=== PATIENT | female | born 1950 | race Caucasian/White ===

== ENCOUNTER 2018-07-23 15:36 | Inpatient (IN) ==
[2018-07-23] MEDS ORDERED: SODIUM CHLORIDE 0.9% 1000ML 1,000 ML IV SCH ×2 (16:00)
[2018-07-23 16:34] LABS: Basophils # (auto) 0.02 K/uL (0-0.2); Basophils % (auto) 0.1 %; Hematocrit (blood only) 44.8 % (37-47); Hemoglobin 14.6 g/dL (12.0-16.0); Immature Granulocytes # (auto) 0.07 K/uL (0.00-0.02); Immature Granulocytes % (auto) 0.4 %; Lymphocytes # (auto) 0.92 K/uL (1.2-3.4); Lymphocytes % (auto) 5.3 %; Mean Corpuscular Hgb Conc 32.6 g/dL (32-36); Mean Corpuscular Volume 93.3 fL (80-100); Mean Platelet Volume 11.1 fL (7.4-10.4); Monocytes # (auto) 0.95 K/uL (0.11-0.59); Monocytes % (auto) 5.4 %; Neutrophils # (auto) 15.55 K/uL (1.4-6.5); Neutrophils % (auto) 88.8 %; Platelet Count 663 K/uL (130-400); RDW Coefficient of Variation 13.8 % (11.5-14.5); RDW Standard Deviation 46.7 fL (36.4-46.3); White Blood Count 17.51 K/uL (4.8-10.8)
[2018-07-23 16:43] LABS: Appearance Urine Clear (Clear); Bilirubin Urine Negative (Negative); Color Urine Yellow; Glucose Urine UA 3+ (Negative); Ketones Urine 1+ (Negative); Leukocyte Esterase Urine Negative (Negative); Nitrite Urine Negative (Negative); Protein Urine Negative (Negative); Specific Gravity Urine 1.035 (1.000-1.030); Urobilinogen Urine Negative (Negative)
[2018-07-23 16:52] LABS: Bacteria Urine Automated Negative (Negative); Cast Urine Automated 0 /lpf (0-5); WBC Urine Automated 0 /hpf (0-5)
--- NOTE | 2018-07-23 16:59 | XRay Report ---
XR chest 1V portable CLINICAL HISTORY: 67 years-old Female presenting with weakness, contusion. TECHNIQUE: Portable upright AP view of the chest was obtained. COMPARISON: 09/19/2014. FINDINGS: Atherosclerosis of the aortic arch. Cardiac silhouette mildly enlarged. Lungs and pleural spaces calli r. Degenerative changes of the thoracic spine. Upper abdomen normal. IMPRESSION: 1. Mild cardiomegaly. No other convincing evidence of acute cardiopulmonary disease. Electronically signed by: Norm Gold M.D. 07/23/2018 4:58 PM
[2018-07-23 17:05] LABS: Albumin Globulin Ratio 0.7 (0.9-2); Albumin Level 3.3 gm/dl (3.4-5.0); BUN Creatinine Ratio 34.5 (10-20); Bilirubin,Total 2.2 mg/dl (0.2-1); Calcium 9.7 mg/dl (8.5-10.1); Creatinine Clr Calc Pharmacy 34.4 ml/min; Est GFR (African American) 45.5; Est GFR (Non-African American) 39.3; Globulin 4.6 gm/dl (2.5-4.0); Magnesium 2.6 mg/dl (1.8-2.4); Potassium 4.3 mmol/L (3.5-5.1); Total Protein 7.9 gm/dl (6.4-8.2)
[2018-07-23] MEDS ORDERED: SODIUM CHLORIDE 0.9% 1000ML 1,000 ML IV ONE (17:06)
[2018-07-23] MEDS ORDERED: MODERATE STRESS LEVEL ONE (17:25)
[2018-07-23] MEDS ORDERED: HHS GOAL RANGE 250-350 mg/dl ONE (17:25)
[2018-07-23] MEDS ORDERED: INSULIN REGULAR 250 UNITS in SODIUM CHLORIDE 0.9% 247.5 ML IV SCH ×2 (17:30→23:41)
[2018-07-23 17:38] LABS: Base Excess VBG -2.6 mEq/L; pH VBG 7.37 (7.36-7.41)
[2018-07-23] MEDS ORDERED: NovoLIN-R BOLUS FROM BAG IV ONE (17:38)
[2018-07-23] MEDS ORDERED: metroNIDAZOLE 500 MG/100 ML BAG IV STA (19:48)
[2018-07-23 20:21] LABS: Partial Thromboplastin Ratio 1.1; Partial Thromboplastin Time 29.4 Seconds (21.0-31.0)
[2018-07-23 20:25] LABS: Troponin I 0.476 ng/ml (0-0.045)
--- NOTE | 2018-07-23 21:03 | CT Scan Report ---
CT head/brain wo con CT DOSE: 537.48 mGy.cm HISTORY: Mental status change melvina cordero TECHNIQUE: Multiaxial CT images of the head were performed without the use of intravenous contrast. A dose lowering technique was utilized adhering to the principles of ALARA. Comparison: 09/19/2014 Findings: The paranasal sinuses and mastoid air cells are clear. Evidence for a prior right frontal t emporal rather extensive infarct. Evidence for an aneurysm clipping procedure the anterior interhemis pheric fissure region. No acute intracranial hemorrhage. No midline shift. Impression: 1. 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 2. Postoperative changes as noted. 3. No acute intracranial abnormality. The above report was generated using voice recognition software. It may contain grammatical, syntax or spelling errors. Electronically signed by: Idris Hopson M.D. 07/23/2018 9:02 PM
--- NOTE | 2018-07-23 21:11 | History & Physical Report ---
Date of Service July 23, 2018 Assessment & Plan (1) Encephalopathy: Multifactorial : Hyperglycemic crisis DM2 insulin requiring, suboptimal control at baseline recent outpatient hemoglobin A1c of 11.25 June 2018 Possible precipitants : Dietary indiscretion ? Diarrheal illness rule out C. difficile possible sepsis ARF, clinical dehydration secondary to above hypertensive urgency secondary to illness Troponin elevation secondary to sepsis, uncontrolled BP history CVA as per records history of subarachnoid hemorrhage secondary to cerebral aneurysm status post coil embolization (2014) seizure disorder, stable on regimen past tobacco abuse PCU Facilitate antihypertensive meds, may need titration Hold home PONCHO inhibitor, diuretics until creatinine at baseline IVF, IV insulin Increase basal Lantus May need glycemic control consult Diabetic education Follow troponin, TTE RE troponin elevation Stool C. difficile, Flagyl for now for presumptive C. difficile given possible sepsis; oral vancomycin course if stool C. difficile positive PT OT eval DVT prophylaxis. Lovenox subcu Full code Patient's daughter requesting updates from providers. Ms. Yuliya Remy, contact #[phone]. History of Present Illness Chief Complaint: High sugars, confusion Primary Care Provider: Alyson Nava History obtained from patient, family, and records. Medical history significant for hypertension, DM 2 insulin requiring, PSVT as per records, history CVA, history of subarachnoid hemorrhage secondary to cerebral aneurysm status post coil embolization (2014), essential tremors, history of seizure disorder, past tobacco abuse. Patient noted to be intermittently confused in the last week. Weak, thirsty, loose stools noted, nonbloody. No known sick contacts, recent travel, recent antibiotics. Transient achy headache symptoms this a.m. Achy abdominal cramping, with nausea. No chest pain, no S OB. Admits to not being careful about what she eats. BG is noted to be 600s at home. Patient directed by PCP to the ER. At the ER, IV insulin started for BSG of 1000. Medical History as above Surgical History : PEG tube, knee surgery, tracheostomy, hysterectomy Family History : Heart disease, lupus, thyroid cancer, cirrhosis Personal/Social history : Past tobacco abuse, occasional EtOH intake, retired restaurant employee Allergies Allergy/AdvReac Type Severity Reaction Status Date / Time Penicillins Allergy Severe THROAT Verified 07/23/18 17:11 SWELLS Home Medications Home Medications Medication Instructions Recorded Confirmed Type albuterol sulfate [ProAir HFA] 2 puff INHALATION QID 07/23/18 07/23/18 History aspirin [Aspir-81] 81 mg PO QAM 07/23/18 07/23/18 History atorvastatin 40 mg PO PM 07/23/18 07/23/18 History cetirizine [Zyrtec] 5 mg PO QAM 07/23/18 07/23/18 History famotidine 20 mg PO BID 07/23/18 07/23/18 History insulin glargine [Lantus U-100 30 unit SUBCUT QAM 07/23/18 07/23/18 History Insulin] levetiracetam [Keppra] 500 mg PO BID 07/23/18 07/23/18 History lisinopril-hydrochlorothiazide 0.5 tab PO QAM 07/23/18 07/23/18 History metformin 1,000 mg PO BIDM 07/23/18 07/23/18 History metoprolol succinate 50 mg PO QAM 07/23/18 07/23/18 History Past Med/Surg History Medical History HTN (hypertension) (Chronic) Fibromyalgia (Chronic) Diabetes (Chronic) Brain aneurysm History of stroke Family History Other Cirrhosis of liver not due to alcohol Social History Current Living Situation: Alone Current Living Situation Comment: Caregivers daily. 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 Review of Systems As per HPI, all 10 systems reviewed, all other ROS negative Physical Exam 2 Vital Signs (Past 24 Hours): Last Vital Signs Temp 36.5 C 07/23/18 15:43 Pulse 91 H 07/23/18 19:28 Resp 20 07/23/18 19:28 BP 175/91 H 07/23/18 19:28 Pulse Ox 95 07/23/18 19:28 Physical Exam: GENERAL: Slightly uncomfortable, tremulous, no respiratory distress SKIN: Normal color, warm HEENT: [place] palpebral conjunctivae, no ptosis, dry buccal mucosa NECK : Supple, no tenderness CHEST : Decreased effort , no tenderness HEART : RRR, no obvious murmurs ABDOMEN: Some distention, hypogastric tenderness EXTREMITIES : No LE swelling/tenderness, no other conspicuous deformities noted NEUROLOGIC : Coherent, no facial asymmetry, tremulous, MMT RUE 5/5, LUE 4/5, gait and stance not assessed Results & Data Laboratory Results Laboratory Results WBC 17.51 K/uL (4.8-10.8) H 07/23/18 16:17 RBC 4.80 M/uL (4.2-5.4) 07/23/18 16:17 Hgb 14.6 g/dL (12.0-16.0) 07/23/18 16:17 Hct 44.8 % (37-47) 07/23/18 16:17 MCV 93.3 fL (80-100) 07/23/18 16:17 MCH 30.4 pg (25-34) 07/23/18 16:17 MCHC 32.6 g/dL (32-36) 07/23/18 16:17 RDW Std Deviation 46.7 fL (36.4-46.3) H 07/23/18 16:17 RDW Coeff of Min 13.8 % (11.5-14.5) 07/23/18 16:17 Plt Count 663 K/uL (130-400) H 07/23/18 16:17 MPV 11.1 fL (7.4-10.4) H 07/23/18 16:17 Immature Gran % (Auto) 0.4 % 07/23/18 16:17 Neut % (Auto) 88.8 % 07/23/18 16:17 Lymph % (Auto) 5.3 % 07/23/18 16:17 [place] % (Auto) 5.4 % 07/23/18 16:17 Eos % (Auto) 0.0 % 07/23/18 16:17 Baso % (Auto) 0.1 % 07/23/18 16:17 Immature Gran # (Auto) 0.07 K/uL (0.00-0.02) H 07/23/18 16:17 Neut # (Auto) 15.55 K/uL (1.4-6.5) H 07/23/18 16:17 Lymph # (Auto) 0.92 K/uL (1.2-3.4) L 07/23/18 16:17 [place] # (Auto) 0.95 K/uL (0.11-0.59) H 07/23/18 16:17 Eos # (Auto) 0.00 K/uL (0-0.5) 07/23/18 16:17 Baso # (Auto) 0.02 K/uL (0-0.2) 07/23/18 16:17 APTT 29.4 Seconds (21.0-31.0) 07/23/18 16:17 PTT Ratio 1.1 07/23/18 16:17 ABG pH Cancelled 07/23/18 17:11 ABG pCO2 Cancelled 07/23/18 17:11 ABG pO2 Cancelled 07/23/18 17:11 ABG HCO3 Cancelled 07/23/18 17:11 ABG O2 Saturation Cancelled 07/23/18 17:11 ABG Base Excess Cancelled 07/23/18 17:11 [place] Test Cancelled 07/23/18 17:11 VBG pH 7.37 (7.36-7.41) 07/23/18 17:11 VBG pCO2 40 mmHg (38-50) 07/23/18 17:11 VBG pO2 35 mmHg 07/23/18 17:11 VBG HCO3 22 mmol/L 07/23/18 17:11 VBG O2 Saturation 66.0 % 07/23/18 17:11 VBG Base Excess -2.6 mEq/L 07/23/18 17:11 Barometric Pressure 738.7 mm/Hg 07/23/18 17:11 Oxygen Given Cancelled 07/23/18 17:11 Sodium 134 mmol/L (136-145) L 07/23/18 16:17 Potassium 4.3 mmol/L (3.5-5.1) 07/23/18 16:17 Chloride 99 mmol/L (98-107) 07/23/18 16:17 Carbon Dioxide 19 mmol/L (21-32) L 07/23/18 16:17 Anion Gap 16.0 (3-11) H 07/23/18 16:17 BUN 47 mg/dl (7-18) H 07/23/18 16:17 Creatinine 1.37 mg/dl (0.6-1.2) H 07/23/18 16:17 Est Cr Clr Drug Dosing 34.4 ml/min 07/23/18 16:17 Est GFR ( Amer) 45.5 07/23/18 16:17 Est GFR (Non-Af Amer) 39.3 07/23/18 16:17 BUN/Creatinine Ratio 34.5 (10-20) H 07/23/18 16:17 Glucose 771 mg/dl (70-99) H* 07/23/18 18:11 POC Glucose 531 (70-99) H* 07/23/18 20:36 Lactate 1.8 mmol/L (0.4-2.0) 07/23/18 16:17 Calcium 9.7 mg/dl (8.5-10.1) 07/23/18 16:17 Magnesium 2.6 mg/dl (1.8-2.4) H 07/23/18 16:17 Total Bilirubin 2.2 mg/dl (0.2-1) H 07/23/18 16:17 AST 14 U/L (15-37) L 07/23/18 16:17 ALT 25 U/L (12-78) 07/23/18 16:17 Alkaline Phosphatase 110 U/L (45-117) 07/23/18 16:17 Ammonia < 10.0 umol/L (11-32) L 07/23/18 17:11 Troponin I 0.476 ng/ml (0-0.045) H* 07/23/18 16:17 Total Protein 7.9 gm/dl (6.4-8.2) 07/23/18 16:17 Albumin 3.3 gm/dl (3.4-5.0) L 07/23/18 16:17 Globulin 4.6 gm/dl (2.5-4.0) H 07/23/18 16:17 Albumin/Globulin Ratio 0.7 (0.9-2) L 07/23/18 16:17 Beta-Hydroxybutyric Acd 30.33 mg/dl (0.2-2.81) H 07/23/18 18:11 TSH 0.865 uIu/ml (0.300-4.500) 07/23/18 16:17 Urine Color Yellow 07/23/18 16:27 Urine Appearance Clear (Clear) 07/23/18 16:27 Urine pH 5.0 (4.5-7.5) 07/23/18 16:27 Ur Specific [place] 1.035 (1.000-1.030) H 07/23/18 16:27 Urine Protein Negative (Negative) 07/23/18 16:27 Urine Glucose (UA) 3+ (Negative) H 07/23/18 16:27 Urine Ketones 1+ (Negative) H 07/23/18 16:27 Urine Blood Trace (Negative) H 07/23/18 16:27 Urine Nitrite Negative (Negative) 07/23/18 16:27 Urine Bilirubin Negative (Negative) 07/23/18 16:27 Urine Urobilinogen Negative (Negative) 07/23/18 16:27 Ur Leukocyte Esterase Negative (Negative) 07/23/18 16:27 Urine WBC (Auto) 0 /hpf (0-5) 07/23/18 16:27 Urine RBC (Auto) 0-4 /hpf (0-4) 07/23/18 16:27 U Hyaline Cast (Auto) 0 /lpf (0-5) 07/23/18 16:27 U Epithel Cells (Auto) 5-10 /lpf (0-5) H 07/23/18 16:27 Urine Bacteria (Auto) Negative (Negative) 07/23/18 16:27 Diagnostic Findings Chest x-ray: Cardiomegaly CT head: Old CVA right EKG as per my interpretation: Rate 100, NSR, LVH, ST depression lateral leads, T wave inversion septal leads
[2018-07-23 21:15] LABS: BUN Creatinine Ratio 34.3 (10-20); Creatinine Clr Calc Pharmacy 46.6 ml/min; Est GFR (African American) 65.8; Est GFR (Non-African American) 56.8; Troponin I 2.07 ng/ml (0-0.045)
[2018-07-23] MEDS ORDERED: ASPIRIN 325 MG ECTAB PO STA (21:19)
[2018-07-23] MEDS ORDERED: SODIUM CHLORIDE 0.9% 1000ML 1,000 ML IV STA (21:24)
[2018-07-23 22:13] LABS: Potassium 3.6 mmol/L (3.5-5.1)
[2018-07-23] MEDS: INSULIN GLARGINE SOLOSTAR 100 UNITS/ML 3 ML PEN SC SCH (22:49)
--- NOTE | 2018-07-23 23:18 | Emergency Department Note ---
Entered by Wing Sandoval acting as a scribe for Negar Driscoll MD History of Present Illness General Chief complaint: Hyperglycemia Stated complaint: BLOOD SUGAR OVER 600,CONFUSED,LETHARGIC,THIRSTY Source: patient and family (daughter) History of Present Illness Onset (ago): week(s) 1 Location: head (global) Pain Consistency: + other (persistent) Quality: + other (confusion/hyperglycemia) Associated symptoms: + headaches and + weakness The patient is a 67 year old female with diabetes who presents to the Emergency Room with persistent confusion and hyperglycemia for the past week. The daughter reports that the patient has been talking to people that are not present and slurring some of her words. She states that the patients blood glucose measured one hour ago was over 600. She reports that the patient was found to have six prepared meals from [employer] still in her fridge, and she believes that the patient has been drinking juice and eating candy. She notes that the patient has been having diarrhea for the past two days, and today she found diarrhea without blood on the carpet in the bathroom. She states that the patient has been weak and barely able to get out of bed. She had also been complaining of a headache a couple of hours ago. The patient notes some abdominal bloating but denies abdominal pain. She states that she has been urinating frequently. The daughter reports that the patient lives alone but has a caregiver visit daily. She notes a history of brain aneurysm and multiple strokes. She denies a history of liver problems but does note a family history of non-alcoholic cirrhosis of the liver. The patient denies alcohol use and states that she is a former smoker. Home Medications Home Medications Medication Instructions Recorded Confirmed Type albuterol sulfate [ProAir HFA] 2 puff INHALATION QID 07/23/18 07/23/18 History aspirin [Aspir-81] 81 mg PO QAM 07/23/18 07/23/18 History atorvastatin 40 mg PO PM 07/23/18 07/23/18 History cetirizine [Zyrtec] 5 mg PO QAM 07/23/18 07/23/18 History famotidine 20 mg PO BID 07/23/18 07/23/18 History insulin glargine [Lantus U-100 15 unit SUBCUT QAM 07/23/18 07/24/18 History Insulin] levetiracetam [Keppra] 500 mg PO BID 07/23/18 07/23/18 History lisinopril-hydrochlorothiazide 0.5 tab PO QAM 07/23/18 07/23/18 History metformin 1,000 mg PO BIDM 07/23/18 07/23/18 History metoprolol succinate 50 mg PO QAM 07/23/18 07/23/18 History Allergies Allergy/AdvReac Type Severity Reaction Status Date / Time Penicillins Allergy Severe THROAT Verified 07/23/18 17:11 SWELLS Past Med/Surg History Medical History HTN (hypertension) (Chronic) Fibromyalgia (Chronic) Diabetes (Chronic) Brain aneurysm History of stroke Family History Other Cirrhosis of liver not due to alcohol Social History Current Living Situation: Alone Current Living Situation Comment: Caregivers daily. Other Information That Helps Us Care for You: No Feels Safe at Home: Yes Safety Concerns: Feels Safe At This Time Smoking Status: Former smoker Hx Alcohol Use: No Hx Substance Use: No Beliefs That Will Affect Care: None Preferred Language: Turkmen Communication Ability: Effective Ore Roaster Required: No Review of Systems See HPI for pertinent positives & negatives. and A total of 10 systems reviewed and were otherwise negative Physical Exam Vital Signs Vital Signs - 24 hr 07/23/18 23:05 07/23/18 23:41 07/24/18 04:33 Temperature 36.8 C 36.8 C 37.1 C Temperature Source Oral Oral Oral Pulse Rate [Apical] 94 H 94 H 92 H Pulse Rhythm [Apical] Regular Regular Pulse Strength [Apical] Normal Normal Respiratory Rate 16 16 20 Respiratory Effort / Characteristics Non-Labored Spontaneous Non-Labored Respiratory Depth Normal Normal Respiratory Pattern Regular Blood Pressure [Left Arm] Blood Pressure [Right Arm] 174/80 H 174/80 H 163/86 H Blood Pressure Mean [Left Arm] Blood Pressure Mean [Right Arm] 111 111 111 Blood Pressure Position [Left Arm] Blood Pressure Position [Right Arm] Lying Lying Pulse Oximetry 92 94 Pulse Oximetry [Left Index Finger] 93 Oxygen Delivery Method Room Air Room Air Oxygen Delivery Method [Left Index Finger] Room Air 07/24/18 08:07 07/24/18 09:35 07/24/18 10:32 Temperature 37.1 C Temperature Source Oral Pulse Rate [Apical] 91 H Pulse Rhythm [Apical] Pulse Strength [Apical] Respiratory Rate 24 Respiratory Effort / Characteristics Respiratory Depth Respiratory Pattern Blood Pressure [Left Arm] 160/108 H 177/88 H Blood Pressure [Right Arm] 146/61 H Blood Pressure Mean [Left Arm] 125 117 Blood Pressure Mean [Right Arm] 89 Blood Pressure Position [Left Arm] Lying Lying Blood Pressure Position [Right Arm] Lying Pulse Oximetry 95 Pulse Oximetry [Left Index Finger] Oxygen Delivery Method Room Air Oxygen Delivery Method [Left Index Finger] 07/24/18 11:35 07/24/18 16:31 07/24/18 19:48 Temperature 36.8 C 37.4 C 37.6 C H Temperature Source Oral Oral Oral Pulse Rate [Apical] 89 90 94 H Pulse Rhythm [Apical] Regular Pulse Strength [Apical] Normal Respiratory Rate 18 18 20 Respiratory Effort / Characteristics Non-Labored Spontaneous Respiratory Depth Normal Normal Respiratory Pattern Regular Blood Pressure [Left Arm] 151/82 H 161/77 H 179/94 H Blood Pressure [Right Arm] Blood Pressure Mean [Left Arm] 105 105 122 Blood Pressure Mean [Right Arm] Blood Pressure Position [Left Arm] Lying Lying Blood Pressure Position [Right Arm] Lying Pulse Oximetry 94 92 94 Pulse Oximetry [Left Index Finger] Oxygen Delivery Method Room Air Room Air Room Air Oxygen Delivery Method [Left Index Finger] Vital signs reviewed. General: Chronically ill-appearing female, in no significant distress. HEENT: No scleral icterus, PERRLA, neck supple. Atraumatic. Mucous membranes are dry. Cardiovascular: Tachycardic rate and regular rhythm, no extra sounds. Pulmonary: Clear to auscultation bilaterally, normal work of breathing. Abdomen: Obese, soft, nontender, nondistended, positive bowel sounds. Musculoskeletal: Atraumatic, no peripheral edema. Neurologic: Patient is pleasantly confused, follows commands, answers some questions appropriately, full strength in all 4 extremities. Cranial nerves 2 through 12 grossly intact. Skin: Warm, dry, no rash Course 1558: Past medical records reviewed. The patient was evaluated in room A9B, and a complete history and physical examination were performed. 1705: The patients blood glucose is now 1052. 1745: I updated the patient and her daughter on current findings. 1800: I consulted Annel Martinez PA-C: [facility]. She will reevaluate the patient for hospitalization. 194: I contacted Dr. Yang Betancourt regarding the admission delay. He will reevaluate the patient for hospitalization. Consultations Consultation #1: I consulted Annel Martinez PA-C: [facility]. She will reevaluate the patient for hospitalization. Time: 18:00 Consultation #2: I contacted Dr. Yang Betancourt regarding the admission delay. He will reevaluate the patient for hospitalization. Time: 19:48 Administered Medications [facility] [place]: 08/23/18 08:59 Last Admin: 07/24/18 07:50 Dose: 81 mg Atorvastatin Calcium (Lipitor) 40 mg PO PM [facility] Stop: 08/23/18 20:59 Last Admin: 07/24/18 19:51 Dose: 40 mg Cetirizine HCl (Zyrtec) 5 mg PO QAM [facility] Stop: 08/23/18 08:59 Last Admin: 07/24/18 07:50 Dose: 5 mg Enoxaparin Sodium ([facility]ovenox) [facility] [place]: 08/23/18 08:59 Last Admin: 07/24/18 11:08 Dose: 30 mg Famotidine (Pepcid) 20 mg PO BID [facility] Stop: 08/23/18 08:59 Last Admin: 07/24/18 19:51 Dose: 20 mg Admin: 07/24/18 07:50 Dose: 20 mg Potassium Chloride/Sodium Chloride (1/2 Nss + 20meq Kcl 1000ml) 20 meq in 1, 000 mls @ 50 mls/hr IV .Q20H ONE Stop: 07/25/18 10:59 Last Admin: 07/24/18 15:30 Dose: 50 mls/hr Insulin Aspart (Novolog Flexpen) 0 units SC ACHS [facility] Stop: 08/23/18 06:29 Last Admin: 07/24/18 19:57 Dose: 2 units Admin: 07/24/18 17:47 Dose: 9 units Admin: 07/24/18 12:12 Dose: 6 units Admin: 07/24/18 07:53 Dose: 4 units Labetalol HCl (Normodyne) 10 mg IV Q6H PRN PRN Reason: Hypertension Stop: 08/23/18 09:14 Last Admin: 07/24/18 09:34 Dose: 10 mg Levetiracetam (Keppra) 500 mg PO BID [facility] Stop: 08/23/18 08:59 Last Admin: 07/24/18 19:53 Dose: 500 mg Admin: 07/24/18 07:50 Dose: 500 mg Lisinopril (Zestril) 10 mg PO QAM [facility] Stop: 08/23/18 01:29 Last Admin: 07/24/18 05:45 Dose: 10 mg Metoprolol Succinate (Toprol Xl) 50 mg PO QAM [facility] Stop: 08/23/18 04:59 Last Admin: 07/24/18 05:47 Dose: 50 mg Metoprolol Succinate (Toprol Xl) 25 mg PO QPM [facility] Stop: 08/23/18 20:59 Last Admin: 07/24/18 19:52 Dose: 25 mg Discontinued Medications Aspirin (Ecotrin) 81 mg PO NOW STA Stop: 07/23/18 21:20 Last Admin: 07/24/18 04:22 Dose: Not Given Sodium Chloride (Nss 1000ml) 1,000 mls @ 250 mls/hr IV .Q4H [facility] Stop: 07/23/18 19:59 Last Infusion: 07/23/18 22:25 Dose: 0 mls/hr Admin: 07/23/18 18:25 Dose: 250 mls/hr Sodium Chloride (Nss 1000ml) 1,000 mls @ 999 mls/hr IV .Q1H1M [facility] Stop: 07/23/18 17:00 Last Infusion: 07/23/18 17:20 Dose: 0 mls/hr Admin: 07/23/18 16:20 Dose: 999 mls/hr Sodium Chloride (Nss 1000ml) 1,000 mls @ 999 mls/hr IV .Q1H1M ONE Stop: 07/23/18 18:06 Last Infusion: 07/23/18 18:25 Dose: 0 mls/hr Admin: 07/23/18 17:25 Dose: 999 mls/hr Insulin Human Regular 250 (units/ Sodium Chloride) 250 mls @ 2 mls/hr IV .Q24H [facility]; Protocol Stop: 08/22/18 17:29 Last Titration: 07/24/18 07:19 Dose: 0 units/hr, 0 mls/hr Titration: 07/23/18 19:37 Dose: 2 units/hr, 2 mls/hr Admin: 07/23/18 18:03 Dose: 1.7 units/hr, 1.7 mls/hr Metronidazole (Flagyl) 500 mg in 100 mls @ 100 mls/hr IV NOW STA Stop: 07/23/18 20:47 Last Infusion: 07/23/18 22:48 Dose: 0 mls/hr Admin: 07/23/18 21:48 Dose: 100 mls/hr Sodium Chloride (Nss 1000ml) 1,000 mls @ 60 mls/hr IV .[id number] STA Stop: 07/24/18 14:03 Last Infusion: 07/24/18 04:24 Dose: 0 mls/hr Infusion: 07/24/18 04:19 Dose: 0 mls/hr Admin: 07/24/18 00:16 Dose: 60 mls/hr Sodium Chloride (1/2 Nss) 1,000 mls @ 60 mls/hr IV .[id number] STA Stop: 07/24/18 20:18 Last Infusion: 07/24/18 07:19 Dose: 0 mls/hr Admin: 07/24/18 04:19 Dose: 60 mls/hr Potassium Chloride/Sodium Chloride (1/2 Nss + 20meq Kcl 1000ml) 20 meq in 1, 000 mls @ 60 mls/hr IV .[id number] STA Stop: 07/24/18 23:16 Last Infusion: 07/24/18 09:17 Dose: 0 mls/hr Admin: 07/24/18 07:49 Dose: 60 mls/hr Insulin Glargine (Lantus Solostar Pen) 30 units SC BID [facility] Stop: 08/22/18 21:44 Last Admin: 07/24/18 07:51 Dose: 30 units Admin: 07/23/18 22:49 Dose: 30 units Insulin Glargine (Lantus Solostar Pen) 0 units SC 07/24/18@2100 [facility]; Protocol Stop: 07/24/18 21:01 Last Admin: 07/24/18 19:57 Dose: 12 units Insulin Human Regular (Novolin R Bolus From Bag) 1.5 units IV ONE ONE Stop: 07/23/18 17:39 Last Admin: 07/23/18 18:04 Dose: 1.5 units Metoprolol Tartrate (Lopressor) 12.5 mg PO NOW STA Stop: 07/23/18 23:42 Last Admin: 07/24/18 01:29 Dose: 12.5 mg Miscellaneous (Insulin Protocol Moderate Stress Level) 1 ea N/A ONE ONE Stop: 07/23/18 17:26 Last Admin: 07/23/18 18:05 Dose: 1 ea Miscellaneous (Insulin Protocol Hhs Goal Range) 1 ea N/A ONE ONE Stop: 07/23/18 17:26 Last Admin: 07/23/18 18:05 Dose: 1 ea Perflutren Lipid Microsphere (Definity) 2 ml IV ONCE ONE Stop: 07/24/18 07:19 Last Admin: 07/24/18 07:19 Dose: 2 ml Potassium Chloride (Klor-Con M10) 40 meq PO NOW ONE Stop: 07/24/18 08:01 Last Admin: 07/24/18 08:02 Dose: 40 meq Medical Decision Making Differential Diagnosis Differential diagnosis: Etiologies such as metabolic, infection, hyperglycemia, electrolyte abnormalities, cardiac sources, intracerebral event, toxicologic, neurologic, as well as others were entertained. Medical Records Attestation: I reviewed the patient's medical records. Home Medications Current Medication List: was personally reviewed by me Laboratory Data Attestation: I reviewed the patient's lab results. Result diagrams: 07/24/18 05:17 07/24/18 20:05 Lab Results 07/23/18 07/23/18 07/23/18 Range/Units 16:14 16:17 16:17 WBC 17.51 H (4.8-10.8) K/uL RBC 4.80 (4.2-5.4) M/uL Hgb 14.6 (12.0-16.0) g/dL Hct 44.8 (37-47) % MCV 93.3 (80-100) fL MCH 30.4 (25-34) pg MCHC 32.6 (32-36) g/dL RDW Std Deviation 46.7 H (36.4-46.3) fL RDW Coeff of Min 13.8 (11.5-14.5) % Plt Count 663 H (130-400) K/uL MPV 11.1 H (7.4-10.4) fL Immature Gran % (Auto) 0.4 % Neut % (Auto) 88.8 % Lymph % (Auto) 5.3 % [place] % (Auto) 5.4 % Eos % (Auto) 0.0 % Baso % (Auto) 0.1 % Immature Gran # (Auto) 0.07 H (0.00-0.02) K/uL Neut # (Auto) 15.55 H (1.4-6.5) K/uL Lymph # (Auto) 0.92 L (1.2-3.4) K/uL [place] # (Auto) 0.95 H (0.11-0.59) K/uL Eos # (Auto) 0.00 (0-0.5) K/uL Baso # (Auto) 0.02 (0-0.2) K/uL PT (9.0-12.0) Seconds INR (0.9-1.1) APTT (21.0-31.0) Seconds PTT Ratio ABG pH ABG pCO2 ABG pO2 ABG HCO3 ABG O2 Saturation ABG Base Excess [place] Test VBG pH (7.36-7.41) VBG pCO2 (38-50) mmHg VBG pO2 mmHg VBG HCO3 mmol/L VBG O2 Saturation % VBG Base Excess mEq/L Barometric Pressure Oxygen Given Sodium 134 L (136-145) mmol/L Potassium 4.3 (3.5-5.1) mmol/L Chloride 99 (98-107) mmol/L Carbon Dioxide 19 L (21-32) mmol/L Anion Gap 16.0 H (3-11) BUN 47 H (7-18) mg/dl Creatinine 1.37 H (0.6-1.2) mg/dl Est Cr Clr Drug Dosing 34.4 ml/min Est GFR ( Amer) 45.5 Est GFR (Non-Af Amer) 39.3 BUN/Creatinine Ratio 34.5 H (10-20) Glucose 1052 H* (70-99) mg/dl POC Glucose > 600 H* (70-99) Lactate (0.4-2.0) mmol/L Calcium 9.7 (8.5-10.1) mg/dl Magnesium 2.6 H (1.8-2.4) mg/dl Total Bilirubin 2.2 H (0.2-1) mg/dl AST 14 L (15-37) U/L ALT 25 (12-78) U/L Alkaline Phosphatase 110 (45-117) U/L Ammonia (11-32) umol/L Total Creatine Kinase (26-192) U/L Troponin I 0.476 H* (0-0.045) ng/ml Total Protein 7.9 (6.4-8.2) gm/dl Albumin 3.3 L (3.4-5.0) gm/dl Globulin 4.6 H (2.5-4.0) gm/dl Albumin/Globulin Ratio 0.7 L (0.9-2) Lipase (73-393) U/L Vitamin B12 (211-911) pg/ml Folate (>5.38) ng/ml Beta-Hydroxybutyric Acd 26.79 H (0.2-2.81) mg/dl TSH 0.865 (0.300-4.500) uIu/ml Urine Color Urine Appearance (Clear) Urine pH (4.5-7.5) Ur Specific [place] (1.000-1.030) Urine Protein (Negative) Urine Glucose (UA) (Negative) Urine Ketones (Negative) Urine Blood (Negative) Urine Nitrite (Negative) Urine Bilirubin (Negative) Urine Urobilinogen (Negative) Ur Leukocyte Esterase (Negative) Urine WBC (Auto) (0-5) /hpf Urine RBC (Auto) (0-4) /hpf U Hyaline Cast (Auto) (0-5) /lpf U Epithel Cells (Auto) (0-5) /lpf Urine Bacteria (Auto) (Negative) 07/23/18 07/23/18 07/23/18 Range/Units 16:17 16:17 16:17 WBC (4.8-10.8) K/uL RBC (4.2-5.4) M/uL Hgb (12.0-16.0) g/dL Hct (37-47) % MCV (80-100) fL MCH (25-34) pg MCHC (32-36) g/dL RDW Std Deviation (36.4-46.3) fL RDW Coeff of Min (11.5-14.5) % Plt Count (130-400) K/uL MPV (7.4-10.4) fL Immature Gran % (Auto) % Neut % (Auto) % Lymph % (Auto) % [place] % (Auto) % Eos % (Auto) % Baso % (Auto) % Immature Gran # (Auto) (0.00-0.02) K/uL Neut # (Auto) (1.4-6.5) K/uL Lymph # (Auto) (1.2-3.4) K/uL [place] # (Auto) (0.11-0.59) K/uL Eos # (Auto) (0-0.5) K/uL Baso # (Auto) (0-0.2) K/uL PT (9.0-12.0) Seconds INR (0.9-1.1) APTT 29.4 (21.0-31.0) Seconds PTT Ratio 1.1 ABG pH ABG pCO2 ABG pO2 ABG HCO3 ABG O2 Saturation ABG Base Excess [place] Test VBG pH (7.36-7.41) VBG pCO2 (38-50) mmHg VBG pO2 mmHg VBG HCO3 mmol/L VBG O2 Saturation % VBG Base Excess mEq/L Barometric Pressure Oxygen Given Sodium (136-145) mmol/L Potassium (3.5-5.1) mmol/L Chloride (98-107) mmol/L Carbon Dioxide (21-32) mmol/L Anion Gap (3-11) BUN (7-18) mg/dl Creatinine (0.6-1.2) mg/dl Est Cr Clr Drug Dosing ml/min Est GFR ( Amer) Est GFR (Non-Af Amer) BUN/Creatinine Ratio (10-20) Glucose (70-99) mg/dl POC Glucose (70-99) Lactate 1.8 (0.4-2.0) mmol/L Calcium (8.5-10.1) mg/dl Magnesium (1.8-2.4) mg/dl Total Bilirubin (0.2-1) mg/dl AST (15-37) U/L ALT (12-78) U/L Alkaline Phosphatase (45-117) U/L Ammonia (11-32) umol/L Total Creatine Kinase (26-192) U/L Troponin I Cancelled (0-0.045) ng/ml Total Protein (6.4-8.2) gm/dl Albumin (3.4-5.0) gm/dl Globulin (2.5-4.0) gm/dl Albumin/Globulin Ratio (0.9-2) Lipase (73-393) U/L Vitamin B12 (211-911) pg/ml Folate (>5.38) ng/ml Beta-Hydroxybutyric Acd (0.2-2.81) mg/dl TSH (0.300-4.500) uIu/ml Urine Color Urine Appearance (Clear) Urine pH (4.5-7.5) Ur Specific [place] (1.000-1.030) Urine Protein (Negative) Urine Glucose (UA) (Negative) Urine Ketones (Negative) Urine Blood (Negative) Urine Nitrite (Negative) Urine Bilirubin (Negative) Urine Urobilinogen (Negative) Ur Leukocyte Esterase (Negative) Urine WBC (Auto) (0-5) /hpf Urine RBC (Auto) (0-4) /hpf U Hyaline Cast (Auto) (0-5) /lpf U Epithel Cells (Auto) (0-5) /lpf Urine Bacteria (Auto) (Negative) 07/23/18 07/23/18 07/23/18 Range/Units 16:27 17:11 17:11 WBC (4.8-10.8) K/uL RBC (4.2-5.4) M/uL Hgb (12.0-16.0) g/dL Hct (37-47) % MCV (80-100) fL MCH (25-34) pg MCHC (32-36) g/dL RDW Std Deviation (36.4-46.3) fL RDW Coeff of Min (11.5-14.5) % Plt Count (130-400) K/uL MPV (7.4-10.4) fL Immature Gran % (Auto) % Neut % (Auto) % Lymph % (Auto) % [place] % (Auto) % Eos % (Auto) % Baso % (Auto) % Immature Gran # (Auto) (0.00-0.02) K/uL Neut # (Auto) (1.4-6.5) K/uL Lymph # (Auto) (1.2-3.4) K/uL [place] # (Auto) (0.11-0.59) K/uL Eos # (Auto) (0-0.5) K/uL Baso # (Auto) (0-0.2) K/uL PT (9.0-12.0) Seconds INR (0.9-1.1) APTT (21.0-31.0) Seconds PTT Ratio ABG pH Cancelled ABG pCO2 Cancelled ABG pO2 Cancelled ABG HCO3 Cancelled ABG O2 Saturation Cancelled ABG Base Excess Cancelled [place] Test Cancelled VBG pH (7.36-7.41) VBG pCO2 (38-50) mmHg VBG pO2 mmHg VBG HCO3 mmol/L VBG O2 Saturation % VBG Base Excess mEq/L Barometric Pressure Cancelled Oxygen Given Cancelled Sodium (136-145) mmol/L Potassium (3.5-5.1) mmol/L Chloride (98-107) mmol/L Carbon Dioxide (21-32) mmol/L Anion Gap (3-11) BUN (7-18) mg/dl Creatinine (0.6-1.2) mg/dl Est Cr Clr Drug Dosing ml/min Est GFR ( Amer) Est GFR (Non-Af Amer) BUN/Creatinine Ratio (10-20) Glucose (70-99) mg/dl POC Glucose (70-99) Lactate (0.4-2.0) mmol/L Calcium (8.5-10.1) mg/dl Magnesium (1.8-2.4) mg/dl Total Bilirubin (0.2-1) mg/dl AST (15-37) U/L ALT (12-78) U/L Alkaline Phosphatase (45-117) U/L Ammonia < 10.0 L (11-32) umol/L Total Creatine Kinase (26-192) U/L Troponin I (0-0.045) ng/ml Total Protein (6.4-8.2) gm/dl Albumin (3.4-5.0) gm/dl Globulin (2.5-4.0) gm/dl Albumin/Globulin Ratio (0.9-2) Lipase (73-393) U/L Vitamin B12 (211-911) pg/ml Folate (>5.38) ng/ml Beta-Hydroxybutyric Acd (0.2-2.81) mg/dl TSH (0.300-4.500) uIu/ml Urine Color Yellow Urine Appearance Clear (Clear) Urine pH 5.0 (4.5-7.5) Ur Specific [place] 1.035 H (1.000-1.030) Urine Protein Negative (Negative) Urine Glucose (UA) 3+ H (Negative) Urine Ketones 1+ H (Negative) Urine Blood Trace H (Negative) Urine Nitrite Negative (Negative) Urine Bilirubin Negative (Negative) Urine Urobilinogen Negative (Negative) Ur Leukocyte Esterase Negative (Negative) Urine WBC (Auto) 0 (0-5) /hpf Urine RBC (Auto) 0-4 (0-4) /hpf U Hyaline Cast (Auto) 0 (0-5) /lpf U Epithel Cells (Auto) 5-10 H (0-5) /lpf Urine Bacteria (Auto) Negative (Negative) 07/23/18 07/23/18 07/23/18 Range/Units 17:11 18:11 19:34 WBC (4.8-10.8) K/uL RBC (4.2-5.4) M/uL Hgb (12.0-16.0) g/dL Hct (37-47) % MCV (80-100) fL MCH (25-34) pg MCHC (32-36) g/dL RDW Std Deviation (36.4-46.3) fL RDW Coeff of Min (11.5-14.5) % Plt Count (130-400) K/uL MPV (7.4-10.4) fL Immature Gran % (Auto) % Neut % (Auto) % Lymph % (Auto) % [place] % (Auto) % Eos % (Auto) % Baso % (Auto) % Immature Gran # (Auto) (0.00-0.02) K/uL Neut # (Auto) (1.4-6.5) K/uL Lymph # (Auto) (1.2-3.4) K/uL [place] # (Auto) (0.11-0.59) K/uL Eos # (Auto) (0-0.5) K/uL Baso # (Auto) (0-0.2) K/uL PT (9.0-12.0) Seconds INR (0.9-1.1) APTT (21.0-31.0) Seconds PTT Ratio ABG pH ABG pCO2 ABG pO2 ABG HCO3 ABG O2 Saturation ABG Base Excess [place] Test VBG pH 7.37 (7.36-7.41) VBG pCO2 40 (38-50) mmHg VBG pO2 35 mmHg VBG HCO3 22 mmol/L VBG O2 Saturation 66.0 % VBG Base Excess -2.6 mEq/L Barometric Pressure 738.7 Oxygen Given Sodium (136-145) mmol/L Potassium (3.5-5.1) mmol/L Chloride (98-107) mmol/L Carbon Dioxide (21-32) mmol/L Anion Gap (3-11) BUN (7-18) mg/dl Creatinine (0.6-1.2) mg/dl Est Cr Clr Drug Dosing ml/min Est GFR ( Amer) Est GFR (Non-Af Amer) BUN/Creatinine Ratio (10-20) Glucose 771 H* (70-99) mg/dl POC Glucose 547 H* (70-99) Lactate (0.4-2.0) mmol/L Calcium (8.5-10.1) mg/dl Magnesium (1.8-2.4) mg/dl Total Bilirubin (0.2-1) mg/dl AST (15-37) U/L ALT (12-78) U/L Alkaline Phosphatase (45-117) U/L Ammonia (11-32) umol/L Total Creatine Kinase (26-192) U/L Troponin I (0-0.045) ng/ml Total Protein (6.4-8.2) gm/dl Albumin (3.4-5.0) gm/dl Globulin (2.5-4.0) gm/dl Albumin/Globulin Ratio (0.9-2) Lipase (73-393) U/L Vitamin B12 (211-911) pg/ml Folate (>5.38) ng/ml Beta-Hydroxybutyric Acd 30.33 H (0.2-2.81) mg/dl TSH (0.300-4.500) uIu/ml Urine Color Urine Appearance (Clear) Urine pH (4.5-7.5) Ur Specific [place] (1.000-1.030) Urine Protein (Negative) Urine Glucose (UA) (Negative) Urine Ketones (Negative) Urine Blood (Negative) Urine Nitrite (Negative) Urine Bilirubin (Negative) Urine Urobilinogen (Negative) Ur Leukocyte Esterase (Negative) Urine WBC (Auto) (0-5) /hpf Urine RBC (Auto) (0-4) /hpf U Hyaline Cast (Auto) (0-5) /lpf U Epithel Cells (Auto) (0-5) /lpf Urine Bacteria (Auto) (Negative) 07/23/18 07/23/18 07/23/18 Range/Units 19:35 20:21 20:35 WBC (4.8-10.8) K/uL RBC (4.2-5.4) M/uL Hgb (12.0-16.0) g/dL Hct (37-47) % MCV (80-100) fL MCH (25-34) pg MCHC (32-36) g/dL RDW Std Deviation (36.4-46.3) fL RDW Coeff of Min (11.5-14.5) % Plt Count (130-400) K/uL MPV (7.4-10.4) fL Immature Gran % (Auto) % Neut % (Auto) % Lymph % (Auto) % [place] % (Auto) % Eos % (Auto) % Baso % (Auto) % Immature Gran # (Auto) (0.00-0.02) K/uL Neut # (Auto) (1.4-6.5) K/uL Lymph # (Auto) (1.2-3.4) K/uL [place] # (Auto) (0.11-0.59) K/uL Eos # (Auto) (0-0.5) K/uL Baso # (Auto) (0-0.2) K/uL PT (9.0-12.0) Seconds INR (0.9-1.1) APTT (21.0-31.0) Seconds PTT Ratio ABG pH ABG pCO2 ABG pO2 ABG HCO3 ABG O2 Saturation ABG Base Excess [place] Test VBG pH (7.36-7.41) VBG pCO2 (38-50) mmHg VBG pO2 mmHg VBG HCO3 mmol/L VBG O2 Saturation % VBG Base Excess mEq/L Barometric Pressure Oxygen Given Sodium 146 H D (136-145) mmol/L Potassium 3.6 D (3.5-5.1) mmol/L Chloride 113 H (98-107) mmol/L Carbon Dioxide 24 (21-32) mmol/L Anion Gap 9.0 (3-11) BUN 35 H (7-18) mg/dl Creatinine 1.01 (0.6-1.2) mg/dl Est Cr Clr Drug Dosing 46.6 ml/min Est GFR ( Amer) 65.8 Est GFR (Non-Af Amer) 56.8 BUN/Creatinine Ratio 34.3 H (10-20) Glucose 542 H* (70-99) mg/dl POC Glucose 523 H* 499 H* (70-99) Lactate (0.4-2.0) mmol/L Calcium 9.0 (8.5-10.1) mg/dl Magnesium (1.8-2.4) mg/dl Total Bilirubin (0.2-1) mg/dl AST (15-37) U/L ALT (12-78) U/L Alkaline Phosphatase (45-117) U/L Ammonia (11-32) umol/L Total Creatine Kinase (26-192) U/L Troponin I 2.070 H* (0-0.045) ng/ml Total Protein (6.4-8.2) gm/dl Albumin (3.4-5.0) gm/dl Globulin (2.5-4.0) gm/dl Albumin/Globulin Ratio (0.9-2) Lipase 143 (73-393) U/L Vitamin B12 (211-911) pg/ml Folate (>5.38) ng/ml Beta-Hydroxybutyric Acd 12.58 H (0.2-2.81) mg/dl TSH (0.300-4.500) uIu/ml Urine Color Urine Appearance (Clear) Urine pH (4.5-7.5) Ur Specific [place] (1.000-1.030) Urine Protein (Negative) Urine Glucose (UA) (Negative) Urine Ketones (Negative) Urine Blood (Negative) Urine Nitrite (Negative) Urine Bilirubin (Negative) Urine Urobilinogen (Negative) Ur Leukocyte Esterase (Negative) Urine WBC (Auto) (0-5) /hpf Urine RBC (Auto) (0-4) /hpf U Hyaline Cast (Auto) (0-5) /lpf U Epithel Cells (Auto) (0-5) /lpf Urine Bacteria (Auto) (Negative) 07/23/18 07/23/18 07/23/18 Range/Units 20:36 21:45 21:46 WBC (4.8-10.8) K/uL RBC (4.2-5.4) M/uL Hgb (12.0-16.0) g/dL Hct (37-47) % MCV (80-100) fL MCH (25-34) pg MCHC (32-36) g/dL RDW Std Deviation (36.4-46.3) fL RDW Coeff of Min (11.5-14.5) % Plt Count (130-400) K/uL MPV (7.4-10.4) fL Immature Gran % (Auto) % Neut % (Auto) % Lymph % (Auto) % [place] % (Auto) % Eos % (Auto) % Baso % (Auto) % Immature Gran # (Auto) (0.00-0.02) K/uL Neut # (Auto) (1.4-6.5) K/uL Lymph # (Auto) (1.2-3.4) K/uL [place] # (Auto) (0.11-0.59) K/uL Eos # (Auto) (0-0.5) K/uL Baso # (Auto) (0-0.2) K/uL PT (9.0-12.0) Seconds INR (0.9-1.1) APTT (21.0-31.0) Seconds PTT Ratio ABG pH ABG pCO2 ABG pO2 ABG HCO3 ABG O2 Saturation ABG Base Excess [place] Test VBG pH (7.36-7.41) VBG pCO2 (38-50) mmHg VBG pO2 mmHg VBG HCO3 mmol/L VBG O2 Saturation % VBG Base Excess mEq/L Barometric Pressure Oxygen Given Sodium (136-145) mmol/L Potassium (3.5-5.1) mmol/L Chloride (98-107) mmol/L Carbon Dioxide (21-32) mmol/L Anion Gap (3-11) BUN (7-18) mg/dl Creatinine (0.6-1.2) mg/dl Est Cr Clr Drug Dosing ml/min Est GFR ( Amer) Est GFR (Non-Af Amer) BUN/Creatinine Ratio (10-20) Glucose (70-99) mg/dl POC Glucose 531 H* 421 H* 433 H* (70-99) Lactate (0.4-2.0) mmol/L Calcium (8.5-10.1) mg/dl Magnesium (1.8-2.4) mg/dl Total Bilirubin (0.2-1) mg/dl AST (15-37) U/L ALT (12-78) U/L Alkaline Phosphatase (45-117) U/L Ammonia (11-32) umol/L Total Creatine Kinase (26-192) U/L Troponin I (0-0.045) ng/ml Total Protein (6.4-8.2) gm/dl Albumin (3.4-5.0) gm/dl Globulin (2.5-4.0) gm/dl Albumin/Globulin Ratio (0.9-2) Lipase (73-393) U/L Vitamin B12 (211-911) pg/ml Folate (>5.38) ng/ml Beta-Hydroxybutyric Acd (0.2-2.81) mg/dl TSH (0.300-4.500) uIu/ml Urine Color Urine Appearance (Clear) Urine pH (4.5-7.5) Ur Specific [place] (1.000-1.030) Urine Protein (Negative) Urine Glucose (UA) (Negative) Urine Ketones (Negative) Urine Blood (Negative) Urine Nitrite (Negative) Urine Bilirubin (Negative) Urine Urobilinogen (Negative) Ur Leukocyte Esterase (Negative) Urine WBC (Auto) (0-5) /hpf Urine RBC (Auto) (0-4) /hpf U Hyaline Cast (Auto) (0-5) /lpf U Epithel Cells (Auto) (0-5) /lpf Urine Bacteria (Auto) (Negative) 07/23/18 07/23/18 07/24/18 Range/Units 22:48 23:48 00:14 WBC (4.8-10.8) K/uL RBC (4.2-5.4) M/uL Hgb (12.0-16.0) g/dL Hct (37-47) % MCV (80-100) fL MCH (25-34) pg MCHC (32-36) g/dL RDW Std Deviation (36.4-46.3) fL RDW Coeff of Min (11.5-14.5) % Plt Count (130-400) K/uL MPV (7.4-10.4) fL Immature Gran % (Auto) % Neut % (Auto) % Lymph % (Auto) % [place] % (Auto) % Eos % (Auto) % Baso % (Auto) % Immature Gran # (Auto) (0.00-0.02) K/uL Neut # (Auto) (1.4-6.5) K/uL Lymph # (Auto) (1.2-3.4) K/uL [place] # (Auto) (0.11-0.59) K/uL Eos # (Auto) (0-0.5) K/uL Baso # (Auto) (0-0.2) K/uL PT (9.0-12.0) Seconds INR (0.9-1.1) APTT 27.9 (21.0-31.0) Seconds PTT Ratio 1.1 ABG pH ABG pCO2 ABG pO2 ABG HCO3 ABG O2 Saturation ABG Base Excess [place] Test VBG pH (7.36-7.41) VBG pCO2 (38-50) mmHg VBG pO2 mmHg VBG HCO3 mmol/L VBG O2 Saturation % VBG Base Excess mEq/L Barometric Pressure Oxygen Given Sodium (136-145) mmol/L Potassium (3.5-5.1) mmol/L Chloride (98-107) mmol/L Carbon Dioxide (21-32) mmol/L Anion Gap (3-11) BUN (7-18) mg/dl Creatinine (0.6-1.2) mg/dl Est Cr Clr Drug Dosing ml/min Est GFR ( Amer) Est GFR (Non-Af Amer) BUN/Creatinine Ratio (10-20) Glucose (70-99) mg/dl POC Glucose 380 H* 333 H (70-99) Lactate (0.4-2.0) mmol/L Calcium (8.5-10.1) mg/dl Magnesium (1.8-2.4) mg/dl Total Bilirubin (0.2-1) mg/dl AST (15-37) U/L ALT (12-78) U/L Alkaline Phosphatase (45-117) U/L Ammonia (11-32) umol/L Total Creatine Kinase (26-192) U/L Troponin I (0-0.045) ng/ml Total Protein (6.4-8.2) gm/dl Albumin (3.4-5.0) gm/dl Globulin (2.5-4.0) gm/dl Albumin/Globulin Ratio (0.9-2) Lipase (73-393) U/L Vitamin B12 (211-911) pg/ml Folate (>5.38) ng/ml Beta-Hydroxybutyric Acd (0.2-2.81) mg/dl TSH (0.300-4.500) uIu/ml Urine Color Urine Appearance (Clear) Urine pH (4.5-7.5) Ur Specific [place] (1.000-1.030) Urine Protein (Negative) Urine Glucose (UA) (Negative) Urine Ketones (Negative) Urine Blood (Negative) Urine Nitrite (Negative) Urine Bilirubin (Negative) Urine Urobilinogen (Negative) Ur Leukocyte Esterase (Negative) Urine WBC (Auto) (0-5) /hpf Urine RBC (Auto) (0-4) /hpf U Hyaline Cast (Auto) (0-5) /lpf U Epithel Cells (Auto) (0-5) /lpf Urine Bacteria (Auto) (Negative) 07/24/18 07/24/18 07/24/18 Range/Units 00:14 00:46 01:50 WBC (4.8-10.8) K/uL RBC (4.2-5.4) M/uL Hgb (12.0-16.0) g/dL Hct (37-47) % MCV (80-100) fL MCH (25-34) pg MCHC (32-36) g/dL RDW Std Deviation (36.4-46.3) fL RDW Coeff of Min (11.5-14.5) % Plt Count (130-400) K/uL MPV (7.4-10.4) fL Immature Gran % (Auto) % Neut % (Auto) % Lymph % (Auto) % [place] % (Auto) % Eos % (Auto) % Baso % (Auto) % Immature Gran # (Auto) (0.00-0.02) K/uL Neut # (Auto) (1.4-6.5) K/uL Lymph # (Auto) (1.2-3.4) K/uL [place] # (Auto) (0.11-0.59) K/uL Eos # (Auto) (0-0.5) K/uL Baso # (Auto) (0-0.2) K/uL PT (9.0-12.0) Seconds INR (0.9-1.1) APTT (21.0-31.0) Seconds PTT Ratio ABG pH ABG pCO2 ABG pO2 ABG HCO3 ABG O2 Saturation ABG Base Excess [place] Test VBG pH (7.36-7.41) VBG pCO2 (38-50) mmHg VBG pO2 mmHg VBG HCO3 mmol/L VBG O2 Saturation % VBG Base Excess mEq/L Barometric Pressure Oxygen Given Sodium (136-145) mmol/L Potassium (3.5-5.1) mmol/L Chloride (98-107) mmol/L Carbon Dioxide (21-32) mmol/L Anion Gap (3-11) BUN (7-18) mg/dl Creatinine (0.6-1.2) mg/dl Est Cr Clr Drug Dosing ml/min Est GFR ( Amer) Est GFR (Non-Af Amer) BUN/Creatinine Ratio (10-20) Glucose (70-99) mg/dl POC Glucose 302 H 303 H (70-99) Lactate (0.4-2.0) mmol/L Calcium (8.5-10.1) mg/dl Magnesium (1.8-2.4) mg/dl Total Bilirubin (0.2-1) mg/dl AST (15-37) U/L ALT (12-78) U/L Alkaline Phosphatase (45-117) U/L Ammonia (11-32) umol/L Total Creatine Kinase (26-192) U/L Troponin I 2.500 H* (0-0.045) ng/ml Total Protein (6.4-8.2) gm/dl Albumin (3.4-5.0) gm/dl Globulin (2.5-4.0) gm/dl Albumin/Globulin Ratio (0.9-2) Lipase (73-393) U/L Vitamin B12 (211-911) pg/ml Folate (>5.38) ng/ml Beta-Hydroxybutyric Acd (0.2-2.81) mg/dl TSH (0.300-4.500) uIu/ml Urine Color Urine Appearance (Clear) Urine pH (4.5-7.5) Ur Specific [place] (1.000-1.030) Urine Protein (Negative) Urine Glucose (UA) (Negative) Urine Ketones (Negative) Urine Blood (Negative) Urine Nitrite (Negative) Urine Bilirubin (Negative) Urine Urobilinogen (Negative) Ur Leukocyte Esterase (Negative) Urine WBC (Auto) (0-5) /hpf Urine RBC (Auto) (0-4) /hpf U Hyaline Cast (Auto) (0-5) /lpf U Epithel Cells (Auto) (0-5) /lpf Urine Bacteria (Auto) (Negative) 07/24/18 07/24/18 07/24/18 Range/Units 02:46 03:50 04:46 WBC (4.8-10.8) K/uL RBC (4.2-5.4) M/uL Hgb (12.0-16.0) g/dL Hct (37-47) % MCV (80-100) fL MCH (25-34) pg MCHC (32-36) g/dL RDW Std Deviation (36.4-46.3) fL RDW Coeff of Min (11.5-14.5) % Plt Count (130-400) K/uL MPV (7.4-10.4) fL Immature Gran % (Auto) % Neut % (Auto) % Lymph % (Auto) % [place] % (Auto) % Eos % (Auto) % Baso % (Auto) % Immature Gran # (Auto) (0.00-0.02) K/uL Neut # (Auto) (1.4-6.5) K/uL Lymph # (Auto) (1.2-3.4) K/uL [place] # (Auto) (0.11-0.59) K/uL Eos # (Auto) (0-0.5) K/uL Baso # (Auto) (0-0.2) K/uL PT (9.0-12.0) Seconds INR (0.9-1.1) APTT (21.0-31.0) Seconds PTT Ratio ABG pH ABG pCO2 ABG pO2 ABG HCO3 ABG O2 Saturation ABG Base Excess [place] Test VBG pH (7.36-7.41) VBG pCO2 (38-50) mmHg VBG pO2 mmHg VBG HCO3 mmol/L VBG O2 Saturation % VBG Base Excess mEq/L Barometric Pressure Oxygen Given Sodium (136-145) mmol/L Potassium (3.5-5.1) mmol/L Chloride (98-107) mmol/L Carbon Dioxide (21-32) mmol/L Anion Gap (3-11) BUN (7-18) mg/dl Creatinine (0.6-1.2) mg/dl Est Cr Clr Drug Dosing ml/min Est GFR ( Amer) Est GFR (Non-Af Amer) BUN/Creatinine Ratio (10-20) Glucose (70-99) mg/dl POC Glucose 257 H 234 H 212 H (70-99) Lactate (0.4-2.0) mmol/L Calcium (8.5-10.1) mg/dl Magnesium (1.8-2.4) mg/dl Total Bilirubin (0.2-1) mg/dl AST (15-37) U/L ALT (12-78) U/L Alkaline Phosphatase (45-117) U/L Ammonia (11-32) umol/L Total Creatine Kinase (26-192) U/L Troponin I (0-0.045) ng/ml Total Protein (6.4-8.2) gm/dl Albumin (3.4-5.0) gm/dl Globulin (2.5-4.0) gm/dl Albumin/Globulin Ratio (0.9-2) Lipase (73-393) U/L Vitamin B12 (211-911) pg/ml Folate (>5.38) ng/ml Beta-Hydroxybutyric Acd (0.2-2.81) mg/dl TSH (0.300-4.500) uIu/ml Urine Color Urine Appearance (Clear) Urine pH (4.5-7.5) Ur Specific [place] (1.000-1.030) Urine Protein (Negative) Urine Glucose (UA) (Negative) Urine Ketones (Negative) Urine Blood (Negative) Urine Nitrite (Negative) Urine Bilirubin (Negative) Urine Urobilinogen (Negative) Ur Leukocyte Esterase (Negative) Urine WBC (Auto) (0-5) /hpf Urine RBC (Auto) (0-4) /hpf U Hyaline Cast (Auto) (0-5) /lpf U Epithel Cells (Auto) (0-5) /lpf Urine Bacteria (Auto) (Negative) 07/24/18 07/24/18 07/24/18 Range/Units 05:17 05:17 05:17 WBC 15.90 H (4.8-10.8) K/uL RBC 4.64 (4.2-5.4) M/uL Hgb 13.5 (12.0-16.0) g/dL Hct 41.4 (37-47) % MCV 89.2 (80-100) fL MCH 29.1 (25-34) pg MCHC 32.6 (32-36) g/dL RDW Std Deviation 44.1 (36.4-46.3) fL RDW Coeff of Min 13.5 (11.5-14.5) % Plt Count 613 H (130-400) K/uL MPV 10.7 H (7.4-10.4) fL Immature Gran % (Auto) 0.3 % Neut % (Auto) 82.3 % Lymph % (Auto) 6.9 % [place] % (Auto) 10.2 % Eos % (Auto) 0.1 % Baso % (Auto) 0.2 % Immature Gran # (Auto) 0.05 H (0.00-0.02) K/uL Neut # (Auto) 13.09 H (1.4-6.5) K/uL Lymph # (Auto) 1.10 L (1.2-3.4) K/uL [place] # (Auto) 1.62 H (0.11-0.59) K/uL Eos # (Auto) 0.01 (0-0.5) K/uL Baso # (Auto) 0.03 (0-0.2) K/uL PT (9.0-12.0) Seconds INR (0.9-1.1) APTT (21.0-31.0) Seconds PTT Ratio ABG pH ABG pCO2 ABG pO2 ABG HCO3 ABG O2 Saturation ABG Base Excess [place] Test VBG pH (7.36-7.41) VBG pCO2 (38-50) mmHg VBG pO2 mmHg VBG HCO3 mmol/L VBG O2 Saturation % VBG Base Excess mEq/L Barometric Pressure Oxygen Given Sodium 152 H (136-145) mmol/L Potassium 3.4 L (3.5-5.1) mmol/L Chloride 120 H (98-107) mmol/L Carbon Dioxide 26 (21-32) mmol/L Anion Gap 6.0 (3-11) BUN 21 H (7-18) mg/dl Creatinine 0.70 D (0.6-1.2) mg/dl Est Cr Clr Drug Dosing 69.8 ml/min Est GFR ( Amer) 102.5 Est GFR (Non-Af Amer) 88.4 BUN/Creatinine Ratio 30.2 H (10-20) Glucose 198 H (70-99) mg/dl POC Glucose (70-99) Lactate (0.4-2.0) mmol/L Calcium 8.6 (8.5-10.1) mg/dl Magnesium (1.8-2.4) mg/dl Total Bilirubin (0.2-1) mg/dl AST (15-37) U/L ALT (12-78) U/L Alkaline Phosphatase (45-117) U/L Ammonia (11-32) umol/L Total Creatine Kinase 146 (26-192) U/L Troponin I 2.440 H* (0-0.045) ng/ml Total Protein (6.4-8.2) gm/dl Albumin (3.4-5.0) gm/dl Globulin (2.5-4.0) gm/dl Albumin/Globulin Ratio (0.9-2) Lipase (73-393) U/L Vitamin B12 (211-911) pg/ml Folate (>5.38) ng/ml Beta-Hydroxybutyric Acd (0.2-2.81) mg/dl TSH (0.300-4.500) uIu/ml Urine Color Urine Appearance (Clear) Urine pH (4.5-7.5) Ur Specific [place] (1.000-1.030) Urine Protein (Negative) Urine Glucose (UA) (Negative) Urine Ketones (Negative) Urine Blood (Negative) Urine Nitrite (Negative) Urine Bilirubin (Negative) Urine Urobilinogen (Negative) Ur Leukocyte Esterase (Negative) Urine WBC (Auto) (0-5) /hpf Urine RBC (Auto) (0-4) /hpf U Hyaline Cast (Auto) (0-5) /lpf U Epithel Cells (Auto) (0-5) /lpf Urine Bacteria (Auto) (Negative) 07/24/18 07/24/18 07/24/18 Range/Units 05:47 06:32 07:27 WBC (4.8-10.8) K/uL RBC (4.2-5.4) M/uL Hgb (12.0-16.0) g/dL Hct (37-47) % MCV (80-100) fL MCH (25-34) pg MCHC (32-36) g/dL RDW Std Deviation (36.4-46.3) fL RDW Coeff of Min (11.5-14.5) % Plt Count (130-400) K/uL MPV (7.4-10.4) fL Immature Gran % (Auto) % Neut % (Auto) % Lymph % (Auto) % [place] % (Auto) % Eos % (Auto) % Baso % (Auto) % Immature Gran # (Auto) (0.00-0.02) K/uL Neut # (Auto) (1.4-6.5) K/uL Lymph # (Auto) (1.2-3.4) K/uL [place] # (Auto) (0.11-0.59) K/uL Eos # (Auto) (0-0.5) K/uL Baso # (Auto) (0-0.2) K/uL PT (9.0-12.0) Seconds INR (0.9-1.1) APTT (21.0-31.0) Seconds PTT Ratio ABG pH ABG pCO2 ABG pO2 ABG HCO3 ABG O2 Saturation ABG Base Excess [place] Test VBG pH (7.36-7.41) VBG pCO2 (38-50) mmHg VBG pO2 mmHg VBG HCO3 mmol/L VBG O2 Saturation % VBG Base Excess mEq/L Barometric Pressure Oxygen Given Sodium (136-145) mmol/L Potassium (3.5-5.1) mmol/L Chloride (98-107) mmol/L Carbon Dioxide (21-32) mmol/L Anion Gap (3-11) BUN (7-18) mg/dl Creatinine (0.6-1.2) mg/dl Est Cr Clr Drug Dosing ml/min Est GFR ( Amer) Est GFR (Non-Af Amer) BUN/Creatinine Ratio (10-20) Glucose (70-99) mg/dl POC Glucose 187 H 204 H 225 H (70-99) Lactate (0.4-2.0) mmol/L Calcium (8.5-10.1) mg/dl Magnesium (1.8-2.4) mg/dl Total Bilirubin (0.2-1) mg/dl AST (15-37) U/L ALT (12-78) U/L Alkaline Phosphatase (45-117) U/L Ammonia (11-32) umol/L Total Creatine Kinase (26-192) U/L Troponin I (0-0.045) ng/ml Total Protein (6.4-8.2) gm/dl Albumin (3.4-5.0) gm/dl Globulin (2.5-4.0) gm/dl Albumin/Globulin Ratio (0.9-2) Lipase (73-393) U/L Vitamin B12 (211-911) pg/ml Folate (>5.38) ng/ml Beta-Hydroxybutyric Acd (0.2-2.81) mg/dl TSH (0.300-4.500) uIu/ml Urine Color Urine Appearance (Clear) Urine pH (4.5-7.5) Ur Specific [place] (1.000-1.030) Urine Protein (Negative) Urine Glucose (UA) (Negative) Urine Ketones (Negative) Urine Blood (Negative) Urine Nitrite (Negative) Urine Bilirubin (Negative) Urine Urobilinogen (Negative) Ur Leukocyte Esterase (Negative) Urine WBC (Auto) (0-5) /hpf Urine RBC (Auto) (0-4) /hpf U Hyaline Cast (Auto) (0-5) /lpf U Epithel Cells (Auto) (0-5) /lpf Urine Bacteria (Auto) (Negative) 07/24/18 07/24/18 07/24/18 Range/Units 08:08 11:33 12:36 WBC (4.8-10.8) K/uL RBC (4.2-5.4) M/uL Hgb (12.0-16.0) g/dL Hct (37-47) % MCV (80-100) fL MCH (25-34) pg MCHC (32-36) g/dL RDW Std Deviation (36.4-46.3) fL RDW Coeff of Min (11.5-14.5) % Plt Count (130-400) K/uL MPV (7.4-10.4) fL Immature Gran % (Auto) % Neut % (Auto) % Lymph % (Auto) % [place] % (Auto) % Eos % (Auto) % Baso % (Auto) % Immature Gran # (Auto) (0.00-0.02) K/uL Neut # (Auto) (1.4-6.5) K/uL Lymph # (Auto) (1.2-3.4) K/uL [place] # (Auto) (0.11-0.59) K/uL Eos # (Auto) (0-0.5) K/uL Baso # (Auto) (0-0.2) K/uL PT 10.6 (9.0-12.0) Seconds INR 1.1 (0.9-1.1) APTT 28.0 (21.0-31.0) Seconds PTT Ratio 1.1 ABG pH ABG pCO2 ABG pO2 ABG HCO3 ABG O2 Saturation ABG Base Excess [place] Test VBG pH (7.36-7.41) VBG pCO2 (38-50) mmHg VBG pO2 mmHg VBG HCO3 mmol/L VBG O2 Saturation % VBG Base Excess mEq/L Barometric Pressure Oxygen Given Sodium 143 D (136-145) mmol/L Potassium 4.1 D (3.5-5.1) mmol/L Chloride 112 H (98-107) mmol/L Carbon Dioxide 25 (21-32) mmol/L Anion Gap 6.0 (3-11) BUN 21 H (7-18) mg/dl Creatinine 0.80 (0.6-1.2) mg/dl Est Cr Clr Drug Dosing 61.1 ml/min Est GFR ( Amer) 87.2 Est GFR (Non-Af Amer) 75.2 BUN/Creatinine Ratio 26.2 H (10-20) Glucose 335 H (70-99) mg/dl POC Glucose 267 H (70-99) Lactate (0.4-2.0) mmol/L Calcium 8.2 L (8.5-10.1) mg/dl Magnesium (1.8-2.4) mg/dl Total Bilirubin (0.2-1) mg/dl AST (15-37) U/L ALT (12-78) U/L Alkaline Phosphatase (45-117) U/L Ammonia (11-32) umol/L Total Creatine Kinase (26-192) U/L Troponin I (0-0.045) ng/ml Total Protein (6.4-8.2) gm/dl Albumin (3.4-5.0) gm/dl Globulin (2.5-4.0) gm/dl Albumin/Globulin Ratio (0.9-2) Lipase (73-393) U/L Vitamin B12 (211-911) pg/ml Folate (>5.38) ng/ml Beta-Hydroxybutyric Acd 3.63 H (0.2-2.81) mg/dl TSH (0.300-4.500) uIu/ml Urine Color Urine Appearance (Clear) Urine pH (4.5-7.5) Ur Specific [place] (1.000-1.030) Urine Protein (Negative) Urine Glucose (UA) (Negative) Urine Ketones (Negative) Urine Blood (Negative) Urine Nitrite (Negative) Urine Bilirubin (Negative) Urine Urobilinogen (Negative) Ur Leukocyte Esterase (Negative) Urine WBC (Auto) (0-5) /hpf Urine RBC (Auto) (0-4) /hpf U Hyaline Cast (Auto) (0-5) /lpf U Epithel Cells (Auto) (0-5) /lpf Urine Bacteria (Auto) (Negative) 07/24/18 07/24/18 07/24/18 Range/Units 16:32 19:55 20:05 WBC (4.8-10.8) K/uL RBC (4.2-5.4) M/uL Hgb (12.0-16.0) g/dL Hct (37-47) % MCV (80-100) fL MCH (25-34) pg MCHC (32-36) g/dL RDW Std Deviation (36.4-46.3) fL RDW Coeff of Min (11.5-14.5) % Plt Count (130-400) K/uL MPV (7.4-10.4) fL Immature Gran % (Auto) % Neut % (Auto) % Lymph % (Auto) % [place] % (Auto) % Eos % (Auto) % Baso % (Auto) % Immature Gran # (Auto) (0.00-0.02) K/uL Neut # (Auto) (1.4-6.5) K/uL Lymph # (Auto) (1.2-3.4) K/uL [place] # (Auto) (0.11-0.59) K/uL Eos # (Auto) (0-0.5) K/uL Baso # (Auto) (0-0.2) K/uL PT (9.0-12.0) Seconds INR (0.9-1.1) APTT (21.0-31.0) Seconds PTT Ratio ABG pH ABG pCO2 ABG pO2 ABG HCO3 ABG O2 Saturation ABG Base Excess [place] Test VBG pH (7.36-7.41) VBG pCO2 (38-50) mmHg VBG pO2 mmHg VBG HCO3 mmol/L VBG O2 Saturation % VBG Base Excess mEq/L Barometric Pressure Oxygen Given Sodium 141 (136-145) mmol/L Potassium 3.5 (3.5-5.1) mmol/L Chloride 113 H (98-107) mmol/L Carbon Dioxide 26 (21-32) mmol/L Anion Gap 2.0 L (3-11) BUN 15 (7-18) mg/dl Creatinine 0.76 (0.6-1.2) mg/dl Est Cr Clr Drug Dosing 64.3 ml/min Est GFR ( Amer) 92.8 Est GFR (Non-Af Amer) 80.0 BUN/Creatinine Ratio 19.5 (10-20) Glucose 175 H (70-99) mg/dl POC Glucose 352 H* 190 H (70-99) Lactate (0.4-2.0) mmol/L Calcium 8.4 L (8.5-10.1) mg/dl Magnesium (1.8-2.4) mg/dl Total Bilirubin (0.2-1) mg/dl AST (15-37) U/L ALT (12-78) U/L Alkaline Phosphatase (45-117) U/L Ammonia (11-32) umol/L Total Creatine Kinase 85 (26-192) U/L Troponin I (0-0.045) ng/ml Total Protein (6.4-8.2) gm/dl Albumin (3.4-5.0) gm/dl Globulin (2.5-4.0) gm/dl Albumin/Globulin Ratio (0.9-2) Lipase (73-393) U/L Vitamin B12 (211-911) pg/ml Folate (>5.38) ng/ml Beta-Hydroxybutyric Acd (0.2-2.81) mg/dl TSH (0.300-4.500) uIu/ml Urine Color Urine Appearance (Clear) Urine pH (4.5-7.5) Ur Specific [place] (1.000-1.030) Urine Protein (Negative) Urine Glucose (UA) (Negative) Urine Ketones (Negative) Urine Blood (Negative) Urine Nitrite (Negative) Urine Bilirubin (Negative) Urine Urobilinogen (Negative) Ur Leukocyte Esterase (Negative) Urine WBC (Auto) (0-5) /hpf Urine RBC (Auto) (0-4) /hpf U Hyaline Cast (Auto) (0-5) /lpf U Epithel Cells (Auto) (0-5) /lpf Urine Bacteria (Auto) (Negative) 07/24/18 07/24/18 Range/Units 20:05 20:42 WBC (4.8-10.8) K/uL RBC (4.2-5.4) M/uL Hgb (12.0-16.0) g/dL Hct (37-47) % MCV (80-100) fL MCH (25-34) pg MCHC (32-36) g/dL RDW Std Deviation (36.4-46.3) fL RDW Coeff of Min (11.5-14.5) % Plt Count (130-400) K/uL MPV (7.4-10.4) fL Immature Gran % (Auto) % Neut % (Auto) % Lymph % (Auto) % [place] % (Auto) % Eos % (Auto) % Baso % (Auto) % Immature Gran # (Auto) (0.00-0.02) K/uL Neut # (Auto) (1.4-6.5) K/uL Lymph # (Auto) (1.2-3.4) K/uL [place] # (Auto) (0.11-0.59) K/uL Eos # (Auto) (0-0.5) K/uL Baso # (Auto) (0-0.2) K/uL PT (9.0-12.0) Seconds INR (0.9-1.1) APTT (21.0-31.0) Seconds PTT Ratio ABG pH ABG pCO2 ABG pO2 ABG HCO3 ABG O2 Saturation ABG Base Excess [place] Test VBG pH (7.36-7.41) VBG pCO2 (38-50) mmHg VBG pO2 mmHg VBG HCO3 mmol/L VBG O2 Saturation % VBG Base Excess mEq/L Barometric Pressure Oxygen Given Sodium (136-145) mmol/L Potassium (3.5-5.1) mmol/L Chloride (98-107) mmol/L Carbon Dioxide (21-32) mmol/L Anion Gap (3-11) BUN (7-18) mg/dl Creatinine (0.6-1.2) mg/dl Est Cr Clr Drug Dosing ml/min Est GFR ( Amer) Est GFR (Non-Af Amer) BUN/Creatinine Ratio (10-20) Glucose (70-99) mg/dl POC Glucose 187 H (70-99) Lactate (0.4-2.0) mmol/L Calcium (8.5-10.1) mg/dl Magnesium (1.8-2.4) mg/dl Total Bilirubin (0.2-1) mg/dl AST (15-37) U/L ALT (12-78) U/L Alkaline Phosphatase (45-117) U/L Ammonia (11-32) umol/L Total Creatine Kinase (26-192) U/L Troponin I (0-0.045) ng/ml Total Protein (6.4-8.2) gm/dl Albumin (3.4-5.0) gm/dl Globulin (2.5-4.0) gm/dl Albumin/Globulin Ratio (0.9-2) Lipase (73-393) U/L Vitamin B12 340 (211-911) pg/ml Folate 10.79 (>5.38) ng/ml Beta-Hydroxybutyric Acd (0.2-2.81) mg/dl TSH (0.300-4.500) uIu/ml Urine Color Urine Appearance (Clear) Urine pH (4.5-7.5) Ur Specific [place] (1.000-1.030) Urine Protein (Negative) Urine Glucose (UA) (Negative) Urine Ketones (Negative) Urine Blood (Negative) Urine Nitrite (Negative) Urine Bilirubin (Negative) Urine Urobilinogen (Negative) Ur Leukocyte Esterase (Negative) Urine WBC (Auto) (0-5) /hpf Urine RBC (Auto) (0-4) /hpf U Hyaline Cast (Auto) (0-5) /lpf U Epithel Cells (Auto) (0-5) /lpf Urine Bacteria (Auto) (Negative) Imaging Data Radiologist's Impression: Radiology results as stated below per my review and the radiologist's interpretation: XR chest 1V portable CLINICAL HISTORY: 67 years-old Female presenting with weakness, contusion. TECHNIQUE: Portable upright AP view of the chest was obtained. COMPARISON: 09/19/2014. FINDINGS: Atherosclerosis of the aortic arch. Cardiac silhouette mildly enlarged. Lungs and pleural spaces clear. Degenerative changes of the thoracic spine. Upper abdomen normal. IMPRESSION: 1. Mild cardiomegaly. No other convincing evidence of acute cardiopulmonary disease. Electronically signed by: Norm Gold M.D. 07/23/2018 4:58 PM ECG Data Attestation: I personally reviewed and interpreted this ECG as follows: Indication: weakness Rate (beats per minute): 99 Rhythm: normal sinus (with SA) Findings: + other (LVH; repolarization abnormality noted; QTC is 472); no PAC and no PVC Blood Pressure Blood Pressure Findings: Elevated blood pressure Blood Pressure Disposition: further management by hospitalist SHELLY Narrative This patient was evaluated and appeared to be critically ill. Patient is tachycardic and more confused than usual. Patient's daughter states she is noncompliant with her medications regularly. Patient was hydrated with normal saline solution. Placed on the monitor car operator. Chest x-ray was obtained and is negative. CT scan of the head was performed and is negative. Laboratory work is concerning for a blood glucose of 1050. Patient does not appear to be significantly acidotic at this time, VBG pH of 7.37. Patient was started on insulin drip and will be evaluated by the hospitalist service for further management. Patient and daughter are aware of the plan and agree. Impression & Plan Hyperglycemic crisis in diabetes mellitus Critical Care Time I have personally spent 60 minutes of critical care time in the direct management of this patient. This includes bedside care, interpretation of diagnostic studies, and testing, discussion with consultants, patient, and family members, and other required patient management activities. This 60 minutes is in excess of all separately billable procedures. Critical Care Time: Yes Total Critical Care Time: 60 Discharge Plan Visit Data *Final* Discharge Date/Time: 07/23/18 23:00 Chief Complaint: Hyperglycemia Stated Complaint: BLOOD SUGAR OVER 600,CONFUSED,LETHARGIC,THIRSTY ED Provider: Negar Driscoll Discharge Problem: Hyperglycemic crisis in diabetes mellitus Patient Disposition: Admitted As Inpatient Discharge Instructions Interventions: ED Discharge Assessment Last Done: 07/23/18 23:00 The scribe's documentation has been prepared under my direction and personally reviewed by me in its entirety. I confirm that the note above accurately reflects all work, treatment, procedures, and medical decision making performed by me.
[2018-07-23] MEDS ORDERED: OXYCODONE HCL IR 5 MG TAB (IMMEDIATE RELEASE) PO PRN (23:41)
[2018-07-23] MEDS ORDERED: INSULIN PROTOCOL GOAL RANGE ONE (23:41)
[2018-07-23] MEDS ORDERED: PROCHLORPERAZINE 5 MG in SYRINGE 4 ML IV PRN (23:41)
[2018-07-23] MEDS ORDERED: METOPROLOL TARTRATE 25 MG TAB PO STA (23:41)
[2018-07-23] MEDS ORDERED: NITROGLYCERIN SL 0.4 MG/TAB TAB SL PRN (23:41)
[2018-07-23] MEDS ORDERED: SEVERE STRESS LEVEL ONE (23:41)
[2018-07-23] MEDS ORDERED: ACETAMINOPHEN 325 MG TAB PO PRN (23:41)
[2018-07-24 00:42] LABS: Partial Thromboplastin Ratio 1.1; Partial Thromboplastin Time 27.9 Seconds (21.0-31.0)
[2018-07-24] MEDS ORDERED: SODIUM CHLORIDE 0.45 % 1,000 ML IV STA (03:39)
[2018-07-24] MEDS: LISINOPRIL 10 MG TAB PO SCH (05:45)
[2018-07-24] MEDS: METOPROLOL SUCC 50MG EXT REL TAB PO SCH (05:47)
[2018-07-24] MEDS ORDERED: GLUCOSE 10 TABS/TUBE PO PRN (05:53)
[2018-07-24] MEDS ORDERED: GLUCOSE 40% GEL 15 GM TUBE PO PRN (05:53)
[2018-07-24] MEDS ORDERED: GLUCAGON FOR INJ 1 MG VIAL SQ PRN (05:53)
[2018-07-24] MEDS ORDERED: CARBOHYDRATES FOR HYPOGLYCEMIA PO PRN (05:53)
[2018-07-24] MEDS ORDERED: DEXTROSE 50% 50 ML SYRINGE IV PRN (05:53)
[2018-07-24 06:15] LABS: Basophils # (auto) 0.03 K/uL (0-0.2); Basophils % (auto) 0.2 %; Eosinophils # (auto) 0.01 K/uL (0-0.5); Eosinophils % (auto) 0.1 %; Hematocrit (blood only) 41.4 % (37-47); Hemoglobin 13.5 g/dL (12.0-16.0); Immature Granulocytes # (auto) 0.05 K/uL (0.00-0.02); Immature Granulocytes % (auto) 0.3 %; Lymphocytes % (auto) 6.9 %; Mean Corpuscular Hgb Conc 32.6 g/dL (32-36); Mean Corpuscular Volume 89.2 fL (80-100); Mean Platelet Volume 10.7 fL (7.4-10.4); Monocytes # (auto) 1.62 K/uL (0.11-0.59); Monocytes % (auto) 10.2 %; Neutrophils # (auto) 13.09 K/uL (1.4-6.5); Neutrophils % (auto) 82.3 %; Platelet Count 613 K/uL (130-400); RDW Coefficient of Variation 13.5 % (11.5-14.5); RDW Standard Deviation 44.1 fL (36.4-46.3); Red Blood Count 4.64 M/uL (4.2-5.4)
[2018-07-24] MEDS ORDERED: SODIUM CHLOR 0.45% + 20MEQ KCL 20 MEQ/1,000 ML BAG IV STA (06:37)
[2018-07-24 07:00] LABS: BUN Creatinine Ratio 30.2 (10-20); Calcium 8.6 mg/dl (8.5-10.1); Creatinine Clr Calc Pharmacy 69.8 ml/min; Est GFR (African American) 102.5; Est GFR (Non-African American) 88.4; Potassium 3.4 mmol/L (3.5-5.1); Troponin I 2.44 ng/ml (0-0.045)
[2018-07-24] MEDS ORDERED: PERFLUTREN LIPID MICROSPHERE (DEFINITY) IV ONE (07:18)
[2018-07-24] MEDS: ASPIRIN 81 MG ECTAB PO SCH (07:50)
[2018-07-24] MEDS: FAMOTIDINE 20 MG TAB PO SCH ×2 (07:50→19:51)
[2018-07-24] MEDS: CETIRIZINE HCL 10 MG TABLET PO SCH (07:50)
[2018-07-24] MEDS: levETIRAcetam 500 MG TAB PO SCH ×2 (07:50→19:53)
[2018-07-24] MEDS: INSULIN GLARGINE SOLOSTAR 100 UNITS/ML 3 ML PEN SC SCH (07:51)
[2018-07-24] MEDS: INSULIN ASPART 100 UNITS/ML 3 ML PEN SC SCH ×5 (07:53→23:57)
[2018-07-24] MEDS ORDERED: POTASSIUM CHLORIDE 10 MEQ TABCR PO ONE (08:00)
[2018-07-24 08:38] LABS: INR 1.1 (0.9-1.1); Partial Thromboplastin Ratio 1.1; Prothrombin Time 10.6 Seconds (9.0-12.0)
[2018-07-24] MEDS ORDERED: METOPROLOL SUCC 50MG EXT REL TAB PO SCH (09:00)
[2018-07-24] MEDS ORDERED: LISINOPRIL 10 MG TAB PO SCH (09:00)
[2018-07-24] MEDS ORDERED: INSULIN ASPART 100 UNITS/ML 3 ML PEN SC SCH (09:00)
[2018-07-24] MEDS ORDERED: LABETALOL HCL IV 5 MG/ML 20ML IV PRN (09:15)
--- NOTE | 2018-07-24 10:10 | Neurology Consultation ---
Date of Consultation July 24, 2018 Encephalopathy Hyperglycemia (Glucose>1000) IDDM HTN History of seizures Diarrhea Leukocytosis ARF Dehydration A 67 year old woman admitted for encephalopathy in the setting of blood glucose >700. Patient started on Insulin gtt. Neurology consulted for encephalopathy. - Patient awake and alert. Although disoriented and likely hallucinating. She does have a large amplitude tremor in the left hand which could be a marie tremor. There are case reports of marie tremor associated with hyperglycemia. - Blood glucose improved. Patient off insulin gtt. - Mucous membranes appear dry. Patient currently off IVF due to hypernatremia. - I suspect her encephalopathy / delirium is likly metabolic in etiology ( electrolyte abnormalities, PIERRE, dehydration, hyperglycemia). - If symptoms do not continue to improve, I would recommend MRI brain w/wo contrast - Would check B12, folate, thiamine, repeat UA, CK. - Recommend to continue current dose of home Keppra. - Recommend normalizing blood pressures, SBP<140, DBP<90 Will continue to follow. History of Present Illness Attending Physician: Shaq Shaw MD A 67 year old woman with history IDDm, HTN, intrcranial aneurysm s/p coiling, seizures, history of stroke admitted for encephalopathy. Patient found by daughter confused and hallucinating. Speech was noted to be surred. Home BG was noted to be above 600. Diarrhea found on flood. Patient noted to be very weak. The patient lives alone but has a caregiver visit daily. She notes a history of brain aneurysm and multiple strokes. She is on ASA. She denies a history of liver problems but does note a family history of non-alcoholic cirrhosis of the liver. Patient admitted and started on Insulin gtt. Noted to have hypernatremia, hypokalemia, elevated white count, and elevated blood glucose > 700. 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 UA was Negative Blood pressures elevated. Blood cultures pending Allergies Allergy/AdvReac Type Severity Reaction Status Date / Time Penicillins Allergy Severe THROAT Verified 07/23/18 17:11 [facility] Home Medications Home Medications Medication Instructions Recorded Confirmed Type albuterol sulfate [ProAir HFA] 2 puff INHALATION QID 07/23/18 07/23/18 History aspirin [Aspir-81] 81 mg PO QAM 07/23/18 07/23/18 History atorvastatin 40 mg PO PM 07/23/18 07/23/18 History cetirizine [Zyrtec] 5 mg PO QAM 07/23/18 07/23/18 History famotidine 20 mg PO BID 07/23/18 07/23/18 History insulin glargine [Lantus U-100 30 unit SUBCUT QAM 07/23/18 07/23/18 History Insulin] levetiracetam [Keppra] 500 mg PO BID 07/23/18 07/23/18 History lisinopril-hydrochlorothiazide 0.5 tab PO QAM 07/23/18 07/23/18 History metformin 1,000 mg PO BIDM 07/23/18 07/23/18 History metoprolol succinate 50 mg PO QAM 07/23/18 07/23/18 History Patient History Medical History HTN (hypertension) (Chronic) Fibromyalgia (Chronic) Diabetes (Chronic) Brain aneurysm History of stroke Family History Other Cirrhosis of liver not due to alcohol Social History Current Living Situation: Alone Current Living Situation Comment: Caregivers daily. Other Information That Helps Us Care for You: No Feels Safe at Home: Yes Safety Concerns: Feels Safe At This Time Smoking Status: Former smoker Hx Alcohol Use: No Hx Substance Use: No Beliefs That Will Affect Care: None Preferred Language: Indonesian Communication Ability: Effective Regional Operations Manager Required: No Physical Exam 2 Vital Signs (Past 24 Hours): Last Vital Signs Temp 37.1 C 07/24/18 08:07 Pulse 91 H 07/24/18 08:07 Resp 24 07/24/18 08:07 BP 177/88 H 07/24/18 09:35 Pulse Ox 95 07/24/18 08:07 Physical Exam: EXAM: Constitutional: appears acutely ill Face: normocephalic and atraumatic Eyes: normal lids, normal conjunctiva Neck: supple Respiratory: normal effort Cardiovascular: regular rhythm Skin: no rashes, lesions, or ulcers noted Psychiatric: flat affect, reporting animals in room NEUROLOGIC EXAMINATION: Appearance: acutely ill appearing Orientation: awake, alert and oriented to person, age, and year, (disoriented to hospital, city, season) Mental Status: alert Memory: POOR Attention: decreased Knowledge: Poor Language: comprehension is intact, she can repeat, oriented to left and right Speech: hoarse Cranial Nerves: CN 2 - no visual defect on confrontation and pupils round, equal, reactive to light CN 3, 4, 6 - extra-ocular movements intact CN 5 - facial sensation intact CN 7 - no facial asymmetry CN 8 - intact hearing CN 9, 10 - palate symmetric CN 11 - good shoulder shrug CN 12 - tongue midline Gait: deferred Coordination: biateral upper extremity action tremor Sensory: intact to light touch Muscle Tone: normal Muscle exam: No focal weakness noted in upper and lower extremities Reflexes: No clonus, negative boateng
--- NOTE | 2018-07-24 10:33 | Cardiology Consultation ---
Date of Consultation July 24, 2018 Assessment & Plan (1) Encephalopathy: Patient presented with profound hyperglycemia associated hypertensive urgency and encephalopathy. Slightly improved this morning glucose is trending downward blood pressure remains elevated. Would treat hypertension. PRN labetalol given and ordered by primary service. Will increase Toprol dosing adding p.m. dose today if blood pressures remain elevated would consider adding low-dose topical nitrates (2) Hyperglycemic hyperosmolar nonketotic coma: (3) HTN (hypertension): As above (4) Elevated troponin: EKGs echocardiogram do not suggest acute coronary syndrome troponins likely reflecting acute stressors and metabolic derangement of illness. We will continue to follow in hospital. Last stress testing was nonischemic 2015. LV systolic function is generally preserved with patient caring past history of apical stress-induced hypokinesis time of acute subarachnoid hemorrhage (5) SAH (subarachnoid hemorrhage): Status post coil embolism September 2014 Would recommend resuming aspirin when agreeable by neurology History of Present Illness Reason for Consultation: Elevated troponin, hypertensive urgency, hyperosmolar crisis Requesting Physician: Dr. Shaw Attending Physician: Shaq Shaw MD History of Present Illness Patient is a 67-year-old female only fair historian with mild confabulation this morning. Information is obtained from discussion with patient and review of records. 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 Clinical course during acute subarachnoid hemorrhage was notable for stress-induced cardiomyopathy with return to normal LV function. Patient presents this admission with charts and records reflecting several days history of elevated blood sugars increasing thirst headache and confusion. Family admits to patient eating poorly not taking medications as indicated. Possible diarrhea illness was noted at home. On ER presentation glucoses were greater than 1000, systolic blood pressure is elevated Patient this morning is unable to offer additional, alert but not oriented to recent events with moderate confabulation Allergies Allergy/AdvReac Type Severity Reaction Status Date / Time Penicillins Allergy Severe THROAT Verified 07/23/18 17:11 SWELLS Home Medications Home Medications Medication Instructions Recorded Confirmed Type albuterol sulfate [ProAir HFA] 2 puff INHALATION QID 07/23/18 07/23/18 History aspirin [Aspir-81] 81 mg PO QAM 07/23/18 07/23/18 History atorvastatin 40 mg PO PM 07/23/18 07/23/18 History cetirizine [Zyrtec] 5 mg PO QAM 07/23/18 07/23/18 History famotidine 20 mg PO BID 07/23/18 07/23/18 History insulin glargine [Lantus U-100 30 unit SUBCUT QAM 07/23/18 07/23/18 History Insulin] levetiracetam [Keppra] 500 mg PO BID 07/23/18 07/23/18 History lisinopril-hydrochlorothiazide 0.5 tab PO QAM 07/23/18 07/23/18 History metformin 1,000 mg PO BIDM 07/23/18 07/23/18 History metoprolol succinate 50 mg PO QAM 07/23/18 07/23/18 History Patient History Medical History HTN (hypertension) (Chronic) Fibromyalgia (Chronic) Diabetes (Chronic) Brain aneurysm History of stroke Family History Other Cirrhosis of liver not due to alcohol Social History Current Living Situation: Alone Current Living Situation Comment: Caregivers daily. 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 Review of Systems As per HPI otherwise unobtainable Physical Exam 2 Vital Signs (Past 24 Hours): Last Vital Signs Temp 37.1 C 07/24/18 08:07 Pulse 91 H 07/24/18 08:07 Resp 24 07/24/18 08:07 BP 177/88 H 07/24/18 09:35 Pulse Ox 95 07/24/18 08:07 Physical Exam: Patient is awake and alert at time of examination vital signs as above HEENT is normocephalic and atraumatic, pupils equal round react light and accommodation oral mucosa is dry Neck thin there is no jugular venous distention or carotid bruits Lungs clear to auscultation Cardiovascular exam regular rate and rhythm no S3 or S4 gallop no audible murmur. PMI nondisplaced Abdomen soft, nontender there is no palpable hepatosplenomegaly or hepatojugular reflux Extremities without cyanosis or clubbing, pulses are brisk there is no edema Neurologically patient is moving extremities with strength awake and alert but without accurate recollection of recent events Results & Data Laboratory Results Laboratory Results - last 24 hr 07/23/18 07/23/18 07/23/18 16:14 16:17 16:17 WBC 17.51 H RBC 4.80 Hgb 14.6 Hct 44.8 MCV 93.3 MCH 30.4 MCHC 32.6 RDW Std Deviation 46.7 H RDW Coeff of Min 13.8 Plt Count 663 H MPV 11.1 H Immature Gran % (Auto) 0.4 Neut % (Auto) 88.8 Lymph % (Auto) 5.3 [place] % (Auto) 5.4 Eos % (Auto) 0.0 Baso % (Auto) 0.1 Immature Gran # (Auto) 0.07 H Neut # (Auto) 15.55 H Lymph # (Auto) 0.92 L [place] # (Auto) 0.95 H Eos # (Auto) 0.00 Baso # (Auto) 0.02 PT INR APTT PTT Ratio ABG pH ABG pCO2 ABG pO2 ABG HCO3 ABG O2 Saturation ABG Base Excess [place] Test VBG pH VBG pCO2 VBG pO2 VBG HCO3 VBG O2 Saturation VBG Base Excess Barometric Pressure Oxygen Given Sodium 134 L Potassium 4.3 Chloride 99 Carbon Dioxide 19 L Anion Gap 16.0 H BUN 47 H Creatinine 1.37 H Est Cr Clr Drug Dosing 34.4 Est GFR ( Amer) 45.5 Est GFR (Non-Af Amer) 39.3 BUN/Creatinine Ratio 34.5 H Glucose 1052 H* POC Glucose > 600 H* Lactate Calcium 9.7 Magnesium 2.6 H Total Bilirubin 2.2 H AST 14 L ALT 25 Alkaline Phosphatase 110 Ammonia Total Creatine Kinase Troponin I 0.476 H* Total Protein 7.9 Albumin 3.3 L Globulin 4.6 H Albumin/Globulin Ratio 0.7 L Lipase Beta-Hydroxybutyric Acd 26.79 H TSH 0.865 Urine Color Urine Appearance Urine pH Ur Specific [place] Urine Protein Urine Glucose (UA) Urine Ketones Urine Blood Urine Nitrite Urine Bilirubin Urine Urobilinogen Ur Leukocyte Esterase Urine WBC (Auto) Urine RBC (Auto) U Hyaline Cast (Auto) U Epithel Cells (Auto) Urine Bacteria (Auto) 07/23/18 07/23/18 07/23/18 16:17 16:17 16:17 WBC RBC Hgb Hct MCV MCH MCHC RDW Std Deviation RDW Coeff of Min Plt Count MPV Immature Gran % (Auto) Neut % (Auto) Lymph % (Auto) [place] % (Auto) Eos % (Auto) Baso % (Auto) Immature Gran # (Auto) Neut # (Auto) Lymph # (Auto) [place] # (Auto) Eos # (Auto) Baso # (Auto) PT INR APTT 29.4 PTT Ratio 1.1 ABG pH ABG pCO2 ABG pO2 ABG HCO3 ABG O2 Saturation ABG Base Excess [place] Test VBG pH VBG pCO2 VBG pO2 VBG HCO3 VBG O2 Saturation VBG Base Excess Barometric Pressure Oxygen Given Sodium Potassium Chloride Carbon Dioxide Anion Gap BUN Creatinine Est Cr Clr Drug Dosing Est GFR ( Amer) Est GFR (Non-Af Amer) BUN/Creatinine Ratio Glucose POC Glucose Lactate 1.8 Calcium Magnesium Total Bilirubin AST ALT Alkaline Phosphatase Ammonia Total Creatine Kinase Troponin I Cancelled Total Protein Albumin Globulin Albumin/Globulin Ratio Lipase Beta-Hydroxybutyric Acd TSH Urine Color Urine Appearance Urine pH Ur Specific [place] Urine Protein Urine Glucose (UA) Urine Ketones Urine Blood Urine Nitrite Urine Bilirubin Urine Urobilinogen Ur Leukocyte Esterase Urine WBC (Auto) Urine RBC (Auto) U Hyaline Cast (Auto) U Epithel Cells (Auto) Urine Bacteria (Auto) 07/23/18 07/23/18 07/23/18 16:27 17:11 17:11 WBC RBC Hgb Hct MCV MCH MCHC RDW Std Deviation RDW Coeff of Min Plt Count MPV Immature Gran % (Auto) Neut % (Auto) Lymph % (Auto) [place] % (Auto) Eos % (Auto) Baso % (Auto) Immature Gran # (Auto) Neut # (Auto) Lymph # (Auto) [place] # (Auto) Eos # (Auto) Baso # (Auto) PT INR APTT PTT Ratio ABG pH Cancelled ABG pCO2 Cancelled ABG pO2 Cancelled ABG HCO3 Cancelled ABG O2 Saturation Cancelled ABG Base Excess Cancelled [place] Test Cancelled VBG pH VBG pCO2 VBG pO2 VBG HCO3 VBG O2 Saturation VBG Base Excess Barometric Pressure Cancelled Oxygen Given Cancelled Sodium Potassium Chloride Carbon Dioxide Anion Gap BUN Creatinine Est Cr Clr Drug Dosing Est GFR ( Amer) Est GFR (Non-Af Amer) BUN/Creatinine Ratio Glucose POC Glucose Lactate Calcium Magnesium Total Bilirubin AST ALT Alkaline Phosphatase Ammonia < 10.0 L Total Creatine Kinase Troponin I Total Protein Albumin Globulin Albumin/Globulin Ratio Lipase Beta-Hydroxybutyric Acd TSH Urine Color Yellow Urine Appearance Clear Urine pH 5.0 Ur Specific [place] 1.035 H Urine Protein Negative Urine Glucose (UA) 3+ H Urine Ketones 1+ H Urine Blood Trace H Urine Nitrite Negative Urine Bilirubin Negative Urine Urobilinogen Negative Ur Leukocyte Esterase Negative Urine WBC (Auto) 0 Urine RBC (Auto) 0-4 U Hyaline Cast (Auto) 0 U Epithel Cells (Auto) 5-10 H Urine Bacteria (Auto) Negative 07/23/18 07/23/18 07/23/18 17:11 18:11 19:34 WBC RBC Hgb Hct MCV MCH MCHC RDW Std Deviation RDW Coeff of Min Plt Count MPV Immature Gran % (Auto) Neut % (Auto) Lymph % (Auto) [place] % (Auto) Eos % (Auto) Baso % (Auto) Immature Gran # (Auto) Neut # (Auto) Lymph # (Auto) [place] # (Auto) Eos # (Auto) Baso # (Auto) PT INR APTT PTT Ratio ABG pH ABG pCO2 ABG pO2 ABG HCO3 ABG O2 Saturation ABG Base Excess [place] Test VBG pH 7.37 VBG pCO2 40 VBG pO2 35 VBG HCO3 22 VBG O2 Saturation 66.0 VBG Base Excess -2.6 Barometric Pressure 738.7 Oxygen Given Sodium Potassium Chloride Carbon Dioxide Anion Gap BUN Creatinine Est Cr Clr Drug Dosing Est GFR ( Amer) Est GFR (Non-Af Amer) BUN/Creatinine Ratio Glucose 771 H* POC Glucose 547 H* Lactate Calcium Magnesium Total Bilirubin AST ALT Alkaline Phosphatase Ammonia Total Creatine Kinase Troponin I Total Protein Albumin Globulin Albumin/Globulin Ratio Lipase Beta-Hydroxybutyric Acd 30.33 H TSH Urine Color Urine Appearance Urine pH Ur Specific [place] Urine Protein Urine Glucose (UA) Urine Ketones Urine Blood Urine Nitrite Urine Bilirubin Urine Urobilinogen Ur Leukocyte Esterase Urine WBC (Auto) Urine RBC (Auto) U Hyaline Cast (Auto) U Epithel Cells (Auto) Urine Bacteria (Auto) 07/23/18 07/23/18 07/23/18 19:35 20:21 20:35 WBC RBC Hgb Hct MCV MCH MCHC RDW Std Deviation RDW Coeff of Min Plt Count MPV Immature Gran % (Auto) Neut % (Auto) Lymph % (Auto) [place] % (Auto) Eos % (Auto) Baso % (Auto) Immature Gran # (Auto) Neut # (Auto) Lymph # (Auto) [place] # (Auto) Eos # (Auto) Baso # (Auto) PT INR APTT PTT Ratio ABG pH ABG pCO2 ABG pO2 ABG HCO3 ABG O2 Saturation ABG Base Excess [place] Test VBG pH VBG pCO2 VBG pO2 VBG HCO3 VBG O2 Saturation VBG Base Excess Barometric Pressure Oxygen Given Sodium 146 H D Potassium 3.6 D Chloride 113 H Carbon Dioxide 24 Anion Gap 9.0 BUN 35 H Creatinine 1.01 Est Cr Clr Drug Dosing 46.6 Est GFR ( Amer) 65.8 Est GFR (Non-Af Amer) 56.8 BUN/Creatinine Ratio 34.3 H Glucose 542 H* POC Glucose 523 H* 499 H* Lactate Calcium 9.0 Magnesium Total Bilirubin AST ALT Alkaline Phosphatase Ammonia Total Creatine Kinase Troponin I 2.070 H* Total Protein Albumin Globulin Albumin/Globulin Ratio Lipase 143 Beta-Hydroxybutyric Acd 12.58 H TSH Urine Color Urine Appearance Urine pH Ur Specific [place] Urine Protein Urine Glucose (UA) Urine Ketones Urine Blood Urine Nitrite Urine Bilirubin Urine Urobilinogen Ur Leukocyte Esterase Urine WBC (Auto) Urine RBC (Auto) U Hyaline Cast (Auto) U Epithel Cells (Auto) Urine Bacteria (Auto) 07/23/18 07/23/18 07/23/18 20:36 21:45 21:46 WBC RBC Hgb Hct MCV MCH MCHC RDW Std Deviation RDW Coeff of Min Plt Count MPV Immature Gran % (Auto) Neut % (Auto) Lymph % (Auto) [place] % (Auto) Eos % (Auto) Baso % (Auto) Immature Gran # (Auto) Neut # (Auto) Lymph # (Auto) [place] # (Auto) Eos # (Auto) Baso # (Auto) PT INR APTT PTT Ratio ABG pH ABG pCO2 ABG pO2 ABG HCO3 ABG O2 Saturation ABG Base Excess [place] Test VBG pH VBG pCO2 VBG pO2 VBG HCO3 VBG O2 Saturation VBG Base Excess Barometric Pressure Oxygen Given Sodium Potassium Chloride Carbon Dioxide Anion Gap BUN Creatinine Est Cr Clr Drug Dosing Est GFR ( Amer) Est GFR (Non-Af Amer) BUN/Creatinine Ratio Glucose POC Glucose 531 H* 421 H* 433 H* Lactate Calcium Magnesium Total Bilirubin AST ALT Alkaline Phosphatase Ammonia Total Creatine Kinase Troponin I Total Protein Albumin Globulin Albumin/Globulin Ratio Lipase Beta-Hydroxybutyric Acd TSH Urine Color Urine Appearance Urine pH Ur Specific [place] Urine Protein Urine Glucose (UA) Urine Ketones Urine Blood Urine Nitrite Urine Bilirubin Urine Urobilinogen Ur Leukocyte Esterase Urine WBC (Auto) Urine RBC (Auto) U Hyaline Cast (Auto) U Epithel Cells (Auto) Urine Bacteria (Auto) 07/23/18 07/23/18 07/24/18 22:48 23:48 00:14 WBC RBC Hgb Hct MCV MCH MCHC RDW Std Deviation RDW Coeff of Min Plt Count MPV Immature Gran % (Auto) Neut % (Auto) Lymph % (Auto) [place] % (Auto) Eos % (Auto) Baso % (Auto) Immature Gran # (Auto) Neut # (Auto) Lymph # (Auto) [place] # (Auto) Eos # (Auto) Baso # (Auto) PT INR APTT 27.9 PTT Ratio 1.1 ABG pH ABG pCO2 ABG pO2 ABG HCO3 ABG O2 Saturation ABG Base Excess [place] Test VBG pH VBG pCO2 VBG pO2 VBG HCO3 VBG O2 Saturation VBG Base Excess Barometric Pressure Oxygen Given Sodium Potassium Chloride Carbon Dioxide Anion Gap BUN Creatinine Est Cr Clr Drug Dosing Est GFR ( Amer) Est GFR (Non-Af Amer) BUN/Creatinine Ratio Glucose POC Glucose 380 H* 333 H Lactate Calcium Magnesium Total Bilirubin AST ALT Alkaline Phosphatase Ammonia Total Creatine Kinase Troponin I Total Protein Albumin Globulin Albumin/Globulin Ratio Lipase Beta-Hydroxybutyric Acd TSH Urine Color Urine Appearance Urine pH Ur Specific [place] Urine Protein Urine Glucose (UA) Urine Ketones Urine Blood Urine Nitrite Urine Bilirubin Urine Urobilinogen Ur Leukocyte Esterase Urine WBC (Auto) Urine RBC (Auto) U Hyaline Cast (Auto) U Epithel Cells (Auto) Urine Bacteria (Auto) 07/24/18 07/24/18 07/24/18 00:14 00:46 01:50 WBC RBC Hgb Hct MCV MCH MCHC RDW Std Deviation RDW Coeff of Min Plt Count MPV Immature Gran % (Auto) Neut % (Auto) Lymph % (Auto) [place] % (Auto) Eos % (Auto) Baso % (Auto) Immature Gran # (Auto) Neut # (Auto) Lymph # (Auto) [place] # (Auto) Eos # (Auto) Baso # (Auto) PT INR APTT PTT Ratio ABG pH ABG pCO2 ABG pO2 ABG HCO3 ABG O2 Saturation ABG Base Excess [place] Test VBG pH VBG pCO2 VBG pO2 VBG HCO3 VBG O2 Saturation VBG Base Excess Barometric Pressure Oxygen Given Sodium Potassium Chloride Carbon Dioxide Anion Gap BUN Creatinine Est Cr Clr Drug Dosing Est GFR ( Amer) Est GFR (Non-Af Amer) BUN/Creatinine Ratio Glucose POC Glucose 302 H 303 H Lactate Calcium Magnesium Total Bilirubin AST ALT Alkaline Phosphatase Ammonia Total Creatine Kinase Troponin I 2.500 H* Total Protein Albumin Globulin Albumin/Globulin Ratio Lipase Beta-Hydroxybutyric Acd TSH Urine Color Urine Appearance Urine pH Ur Specific [place] Urine Protein Urine Glucose (UA) Urine Ketones Urine Blood Urine Nitrite Urine Bilirubin Urine Urobilinogen Ur Leukocyte Esterase Urine WBC (Auto) Urine RBC (Auto) U Hyaline Cast (Auto) U Epithel Cells (Auto) Urine Bacteria (Auto) 07/24/18 07/24/18 07/24/18 02:46 03:50 04:46 WBC RBC Hgb Hct MCV MCH MCHC RDW Std Deviation RDW Coeff of Min Plt Count MPV Immature Gran % (Auto) Neut % (Auto) Lymph % (Auto) [place] % (Auto) Eos % (Auto) Baso % (Auto) Immature Gran # (Auto) Neut # (Auto) Lymph # (Auto) [place] # (Auto) Eos # (Auto) Baso # (Auto) PT INR APTT PTT Ratio ABG pH ABG pCO2 ABG pO2 ABG HCO3 ABG O2 Saturation ABG Base Excess [place] Test VBG pH VBG pCO2 VBG pO2 VBG HCO3 VBG O2 Saturation VBG Base Excess Barometric Pressure Oxygen Given Sodium Potassium Chloride Carbon Dioxide Anion Gap BUN Creatinine Est Cr Clr Drug Dosing Est GFR ( Amer) Est GFR (Non-Af Amer) BUN/Creatinine Ratio Glucose POC Glucose 257 H 234 H 212 H Lactate Calcium Magnesium Total Bilirubin AST ALT Alkaline Phosphatase Ammonia Total Creatine Kinase Troponin I Total Protein Albumin Globulin Albumin/Globulin Ratio Lipase Beta-Hydroxybutyric Acd TSH Urine Color Urine Appearance Urine pH Ur Specific [place] Urine Protein Urine Glucose (UA) Urine Ketones Urine Blood Urine Nitrite Urine Bilirubin Urine Urobilinogen Ur Leukocyte Esterase Urine WBC (Auto) Urine RBC (Auto) U Hyaline Cast (Auto) U Epithel Cells (Auto) Urine Bacteria (Auto) 07/24/18 07/24/18 07/24/18 05:17 05:17 05:17 WBC 15.90 H RBC 4.64 Hgb 13.5 Hct 41.4 MCV 89.2 MCH 29.1 MCHC 32.6 RDW Std Deviation 44.1 RDW Coeff of Min 13.5 Plt Count 613 H MPV 10.7 H Immature Gran % (Auto) 0.3 Neut % (Auto) 82.3 Lymph % (Auto) 6.9 [place] % (Auto) 10.2 Eos % (Auto) 0.1 Baso % (Auto) 0.2 Immature Gran # (Auto) 0.05 H Neut # (Auto) 13.09 H Lymph # (Auto) 1.10 L [place] # (Auto) 1.62 H Eos # (Auto) 0.01 Baso # (Auto) 0.03 PT INR APTT PTT Ratio ABG pH ABG pCO2 ABG pO2 ABG HCO3 ABG O2 Saturation ABG Base Excess [place] Test VBG pH VBG pCO2 VBG pO2 VBG HCO3 VBG O2 Saturation VBG Base Excess Barometric Pressure Oxygen Given Sodium 152 H Potassium 3.4 L Chloride 120 H Carbon Dioxide 26 Anion Gap 6.0 BUN 21 H Creatinine 0.70 D Est Cr Clr Drug Dosing 69.8 Est GFR ( Amer) 102.5 Est GFR (Non-Af Amer) 88.4 BUN/Creatinine Ratio 30.2 H Glucose 198 H POC Glucose Lactate Calcium 8.6 Magnesium Total Bilirubin AST ALT Alkaline Phosphatase Ammonia Total Creatine Kinase 146 Troponin I 2.440 H* Total Protein Albumin Globulin Albumin/Globulin Ratio Lipase Beta-Hydroxybutyric Acd TSH Urine Color Urine Appearance Urine pH Ur Specific [place] Urine Protein Urine Glucose (UA) Urine Ketones Urine Blood Urine Nitrite Urine Bilirubin Urine Urobilinogen Ur Leukocyte Esterase Urine WBC (Auto) Urine RBC (Auto) U Hyaline Cast (Auto) U Epithel Cells (Auto) Urine Bacteria (Auto) 07/24/18 07/24/18 07/24/18 05:47 06:32 07:27 WBC RBC Hgb Hct MCV MCH MCHC RDW Std Deviation RDW Coeff of Min Plt Count MPV Immature Gran % (Auto) Neut % (Auto) Lymph % (Auto) [place] % (Auto) Eos % (Auto) Baso % (Auto) Immature Gran # (Auto) Neut # (Auto) Lymph # (Auto) [place] # (Auto) Eos # (Auto) Baso # (Auto) PT INR APTT PTT Ratio ABG pH ABG pCO2 ABG pO2 ABG HCO3 ABG O2 Saturation ABG Base Excess [place] Test VBG pH VBG pCO2 VBG pO2 VBG HCO3 VBG O2 Saturation VBG Base Excess Barometric Pressure Oxygen Given Sodium Potassium Chloride Carbon Dioxide Anion Gap BUN Creatinine Est Cr Clr Drug Dosing Est GFR ( Amer) Est GFR (Non-Af Amer) BUN/Creatinine Ratio Glucose POC Glucose 187 H 204 H 225 H Lactate Calcium Magnesium Total Bilirubin AST ALT Alkaline Phosphatase Ammonia Total Creatine Kinase Troponin I Total Protein Albumin Globulin Albumin/Globulin Ratio Lipase Beta-Hydroxybutyric Acd TSH Urine Color Urine Appearance Urine pH Ur Specific [place] Urine Protein Urine Glucose (UA) Urine Ketones Urine Blood Urine Nitrite Urine Bilirubin Urine Urobilinogen Ur Leukocyte Esterase Urine WBC (Auto) Urine RBC (Auto) U Hyaline Cast (Auto) U Epithel Cells (Auto) Urine Bacteria (Auto) 07/24/18 08:08 WBC RBC Hgb Hct MCV MCH MCHC RDW Std Deviation RDW Coeff of Min Plt Count MPV Immature Gran % (Auto) Neut % (Auto) Lymph % (Auto) [place] % (Auto) Eos % (Auto) Baso % (Auto) Immature Gran # (Auto) Neut # (Auto) Lymph # (Auto) [place] # (Auto) Eos # (Auto) Baso # (Auto) PT 10.6 INR 1.1 APTT 28.0 PTT Ratio 1.1 ABG pH ABG pCO2 ABG pO2 ABG HCO3 ABG O2 Saturation ABG Base Excess [place] Test VBG pH VBG pCO2 VBG pO2 VBG HCO3 VBG O2 Saturation VBG Base Excess Barometric Pressure Oxygen Given Sodium Potassium Chloride Carbon Dioxide Anion Gap BUN Creatinine Est Cr Clr Drug Dosing Est GFR ( Amer) Est GFR (Non-Af Amer) BUN/Creatinine Ratio Glucose POC Glucose Lactate Calcium Magnesium Total Bilirubin AST ALT Alkaline Phosphatase Ammonia Total Creatine Kinase Troponin I Total Protein Albumin Globulin Albumin/Globulin Ratio Lipase Beta-Hydroxybutyric Acd TSH Urine Color Urine Appearance Urine pH Ur Specific [place] Urine Protein Urine Glucose (UA) Urine Ketones Urine Blood Urine Nitrite Urine Bilirubin Urine Urobilinogen Ur Leukocyte Esterase Urine WBC (Auto) Urine RBC (Auto) U Hyaline Cast (Auto) U Epithel Cells (Auto) Urine Bacteria (Auto) Diagnostic Findings Echocardiogram: Moderate left hypertrophy subtle hypokinesis of the inferior base with otherwise preserved LV systolic function EF 60% no significant valvular disease ECG Additional Comments: 23-JUL-2018 16:09:15 [facility] Normal sinus rhythm with sinus arrhythmia Left ventricular hypertrophy with repolarization abnormality Abnormal ECG When compared with ECG of 19-SEP-2014 11:16, Minimal criteria for Septal infarct are no longer Present ST now depressed in Anterior leads
[2018-07-24] MEDS: ENOXAPARIN INJ 30 MG/0.3 ML SYR SQ SCH (11:08)
[2018-07-24 13:11] LABS: BUN Creatinine Ratio 26.2 (10-20); Calcium 8.2 mg/dl (8.5-10.1); Creatinine Clr Calc Pharmacy 61.1 ml/min; Est GFR (African American) 87.2; Est GFR (Non-African American) 75.2; Potassium 4.1 mmol/L (3.5-5.1)
--- NOTE | 2018-07-24 14:30 | Hospitalist Progress Note ---
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 Postoperative changes as noted. No acute intracranial abnormality. Continue Keppra Monitor sodium levels Check check B12, folate, thiamine, repeat UA, CK as per Neurology Appreciate Neurology Input Consider MRI brain if no improvement Hyperglycemic crisis DM II: Uncontrolled Last Hb A1C: 11.4 in June 2018 Likely secondary to Non compliance with diet and medications Follows with Endocrinology as outpatient Hold PO meds Diabetic education Continue ISS, Lantus Monitor BGs Hypokalemia Hypernatremia Monitor electrolytes IV fluids as needed Diarrhea R/O C. difficile possible sepsis Patient denies abd pain PIERRE: Resolved with IV fluids Monitor renal function Hypertensive urgency Continue Metoprolol Added Metoprolol 25mg QPM Continue Lisinopril Labetelol PRN Appreciate Cardiology help Troponin elevation Likely demand ischemia 2/2 uncontrolled BP Patient denies chest pain ECHO: Subtle Hypokinesis of inferior base (hypokinesis also noted on prior ECHO in 2014) Cardiology on board H/O CVA Past tobacco abuse Continue Aspirin, Lipitor DVT Px: Lovenox SQ Code Status Full code Disposition PT/OT Family--Daughter Ms. Yuliya Remy, contact #[phone] Subjective Patient is seen and examined at bedside States feeling very weak today Mental status fluctuates Admits to being non complaint with diet and medication use Denies chest pain, dyspnea, dizziness, abd pain Updated daughter about the patient's condition Encourage to drink oral fluids Physical Exam 2 Vital Signs (Past 24 Hours): Last Vital Signs Temp 36.8 C 07/24/18 11:35 Pulse 89 07/24/18 11:35 Resp 18 07/24/18 11:35 BP 151/82 H 07/24/18 11:35 Pulse Ox 94 07/24/18 11:35 Physical Exam: Physical Exam: Vitals signs as noted above General Appearance:Moderately built and nourished, no apparent distress Head: normocephalic, Atraumatic Eyes: normal inspection, EOMI Neck: supple, Trachea midline Respiratory/Chest: Normal breath sounds, CTA Cardiovascular: S1, S2, No murmur Abdomen/GI:Soft, Non tender, Bowel sounds present Extremities/Musculoskelatal:normal inspection, no edema Neurologic/Psych:AA Oriented to person, place, grossly no focal neurological deficits, +Tremor Skin: normal color, warm Results & Data Laboratory Results Short CBC 07/23/18 07/24/18 Range/Units 16:17 05:17 WBC 17.51 H 15.90 H (4.8-10.8) K/uL Hgb 14.6 13.5 (12.0-16.0) g/dL Hct 44.8 41.4 (37-47) % Plt Count 663 H 613 H (130-400) K/uL BMP 07/23/18 07/23/18 07/23/18 16:17 18:11 20:21 Sodium 134 L 146 H D Potassium 4.3 3.6 D Chloride 99 113 H Carbon Dioxide 19 L 24 BUN 47 H 35 H Creatinine 1.37 H 1.01 Glucose 1052 H* 771 H* 542 H* Calcium 9.7 9.0 07/24/18 07/24/18 05:17 12:36 Sodium 152 H 143 D Potassium 3.4 L 4.1 D Chloride 120 H 112 H Carbon Dioxide 26 25 BUN 21 H 21 H Creatinine 0.70 D 0.80 Glucose 198 H 335 H Calcium 8.6 8.2 L Cardiac Enzymes 07/23/18 07/23/18 07/23/18 Range/Units 16:17 16:17 20:21 Total Creatine Kinase (26-192) U/L Troponin I 0.476 H* Cancelled 2.070 H* (0-0.045) ng/ml 07/24/18 07/24/18 07/24/18 Range/Units 00:14 05:17 05:17 Total Creatine Kinase 146 (26-192) U/L Troponin I 2.500 H* 2.440 H* (0-0.045) ng/ml Liver Function 07/23/18 Range/Units 16:17 Total Bilirubin 2.2 H (0.2-1) mg/dl AST 14 L (15-37) U/L ALT 25 (12-78) U/L Alkaline Phosphatase 110 (45-117) U/L Albumin 3.3 L (3.4-5.0) gm/dl Urine 07/23/18 Range/Units 16:27 Urine Color Yellow Urine Appearance Clear (Clear) Urine pH 5.0 (4.5-7.5) Ur Specific [place] 1.035 H (1.000-1.030) Urine Protein Negative (Negative) Urine Glucose (UA) 3+ H (Negative)
[2018-07-24] MEDS ORDERED: PHARMACY GLYCEMIC MGMT CONSULT PRN (14:52)
[2018-07-24] MEDS ORDERED: SODIUM CHLOR 0.45% + 20MEQ KCL 20 MEQ/1,000 ML BAG IV ONE (15:00)
[2018-07-24] MEDS: ATORVASTATIN 40 MG TAB PO SCH (19:51)
[2018-07-24 20:52] LABS: BUN Creatinine Ratio 19.5 (10-20); Calcium 8.4 mg/dl (8.5-10.1); Creatinine Clr Calc Pharmacy 64.3 ml/min; Est GFR (African American) 92.8; Potassium 3.5 mmol/L (3.5-5.1)
[2018-07-24] MEDS ORDERED: METOPROLOL SUCC 25MG EXT REL TAB PO SCH (21:00)
[2018-07-24] MEDS ORDERED: INSULIN GLARGINE SOLOSTAR 100 UNITS/ML 3 ML PEN SC SCH (21:00)
[2018-07-24 21:03] LABS: Folate (Folic Acid) 10.79 ng/ml (>5.38)
[2018-07-25] MEDS: INSULIN ASPART 100 UNITS/ML 3 ML PEN SC SCH ×5 (05:22→21:08)
[2018-07-25 06:02] LABS: Hematocrit (blood only) 42.1 % (37-47); Hemoglobin 13.8 g/dL (12.0-16.0); Mean Corpuscular Hgb Conc 32.8 g/dL (32-36); Mean Corpuscular Volume 90.5 fL (80-100); Mean Platelet Volume 10.6 fL (7.4-10.4); Platelet Count 593 K/uL (130-400); RDW Coefficient of Variation 13.7 % (11.5-14.5); RDW Standard Deviation 45.1 fL (36.4-46.3); Red Blood Count 4.65 M/uL (4.2-5.4); White Blood Count 14.14 K/uL (4.8-10.8)
[2018-07-25 06:32] LABS: Calcium 8.3 mg/dl (8.5-10.1); Creatinine Clr Calc Pharmacy 69.5 ml/min; Est GFR (African American) 100.7; Est GFR (Non-African American) 86.9; Magnesium 1.8 mg/dl (1.8-2.4); Potassium 3.8 mmol/L (3.5-5.1)
[2018-07-25] MEDS ORDERED: INSULIN GLARGINE SOLOSTAR 100 UNITS/ML 3 ML PEN SC SCH ×2 (08:00→09:00)
[2018-07-25] MEDS: ASPIRIN 81 MG ECTAB PO SCH (08:07)
[2018-07-25] MEDS: FAMOTIDINE 20 MG TAB PO SCH ×2 (08:07→21:07)
[2018-07-25] MEDS: CETIRIZINE HCL 10 MG TABLET PO SCH (08:07)
[2018-07-25] MEDS: levETIRAcetam 500 MG TAB PO SCH ×2 (08:07→21:07)
[2018-07-25] MEDS: LISINOPRIL 10 MG TAB PO SCH (08:08)
[2018-07-25] MEDS: ENOXAPARIN INJ 30 MG/0.3 ML SYR SQ SCH (08:08)
[2018-07-25] MEDS: METOPROLOL SUCC 50MG EXT REL TAB PO SCH ×2 (08:08→21:07)
--- NOTE | 2018-07-25 10:32 | Pharmacy Report ---
Glycemic Control Consultation - Date of Service July 25, 2018 - Scope Scope: Glycemic Pharmacist consulted by Dr [] on [date] for glycemic control and to write orders per [facility] inpatient glycemic control protocol - Objective Weight: 72.1 kg Accuchecks BSG (last 24hrs): 07/24/18 07/24/18 07/24/18 11:33 12:36 16:32 Glucose 335 H POC Glucose 267 H 352 H* 07/24/18 07/24/18 07/24/18 19:55 20:05 20:42 Glucose 175 H POC Glucose 190 H 187 H 07/24/18 07/25/18 07/25/18 23:56 05:21 05:29 Glucose 108 H POC Glucose 128 H 110 H 07/25/18 07:30 Glucose POC Glucose 118 H Laboratory Data (last 24hrs): 07/24/18 07/24/18 07/25/18 12:36 20:05 05:29 Potassium 4.1 D 3.5 3.8 Carbon Dioxide 25 26 25 Anion Gap 6.0 2.0 L 8.0 Creatinine 0.80 0.76 0.71 Est Cr Clr Drug Dosing 61.1 64.3 69.5 Beta-Hydroxybutyric Acd 3.63 H HbA1c: 11.4% on 06/24/18 per outpatient records - Recent Pertinent Medications Outpatient Anti-diabetic Regimen: * Metformin * Lantus 15 units SQ daily (Rx for 30 units but daughter reports that she is administering 15 units) The patient is currently receiving: * Basal insulin: Lantus 30 units every 12 hours * Correctional Insulin: Novolog Correction per scale ACHS Goal Range: Low 120 mg/dL - High 140 mg/dL Correction Factor: 25 mg/dL/unit * Prandial insulin: Per carb ratio of 1 unit per 8 grams CHO consumed * Oral Agents: On hold for admission - Assessment & Plan Assessment & Plan: ASSESSMENT: * 67 yo T2DM female with poor outpatient glycemic control per recent A1c. Pt is Rx Lantus 30 units SQ daily but daughter reports that she has only been administering Lantus 15 units. * Pt with severe hyperglycemia/HHS on admission. Pt initiated on IV insulin infusion with SQ Lantus 30 units SQ BID. Hydration was gentle d/t hypernatremia. Hydration is the main therapy for HHS. Hospitalist to advance fluids as sodium level recovers. * Patient has received 63units of insulin over the past 24hrs * 42 units of basal insulin * 21 units of prandial/correctional insulin * BSGs ranging 178-352 mg/dl over the past 24hrs * Anticipating insulin regimen will need decreased for the next 24hrs d/t : * AM Fasting BSG = 118mg/dl. This is in goal range but significant trend downwards from yesterday. Current lantus doing is much higher than outpatient dosing. Therefore Basal insulin needs decreased. * Total daily dose = 63 units and weighted towards basal insulin; therefore may need to evenly re-distribute regimen 50%:50% basal:prandial to prevent hypo/ hyperglycemia * Post-prandial BSGs are trending downwards. No change needed to CF/CR PLAN FOR INPATIENT GLYCEMIC CONTROL: * Holding outpatient oral diabetes medications * Basal insulin * Lantus 25 units SQ x 1 dose today, then Lantus 30 units SQ daily * Bolus insulin * NovoLog per scale ACHS or Q6hrs while NPO * Goal Range: Low 120 mg/dL - High 140 mg/dL * Correction Factor: 25 mg/dL/unit * Nutritional / Prandial insulin per carb ratio of 1 unit per 8 grams CHO consumed * Please note that the plan above was derived based on current level of insulin resistance and hospital stress. These recommendations are appropriate for inpatient admission only. Plan of care upon discharge will need to be reassessed to avoid potential outpatient hypo/hyperglycemia. Thank you.
--- NOTE | 2018-07-25 10:51 | Neurology Progress Note ---
Date of Service July 25, 2018 Encephalopathy Hyperglycemia (Glucose>1000) IDDM HTN History of seizures Diarrhea Leukocytosis ARF Dehydration A 67 year old woman admitted for presumed metabolic encephalopathy in the setting of blood glucose >700. Blood sugars improved. Off insulin gtt. Neurology following for encephalopathy. - Patient remains delirious at times with noted sun downing per nursing. Family also notes patient may be more disinhibited. Patient currently not back to baseline. No visual hallucinations at the moment. She remains disoriented to place and time. - Recommend MRI brain w/wo contrast for further evaluation. Daughter at beside sign form for records regarding intracranial coil. - Recommend repeating UA. Daughter concerned for possible c. difficille. Agree with checking stool for C difficile. - Please check thiamine level. - Recommend starting thiamine replacement and B12 replacement. - Essential tremor is chronic per daughter. Has had it since she was a young adult. - Ok to resume ASA from Neuro standpoint. CT head negative for hemorrhage. Will continue to follow. Subjective Patient was seen and examined. Daughter at bedside. Daughter states patient is not back to baseline remains confused. No VH currently. Remains disoriented. Patient denies complaint. wATCHING Tv. Physical Exam 2 Vital Signs (Past 24 Hours): Last Vital Signs Temp 36.8 C 07/25/18 07:41 Pulse 87 07/25/18 07:41 Resp 20 07/25/18 07:41 BP 155/70 H 07/25/18 07:41 Pulse Ox 94 07/25/18 07:41 Physical Exam: EXAM: Constitutional: appearance normally developed, well nourished Head and Face: normocephalic and atraumatic Eyes: normal lids, normal conjunctiva Neck: supple Respiratory: normal effort Cardiovascular: regular rhythm and normal pulses Abdomen: non distended Skin: no rashes, lesions, or ulcers noted Psychiatric: normal affect NEUROLOGIC EXAMINATION: Appearance: no acute distress Opthalmoscopic: disc flat, normal fundus Carotid/Heart/Peripheral Vascular: no bruits, RRR Orientation: awake, alert and disoriented to time and place Memory: Poor Attention: decreased Knowledge: Poor Language: no aphasia Speech: no dysarthria Cranial Nerves: CN 2 - no visual defect on confrontation and pupils round, equal, reactive to light CN 3, 4, 6 - extra-ocular movements intact and no nystagmus CN 5 - facial sensation intact CN 7 - no facial asymmetry CN 8 - intact hearing CN 9, 10 - palate symmetric CN 11 - good shoulder shrug CN 12 - tongue midline Gait: deferred due to confusion Coordination: kinetic tremor in left upper extremity Sensory: intact to light touch Muscle Tone: cogwheeling in left upper extremity Muscle exam: Reflexes: No clonus, negative boateng
--- NOTE | 2018-07-25 12:22 | Cardiology Progress Note ---
Date of Service July 25, 2018 Assessment & Plan (1) Encephalopathy: Patient presented with profound hyperglycemia associated hypertensive urgency and encephalopathy. Slightly improved this morning glucose is trending downward blood pressure remains elevated. Would treat continue hypertension. Increase Toprol to 50 mg twice per day (2) Hyperglycemic hyperosmolar nonketotic coma: (3) HTN (hypertension): As above (4) Elevated troponin: EKGs echocardiogram do not suggest acute coronary syndrome troponins likely reflecting acute stressors and metabolic derangement of illness. We will continue to follow in hospital. Last stress testing was nonischemic 2015. LV systolic function is generally preserved with patient with past history of apical stress-induced hypokinesis time of acute subarachnoid hemorrhage EKG ordered for a.m. (5) SAH (subarachnoid hemorrhage): Status post coil embolism September 2014 Would recommend resuming aspirin when agreeable by neurology Subjective Patient seen and examined, chart medications telemetry reviewed. Patient ambulatory in the hallway with physical therapy. Denies any cardiac complaints. Notes no dizziness or lightheadedness still is mildly confused with mild hallucinations without focal deficit Physical Exam 2 Vital Signs (Past 24 Hours): Last Vital Signs Temp 36.7 C 07/25/18 11:51 Pulse 90 07/25/18 11:51 Resp 22 07/25/18 11:51 BP 138/64 07/25/18 11:51 Pulse Ox 95 07/25/18 11:51 Constitutional: WD/WN, vitals as above Eyes: PERRL, conjunctivae normal, anicteric sclerae Neck: trachea midline, no thyromegaly Respiratory: normal respiratory effort, lungs clear to auscultation Cardiovascular: RRR, no murmur, no edema Palpation: normal PMI Vessels: no JVD and no carotid bruit Gastrointestinal (Abdomen): normal bowel sounds, soft, nontender, no hepatosplenomegaly Neurologic: Patient alert but not specifically oriented to all aspects with mild confabulation admits to hallucination
--- NOTE | 2018-07-25 16:40 | Hospitalist Progress Note ---
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 Postoperative changes as noted. No acute intracranial abnormality. Continue Keppra Monitor sodium levels--normal VAitamin B12: normal folate levels:Normal Thiamine levels:pending Repeat UA: pending Appreciate Neurology Input Continue aspirin Reorient frequently Plan to get MRI brain w/wo if compatible with intracranial coiling Obtain records from [facility], [place] Hyperglycemic crisis DM II: Uncontrolled Last Hb A1C: 11.4 in June 2018 Likely secondary to Non compliance with diet and medications Follows with Endocrinology as outpatient Hold PO meds Diabetic education Continue ISS, Lantus Monitor BGs Hypokalemia Hypernatremia Monitor electrolytes IV fluids as needed Diarrhea R/O C. difficile possible sepsis Patient denies abd pain No recurrence of diarrhea PIERRE: Resolved with IV fluids Monitor renal function Hypertensive urgency continue Metoprolol--increased to 50mg BID Continue Lisinopril Labetelol PRN Appreciate Cardiology help Troponin elevation Likely demand ischemia 2/2 uncontrolled BP Patient denies chest pain ECHO: Subtle Hypokinesis of inferior base (hypokinesis also noted on prior ECHO in 2014) Cardiology on board H/O CVA Past tobacco abuse Continue Aspirin, Lipitor DVT Px: Lovenox SQ Code Status Full code Disposition PT/OT Family--Daughter Ms. Yuliya Remy, contact #[phone] Subjective Patient is seen and examined at bedside Patient still has confusion Mental status not back to baseline as per daughter Afebrile today Leukocytosis trending down No recurrence of diarrhea Patient offers no complaints Daughter at bedside Plan to get MRI brain if compatible with intracranial coiling Repeat UA pending Physical Exam 2 Vital Signs (Past 24 Hours): Last Vital Signs Temp 37.3 C 07/25/18 15:14 Pulse 85 07/25/18 15:14 Resp 16 07/25/18 15:14 BP 175/78 H 07/25/18 15:14 Pulse Ox 91 07/25/18 15:14 Physical Exam: Physical Exam: Vitals signs as noted above General Appearance:Moderately built and nourished, no apparent distress Head: normocephalic, Atraumatic Eyes: normal inspection, EOMI Neck: supple, Trachea midline Respiratory/Chest: Normal breath sounds, CTA Cardiovascular: S1, S2, No murmur Abdomen/GI:Soft, Non tender, Bowel sounds present Extremities/Musculoskelatal:normal inspection, no edema Neurologic/Psych:AA Oriented to person, place, grossly no focal neurological deficits, +Tremor Skin: normal color, warm Results & Data Laboratory Results Short CBC 07/25/18 Range/Units 05:29 WBC 14.14 H (4.8-10.8) K/uL Hgb 13.8 (12.0-16.0) g/dL Hct 42.1 (37-47) % Plt Count 593 H (130-400) K/uL BMP 07/24/18 07/25/18 20:05 05:29 Sodium 141 145 Potassium 3.5 3.8 Chloride 113 H 112 H Carbon Dioxide 26 25 BUN 15 13 Creatinine 0.76 0.71 Glucose 175 H 108 H Calcium 8.4 L 8.3 L Cardiac Enzymes 07/24/18 Range/Units 20:05 Total Creatine Kinase 85 (26-192) U/L
[2018-07-25] MEDS: THIAMINE HCL 100 MG TAB PO SCH (18:09)
[2018-07-25] MEDS: ATORVASTATIN 40 MG TAB PO SCH (21:07)
[2018-07-26] MEDS: INSULIN ASPART 100 UNITS/ML 3 ML PEN SC SCH ×6 (00:04→20:45)
[2018-07-26 00:53] LABS: Appearance Urine Clear (Clear); Bacteria Urine Automated Negative (Negative); Bilirubin Urine Negative (Negative); Color Urine Dark Yellow; Epithelial Cell Urine Auto >30 /lpf (0-5); Glucose Urine UA 2+ (Negative); Ketones Urine Trace (Negative); Leukocyte Esterase Urine 1+ (Negative); Nitrite Urine Negative (Negative); Protein Urine 1+ (Negative); Specific Gravity Urine 1.025 (1.000-1.030); Urobilinogen Urine Negative (Negative); WBC Urine Automated >30 /hpf (0-5); pH Urine 5.5 (4.5-7.5)
[2018-07-26 06:18] LABS: Hematocrit (blood only) 41.6 % (37-47); Hemoglobin 13.3 g/dL (12.0-16.0); Mean Platelet Volume 10.2 fL (7.4-10.4); Platelet Count 532 K/uL (130-400); RDW Coefficient of Variation 13.6 % (11.5-14.5); RDW Standard Deviation 44.6 fL (36.4-46.3); Red Blood Count 4.62 M/uL (4.2-5.4); White Blood Count 12.44 K/uL (4.8-10.8)
[2018-07-26 06:48] LABS: BUN Creatinine Ratio 19.7 (10-20); Calcium 7.8 mg/dl (8.5-10.1); Creatinine Clr Calc Pharmacy 76.6 ml/min; Est GFR (African American) 104.5; Est GFR (Non-African American) 90.1; Potassium 3.3 mmol/L (3.5-5.1)
[2018-07-26] MEDS: levETIRAcetam 500 MG TAB PO SCH ×2 (08:09→19:58)
[2018-07-26] MEDS: METOPROLOL SUCC 50MG EXT REL TAB PO SCH (08:09)
[2018-07-26] MEDS: ENOXAPARIN INJ 30 MG/0.3 ML SYR SQ SCH (08:10)
[2018-07-26] MEDS: FAMOTIDINE 20 MG TAB PO SCH ×2 (08:10→19:58)
[2018-07-26] MEDS: CETIRIZINE HCL 10 MG TABLET PO SCH (08:10)
[2018-07-26] MEDS: LISINOPRIL 10 MG TAB PO SCH (08:10)
[2018-07-26] MEDS: THIAMINE HCL 100 MG TAB PO SCH (08:10)
[2018-07-26] MEDS: ASPIRIN 81 MG ECTAB PO SCH (08:10)
[2018-07-26] MEDS ORDERED: POTASSIUM CHLORIDE 10 MEQ TABCR PO STA (08:12)
[2018-07-26] MEDS ORDERED: CIPROFLOXACIN 400 MG/200 ML BAG IV SCH (09:00)
[2018-07-26] MEDS: AZTREONAM 1,000 MG in DEXTROSE 5% 100 ML IV SCH ×2 (09:02→16:52)
--- NOTE | 2018-07-26 11:06 | Pharmacy Report ---
Pharmacy Glycemic Short Note 2 - Date of Service July 26, 2018 - Glycemic Short BSG Results (Last 24 hours): 07/25/18 07/25/18 07/25/18 11:24 16:24 20:34 Glucose POC Glucose 132 H 204 H 154 H 07/25/18 07/26/18 07/26/18 23:57 04:14 05:53 Glucose 100 H POC Glucose 103 H 108 H OUTPATIENT ANTIDIABETIC REGIMEN: * Metformin 1000mg PO BID * Lantus 15 units SQ daily * Reported h/o non-compliance * A1c = 11.4% 06/24/18 CURRENT ORDERS * Lantus 30 units SQ Q AM * * Novolog SQ ACHS + 0000, 0400 * Goal range: 120 - 140mg/dL * Correction factor: 25mg/dL/unit * Carb ratio: 1 unit per 8gm CHO ASSESSMENT: 07/26/18 * Poorly controlled type 2 diabetic admitted w/ encephalopathy and hyperglycemia * Glycemic control has been fairly good over the last 24 hrs, most BSGs have been at goal * Fasting BSG 112 this AM w/ 25 units of basal insulin on board, she has already received the ordered 30 units of Lantus this AM - may need to reduce dose tomorrow. * Post-prandial BSGs well controlled yesterday with current CF and CR, will continue the same for the next 24 hrs PLAN FOR INPATIENT GLYCEMIC CONTROL: * Hold outpatient oral diabetes medications (metformin) * Basal insulin * Lantus 30 units SQ Q AM * Bolus insulin * NovoLog per scale ACHS and 0200 * Goal Range: Low 120 mg/dL - High 140 mg/dL * Correction Factor: 25 mg/dL/unit * Nutritional / Prandial insulin per carb ratio of 1 unit per 8 grams CHO consumed PLAN FOR DISCHARGE: * Pt's current level of glycemic control is poor. However this may be due to medication and dietary noncompliance. Based upon current BSG trends and insulin doses I would anticipate her to require slightly more than the 15 units of Lantus once daily in combination w/ metformin on discharge.
--- NOTE | 2018-07-26 11:41 | Cardiology Progress Note ---
Date of Service July 26, 2018 Assessment & Plan (1) Encephalopathy: Patient presented with profound hyperglycemia associated hypertensive urgency and encephalopathy. morning glucose is Would continue to treat hypertension. Increase Toprol to 75 mg twice per day (2) Hyperglycemic hyperosmolar nonketotic coma: (3) HTN (hypertension): As above (4) Elevated troponin: EKGs echocardiogram do not suggest acute coronary syndrome troponins likely reflecting acute stressors and metabolic derangement of illness. We will continue to follow in hospital. Last stress testing was nonischemic 2015. LV systolic function is generally preserved with patient with past history of apical stress-induced hypokinesis time of acute subarachnoid hemorrhage EKG this morning reveals tremor artifact, no atrial fibrillation/flutter (5) SAH (subarachnoid hemorrhage): Status post coil embolism September 2014 Would recommend resuming aspirin when agreeable by neurology Subjective Patient seen and examined, chart medications telemetry reviewed. Still with variable degrees of orientation but notes no complaints. Denies any chest pains tachypalpitations syncope or near syncope. Heart rate and blood pressures are gradually trending lower Physical Exam 2 Vital Signs (Past 24 Hours): Last Vital Signs Temp 36.6 C 07/26/18 08:00 Pulse 100 H 07/26/18 08:00 Resp 16 07/26/18 08:00 BP 131/73 07/26/18 08:00 Pulse Ox 92 07/26/18 08:00 Constitutional: WD/WN, vitals as above Eyes: PERRL, conjunctivae normal, anicteric sclerae Neck: trachea midline, no thyromegaly Respiratory: normal respiratory effort, lungs clear to auscultation Cardiovascular: RRR, no murmur, no edema Rate/Rhythm: regular rate and regular rhythm Palpation: normal PMI Vessels: no JVD and no carotid bruit Gastrointestinal (Abdomen): normal bowel sounds, soft, nontender, no hepatosplenomegaly Results & Data Laboratory Results Laboratory Results - last 24 hr 07/25/18 07/25/18 07/25/18 16:24 20:34 23:57 WBC RBC Hgb Hct MCV MCH MCHC RDW Std Deviation RDW Coeff of Min Plt Count MPV Sodium Potassium Chloride Carbon Dioxide Anion Gap BUN Creatinine Est Cr Clr Drug Dosing Est GFR ( Amer) Est GFR (Non-Af Amer) BUN/Creatinine Ratio Glucose POC Glucose 204 H 154 H 103 H Calcium Urine Color Urine Appearance Urine pH Ur Specific [place] Urine Protein Urine Glucose (UA) Urine Ketones Urine Blood Urine Nitrite Urine Bilirubin Urine Urobilinogen Ur Leukocyte Esterase Urine WBC (Auto) Urine RBC (Auto) U Hyaline Cast (Auto) U Epithel Cells (Auto) Urine Bacteria (Auto) Ur Renal Epithelial Cell Urine Yeast 07/26/18 07/26/18 07/26/18 00:10 04:14 05:53 WBC 12.44 H RBC 4.62 Hgb 13.3 Hct 41.6 MCV 90.0 MCH 28.8 MCHC 32.0 RDW Std Deviation 44.6 RDW Coeff of Min 13.6 Plt Count 532 H MPV 10.2 Sodium Potassium Chloride Carbon Dioxide Anion Gap BUN Creatinine Est Cr Clr Drug Dosing Est GFR ( Amer) Est GFR (Non-Af Amer) BUN/Creatinine Ratio Glucose POC Glucose 108 H Calcium Urine Color Dark Yellow Urine Appearance Clear Urine pH 5.5 Ur Specific [place] 1.025 Urine Protein 1+ H Urine Glucose (UA) 2+ H Urine Ketones Trace H Urine Blood 1+ H Urine Nitrite Negative Urine Bilirubin Negative Urine Urobilinogen Negative Ur Leukocyte Esterase 1+ H Urine WBC (Auto) >30 H Urine RBC (Auto) 0-4 U Hyaline Cast (Auto) 10-30 H U Epithel Cells (Auto) >30 H Urine Bacteria (Auto) Negative Ur Renal Epithelial Cell Not Reportable Urine Yeast Not Reportable 07/26/18 07/26/18 05:53 07:31 WBC RBC Hgb Hct MCV MCH MCHC RDW Std Deviation RDW Coeff of Min Plt Count MPV Sodium 141 Potassium 3.3 L Chloride 108 H Carbon Dioxide 25 Anion Gap 9.0 BUN 13 Creatinine 0.66 Est Cr Clr Drug Dosing 76.6 Est GFR ( Amer) 104.5 Est GFR (Non-Af Amer) 90.1 BUN/Creatinine Ratio 19.7 Glucose 100 H POC Glucose 112 H Calcium 7.8 L Urine Color Urine Appearance Urine pH Ur Specific [place] Urine Protein Urine Glucose (UA) Urine Ketones Urine Blood Urine Nitrite Urine Bilirubin Urine Urobilinogen Ur Leukocyte Esterase Urine WBC (Auto) Urine RBC (Auto) U Hyaline Cast (Auto) U Epithel Cells (Auto) Urine Bacteria (Auto) Ur Renal Epithelial Cell Urine Yeast ECG Additional Comments: EKG this morning tremor artifact
--- NOTE | 2018-07-26 12:58 | Hospitalist Progress Note ---
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 Postoperative changes as noted. No acute intracranial abnormality. Continue Keppra Monitor sodium levels--normal VAitamin B12: normal folate levels:Normal Thiamine levels:pending Appreciate Neurology Input Continue aspirin Reorient frequently Plan to get MRI brain w/wo if compatible with intracranial coiling Intermittently confused R/O UTI: Repeat UA: +Leukocyte esterase, WBCs Urine Culture: pending Blood Cultures: No growth to date Empirically started on IV Azactam Hyperglycemic crisis DM II: Uncontrolled Last Hb A1C: 11.4 in June 2018 Likely secondary to Non compliance with diet and medications Follows with Endocrinology as outpatient Hold PO meds Diabetic education Continue ISS, Lantus Monitor BGs Hypokalemia Hypernatremia Monitor electrolytes IV fluids as needed Diarrhea R/O C. difficile possible sepsis Patient denies abd pain No recurrence of diarrhea PIERRE: Resolved with IV fluids Monitor renal function Hypertensive urgency continue Metoprolol--increased to 75 mg BID Continue Lisinopril Labetelol PRN Appreciate Cardiology help Troponin elevation Likely demand ischemia 2/2 uncontrolled BP Patient denies chest pain ECHO: Subtle Hypokinesis of inferior base (hypokinesis also noted on prior ECHO in 2014) Cardiology on board H/O CVA Past tobacco abuse Continue Aspirin, Lipitor DVT Px: Lovenox SQ Code Status Full code Disposition PT/OT Family--Daughter Ms. Yuliya Remy, contact #[phone] Subjective Patient is seen and examined at bedside Patient is oriented but is confusion intermittently Reports chronic left sided headache--unchanged per patient check for c.diff if diarrhea reoccurs Patient feels well and offers no complaints Daughter at bedside Plan to get MRI brain if compatible with intracranial coiling Started on IV Abx empirically for possible UTI Physical Exam 2 Vital Signs (Past 24 Hours): Last Vital Signs Temp 37 C 07/26/18 11:42 Pulse 93 H 07/26/18 11:42 Resp 20 07/26/18 11:42 BP 99/59 L 07/26/18 11:42 Pulse Ox 97 07/26/18 11:42 Physical Exam: Physical Exam: Vitals signs as noted above General Appearance:Moderately built and nourished, no apparent distress Head: normocephalic, Atraumatic Eyes: normal inspection, EOMI Neck: supple, Trachea midline Respiratory/Chest: Normal breath sounds, CTA Cardiovascular: S1, S2, No murmur Abdomen/GI:Soft, Non tender, Bowel sounds present Extremities/Musculoskelatal:normal inspection, no edema Neurologic/Psych:AA Oriented to person, place, grossly no focal neurological deficits, +Tremor Skin: normal color, warm Results & Data Laboratory Results Short CBC 07/26/18 Range/Units 05:53 WBC 12.44 H (4.8-10.8) K/uL Hgb 13.3 (12.0-16.0) g/dL Hct 41.6 (37-47) % Plt Count 532 H (130-400) K/uL BMP 07/26/18 05:53 Sodium 141 Potassium 3.3 L Chloride 108 H Carbon Dioxide 25 BUN 13 Creatinine 0.66 Glucose 100 H Calcium 7.8 L Urine 07/26/18 Range/Units 00:10 Urine Color Dark Yellow Urine Appearance Clear (Clear) Urine pH 5.5 (4.5-7.5) Ur Specific [place] 1.025 (1.000-1.030) Urine Protein 1+ H (Negative) Urine Glucose (UA) 2+ H (Negative)
[2018-07-26] MEDS: METOPROLOL SUCC 25MG EXT REL TAB PO SCH (19:57)
[2018-07-26] MEDS: ATORVASTATIN 40 MG TAB PO SCH (19:58)
[2018-07-26] MEDS ORDERED: OLANZapine 10 MG/2.1 ML SDV IM PRN (23:30)
[2018-07-27] MEDS: AZTREONAM 1,000 MG in DEXTROSE 5% 100 ML IV SCH ×3 (01:42→17:48)
[2018-07-27 05:40] LABS: Hematocrit (blood only) 41.8 % (37-47); Hemoglobin 14.1 g/dL (12.0-16.0); Mean Corpuscular Hgb Conc 33.7 g/dL (32-36); Mean Corpuscular Volume 89.7 fL (80-100); Mean Platelet Volume 10.3 fL (7.4-10.4); Platelet Count 568 K/uL (130-400); RDW Coefficient of Variation 13.5 % (11.5-14.5); RDW Standard Deviation 44.6 fL (36.4-46.3); Red Blood Count 4.66 M/uL (4.2-5.4); White Blood Count 12.94 K/uL (4.8-10.8)
[2018-07-27 06:15] LABS: BUN Creatinine Ratio 26.6 (10-20); Creatinine Clr Calc Pharmacy 60.3 ml/min; Est GFR (African American) 84.6; Potassium 3.1 mmol/L (3.5-5.1)
[2018-07-27] MEDS: METOPROLOL SUCC 25MG EXT REL TAB PO SCH ×2 (08:35→20:31)
[2018-07-27] MEDS: LISINOPRIL 10 MG TAB PO SCH (08:36)
[2018-07-27] MEDS: levETIRAcetam 500 MG TAB PO SCH ×2 (08:36→20:27)
[2018-07-27] MEDS: ASPIRIN 81 MG ECTAB PO SCH (08:36)
[2018-07-27] MEDS: THIAMINE HCL 100 MG TAB PO SCH (08:37)
[2018-07-27] MEDS: CETIRIZINE HCL 10 MG TABLET PO SCH (08:37)
[2018-07-27] MEDS: ENOXAPARIN INJ 30 MG/0.3 ML SYR SQ SCH (08:39)
[2018-07-27] MEDS: INSULIN GLARGINE SOLOSTAR 100 UNITS/ML 3 ML PEN SC SCH (08:41)
[2018-07-27] MEDS: INSULIN ASPART 100 UNITS/ML 3 ML PEN SC SCH ×4 (08:42→20:32)
[2018-07-27] MEDS: FAMOTIDINE 20 MG TAB PO SCH ×2 (09:04→20:31)
--- NOTE | 2018-07-27 10:20 | Pharmacy Report ---
Pharmacy Glycemic Short Note 2 - Date of Service July 27, 2018 - Glycemic Short BSG Results (Last 24 hours): 07/26/18 07/26/18 07/26/18 07:31 11:33 16:19 Glucose POC Glucose 112 H 197 H 172 H 07/26/18 07/27/18 07/27/18 20:30 05:15 07:21 Glucose 226 H POC Glucose 235 H 195 H OUTPATIENT ANTIDIABETIC REGIMEN: * Metformin 1000mg PO BID * Lantus 15 units SQ daily * Reported h/o non-compliance * A1c = 11.4% 06/24/18 CURRENT ORDERS * Lantus 30 units SQ Q AM * * Novolog SQ ACHS + 0000, 0400 * Goal range: 120 - 140mg/dL * Correction factor: 25mg/dL/unit * Carb ratio: 1 unit per 8gm CHO ASSESSMENT: 2/5 * Over the last 24 hrs BSGs have ranged 172-235 * Current BSG pattern suggests mostly a basal insulin deficiency however I believe a small increase in prandial insulin would also be beneficial * Fasting BSG 195 this AM w/ 30 units of Lantus on board and after receiving a 4 unit correctional insulin dose last PM - will increase basal * 2 of 3 post-prandial BSGs above goal yesterday - will increase CR dose 2/4 * Poorly controlled type 2 diabetic admitted w/ encephalopathy and hyperglycemia * Glycemic control has been fairly good over the last 24 hrs, most BSGs have been at goal * Fasting BSG 112 this AM w/ 25 units of basal insulin on board, she has already received the ordered 30 units of Lantus this AM - may need to reduce dose tomorrow. * Post-prandial BSGs well controlled yesterday with current CF and CR, will continue the same for the next 24 hrs PLAN FOR INPATIENT GLYCEMIC CONTROL: * Hold outpatient oral diabetes medications (metformin) * Basal insulin (increase) * Lantus 36 units SQ Q AM * Bolus insulin (increase) * NovoLog per scale ACHS and 0200 * Goal Range: Low 120 mg/dL - High 140 mg/dL * Correction Factor: 20 mg/dL/unit * Nutritional / Prandial insulin per carb ratio of 1 unit per 7 grams CHO consumed PLAN FOR DISCHARGE: * Pt's current level of glycemic control is poor. However this may be due to medication and dietary noncompliance. Based upon current BSG trends and insulin doses I would anticipate her to require more than 15 units of Lantus once daily in combination w/ metformin on discharge.
--- NOTE | 2018-07-27 11:11 | Hospitalist Progress Note ---
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 Postoperative changes as noted. No acute intracranial abnormality. Continue Keppra Monitor sodium levels--normal Vitamin B12: normal folate levels:Normal Thiamine levels:pending Appreciate Neurology Input Continue aspirin Reorient frequently Plan to get MRI brain w/wo if compatible with intracranial coiling Intermittently confused UTI:WBC coming down on Aztreonam Repeat UA: +Leukocyte esterase, WBCs Urine Culture: pending Blood Cultures: No growth to date Empirically started on IV Azactam Hyperglycemic crisis DM II: Uncontrolled Last Hb A1C: 11.4 in June 2018 Likely secondary to Non compliance with diet and medications Follows with Endocrinology as outpatient Hold PO meds Diabetic education Continue ISS, Lantus Monitor BGs Hypokalemia Hypernatremia Monitor electrolytes IV fluids as needed Diarrhea Neg C. difficile Patient denies abd pain No recurrence of diarrhea PIERRE: Resolved with IV fluids Monitor renal function Hypertensive urgency continue Metoprolol--increased to 75 mg BID Continue Lisinopril Labetelol PRN Troponin elevation Likely demand ischemia 2/2 uncontrolled BP Patient denies chest pain ECHO: Subtle Hypokinesis of inferior base (hypokinesis also noted on prior ECHO in 2014) Cardiology on board H/O CVA Past tobacco abuse Continue Aspirin, Lipitor DVT Px: Lovenox SQ Code Status Full code Disposition PT/OT Subjective 67 yo female c PMH significant for hypertension, DM 2 insulin requiring, PSVT as per records, history CVA, history of subarachnoid hemorrhage secondary to cerebral aneurysm status post coil embolization (2014), essential tremors, history of seizure disorder, past tobacco abuse. Patient noted to be intermittently confused in the last week. Weak, thirsty, loose stools noted, nonbloody. No known sick contacts, recent travel, recent antibiotics. Transient achy headache symptoms this a.m. Achy abdominal cramping, with nausea. No chest pain , no S OB. Admits to not being careful about what she eats. BG is noted to be 600s at home. Patient directed by PCP to the ER. At the ER, IV insulin started for BSG of 1000. Patient is seen and examined at bedside Patient is oriented but is confusion intermittently check for c.diff if diarrhea reoccurs Patient feels well and offers no complaints Plan to get MRI brain if compatible with intracranial coiling Started on IV Abx empirically for possible UTI ROS-No Headache, No Visual Changes, No Fever, No Chills, No Neck Pain or Stiffness, No Chest Pain, No Palpitations, No SOB, No RODRIGUEZ, No Cough, No Sputum, No Wheezing, No Abdominal Pain, No Diarrhea, No Hematemesis, No Hemoptysis, No Unexpected Weight Loss, No Flank pain, No Melena, No Hematochezia, No Frequency , No Urgency, No Burning, No Hematuria, No Rashes, No Diaphoresis. Appetite is Normal Physical Exam Gen-AAO x 3, Confused, NAD, Afebrile, Thin, looks normal until you talk to her in conversation Head-NCAT, EOMI, PERRLA, Anicteric Sclera, No Posterior Pharyngeal Erythema Neck-Supple, No JVD, No Thyromegaly, No Masses, No LAD, No Bruits Lungs-Clear to Auscultation Bilaterally, No Rales, No Rhonchi, No Wheezing, No Crepitus Chest-No S4, +S1, +S2, No S3, No Murmurs, No Rubs, No Gallops, No Ectopy Abdomen-Soft, Bowel Sounds Present, Non Tender, Non Distended, No Hepatomegaly, No Splenomegaly, No Palpable Masses, No Rebound, No Rigidity, No Guarding Musculoskeletal-Full Range of Motion Bilaterally, No CVAT Extremities-No Cyanosis, No Clubbing, No Edema Nuero-Cranial Nerves II-XII grossly intact, Motor WNL, DTRs WNL, Strength WNL, No Focal Psych-Normal Mood Physical Exam 2 Vital Signs (Past 24 Hours): Last Vital Signs Temp 37.3 C 07/27/18 07:40 Pulse 79 07/27/18 08:00 Resp 18 07/27/18 07:40 BP 152/92 H 07/27/18 07:40 Pulse Ox 94 07/27/18 07:40 Results & Data Laboratory Results Current Diagnoses Type 2 diabetes mellitus with hyperosmolarity with coma (07/23/18) Type 2 diabetes mellitus with hyperglycemia (07/23/18) Encephalopathy, unspecified (07/23/18) Essential (primary) hypertension (07/23/18) Nontraumatic subarachnoid hemorrhage, unspecified (07/23/18) Abnormal levels of other serum enzymes (07/23/18) Allergies Penicillins Allergy (Severe, Verified 07/23/18 17:11) THROAT SWELLS Height/Weight/Isolation Height 5 ft 2 in Weight 72.3 kg Chemistry 07/26/18 07/27/18 05:53 05:15 Sodium 141 138 Potassium 3.3 L 3.1 L Chloride 108 H 108 H Carbon Dioxide 25 22 Anion Gap 9.0 9.0 BUN 13 22 H D Creatinine 0.66 0.82 Glucose 100 H 226 H Urinalysis 07/26/18 00:10 Urine Color Dark Yellow Urine Appearance Clear Urine pH 5.5 Ur Specific [place] 1.025 Urine Protein 1+ H Urine Glucose (UA) 2+ H Urine Ketones Trace H Urine Blood 1+ H Urine Nitrite Negative Urine Bilirubin Negative Microbiology 07/26/18 00:10 Urine,Clean Catch Urine Culture - Final More than three types of organisms present, all moderate counts mixed probable skin rafael. No further identifications or sensitivities to follow. 07/26/18 14:05 Stool Escherichia coli Shiga Toxins - Pending 07/26/18 14:05 Stool Stool Culture - Pending 07/23/18 20:29 Blood Blood Culture - Preliminary No growth to date. 07/23/18 20:21 Blood Blood Culture - Preliminary No growth to date.
[2018-07-27] MEDS: POTASSIUM CHLORIDE 20 MEQ TABCR PO SCH ×2 (12:30→20:28)
--- NOTE | 2018-07-27 14:14 | Cardiology Progress Note ---
Date of Service July 27, 2018 Assessment & Plan (1) Encephalopathy: Patient presented with profound hyperglycemia associated hypertensive urgency and encephalopathy. morning glucose is Would continue to treat hypertension. Reduce Toprol at current dosing 75 g twice per day if blood pressure remains lower, reduce lisinopril dosing We will sign off at this time contact with any questions or concerns (2) Hyperglycemic hyperosmolar nonketotic coma: (3) HTN (hypertension): As above (4) Elevated troponin: EKGs echocardiogram do not suggest acute coronary syndrome troponins likely reflecting acute stressors and metabolic derangement of illness. We will continue to follow in hospital. Last stress testing was nonischemic 2015. LV systolic function is generally preserved with patient with past history of apical stress-induced hypokinesis time of acute subarachnoid hemorrhage EKG this morning reveals tremor artifact, no atrial fibrillation/flutter (5) SAH (subarachnoid hemorrhage): Status post coil embolism September 2014 Would recommend resuming aspirin when agreeable by neurology Subjective Patient seen and examined, chart medications telemetry reviewed. Patient ambulatory in the hallway earlier today without difficulty. No chest pains tachypalpitations dizziness. The pressures are trending slightly lower currently Physical Exam 2 Vital Signs (Past 24 Hours): Last Vital Signs Temp 36.8 C 07/27/18 11:52 Pulse 76 07/27/18 11:52 Resp 19 07/27/18 11:52 BP 89/72 L 07/27/18 11:52 Pulse Ox 95 07/27/18 11:52 Constitutional: WD/WN, vitals as above Eyes: PERRL, conjunctivae normal, anicteric sclerae Neck: trachea midline, no thyromegaly Respiratory: normal respiratory effort, lungs clear to auscultation Cardiovascular: RRR, no murmur, no edema Rate/Rhythm: regular rate and regular rhythm Palpation: normal PMI Vessels: no JVD and no carotid bruit Gastrointestinal (Abdomen): normal bowel sounds, soft, nontender, no hepatosplenomegaly
--- NOTE | 2018-07-27 14:30 | Neurology Progress Note ---
Date of Service July 27, 2018 Delirum Hallucinations UTI Hyperglycemia DM A 67 year old woman admitted with encephaloapthy in the setting of NS. Patient remains confused. Possible hyperative delirium. Appears to be demonstrating sundowning. - Patient appears to have guzman indifference which can be seen in conversion disorders. Very tangential thought process. - Discussed with daughter. Daughter was emailed information regarding coil. I ask that she provide this to the nurse so that information can be obtained by radiology. I also spoke with radiology this afternoon. - Patient believes she is in [place] this afternoon. Has long history of depression and has seen psychologist in the past. Unclear if there is some underlying psychiatric issue going on. - MRI brain pending - UTI may certainly be contributing. Recommend treating aggresively. - Thiamine pending. Ammonia mildly elevated. B12 on lower limit of normal. Continue B12 and thiamine replacement. - Recommend routine EEG (Order paced). - Recommend checking anti-TPO antibody. - Recommend psychiatry consult for suspected hyperactive delirium. May benefit from Seroquel or Depakote. Subjective Patient was seen and examined. Daughter at bedside. Patient remains confused. Having agitation at night. Also hallucinating at night. Patient reports feeling fine right now and is without complaints. Physical Exam 2 Vital Signs (Past 24 Hours): Last Vital Signs Temp 36.8 C 07/27/18 11:52 Pulse 76 07/27/18 11:52 Resp 19 07/27/18 11:52 BP 89/72 L 07/27/18 11:52 Pulse Ox 95 07/27/18 11:52 Physical Exam: EXAM: Constitutional: appearance normally developed, well nourished and non-obese Head and Face: normocephalic and atraumatic Eyes: normal lids, normal conjunctiva, Neck: supple Respiratory: normal effort Cardiovascular: regular rhythm Abdomen: non distended Skin: no rashes, lesions, or ulcers noted Psychiatric: isidro difference NEUROLOGIC EXAMINATION: Appearance: no acute distress Orientation: awake, alert and disoriented to place and time Mental Status: alert Memory: Poor Attention: normal Knowledge: Poor Language: no aphasia Speech: no dysarthria Cranial Nerves: CN 2 - no visual defect on confrontation and pupils round, equal, reactive to light CN 3, 4, 6 - extra-ocular movements intact and no nystagmus CN 5 - facial sensation intact CN 7 - no facial asymmetry CN 8 - intact hearing CN 9, 10 - palate symmetric CN 11 - good shoulder shrug CN 12 - tongue midline Coordination: left upper extremity tremor, no myoclonus Sensory: intact to light touch Muscle Tone: normal Muscle exam: 5/5 throughout, no focal weakness Reflexes: No clonus, boateng negative
[2018-07-27] MEDS ORDERED: LORazepam 1 MG/2 ML VIAL IV STA (15:39)
[2018-07-27] MEDS ORDERED: DiphenhydrAMINE HCL 50 MG/ML VIAL IV STA (15:40)
[2018-07-27] MEDS ORDERED: GADOBUTROL 65ML VIAL IV PRN (17:32)
--- NOTE | 2018-07-27 17:45 | Magnetic Resonance Report ---
MR brain wo/w con HISTORY: 67 years-old Female AMS acutely altered mental status COMPARISON: CT head 07/23/2018 TECHNIQUE: Multiplanar multisequence MRI of the brain was obtained both with and without the use of 7 .2 mL Gadavist FINDINGS: No restricted diffusion to suggest acute or subacute infarction. Optic chiasm, pituitary and pineal g lands appear unremarkable on the sagittal T1 series. No cerebellar tonsillar herniation. Degenerative changes noted about the imaged cervical spine. Moderate atrophy with ex vacuo ventriculomegaly. Encephalomalacia from remote infarctions about the r ight frontal, parietal and temporal lobes with associated gliosis and areas of laminar necrosis. Mode rate scattered T2/FLAIR hyperintensities suggestive of underlying chronic microvascular ischemic rolle ges. Encephalomalacia also noted about the anterior body of the corpus callosum. There is no acute in tracranial hemorrhage, midline shift, abnormal extra-axial collections, hydrocephalus or intracranial mass. There is no abnormal intra-axial or extra-axial enhancement identified. Remote lacunar infarct ions about the basal ganglia. The major flow voids appear to be patent. Mastoid air cells are clear. Mild mucosal thickening about the paranasal sinuses. Rightward bowing and spurring of the nasal septum. Orbits, skull and soft tiss ues are unremarkable. IMPRESSION: 1. No acute intracranial abnormality, specifically no acute or subacute infarct. 2. Atrophy with chronic microvascular ischemic changes. 3. Multiple remote infarctions about the right cerebral hemisphere with associated gliosis and lamina r necrosis. 4. No abnormal enhancement. 5. Mild paranasal sinus disease. The above report was generated using voice recognition software. It may contain grammatical, syntax o r spelling errors. Electronically signed by: Nikita Box M.D. 07/27/2018 5:44 PM
[2018-07-27] MEDS: ATORVASTATIN 40 MG TAB PO SCH (20:27)
[2018-07-28] MEDS: AZTREONAM 1,000 MG in DEXTROSE 5% 100 ML IV SCH (00:50)
[2018-07-28] MEDS ORDERED: INSULIN ASPART 100 UNITS/ML 3 ML PEN SC SCH (02:00)
[2018-07-28 07:00] LABS: Hematocrit (blood only) 38.3 % (37-47); Hemoglobin 12.6 g/dL (12.0-16.0); Mean Corpuscular Hgb Conc 32.9 g/dL (32-36); Mean Corpuscular Volume 89.7 fL (80-100); Mean Platelet Volume 10.3 fL (7.4-10.4); Platelet Count 518 K/uL (130-400); RDW Coefficient of Variation 13.7 % (11.5-14.5); RDW Standard Deviation 44.9 fL (36.4-46.3); Red Blood Count 4.27 M/uL (4.2-5.4); White Blood Count 11.29 K/uL (4.8-10.8)
[2018-07-28 07:36] LABS: BUN Creatinine Ratio 19.6 (10-20); Calcium 7.9 mg/dl (8.5-10.1); Creatinine Clr Calc Pharmacy 76.1 ml/min; Est GFR (Non-African American) 90.6; Potassium 3.9 mmol/L (3.5-5.1)
[2018-07-28] MEDS: INSULIN ASPART 100 UNITS/ML 3 ML PEN SC SCH ×4 (09:22→20:30)
[2018-07-28] MEDS: INSULIN GLARGINE SOLOSTAR 100 UNITS/ML 3 ML PEN SC SCH (09:23)
[2018-07-28] MEDS: METOPROLOL SUCC 25MG EXT REL TAB PO SCH ×2 (09:24→20:27)
[2018-07-28] MEDS: POTASSIUM CHLORIDE 20 MEQ TABCR PO SCH ×2 (09:25→20:26)
[2018-07-28] MEDS: LISINOPRIL 10 MG TAB PO SCH (09:25)
[2018-07-28] MEDS: CETIRIZINE HCL 10 MG TABLET PO SCH (09:26)
[2018-07-28] MEDS: THIAMINE HCL 100 MG TAB PO SCH (09:27)
[2018-07-28] MEDS: FAMOTIDINE 20 MG TAB PO SCH ×2 (09:28→20:28)
[2018-07-28] MEDS: ASPIRIN 81 MG ECTAB PO SCH (09:29)
[2018-07-28] MEDS: levETIRAcetam 500 MG TAB PO SCH ×2 (09:30→20:26)
[2018-07-28] MEDS: ENOXAPARIN INJ 30 MG/0.3 ML SYR SQ SCH (09:30)
--- NOTE | 2018-07-28 10:38 | Hospitalist Progress Note ---
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 Postoperative changes as noted. No acute intracranial abnormality. MRI result reviewed Continue Keppra Monitor sodium levels--normal Vitamin B12: normal folate levels:Normal Thiamine levels:pending Reorient frequently Intermittently confused UTI:WBC coming down on Aztreonam Repeat UA: +Leukocyte esterase, WBCs Urine Culture: pending Blood Cultures: No growth to date Empirically started on IV Azactam Hyperglycemic crisis DM II: Uncontrolled Last Hb A1C: 11.4 in June 2018 Likely secondary to Non compliance with diet and medications Follows with Endocrinology as outpatient Hold PO meds Diabetic education Continue ISS, Lantus Monitor BGs Hypokalemia Hypernatremia Resolved Diarrhea Neg C. difficile Patient denies abd pain No recurrence of diarrhea PIERRE: Resolved with IV fluids Hypertensive urgency continue Metoprolol Continue Lisinopril Labetelol PRN Troponin elevation Likely demand ischemia 2/2 uncontrolled BP Patient denies chest pain ECHO: Subtle Hypokinesis of inferior base (hypokinesis also noted on prior ECHO in 2014) Cardiology on board H/O CVA Past tobacco abuse Continue Aspirin, Lipitor DVT Px: Lovenox SQ Code Status Full code Disposition DC home 1-2 days PT/OT Subjective 67 yo female c PMH significant for hypertension, DM 2 insulin requiring, PSVT as per records, history CVA, history of subarachnoid hemorrhage secondary to cerebral aneurysm status post coil embolization (2014), essential tremors, history of seizure disorder, past tobacco abuse. Patient noted to be intermittently confused in the last week. Weak, thirsty, loose stools noted, nonbloody. No known sick contacts, recent travel, recent antibiotics. Transient achy headache symptoms this a.m. Achy abdominal cramping, with nausea. No chest pain , no S OB. Admits to not being careful about what she eats. BG is noted to be 600s at home. Patient directed by PCP to the ER. At the ER, IV insulin started for BSG of 1000. Patient is seen and examined at bedside Patient is oriented but is confusion intermittently check for c.diff if diarrhea reoccurs Patient feels well and offers no complaints Plan to get MRI brain if compatible with intracranial coiling Started on IV Abx empirically for possible UTI ROS-No Headache, No Visual Changes, No Fever, No Chills, No Neck Pain or Stiffness, No Chest Pain, No Palpitations, No SOB, No RODRIGUEZ, No Cough, No Sputum, No Wheezing, No Abdominal Pain, No Diarrhea, No Hematemesis, No Hemoptysis, No Unexpected Weight Loss, No Flank pain, No Melena, No Hematochezia, No Frequency , No Urgency, No Burning, No Hematuria, No Rashes, No Diaphoresis. Appetite is Normal Physical Exam Gen-AAO x 3, Less Confused, NAD, Afebrile, Head-NCAT, EOMI, PERRLA, Anicteric Sclera, No Posterior Pharyngeal Erythema Neck-Supple, No JVD, No Thyromegaly, No Masses, No LAD, No Bruits Lungs-Clear to Auscultation Bilaterally, No Rales, No Rhonchi, No Wheezing, No Crepitus Chest-No S4, +S1, +S2, No S3, No Murmurs, No Rubs, No Gallops, No Ectopy Abdomen-Soft, Bowel Sounds Present, Non Tender, Non Distended, No Hepatomegaly, No Splenomegaly, No Palpable Masses, No Rebound, No Rigidity, No Guarding Musculoskeletal-Full Range of Motion Bilaterally, No CVAT Extremities-No Cyanosis, No Clubbing, No Edema Nuero-Cranial Nerves II-XII grossly intact, Motor WNL, DTRs WNL, Strength WNL, No Focal Psych-Normal Mood Physical Exam 2 Vital Signs (Past 24 Hours): Last Vital Signs Temp 37.2 C 07/28/18 08:02 Pulse 84 07/28/18 09:11 Resp 16 07/28/18 08:02 BP 139/64 07/28/18 09:11 Pulse Ox 95 07/28/18 08:02 Results & Data Laboratory Results Current Diagnoses Type 2 diabetes mellitus with hyperosmolarity with coma (07/23/18) Type 2 diabetes mellitus with hyperglycemia (07/23/18) Encephalopathy, unspecified (07/23/18) Essential (primary) hypertension (07/23/18) Nontraumatic subarachnoid hemorrhage, unspecified (07/23/18) Abnormal levels of other serum enzymes (07/23/18) Allergies Penicillins Allergy (Severe, Verified 07/23/18 17:11) THROAT SWELLS Height/Weight/Isolation Height 5 ft 2 in Weight 72.3 kg Chemistry 07/27/18 07/28/18 05:15 06:33 Sodium 138 142 Potassium 3.1 L 3.9 D Chloride 108 H 114 H Carbon Dioxide 22 25 Anion Gap 9.0 3.0 BUN 22 H D 13 Creatinine 0.82 0.65 Glucose 226 H 105 H Microbiology 07/26/18 14:05 Stool Escherichia coli Shiga Toxins - Preliminary 07/26/18 14:05 Stool Stool Culture - Preliminary No Salmonella isolated to date, No Shigella isolated to date, No Campylobacter jejuni isolated to date. 07/26/18 00:10 Urine,Clean Catch Urine Culture - Final More than three types of organisms present, all moderate counts mixed probable skin rafael. No further identifications or sensitivities to follow. Diagnostic Findings MR Brain IMPRESSION: 1. No acute intracranial abnormality, specifically no acute or subacute infarct. 2. Atrophy with chronic microvascular ischemic changes. 3. Multiple remote infarctions about the right cerebral hemisphere with associated gliosis and laminar necrosis. 4. No abnormal enhancement. 5. Mild paranasal sinus disease.
--- NOTE | 2018-07-28 11:50 | Procedure Note ---
EEG Procedure Note Date of Service July 28, 2018 Start / End Times Start Time: 06:01 End Time: 06:[address] Santiago Daniel History A 67 year old woman admitted with encephalopathy and hallucinations. EEG performed for evaluation of epileptiform activity. Home Medication List Home Medications Medication Instructions Recorded Confirmed Type albuterol sulfate [ProAir HFA] 2 puff INHALATION QID 07/23/18 07/23/18 History aspirin [Aspir-81] 81 mg PO QAM 07/23/18 07/23/18 History atorvastatin 40 mg PO PM 07/23/18 07/23/18 History cetirizine [Zyrtec] 5 mg PO QAM 07/23/18 07/23/18 History famotidine 20 mg PO BID 07/23/18 07/23/18 History insulin glargine [Lantus U-100 15 unit SUBCUT QAM 07/23/18 07/24/18 History Insulin] levetiracetam [Keppra] 500 mg PO BID 07/23/18 07/23/18 History lisinopril-hydrochlorothiazide 0.5 tab PO QAM 07/23/18 07/23/18 History metformin 1,000 mg PO BIDM 07/23/18 07/23/18 History metoprolol succinate 50 mg PO QAM 07/23/18 07/23/18 History Inpatient Medication List [facility] [place] Stop: 08/23/18 08:59 Last Admin: 07/28/18 09:29 Dose: 81 mg Admin: 07/27/18 08:36 Dose: 81 mg Admin: 07/26/18 08:10 Dose: 81 mg Admin: 07/25/18 08:07 Dose: 81 mg Admin: 07/24/18 07:50 Dose: 81 mg Atorvastatin Calcium (Lipitor) 40 mg PO PM [facility] Stop: 08/23/18 20:59 Last Admin: 07/27/18 20:27 Dose: 40 mg Admin: 07/26/18 19:58 Dose: 40 mg Admin: 07/25/18 21:07 Dose: 40 mg Admin: 07/24/18 19:51 Dose: 40 mg Cetirizine HCl (Zyrtec) [facility] [place] Stop: 08/23/18 08:59 Last Admin: 07/28/18 09:26 Dose: 5 mg Admin: 07/27/18 08:37 Dose: 5 mg Admin: 07/26/18 08:10 Dose: 5 mg Admin: 07/25/18 08:07 Dose: 5 mg Admin: 07/24/18 07:50 Dose: 5 mg Enoxaparin Sodium (Lovenox) 30 mg SQ QAM [facility] Stop: 08/23/18 08:59 Last Admin: 07/28/18 09:30 Dose: 30 mg Admin: 07/27/18 08:39 Dose: 30 mg Admin: 07/26/18 08:10 Dose: 30 mg Admin: 07/25/18 08:08 Dose: 30 mg Admin: 07/24/18 11:08 Dose: 30 mg Famotidine (Pepcid) 20 mg PO BID [facility] Stop: 08/23/18 08:59 Last Admin: 07/28/18 09:28 Dose: 20 mg Admin: 07/27/18 20:31 Dose: 20 mg Admin: 07/27/18 09:04 Dose: 20 mg Admin: 07/26/18 19:58 Dose: 20 mg Admin: 07/26/18 08:10 Dose: 20 mg Admin: 07/25/18 21:07 Dose: 20 mg Admin: 07/25/18 08:07 Dose: 20 mg Admin: 07/24/18 19:51 Dose: 20 mg Admin: 07/24/18 07:50 Dose: 20 mg Gadobutrol (Gadavist 65ml) 7.2 ml IV ONCE PRN PRN Reason: Interaction Checking Stop: 07/31/18 17:31 Last Admin: 07/27/18 17:34 Dose: 7.2 ml Insulin Aspart (Novolog Flexpen) 0 units SC ACHS [facility] Stop: 08/23/18 06:29 Last Admin: 07/28/18 09:22 Dose: 4 units Admin: 07/27/18 20:32 Dose: 5 units Admin: 07/27/18 17:30 Dose: Not Given Admin: 07/27/18 12:27 Dose: 12 units Admin: 07/27/18 08:42 Dose: 5 units Admin: 07/26/18 20:45 Dose: 4 units Admin: 07/26/18 16:52 Dose: 10 units Admin: 07/26/18 12:09 Dose: 7 units Admin: 07/26/18 08:11 Dose: 2 units Admin: 07/25/18 21:08 Dose: 1 units Admin: 07/25/18 17:32 Dose: 3 units Admin: 07/25/18 12:22 Dose: 3 units Admin: 07/25/18 08:10 Dose: 2 units Admin: 07/24/18 19:57 Dose: 2 units Admin: 07/24/18 17:47 Dose: 9 units Admin: 07/24/18 12:12 Dose: 6 units Admin: 07/24/18 07:53 Dose: 4 units Insulin Glargine (Lantus Solostar Pen) 36 units SC DAILY [facility] Stop: 08/26/18 08:59 Last Admin: 07/28/18 09:23 Dose: 36 units Admin: 07/27/18 08:41 Dose: 36 units Labetalol HCl (Normodyne) 10 mg IV Q6H PRN PRN Reason: Hypertension Stop: 08/23/18 09:14 Last Admin: 07/24/18 09:34 Dose: 10 mg Levetiracetam (Keppra) 500 mg PO BID [facility] Stop: 08/23/18 08:59 Last Admin: 07/28/18 09:30 Dose: 500 mg Admin: 07/27/18 20:27 Dose: 500 mg Admin: 07/27/18 08:36 Dose: 500 mg Admin: 07/26/18 19:58 Dose: 500 mg Admin: 07/26/18 08:09 Dose: 500 mg Admin: 07/25/18 21:07 Dose: 500 mg Admin: 07/25/18 08:07 Dose: 500 mg Admin: 07/24/18 19:53 Dose: 500 mg Admin: 07/24/18 07:50 Dose: 500 mg Lisinopril (Zestril) 10 mg PO QAM [facility] Stop: 08/23/18 01:29 Last Admin: 07/28/18 09:25 Dose: 10 mg Admin: 07/27/18 08:36 Dose: 10 mg Admin: 07/26/18 08:10 Dose: 10 mg Admin: 07/25/18 08:08 Dose: 10 mg Admin: 07/24/18 05:45 Dose: 10 mg Metoprolol Succinate (Toprol Xl) 75 mg PO BID [facility] Stop: 08/25/18 20:59 Last Admin: 07/28/18 09:24 Dose: 75 mg Admin: 07/27/18 20:31 Dose: 75 mg Admin: 07/27/18 08:35 Dose: 75 mg Admin: 07/26/18 19:57 Dose: 75 mg Olanzapine (Zyprexa) 2.5 mg IM Q4H PRN PRN Reason: Anxiety/Agitation Stop: 08/25/18 23:29 Last Admin: 07/27/18 00:00 Dose: 2.5 mg Potassium Chloride (Klor-Con M20) 40 meq PO BID [facility] Stop: 08/26/18 11:59 Last Admin: 07/28/18 09:25 Dose: 40 meq Admin: 07/27/18 20:28 Dose: 40 meq Admin: 07/27/18 12:30 Dose: 40 meq Thiamine HCl (Vitamin B-1) 100 mg PO QAM [facility] Stop: 08/24/18 16:44 Last Admin: 07/28/18 09:27 Dose: 100 mg Admin: 07/27/18 08:37 Dose: 100 mg Admin: 07/26/18 08:10 Dose: 100 mg Admin: 07/25/18 18:09 Dose: 100 mg Discontinued Medications Aspirin (Ecotrin) 81 mg PO NOW STA Stop: 07/23/18 21:20 Last Admin: 07/24/18 04:22 Dose: Not Given Diphenhydramine HCl (Benadryl) 25 mg IV NOW STA Stop: 07/27/18 15:41 Last Admin: 07/27/18 17:30 Dose: Not Given Sodium Chloride (Nss 1000ml) 1,000 mls @ 250 mls/hr IV .Q4H [facility] Stop: 07/23/18 19:59 Last Infusion: 07/23/18 22:25 Dose: 0 mls/hr Admin: 07/23/18 18:25 Dose: 250 mls/hr Sodium Chloride (Nss 1000ml) 1,000 mls @ 999 mls/hr IV .Q1H1M [facility] Stop: 07/23/18 17:00 Last Infusion: 07/23/18 17:20 Dose: 0 mls/hr Admin: 07/23/18 16:20 Dose: 999 mls/hr Sodium Chloride (Nss 1000ml) 1,000 mls @ 999 mls/hr IV .Q1H1M ONE Stop: 07/23/18 18:06 Last Infusion: 07/23/18 18:25 Dose: 0 mls/hr Admin: 07/23/18 17:25 Dose: 999 mls/hr Insulin Human Regular 250 (units/ Sodium Chloride) 250 mls @ 2 mls/hr IV .Q24H [facility]; Protocol Stop: 08/22/18 17:29 Last Titration: 07/24/18 07:19 Dose: 0 units/hr, 0 mls/hr Titration: 07/23/18 19:37 Dose: 2 units/hr, 2 mls/hr Admin: 07/23/18 18:03 Dose: 1.7 units/hr, 1.7 mls/hr Metronidazole (Flagyl) 500 mg in 100 mls @ 100 mls/hr IV NOW STA Stop: 07/23/18 20:47 Last Infusion: 07/23/18 22:48 Dose: 0 mls/hr Admin: 07/23/18 21:48 Dose: 100 mls/hr Sodium Chloride (Nss 1000ml) 1,000 mls @ 60 mls/hr IV .[id number] STA Stop: 07/24/18 14:03 Last Infusion: 07/24/18 04:24 Dose: 0 mls/hr Infusion: 07/24/18 04:19 Dose: 0 mls/hr Admin: 07/24/18 00:16 Dose: 60 mls/hr Sodium Chloride (1/2 Nss) 1,000 mls @ 60 mls/hr IV .[id number] STA Stop: 07/24/18 20:18 Last Infusion: 07/24/18 07:19 Dose: 0 mls/hr Admin: 07/24/18 04:19 Dose: 60 mls/hr Potassium Chloride/Sodium Chloride (1/2 Nss + 20meq Kcl 1000ml) 20 meq in 1, 000 mls @ 60 mls/hr IV .[id number] STA Stop: 07/24/18 23:16 Last Infusion: 07/24/18 09:17 Dose: 0 mls/hr Admin: 07/24/18 07:49 Dose: 60 mls/hr Potassium Chloride/Sodium Chloride (1/2 Nss + 20meq Kcl 1000ml) 20 meq in 1, 000 mls @ 50 mls/hr IV .Q20H ONE Stop: 07/25/18 10:59 Last Infusion: 07/25/18 10:56 Dose: 0 mls/hr Admin: 07/24/18 15:30 Dose: 50 mls/hr Aztreonam 1,000 mg/ Dextrose 110 mls @ 110 mls/hr IV Q8H [facility] Stop: 07/28/18 08:59 Last Infusion: 07/28/18 01:57 Dose: 0 mls/hr Admin: 07/28/18 00:50 Dose: 110 mls/hr Infusion: 07/27/18 19:40 Dose: 0 mls/hr Admin: 07/27/18 17:48 Dose: 110 mls/hr Infusion: 07/27/18 10:10 Dose: 0 mls/hr Admin: 07/27/18 09:09 Dose: 110 mls/hr Infusion: 07/27/18 02:42 Dose: 0 mls/hr Admin: 07/27/18 01:42 Dose: 110 mls/hr Infusion: 07/26/18 18:02 Dose: 0 mls/hr Admin: 07/26/18 16:52 Dose: 110 mls/hr Infusion: 07/26/18 10:13 Dose: 0 mls/hr Admin: 07/26/18 09:02 Dose: 110 mls/hr Lorazepam (Ativan) 1 mg in 2 mls @ 2 mls/min IV NOW STA Stop: 07/27/18 15:40 Last Admin: 07/27/18 17:30 Dose: Not Given Insulin Aspart (Novolog Flexpen) 0 units SC TODAY@0000,0400 [facility] Stop: 07/25/18 04:01 Last Admin: 07/25/18 05:22 Dose: Not Given Admin: 07/24/18 23:57 Dose: Not Given Insulin Aspart (Novolog Flexpen) 0 units SC TODAY@0000,0400 [facility] Stop: 07/26/18 04:01 Last Admin: 07/26/18 04:31 Dose: Not Given Admin: 07/26/18 00:04 Dose: Not Given Insulin Aspart (Novolog Flexpen) 0 units SC TODAY@0200 [facility] Stop: 07/28/18 02:01 Last Admin: 07/28/18 02:01 Dose: 1 units Insulin Glargine (Lantus Solostar Pen) 30 units SC BID [facility] Stop: 08/22/18 21:44 Last Admin: 07/24/18 07:51 Dose: 30 units Admin: 07/23/18 22:49 Dose: 30 units Insulin Glargine (Lantus Solostar Pen) 0 units SC 07/24/18@2100 [facility]; Protocol Stop: 07/24/18 21:01 Last Admin: 07/24/18 19:57 Dose: 12 units Insulin Glargine (Lantus Solostar Pen) 30 units SC DAILY [facility] Stop: 08/24/18 08:59 Last Admin: 07/26/18 08:12 Dose: 30 units Insulin Glargine (Lantus Solostar Pen) 25 units SC 07/25/18 [facility] Stop: 07/25/18 08:01 Last Admin: 07/25/18 08:09 Dose: 25 units Insulin Human Regular (Novolin R Bolus From Bag) 1.5 units IV ONE ONE Stop: 07/23/18 17:39 Last Admin: 07/23/18 18:04 Dose: 1.5 units Metoprolol Succinate (Toprol Xl) 50 mg PO QAM [facility] Stop: 08/23/18 04:59 Last Admin: 07/25/18 08:08 Dose: 50 mg Admin: 07/24/18 05:47 Dose: 50 mg Metoprolol Succinate (Toprol Xl) 25 mg PO QPM [facility] Stop: 08/23/18 20:59 Last Admin: 07/24/18 19:52 Dose: 25 mg Metoprolol Succinate (Toprol Xl) 50 mg PO BID [facility] Stop: 08/24/18 20:59 Last Admin: 07/26/18 08:09 Dose: 50 mg Admin: 07/25/18 21:07 Dose: 50 mg Metoprolol Tartrate (Lopressor) 12.5 mg PO NOW STA Stop: 07/23/18 23:42 Last Admin: 07/24/18 01:29 Dose: 12.5 mg Miscellaneous (Insulin Protocol Moderate Stress Level) 1 ea N/A ONE ONE Stop: 07/23/18 17:26 Last Admin: 07/23/18 18:05 Dose: 1 ea Miscellaneous (Insulin Protocol Hhs Goal Range) 1 ea N/A ONE ONE Stop: 07/23/18 17:26 Last Admin: 07/23/18 18:05 Dose: 1 ea Perflutren Lipid Microsphere (Definity) 2 ml IV ONCE ONE Stop: 07/24/18 07:19 Last Admin: 07/24/18 07:19 Dose: 2 ml Potassium Chloride (Klor-Con M10) 40 meq PO NOW ONE Stop: 07/24/18 08:01 Last Admin: 07/24/18 08:02 Dose: 40 meq Potassium Chloride (Klor-Con M10) 40 meq PO NOW STA Stop: 07/26/18 08:13 Last Admin: 07/26/18 09:02 Dose: 40 meq Description This is a 21 electrode EEG with a single channel dedicated to limited EKG. The electrodes were placed in accordance with the International 10-20 system. At the onset of the EEG the patient is sleeping. There is no posterior dominant rhythm seen. Instead the backgound consist of moderate amplitude theta-delta activity. Stage II sleep is characterized by sleep spindles.Photic stimulation does not elicit any abnormalities. IMPRESSION: This is a normal asleep routine EEG. There is no evidence of epileptiform activity.
--- NOTE | 2018-07-28 11:59 | Pharmacy Report ---
Pharmacy Glycemic Short Note 2 - Date of Service July 28, 2018 - Glycemic Short BSG Results (Last 24 hours): 07/27/18 07/27/18 07/28/18 17:13 20:08 01:58 Glucose POC Glucose 88 224 H 152 H 07/28/18 07/28/18 06:33 07:23 Glucose 105 H POC Glucose 110 H OUTPATIENT ANTIDIABETIC REGIMEN: * Metformin 1000mg PO BID * Lantus 15 units SQ daily * Reported h/o non-compliance * A1c = 11.4% 06/24/18 CURRENT ORDERS * Lantus 36 units SQ Q AM * Novolog SQ ACHS + 0200 * Goal range: 110 - 140mg/dL * Correction factor: 20mg/dL/unit * Carb ratio: 1 unit per 7gm CHO ASSESSMENT: 07/28 * Encephalopathy continues * BSGs pattern not easily explained - perhaps due to intermittent agitation and pt's refusal of some nursing interventions? * Fasting BSG 110 this AM with 36 units basal on board and after receiving 6 units correctional insulin (HS + 0200 coverage) - today is 2nd day of increased Lantus dose so will not adjust at this time as steady-state not yet achieved * Novolog CF and CR will be trialled today as yesterday it's use led to a quick drop following lunch however a rapid rise after dinner 2/5 * Over the last 24 hrs BSGs have ranged 172-235 * Current BSG pattern suggests mostly a basal insulin deficiency however I believe a small increase in prandial insulin would also be beneficial * Fasting BSG 195 this AM w/ 30 units of Lantus on board and after receiving a 4 unit correctional insulin dose last PM - will increase basal * 2 of 3 post-prandial BSGs above goal yesterday - will increase CR dose 2/4 * Poorly controlled type 2 diabetic admitted w/ encephalopathy and hyperglycemia * Glycemic control has been fairly good over the last 24 hrs, most BSGs have been at goal * Fasting BSG 112 this AM w/ 25 units of basal insulin on board, she has already received the ordered 30 units of Lantus this AM - may need to reduce dose tomorrow. * Post-prandial BSGs well controlled yesterday with current CF and CR, will continue the same for the next 24 hrs PLAN FOR INPATIENT GLYCEMIC CONTROL: * Hold outpatient oral diabetes medications (metformin) * Basal insulin (no change) * Lantus 36 units SQ Q AM * Bolus insulin (no change) * NovoLog per scale ACHS and 0200 * Goal Range: Low 120 mg/dL - High 140 mg/dL * Correction Factor: 20 mg/dL/unit * Nutritional / Prandial insulin per carb ratio of 1 unit per 7 grams CHO consumed PLAN FOR DISCHARGE: * Pt's current level of glycemic control is poor. However this may be due to medication and dietary noncompliance. Based upon current BSG trends and insulin doses I would anticipate her to require more than 15 units of Lantus once daily in combination w/ metformin on discharge.
[2018-07-28] MEDS ORDERED: AZTREONAM 1,000 MG in DEXTROSE 5% 100 ML IV SCH (12:00)
--- NOTE | 2018-07-28 13:47 | Neurology Progress Note ---
Date of Service July 28, 2018 Encephalopathy - Improved UTI HHNK A 67 year old woman admitted with HHNK and increased confusion. Symptoms improved. Patients started on Abx for UTI - Patient appears improved today. I suspect she is back to baseline. No acute issues since transfered to 4th floor per nursing staff. She is oriented to place and time. Comprehension intact. Delirium appears improved. Recall from yesterday is good. - MRI negative for acute intracranial process. Patient follows with Dr. Tipton. Has chronic cognitive deficits and impulsivity issues per chart review. 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 - Routine EEG negative for epileptiform activity - Recommend resuming home medications including ASA and Keppra - PT/OT - Discharge needs No further neurological work up necessary at this time. Patient can follow up with Dr. Tipton after discharge. Please call me with any further questions. Subjective Patient was seen and examined. Patient reports feeling much better. Denies any concerns at this time. Physical Exam 2 Vital Signs (Past 24 Hours): Last Vital Signs Temp 36.9 C 07/28/18 12:50 Pulse 78 07/28/18 12:50 Resp 14 07/28/18 12:50 BP 143/78 H 07/28/18 12:50 Pulse Ox 93 07/28/18 12:50 Physical Exam: EXAM: Constitutional: appearance normally developed, well nourished and non-obese Head and Face: normocephalic and atraumatic Eyes: normal lids, normal conjunctiva Neck: supple Respiratory: normal effort Cardiovascular: regular rhythm Abdomen: non distended Skin: no rashes, lesions, or ulcers noted Psychiatric: normal mood NEUROLOGIC EXAMINATION: Appearance: no acute distress Orientation: awake, alert and oriented to place and time Mental Status: alert Memory: she is able to recall conversation from yesterday Attention: normal Knowledge: appropriate Language: no aphasia Speech: no dysarthria Cranial Nerves: CN 2 - no visual defect on confrontation and pupils round, equal, reactive to light CN 3, 4, 6 - extra-ocular movements intact and no nystagmus CN 5 - facial sensation intact CN 7 - no facial asymmetry CN 8 - intact hearing CN 9, 10 - palate symmetric CN 11 - good shoulder shrug CN 12 - tongue midline Gait: deferred Coordination: essential tremor in chin and left upper extremity noted (baseline) Sensory: intact to light touch Muscle Tone: normal Muscle exam: 5/5 throughout Reflexes: no clonus, boateng negative
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
[2018-07-28] MEDS ORDERED: ALBUTEROL HFA 8 GM INHALER INH SCH (17:00)
[2018-07-28] MEDS: cefTRIAXone SODIUM 1,000 MG in DEXTROSE 5% 50 ML IV SCH (17:23)
[2018-07-28] MEDS: ATORVASTATIN 40 MG TAB PO SCH (20:26)
[2018-07-28] MEDS: ALBUTEROL HFA 8 GM INHALER INH SCH (20:28)
[2018-07-29 07:35] LABS: Hematocrit (blood only) 39.3 % (37-47); Hemoglobin 12.8 g/dL (12.0-16.0); Mean Corpuscular Hgb Conc 32.6 g/dL (32-36); Mean Corpuscular Volume 89.3 fL (80-100); Mean Platelet Volume 10.5 fL (7.4-10.4); Platelet Count 517 K/uL (130-400); RDW Coefficient of Variation 13.4 % (11.5-14.5); RDW Standard Deviation 43.5 fL (36.4-46.3); White Blood Count 12.81 K/uL (4.8-10.8)
[2018-07-29 08:08] LABS: BUN Creatinine Ratio 19.3 (10-20); Calcium 8.5 mg/dl (8.5-10.1); Creatinine Clr Calc Pharmacy 65.9 ml/min; Est GFR (African American) 94.3; Est GFR (Non-African American) 81.3; Potassium 4.2 mmol/L (3.5-5.1)
[2018-07-29 08:11] LABS: Albumin Globulin Ratio 0.5 (0.9-2); Bilirubin,Total 0.5 mg/dl (0.2-1); Globulin 4.3 gm/dl (2.5-4.0); Total Protein 6.3 gm/dl (6.4-8.2)
[2018-07-29] MEDS: METOPROLOL SUCC 25MG EXT REL TAB PO SCH ×2 (08:49→20:21)
[2018-07-29] MEDS: LISINOPRIL 10 MG TAB PO SCH (08:49)
[2018-07-29] MEDS: CETIRIZINE HCL 10 MG TABLET PO SCH (08:49)
[2018-07-29] MEDS: POTASSIUM CHLORIDE 20 MEQ TABCR PO SCH ×2 (08:49→20:21)
[2018-07-29] MEDS: ASPIRIN 81 MG ECTAB PO SCH (08:50)
[2018-07-29] MEDS: levETIRAcetam 500 MG TAB PO SCH ×2 (08:50→20:21)
[2018-07-29] MEDS: FAMOTIDINE 20 MG TAB PO SCH ×2 (08:50→20:21)
[2018-07-29] MEDS: LISINOPRIL/HCTZ 20/12.5MG 1 TAB TAB PO SCH (08:50)
[2018-07-29] MEDS: ENOXAPARIN INJ 30 MG/0.3 ML SYR SQ SCH (08:51)
[2018-07-29] MEDS: THIAMINE HCL 100 MG TAB PO SCH (08:51)
[2018-07-29] MEDS: ALBUTEROL HFA 8 GM INHALER INH SCH ×2 (08:51→20:23)
[2018-07-29] MEDS: INSULIN ASPART 100 UNITS/ML 3 ML PEN SC SCH ×4 (08:52→20:24)
[2018-07-29] MEDS: INSULIN GLARGINE SOLOSTAR 100 UNITS/ML 3 ML PEN SC SCH (08:53)
[2018-07-29] MEDS ORDERED: LANTUS PER UNIT CHARGE SQ SCH (09:00)
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
[2018-07-29] MEDS: cefTRIAXone SODIUM 1,000 MG in DEXTROSE 5% 50 ML IV SCH (17:07)
[2018-07-29] MEDS: ATORVASTATIN 40 MG TAB PO SCH (20:21)
[2018-07-30] MEDS ORDERED: INSULIN ASPART 100 UNITS/ML 3 ML PEN SC SCH
[2018-07-30] MEDS: levETIRAcetam 500 MG TAB PO SCH (07:39)
[2018-07-30] MEDS: LISINOPRIL/HCTZ 20/12.5MG 1 TAB TAB PO SCH (07:40)
[2018-07-30] MEDS: THIAMINE HCL 100 MG TAB PO SCH (07:40)
[2018-07-30] MEDS: ASPIRIN 81 MG ECTAB PO SCH (07:41)
[2018-07-30] MEDS: CETIRIZINE HCL 10 MG TABLET PO SCH (07:41)
[2018-07-30] MEDS: POTASSIUM CHLORIDE 20 MEQ TABCR PO SCH (07:41)
[2018-07-30] MEDS: FAMOTIDINE 20 MG TAB PO SCH (07:41)
[2018-07-30] MEDS: METOPROLOL SUCC 25MG EXT REL TAB PO SCH (07:42)
[2018-07-30] MEDS: LISINOPRIL 10 MG TAB PO SCH (07:42)
[2018-07-30] MEDS: ENOXAPARIN INJ 30 MG/0.3 ML SYR SQ SCH (07:43)
[2018-07-30] MEDS: INSULIN GLARGINE SOLOSTAR 100 UNITS/ML 3 ML PEN SC SCH (07:44)
[2018-07-30] MEDS: ALBUTEROL HFA 8 GM INHALER INH SCH (07:45)
[2018-07-30] MEDS: INSULIN ASPART 100 UNITS/ML 3 ML PEN SC SCH ×2 (07:58→12:27)
== END 2018-07-30 14:45 | DRG 637 ==
LOC: ED 15:36 → 2E 21:20 → SUATTDRO 21:20 → 2E 23:00 → 4E 07-28 13:14

== ENCOUNTER 2019-05-27 19:13 | Inpatient (IN) ==
[2019-05-27 20:14] LABS: Basophils # (auto) 0.03 K/uL (0-0.2); Basophils % (auto) 0.3 %; Eosinophils # (auto) 0.12 K/uL (0-0.5); Eosinophils % (auto) 1.4 %; Hemoglobin 13.5 g/dL (12.0-16.0); Immature Granulocytes # (auto) 0.02 K/uL (0.00-0.02); Immature Granulocytes % (auto) 0.2 %; Lymphocytes # (auto) 2.23 K/uL (1.2-3.4); Lymphocytes % (auto) 25.6 %; Mean Corpuscular Hemoglobin 29.2 pg (25-34); Mean Corpuscular Hgb Conc 32.9 g/dL (32-36); Mean Corpuscular Volume 88.7 fL (80-100); Mean Platelet Volume 9.6 fL (7.4-10.4); Monocytes % (auto) 6.9 %; Neutrophils % (auto) 65.6 %; Platelet Count 694 K/uL (130-400); RDW Coefficient of Variation 13.7 % (11.5-14.5); RDW Standard Deviation 44.6 fL (36.4-46.3); Red Blood Count 4.62 M/uL (4.2-5.4)
[2019-05-27 20:19] LABS: Base Excess VBG 1.9 mEq/L; pH VBG 7.45 (7.36-7.41)
--- NOTE | 2019-05-27 20:29 | XRay Report ---
XR chest 1V portable HISTORY: weakness COMPARISON: Chest 07/23/2018. FINDINGS: The cardiac silhouette remains borderline enlarged. Mild diffuse interstitial thickening wh ich is likely chronic. This remains unchanged. No new focal lung consolidations to suggest pneumonia. No evidence for pulmonary edema. No pleural effusions. No pneumothorax. IMPRESSION: No significant change compared to the prior study. No acute process. Electronically signed by: Neno Rashid M.D. 05/27/2019 8:28 PM
[2019-05-27 20:31] LABS: Alanine Aminotransferase 20 U/L (12-78); Albumin Level 3.4 gm/dl (3.4-5.0); Aspartate Aminotransferase 14 U/L (15-37); BUN Creatinine Ratio 32.6 (10-20); Blood Urea Nitrogen 32 mg/dl (7-18); Calcium 9.4 mg/dl (8.5-10.1); Carbon Dioxide 24 mmol/L (21-32); Chloride 111 mmol/L (98-107); Creatinine Clr Calc Pharmacy 50.6 ml/min; Est GFR (African American) 68.6; Est GFR (Non-African American) 59.2; Glucose 124 mg/dl (70-99); Magnesium 1.7 mg/dl (1.8-2.4); Potassium 3.4 mmol/L (3.5-5.1); Sodium 140 mmol/L (136-145)
[2019-05-27 20:42] LABS: Alkaline Phosphatase 71 U/L (45-117); Bilirubin,Total 1.7 mg/dl (0.2-1); Globulin 3.5 gm/dl (2.5-4.0); Total Protein 6.9 gm/dl (6.4-8.2); Troponin I < 0.015 ng/ml (0-0.045)
--- NOTE | 2019-05-27 20:49 | CT Scan Report ---
HEAD CT NONCONTRAST CT DOSE: HISTORY: Altered mental status. Fall. TECHNIQUE: Multiaxial CT images of the head were performed without the use of intravenous contrast. A utomated exposure control was utilized for this study. A dose lowering technique was utilized adheri ng to the principles of ALARA. Comparison: Head CT 07/23/2018. Findings: The paranasal sinuses and mastoid air cells are clear. The calvarium and skull base are int act. There is no mass, hematoma, midline shift, acute infarct. White matter hypodensity is nonspecifi c but suggestive of microvascular ischemic change. The ventricles and sulci demonstrate mild age-rela pardeep involutional changes. Old right-sided infarcts are again noted. There is a small left frontal old infarct, unchanged. Old punctate lacunar infarct within the left basal ganglia. Metallic coil adjace nt to the anterior falx likely secondary to embolization of an aneurysm. Remains unchanged. Impression: No significant change compared to the prior study. No acute intracranial abnormality. Electronically signed by: Neno Rashid M.D. 05/27/2019 8:48 PM
--- NOTE | 2019-05-27 20:53 | CT Scan Report ---
CERVICAL SPINE CT CT DOSE: 902.84 mGy.cm HISTORY: fall, neck pain TECHNIQUE: Multiaxial CT images of the cervical spine were performed and reformatted in the sagittal and coronal plane without the use of contrast. A dose lowering technique was utilized adhering to th e principles of ALARA. COMPARISON: None. FINDINGS: No fractures. No subluxation. Prevertebral soft tissues and the C1-C2 interval are intact. No pneumothorax. IMPRESSION: No fractures within the cervical spine. Electronically signed by: Neno Rashid M.D. 05/27/2019 8:52 PM
--- NOTE | 2019-05-27 21:14 | XRay Report ---
LEFT WRIST 5 VIEWS HISTORY: Left wrist pain COMPARISON: Left wrist radiograph 06/28/2012. FINDINGS: Old, healed distal left radius fracture. There is also an old ulnar styloid fracture. Corti oswald plate and screws transfixing an old midshaft radius fracture. The hardware appears intact. Mild d orsal soft tissue swelling within the left wrist. No acute fracture or dislocation. Dorsal tilt to th e distal radius due to the old fracture. The bones are osteopenic. IMPRESSION: 1. No acute fractures within the left wrist. 2. Old, healed left wrist/forearm fractures as described above. 3. Mild dorsal soft tissue swelling within the left wrist. Electronically signed by: Neno Rashid M.D. 05/27/2019 9:13 PM
[2019-05-27 22:03] LABS: Appearance Urine Cloudy (Clear); Bacteria Urine Automated Negative (Negative); Bilirubin Urine Negative (Negative); Blood Urine Trace (Negative); Color Urine Yellow; Epithelial Cell Urine Auto >30 /lpf (0-5); Glucose Urine UA Negative (Negative); Ketones Urine Negative (Negative); Leukocyte Esterase Urine 2+ (Negative); Nitrite Urine Negative (Negative); Protein Urine Trace (Negative); RBC Urine Automated 0-4 /hpf (0-4); Specific Gravity Urine 1.023 (1.000-1.030); Urobilinogen Urine Negative (Negative)
[2019-05-27] MEDS ORDERED: cefTRIAXone SODIUM 1,000 MG/50 ML BAG IV STA (22:09)
[2019-05-27] MEDS ORDERED: ACETAMINOPHEN 325 MG TAB PO STA (22:15)
[2019-05-27] MEDS ORDERED: POTASSIUM CHLORIDE 20 MEQ TABCR PO STA (22:47)
[2019-05-27] MEDS ORDERED: lisinopriL 5 MG TAB PO STA (22:47)
--- NOTE | 2019-05-27 23:18 | History & Physical Report ---
Date of Service May 27, 2019 Assessment & Plan (1) Encephalopathy: Transient symptoms ? Delirium on undiagnosed dementia, post stroke cognitive deficit as per records ? Complicated UTI (no sepsis for now) Notable emotional lability noted by myself during patient encounter at the ER. History anxiety/agitated depression on Lexapro. ? 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 Lovenox subcu Full code Patient's daughter requesting updates from providers. Ms. Yuliya Remy, contact #[phone]. History of Present Illness Chief Complaint: Fall as per patient Primary Care Provider: Alyson Nava, History obtained from patient, family, and records. Patient is a fair historian. Medical history significant for hypertension, DM 2 insulin requiring, PSVT as per records, history CVA, history of subarachnoid hemorrhage secondary to cerebral aneurysm status post coil embolization (2014), essential tremors, history of seizure disorder, post stroke cognitive deficit as per records, past tobacco abuse. Recent confinement July 2018 for hyperglycemic crisis. Neurology consulted during confinement for encephalopathy. Psychiatry consulted for possible hyperactive delirium. 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 Patient however was not willing to engage with psychiatry service during confinement. Patient seen by [facility] psychiatry outpatient for anxiety/depression last January 2019. Lexapro 10 mg daily initiated for agitated depression. Patient has not been able to follow-up with psychiatrist since. In the last month, patient's family made aware of patient's episodic confusion, forgetfulness, odd behavior at the apartment (e.g. knocking at neighbors' apartment doors looking for family members, episodic volatile behavior with caregivers as per daughter). Lexapro not culprit for confusion as per psychiatrist upon daughter's query. Patient's daughter received a call this morning from banquet manager that patient was found to have fallen after walking around half naked at lobby of apartment building leading to head trauma without LOC. As per banquet manager, patient stated that she was being chased by 4 dogs. Patient was somewhat confused when daughter checked on patient. Patient brought to the ER. Given ceftriaxone for possible UTI. Patient mentation currently improved as per daughter. Patient denies chest pain, S OB, abdominal pain, dysuria symptoms. No recollection of falling in apartment building lobby, walking around half naked. Patient claims she fell inside her apartment. Patient complaining of some neck pain and left wrist discomfort. Medical History as above Surgical History : PEG tube, knee surgery, tracheostomy, hysterectomy Family History : Heart disease, lupus, thyroid cancer, cirrhosis Personal/Social history : Past tobacco abuse, occasional EtOH intake, retired restaurant employee Allergies Allergy/AdvReac Type Severity Reaction Status Date / Time Penicillins Allergy Severe THROAT Verified 05/27/19 20:48 SWELLS Home Medications Home Medications Medication Instructions Recorded Confirmed Type albuterol sulfate [ProAir HFA] 1 puff INHALATION BID 07/23/18 05/27/19 History aspirin [Aspir-81] 81 mg PO QAM 07/23/18 05/27/19 History atorvastatin 40 mg PO PM 07/23/18 05/27/19 History cetirizine [Zyrtec] 5 mg PO QAM 07/23/18 05/27/19 History famotidine 20 mg PO BID 07/23/18 05/27/19 History levetiracetam [Keppra] 500 mg PO BID 07/23/18 05/27/19 History lisinopril-hydrochlorothiazide 0.5 tab PO QAM 07/23/18 05/27/19 History benzonatate 100 mg PO TID PRN 05/27/19 05/27/19 History cetirizine [Zyrtec] 0 mg PO DIRECTED PRN 05/27/19 05/27/19 History escitalopram oxalate 10 mg PO DAILY 05/27/19 05/27/19 History famotidine 20 mg PO BID 05/27/19 05/27/19 History insulin aspart U-100 [Novolog 0 unit SUBCUT DIRECTED 05/27/19 05/27/19 History Flexpen U-100 Insulin] insulin glargine [Lantus U-100 0 unit SUBCUT BID 05/27/19 05/27/19 History Insulin] loperamide [Imodium A-D] 0 mg PO DIRECTED 05/27/19 05/27/19 History metformin 500 mg PO DAILY 05/27/19 05/27/19 History metoprolol succinate 50 mg PO DAILY 05/27/19 05/27/19 History semaglutide [Ozempic] 0 mg SUBCUT DIRECTED 05/27/19 05/27/19 History Past Med/Surg History Medical History Brain aneurysm Diabetes (Chronic) Fibromyalgia (Chronic) History of stroke HTN (hypertension) (Chronic) Family History Other Cirrhosis of liver not due to alcohol Social History Preferred Language: Serbian Communication Ability: Effective 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 Other Information That Helps Us Care for You: No Feels Safe at Home: Yes Safety Concerns: Feels Safe At This Time Smoking Status: Former smoker Hx Alcohol Use: No Hx Substance Use: No Review of Systems Review of Systems: As per HPI, all 10 systems reviewed, all other ROS negative Physical Exam Physical Exam: GENERAL: Slightly uncomfortable, tremulous, no respiratory distress, emotional lability with episodic pressured teeth gritting, obese SKIN: Normal color, warm HEENT: [place] palpebral conjunctivae, no ptosis, dry buccal mucosa NECK : Slight limitation in motion due to pain , nonfocal tenderness CHEST : Decreased effort , no tenderness HEART : Bradycardic , no obvious murmurs ABDOMEN: Some distention, nontender EXTREMITIES : Tenderness left wrist, no LE swelling, nonfocal LE tenderness, no other conspicuous deformities noted NEUROLOGIC : Coherent, no facial asymmetry, tremulous, MMT RUE 5/5, LUE 4/5, gait and stance not assessed Results & Data Vital Signs (Past 12 Hours) Vital Signs Temp Pulse Resp BP Pulse Ox 05/27/19 22:15 65 29 H 05/27/19 21:30 63 20 05/27/19 21:05 58 L 18 05/27/19 20:35 96 05/27/19 19:20 36.4 C L 65 20 178/79 H 96 Laboratory Results Laboratory Results WBC 8.70 K/uL (4.8-10.8) 05/27/19 20:00 RBC 4.62 M/uL (4.2-5.4) 05/27/19 20:00 Hgb 13.5 g/dL (12.0-16.0) 05/27/19 20:00 Hct 41.0 % (37-47) 05/27/19 20:00 MCV 88.7 fL (80-100) 05/27/19 20:00 MCH 29.2 pg (25-34) 05/27/19 20:00 MCHC 32.9 g/dL (32-36) 05/27/19 20:00 RDW Std Deviation 44.6 fL (36.4-46.3) 05/27/19 20:00 RDW Coeff of Min 13.7 % (11.5-14.5) 05/27/19 20:00 Plt Count 694 K/uL (130-400) H 05/27/19 20:00 MPV 9.6 fL (7.4-10.4) 05/27/19 20:00 Immature Gran % (Auto) 0.2 % 05/27/19 20:00 Neut % (Auto) 65.6 % 05/27/19 20:00 Lymph % (Auto) 25.6 % 05/27/19 20:00 Summers % (Auto) 6.9 % 05/27/19 20:00 Eos % (Auto) 1.4 % 05/27/19 20:00 Baso % (Auto) 0.3 % 05/27/19 20:00 Immature Gran # (Auto) 0.02 K/uL (0.00-0.02) 05/27/19 20:00 Neut # (Auto) 5.70 K/uL (1.4-6.5) 05/27/19 20:00 Lymph # (Auto) 2.23 K/uL (1.2-3.4) 05/27/19 20:00 Summers # (Auto) 0.60 K/uL (0.11-0.59) H 05/27/19 20:00 Eos # (Auto) 0.12 K/uL (0-0.5) 05/27/19 20:00 Baso # (Auto) 0.03 K/uL (0-0.2) 05/27/19 20:00 VBG pH 7.45 (7.36-7.41) H 05/27/19 20:02 VBG pCO2 38 mmHg (38-50) 05/27/19 20:02 VBG pO2 45 mmHg 05/27/19 20:02 VBG HCO3 26 mmol/L 05/27/19 20:02 VBG O2 Saturation 83.0 % 05/27/19 20:02 VBG Base Excess 1.9 mEq/L 05/27/19 20:02 Barometric Pressure 735.4 mm/Hg 05/27/19 20:02 Sodium 140 mmol/L (136-145) 05/27/19 20:00 Potassium 3.4 mmol/L (3.5-5.1) L 05/27/19 20:00 Chloride 111 mmol/L (98-107) H 05/27/19 20:00 Carbon Dioxide 24 mmol/L (21-32) 05/27/19 20:00 Anion Gap 6.0 (3-11) 05/27/19 20:00 BUN 32 mg/dl (7-18) H 05/27/19 20:00 Creatinine 0.97 mg/dl (0.6-1.2) 05/27/19 20:00 Est Cr Clr Drug Dosing 50.6 ml/min 05/27/19 20:00 Est GFR ( Amer) 68.6 05/27/19 20:00 Est GFR (Non-Af Amer) 59.2 05/27/19 20:00 BUN/Creatinine Ratio 32.6 (10-20) H 05/27/19 20:00 Glucose 124 mg/dl (70-99) H 05/27/19 20:00 Calcium 9.4 mg/dl (8.5-10.1) 05/27/19 20:00 Magnesium 1.7 mg/dl (1.8-2.4) L 05/27/19 20:00 Total Bilirubin 1.7 mg/dl (0.2-1) H 05/27/19 20:00 AST 14 U/L (15-37) L 05/27/19 20:00 ALT 20 U/L (12-78) 05/27/19 20:00 Alkaline Phosphatase 71 U/L (45-117) 05/27/19 20:00 Ammonia 26.9 umol/L (11-32) 05/27/19 20:00 Troponin I < 0.015 ng/ml (0-0.045) 05/27/19 20:00 Total Protein 6.9 gm/dl (6.4-8.2) 05/27/19 20:00 Albumin 3.4 gm/dl (3.4-5.0) 05/27/19 20:00 Globulin 3.5 gm/dl (2.5-4.0) 05/27/19 20:00 Albumin/Globulin Ratio 1.0 (0.9-2) 05/27/19 20:00 TSH 3.240 uIu/ml (0.300-4.500) 05/27/19 20:00 Urine Color Yellow 05/27/19 21:52 Urine Appearance Cloudy (Clear) A 05/27/19 21:52 Urine pH 5.0 (4.5-7.5) 05/27/19 21:52 Ur Specific Walls 1.023 (1.000-1.030) 05/27/19 21:52 Urine Protein Trace (Negative) H 05/27/19 21:52 Urine Glucose (UA) Negative (Negative) 05/27/19 21:52 Urine Ketones Negative (Negative) 05/27/19 21:52 Urine Blood Trace (Negative) H 05/27/19 21:52 Urine Nitrite Negative (Negative) 05/27/19 21:52 Urine Bilirubin Negative (Negative) 05/27/19 21:52 Urine Urobilinogen Negative (Negative) 05/27/19 21:52 Ur Leukocyte Esterase 2+ (Negative) H 05/27/19 21:52 Urine WBC (Auto) 10-30 /hpf (0-5) H 05/27/19 21:52 Urine RBC (Auto) 0-4 /hpf (0-4) 05/27/19 21:52 U Hyaline Cast (Auto) 1-5 /lpf (0-5) 05/27/19 21:52 U Epithel Cells (Auto) >30 /lpf (0-5) H 05/27/19 21:52 Urine Bacteria (Auto) Negative (Negative) 05/27/19 21:[address] head: The paranasal sinuses and mastoid air cells are clear. The calvarium and skull base are intact. There is no mass, hematoma, midline shift, acute infarct. White matter hypodensity is nonspecific but suggestive of microvascular ischemic change. The ventricles and sulci demonstrate mild age-related involutional changes. Old right-sided infarcts are again noted. There is a small left frontal old infarct, unchanged. Old punctate lacunar infarct within the left basal ganglia. Metallic coil adjacent to the anterior falx likely secondary to embolization of an aneurysm. Remains unchanged. CT cervical spine No fractures within the cervical spine. Chest x-ray: The cardiac silhouette remains borderline enlarged. Mild diffuse interstitial thickening which is likely chronic. This remains unchanged. No new focal lung consolidations to suggest pneumonia. No evidence for pulmonary edema. No pleural effusions. No pneumothorax. Left wrist x-ray: 1. No acute fractures within the left wrist. 2. Old, healed left wrist/forearm fractures as described above. 3. Mild dorsal soft tissue swelling within the left wrist. EKG as per my interpretation: Rate 60, NSR, LAD, LAFB, LVH, no ischemia
--- NOTE | 2019-05-28 00:23 | Emergency Department Note ---
Entered by Luis A Abraham acting as a scribe for Rodolfo Clements M.D. History of Present Illness General Chief complaint: Altered Mental Status Stated complaint: FELL, HIT HEAD, HALLUCINATING, DIZZY, CONFUSED Time Seen by Provider: 05/27/19 19:24 Source: patient and family (daughter) History of Present Illness Onset (ago): week(s) 1 Location: head (altered mental status) Pain Consistency: + other (worsening) Maximum Pain Intensity: 3 Exacerbated By: + other (fall) Associated symptoms: + denies other symptoms (diarrhea), + loss of appetite, + nausea/vomiting (nausea) and + other (tiredness, confusion and hallucinations) The patient is a 68 year old F who presents to the Emergency Room with complaints of worsening altered mental status that started 1 week ago. The HPI was provided by the patient and the patients daughter. The patients daughter states that the patient lives in an independent living facility, [facility]. She notes that earlier in the week, 911 was called on the patient, because the patient was trying to get into someone elses apartment. The patient states that she was trying to find her daughter. The patients daughter notes that yesterday, the patient was found sitting in a strangers car. She adds that today, she went to see the patient after the building equipment inspector at [facility] told her that the patient was lethargic, angry, and confused. She notes that when she talked to the patient today, the patient told her that she was attacked by 9 dogs. The patient adds that she does not fully remember all of these events. She states that the patient is currently experiencing tiredness, confusion, a loss of appetite, and hallucinations. She adds that when she saw the patient today, the patients pill box was messed up. The patient notes that she is also currently experiencing nausea. The patient denies any current trouble with urination and bowel movements. She adds that she started to wear an adult diaper, since last week, due to intermittent diarrhea. The patient denies any current issues with diarrhea. The patient states that she fell last night after tripping over a carpet in the entrance of her apartment. She notes that she hit the top and back of her head, which she adds is currently hurting. She states that she broke her glasses from the fall. She notes that she got up after her fall. The patients daughter states that the patient has a history of diabetes, brain aneurysm, tracheotomy, and multiple strokes. She notes that the patient was in the ED, in July, for a diabetic coma. She adds that the patient did not take her insulin today due to not eating anything. She states that the patient regularly sees her neurologist. Home Medications Home Medications Medication Instructions Recorded Confirmed Type albuterol sulfate [ProAir HFA] 1 puff INHALATION BID 07/23/18 05/27/19 History aspirin [Aspir-81] 81 mg PO QAM 07/23/18 05/27/19 History atorvastatin 40 mg PO PM 07/23/18 05/27/19 History cetirizine [Zyrtec] 5 mg PO QAM 07/23/18 05/27/19 History famotidine 20 mg PO BID 07/23/18 05/27/19 History levetiracetam [Keppra] 500 mg PO BID 07/23/18 05/27/19 History lisinopril-hydrochlorothiazide 0.5 tab PO QAM 07/23/18 05/27/19 History benzonatate 100 mg PO TID PRN 05/27/19 05/27/19 History cetirizine [Zyrtec] 0 mg PO DIRECTED PRN 05/27/19 05/27/19 History escitalopram oxalate 10 mg PO DAILY 05/27/19 05/27/19 History famotidine 20 mg PO BID 05/27/19 05/27/19 History insulin aspart U-100 [Novolog 0 unit SUBCUT DIRECTED 05/27/19 05/27/19 History Flexpen U-100 Insulin] insulin glargine [Lantus U-100 0 unit SUBCUT BID 05/27/19 05/27/19 History Insulin] loperamide [Imodium A-D] 0 mg PO DIRECTED 05/27/19 05/27/19 History metformin 500 mg PO DAILY 05/27/19 05/27/19 History metoprolol succinate 50 mg PO DAILY 05/27/19 05/27/19 History semaglutide [Ozempic] 0 mg SUBCUT DIRECTED 05/27/19 05/27/19 History Allergies Allergy/AdvReac Type Severity Reaction Status Date / Time Penicillins Allergy Severe THROAT Verified 05/27/19 20:48 SWELLS Past Med/Surg History Social History Preferred Language: Mauritian Communication Ability: Impaired Station Engineer Required: No Beliefs That Will Affect Care: None Current Living Situation: Alone Current Living Situation Comment: Caregivers daily. Feels Safe at Home: Yes Smoking Status: Never smoker Hx Alcohol Use: No Hx Substance Use: No Review of Systems See HPI for pertinent positives & negatives. and A total of 10 systems reviewed and were otherwise negative Physical Exam Vital Signs Vital Signs - 24 hr 05/27/19 19:20 05/27/19 20:35 05/27/19 21:05 Temperature 36.4 C L Temperature Source Oral Pulse Rate 65 58 L Pulse Rate from SpO2 Sensor Pulse Rhythm Regular Pulse Strength Normal Respiratory Rate 20 18 Respiratory Effort / Characteristics Non-Labored Spontaneous Respiratory Depth Normal Respiratory Pattern Regular Blood Pressure 178/79 H Blood Pressure Mean 112 Blood Pressure Position Sitting Pulse Oximetry 96 96 Oxygen Delivery Method Room Air Room Air Sepsis Recent Fever Within 48 Hours No Sepsis Action Taken by Nursing No Action Required 05/27/19 21:30 05/27/19 22:15 05/27/19 23:40 Temperature Temperature Source Pulse Rate 63 65 Pulse Rate from SpO2 Sensor 68 Pulse Rhythm Pulse Strength Respiratory Rate 20 29 H 24 Respiratory Effort / Characteristics Respiratory Depth Respiratory Pattern Blood Pressure 166/79 H Blood Pressure Mean 115 Blood Pressure Position Pulse Oximetry 97 Oxygen Delivery Method Room Air Sepsis Recent Fever Within 48 Hours Sepsis Action Taken by Nursing GENERAL: Awake, alert, weak appearing HENT: Normocephalic, atraumatic. EYES: Normal conjunctiva. Sclera non-icteric. PERRL. NECK: Supple. No nuchal rigidity. RESPIRATORY: Clear to auscultation. No wheezes. Normal respiratory effort. CARDIAC: Normal rate. Normal rhythm. Extremities warm and well perfused. GI: Soft, non-distended. No tenderness to palpation. RECTAL: Deferred. MUSCULOSKELETAL: Atraumatic. Chest examination reveals no tenderness. Mild diffuse tenderness of the L wrist not involving the snuffbox. NVI L hand. No swelling or erythema.. LOWER EXTREMITIES: Calves are equal size bilaterally and non-tender. No edema NEURO: Normal sensorium. No sensory or motor deficits noted. No facial droop. No slurred speech. Does not remember confused episodes earlier. SKIN: Warm and dry. No rash or jaundice noted. Course Course 1924: The patient was evaluated in room B2. A complete history and physical exam was performed. 2118: I re-checked the patient and updated her and her daughter on her test results. 2215: I updated the patient and her daughter on the plan to admit the patient. 2223: I reviewed the patient's case with Dr. Jatinder Soria, [facility] Hospitalist. He will evaluate the patient for further management. Administered Medications Discontinued Medications Acetaminophen (Tylenol) 650 mg PO NOW STA Stop: 05/27/19 22:16 Last Admin: 05/27/19 22:25 Dose: 650 mg Documented by: [id number] Ceftriaxone Sodium (Rocephin) 1,000 mg in 50 mls @ 100 mls/hr IV NOW STA Stop: 05/27/19 22:38 Last Infusion: 05/27/19 23:45 Dose: 0 mls/hr Documented by: [id number] Admin: 05/27/19 22:14 Dose: 100 mls/hr Documented by: [id number] Medical Decision Making Differential Diagnosis Differential diagnosis: Etiologies such as metabolic, infection, hypoglycemia, electrolyte abnormalities, cardiac sources, intracerebral event, toxicologic, neurologic, as well as others were entertained. Medical Records Attestation: I reviewed the patient's medical records. Home Medications Current Medication List: was personally reviewed by me Laboratory Data Attestation: I reviewed the patient's lab results. Result diagrams: 05/27/19 20:00 05/27/19 20:00 Lab Results 05/27/19 05/27/19 05/27/19 Range/Units 20:00 20:00 20:00 WBC 8.70 (4.8-10.8) K/uL RBC 4.62 (4.2-5.4) M/uL Hgb 13.5 (12.0-16.0) g/dL Hct 41.0 (37-47) % MCV 88.7 (80-100) fL MCH 29.2 (25-34) pg MCHC 32.9 (32-36) g/dL RDW Std Deviation 44.6 (36.4-46.3) fL RDW Coeff of Min 13.7 (11.5-14.5) % Plt Count 694 H (130-400) K/uL MPV 9.6 (7.4-10.4) fL Immature Gran % (Auto) 0.2 % Neut % (Auto) 65.6 % Lymph % (Auto) 25.6 % Morgan % (Auto) 6.9 % Eos % (Auto) 1.4 % Baso % (Auto) 0.3 % Immature Gran # (Auto) 0.02 (0.00-0.02) K/uL Neut # (Auto) 5.70 (1.4-6.5) K/uL Lymph # (Auto) 2.23 (1.2-3.4) K/uL Morgan # (Auto) 0.60 H (0.11-0.59) K/uL Eos # (Auto) 0.12 (0-0.5) K/uL Baso # (Auto) 0.03 (0-0.2) K/uL VBG pH (7.36-7.41) VBG pCO2 (38-50) mmHg VBG pO2 mmHg VBG HCO3 mmol/L VBG O2 Saturation % VBG Base Excess mEq/L Barometric Pressure mm/Hg Sodium 140 (136-145) mmol/L Potassium 3.4 L (3.5-5.1) mmol/L Chloride 111 H (98-107) mmol/L Carbon Dioxide 24 (21-32) mmol/L Anion Gap 6.0 (3-11) BUN 32 H (7-18) mg/dl Creatinine 0.97 (0.6-1.2) mg/dl Est Cr Clr Drug Dosing 50.6 ml/min Est GFR ( Amer) 68.6 Est GFR (Non-Af Amer) 59.2 BUN/Creatinine Ratio 32.6 H (10-20) Glucose 124 H (70-99) mg/dl Calcium 9.4 (8.5-10.1) mg/dl Magnesium 1.7 L (1.8-2.4) mg/dl Total Bilirubin 1.7 H (0.2-1) mg/dl AST 14 L (15-37) U/L ALT 20 (12-78) U/L Alkaline Phosphatase 71 (45-117) U/L Ammonia 26.9 (11-32) umol/L Troponin I < 0.015 (0-0.045) ng/ml Total Protein 6.9 (6.4-8.2) gm/dl Albumin 3.4 (3.4-5.0) gm/dl Globulin 3.5 (2.5-4.0) gm/dl Albumin/Globulin Ratio 1.0 (0.9-2) TSH 3.240 (0.300-4.500) uIu/ml Urine Color Urine Appearance (Clear) Urine pH (4.5-7.5) Ur Specific [place] (1.000-1.030) Urine Protein (Negative) Urine Glucose (UA) (Negative) Urine Ketones (Negative) Urine Blood (Negative) Urine Nitrite (Negative) Urine Bilirubin (Negative) Urine Urobilinogen (Negative) Ur Leukocyte Esterase (Negative) Urine WBC (Auto) (0-5) /hpf Urine RBC (Auto) (0-4) /hpf U Hyaline Cast (Auto) (0-5) /lpf U Epithel Cells (Auto) (0-5) /lpf Urine Bacteria (Auto) (Negative) 05/27/19 05/27/19 Range/Units 20:02 21:52 WBC (4.8-10.8) K/uL RBC (4.2-5.4) M/uL Hgb (12.0-16.0) g/dL Hct (37-47) % MCV (80-100) fL MCH (25-34) pg MCHC (32-36) g/dL RDW Std Deviation (36.4-46.3) fL RDW Coeff of Min (11.5-14.5) % Plt Count (130-400) K/uL MPV (7.4-10.4) fL Immature Gran % (Auto) % Neut % (Auto) % Lymph % (Auto) % Morgan % (Auto) % Eos % (Auto) % Baso % (Auto) % Immature Gran # (Auto) (0.00-0.02) K/uL Neut # (Auto) (1.4-6.5) K/uL Lymph # (Auto) (1.2-3.4) K/uL Morgan # (Auto) (0.11-0.59) K/uL Eos # (Auto) (0-0.5) K/uL Baso # (Auto) (0-0.2) K/uL VBG pH 7.45 H (7.36-7.41) VBG pCO2 38 (38-50) mmHg VBG pO2 45 mmHg VBG HCO3 26 mmol/L VBG O2 Saturation 83.0 % VBG Base Excess 1.9 mEq/L Barometric Pressure 735.4 mm/Hg Sodium (136-145) mmol/L Potassium (3.5-5.1) mmol/L Chloride (98-107) mmol/L Carbon Dioxide (21-32) mmol/L Anion Gap (3-11) BUN (7-18) mg/dl Creatinine (0.6-1.2) mg/dl Est Cr Clr Drug Dosing ml/min Est GFR ( Amer) Est GFR (Non-Af Amer) BUN/Creatinine Ratio (10-20) Glucose (70-99) mg/dl Calcium (8.5-10.1) mg/dl Magnesium (1.8-2.4) mg/dl Total Bilirubin (0.2-1) mg/dl AST (15-37) U/L ALT (12-78) U/L Alkaline Phosphatase (45-117) U/L Ammonia (11-32) umol/L Troponin I (0-0.045) ng/ml Total Protein (6.4-8.2) gm/dl Albumin (3.4-5.0) gm/dl Globulin (2.5-4.0) gm/dl Albumin/Globulin Ratio (0.9-2) TSH (0.300-4.500) uIu/ml Urine Color Yellow Urine Appearance Cloudy A (Clear) Urine pH 5.0 (4.5-7.5) Ur Specific [place] 1.023 (1.000-1.030) Urine Protein Trace H (Negative) Urine Glucose (UA) Negative (Negative) Urine Ketones Negative (Negative) Urine Blood Trace H (Negative) Urine Nitrite Negative (Negative) Urine Bilirubin Negative (Negative) Urine Urobilinogen Negative (Negative) Ur Leukocyte Esterase 2+ H (Negative) Urine WBC (Auto) 10-30 H (0-5) /hpf Urine RBC (Auto) 0-4 (0-4) /hpf U Hyaline Cast (Auto) 1-5 (0-5) /lpf U Epithel Cells (Auto) >30 H (0-5) /lpf Urine Bacteria (Auto) Negative (Negative) Imaging Data Radiologist's Impression: Radiology results as stated below per my review and the radiologist's interpretation: CERVICAL SPINE CT CT DOSE: 902.84 mGy.cm HISTORY: fall, neck pain TECHNIQUE: Multiaxial CT images of the cervical spine were performed and reformatted in the sagittal and coronal plane without the use of contrast. A dose lowering technique was utilized adhering to the principles of ALARA. COMPARISON: None. FINDINGS: No fractures. No subluxation. Prevertebral soft tissues and the C1-C2 interval are intact. No pneumothorax. IMPRESSION: No fractures within the cervical spine. Electronically signed by: Neno Rashid M.D. 05/27/2019 8:[address]AST CT DOSE: HISTORY: Altered mental status. Fall. TECHNIQUE: Multiaxial CT images of the head were performed without the use of intravenous contrast. Automated exposure control was utilized for this study. A dose lowering technique was utilized adhering to the principles of ALARA. Comparison: Head CT 07/23/2018. Findings: The paranasal sinuses and mastoid air cells are clear. The calvarium and skull base are intact. There is no mass, hematoma, midline shift, acute infarct. White matter hypodensity is nonspecific but suggestive of microvascular ischemic change. The ventricles and sulci demonstrate mild age-related involutional changes. Old right-sided infarcts are again noted. There is a small left frontal old infarct, unchanged. Old punctate lacunar infarct within the left basal ganglia. Metallic coil adjacent to the anterior falx likely secondary to embolization of an aneurysm. Remains unchanged. Impression: No significant change compared to the prior study. No acute intracranial abnormality. Electronically signed by: Neno Rashid M.D. 05/27/2019 8:48 PM XR chest 1V portable HISTORY: weakness COMPARISON: Chest 07/23/2018. FINDINGS: The cardiac silhouette remains borderline enlarged. Mild diffuse interstitial thickening which is likely chronic. This remains unchanged. No new focal lung consolidations to suggest pneumonia. No evidence for pulmonary edema. No pleural effusions. No pneumothorax. IMPRESSION: No significant change compared to the prior study. No acute process. Electronically signed by: Neno Rashid M.D. 05/27/2019 8:28 PM LEFT WRIST 5 VIEWS HISTORY: Left wrist pain COMPARISON: Left wrist radiograph 06/28/2012. FINDINGS: Old, healed distal left radius fracture. There is also an old ulnar styloid fracture. Cortical plate and screws transfixing an old midshaft radius fracture. The hardware appears intact. Mild dorsal soft tissue swelling within the left wrist. No acute fracture or dislocation. Dorsal tilt to the distal radius due to the old fracture. The bones are osteopenic. IMPRESSION: 1. No acute fractures within the left wrist. 2. Old, healed left wrist/forearm fractures as described above. 3. Mild dorsal soft tissue swelling within the left wrist. Electronically signed by: Neno Rashid M.D. 05/27/2019 9:13 PM ECG Data Attestation: I personally reviewed and interpreted this ECG as follows: Indication: + altered mental status Rate (beats per minute): 60 Rhythm: + sinus with SA ECG Intervals/blocks: + Normal QT-c ECG ST segments: no ST depression and no ST elevation ECG Findings: no PVCs Blood Pressure Blood Pressure Findings: Elevated blood pressure Blood Pressure Disposition: further management by hospitalist Head Trauma GCS Score: 15 MDM Narrative Patient is a 68-year-old female with a past medical history including diabetes, subarachnoid hemorrhage status post coiling of aneurysm, fibromyalgia presenting today reportedly with about a week of some confusion. Lives by herself but daughter states she has been hearing reports of findings with the patient going and trying to knock on other apartments asking for her. Police were evidently involved. Patient does states last night she tripped and fell in her apartment striking her head. Not on anticoagulation but is on aspirin. Unsure she is taking her medications. Patient appeared disheveled when her daughter found her this evening and brought here. Patient has limited recollection of these annetta nts. History of prior encephalopathy in July. Complains of a mild headache and little bit of neck pain. Due to fall CT the head and cervical spine are completed. GCS is 15 at this time. On exam however with deep questioning the does seem to be some mild confusion at times. Basic labs, urinalysis, EKG, imaging again of the head neck, and chest x-ray were completed. CT head and neck without acute traumatic injuries. Patient later complained a little bit of left wrist pain which was evaluated x-ray. Neurovascular intact in extremities. Chest x-ray and wrist x-ray without acute findings. Laboratory studies show no evidence of hypercarbia, hyperammonemia, leukocytosis, or severe electrolyte abnormality. Some mild hypomagnesemia is noted. Glucose of 124. Negative troponin. TSH without significant abnormality. Urinalysis was obtained. With some questionable evidence of leukoesterase and white blood cells although epithelial cells are noted to. Unsure if we can truly attribute all the patient's confusion symptoms to this. Discussion with family again they state that her decline has been somewhat acute. Given a dose of ceftriaxone we will have the hospitalist evaluate for further inpatient treatment given the fact she lives alone and is confused. Family updated and in agreement. Magnesium supplementation ordered given hypomagnesemia noted here. Impression & Plan Confusion, Acute UTI, Fall Discharge Plan Visit Data Chief Complaint: Altered Mental Status Stated Complaint: FELL, HIT HEAD, HALLUCINATING, DIZZY, CONFUSED ED Provider: Rodolfo Clements Discharge Problem: Confusion, Acute UTI, Fall Patient Disposition: Admitted As Inpatient Forms Stand Alone Forms: [facility] Prescriptions Prescriptions: No Action atorvastatin 40 mg Tablet 40 mg PO PM RF: 0 cetirizine [Zyrtec] 10 mg Tablet 5 mg PO QAM RF: 0 lisinopril-hydrochlorothiazide 20-12.5 mg Tablet 0.5 tab PO QAM RF: 0 levetiracetam [Keppra] 500 mg Tablet 500 mg PO BID RF: 0 aspirin [Aspir-81] 81 mg Tablet,Delayed Release (Dr/Ec) 81 mg PO QAM RF: 0 famotidine 20 mg Tablet 20 mg PO BID RF: 0 albuterol sulfate [ProAir HFA] 90 mcg/actuation Hfa Aerosol Inhaler 1 puff INHALATION BID RF: 0 cetirizine [Zyrtec] 10 mg Tablet 0 mg PO DIRECTED PRN (Reason: Allergy Symptoms) RF: 0 metoprolol succinate 50 mg tablet extended release 24 hr 50 mg PO DAILY RF: 0 loperamide [Imodium A-D] 2 mg Tablet 0 mg PO DIRECTED RF: 0 famotidine 20 mg tablet 20 mg PO BID RF: 0 benzonatate 100 mg capsule 100 mg PO TID PRN (Reason: Cough) RF: 0 metformin 500 mg tablet extended release 24 hr 500 mg PO DAILY RF: 0 escitalopram oxalate 10 mg tablet 10 mg PO DAILY RF: 0 Novolog Flexpen U-100 Insulin 100 unit/mL (3 mL) insulin pen 0 unit SUBCUT DIRECTED RF: 0 Ozempic 1 mg/dose (2 mg/1.5 mL) pen injector 0 mg SUBCUT DIRECTED RF: 0 Lantus U-100 Insulin 100 unit/mL solution 0 unit SUBCUT BID RF: 0 Referrals Referrals: Alyson Nava DO [Primary Care Provider] - Discharge Problem: Fall Qualifiers: Encounter type: initial encounter Qualified Code(s): W19.XXXA - Unspecified fall, initial encounter The scribe's documentation has been prepared under my direction and personally reviewed by me in its entirety. I confirm that the note above accurately reflects all work, treatment, procedures, and medical decision making performed by me.
[2019-05-28 00:37] LABS: Creatine Kinase 53 U/L (26-192)
[2019-05-28] MEDS ORDERED: GLUCAGON FOR INJ 1 MG VIAL SQ PRN (01:00)
[2019-05-28] MEDS ORDERED: DEXTROSE 50% 50 ML SYRINGE IV PRN (01:00)
[2019-05-28] MEDS ORDERED: GLUCOSE 40% GEL 15 GM TUBE PO PRN (01:00)
[2019-05-28] MEDS ORDERED: MAGNESIUM SULFATE / D5W 1 GM/100 ML BAG IV ONE (01:00)
[2019-05-28] MEDS ORDERED: PROMETHAZINE HCL 12.5 MG in SODIUM CHLORIDE 0.9% 50 ML IV PRN (01:00)
[2019-05-28] MEDS ORDERED: GLUCOSE 10 TABS/TUBE PO PRN (01:00)
[2019-05-28] MEDS ORDERED: ACETAMINOPHEN 325 MG TAB PO PRN (01:00)
[2019-05-28] MEDS ORDERED: LACTATED RINGER'S 1,000 ML IV ONE (01:00)
[2019-05-28] MEDS ORDERED: OXYCODONE HCL IR 5 MG TAB (IMMEDIATE RELEASE) PO PRN (01:00)
[2019-05-28] MEDS ORDERED: CARBOHYDRATES FOR HYPOGLYCEMIA PO PRN (01:00)
[2019-05-28] MEDS ORDERED: CEFEPIME 2,000 MG in SYRINGE 7.5 ML IV STA (01:18)
[2019-05-28] MEDS: INSULIN ASPART 100 UNITS/ML 3 ML PEN SC SCH ×5 (01:36→20:51)
[2019-05-28] MEDS ORDERED: lisinopriL 10 MG TAB PO STA (01:38)
[2019-05-28] MEDS ORDERED: CEFEPIME CONSULT ACTIVE PRN (01:39)
[2019-05-28 06:01] LABS: Basophils # (auto) 0.02 K/uL (0-0.2); Basophils % (auto) 0.3 %; Eosinophils # (auto) 0.14 K/uL (0-0.5); Eosinophils % (auto) 1.8 %; Hematocrit (blood only) 40.1 % (37-47); Hemoglobin 12.8 g/dL (12.0-16.0); Immature Granulocytes # (auto) 0.01 K/uL (0.00-0.02); Immature Granulocytes % (auto) 0.1 %; Lymphocytes # (auto) 2.46 K/uL (1.2-3.4); Mean Corpuscular Hemoglobin 28.4 pg (25-34); Mean Corpuscular Hgb Conc 31.9 g/dL (32-36); Mean Corpuscular Volume 89.1 fL (80-100); Mean Platelet Volume 9.7 fL (7.4-10.4); Monocytes # (auto) 0.56 K/uL (0.11-0.59); Monocytes % (auto) 7.1 %; Neutrophils # (auto) 4.74 K/uL (1.4-6.5); Neutrophils % (auto) 59.7 %; Platelet Count 624 K/uL (130-400); RDW Coefficient of Variation 13.8 % (11.5-14.5); RDW Standard Deviation 45.2 fL (36.4-46.3); White Blood Count 7.93 K/uL (4.8-10.8)
[2019-05-28 06:29] LABS: Calcium 8.5 mg/dl (8.5-10.1); Creatinine Clr Calc Pharmacy 58.1 ml/min; Est GFR (African American) 77.2; Est GFR (Non-African American) 66.6; Magnesium 1.7 mg/dl (1.8-2.4); Potassium 3.5 mmol/L (3.5-5.1)
[2019-05-28] MEDS: ESCITALOPRAM OXALATE 10 MG TAB PO SCH (08:23)
[2019-05-28] MEDS: METOPROLOL SUCC 50MG EXT REL TAB PO SCH (08:23)
[2019-05-28] MEDS: CETIRIZINE HCL 10 MG TABLET PO SCH (08:23)
[2019-05-28] MEDS: FAMOTIDINE 20 MG TAB PO SCH ×2 (08:23→20:52)
[2019-05-28] MEDS: ASPIRIN 81 MG ECTAB PO SCH (08:23)
[2019-05-28] MEDS: levETIRAcetam 500 MG TAB PO SCH ×2 (08:24→20:52)
[2019-05-28] MEDS ORDERED: INSULIN GLARGINE SOLOSTAR 100 UNITS/ML 3 ML PEN SQ SCH (09:00)
[2019-05-28] MEDS ORDERED: lisinopriL 10 MG TAB PO SCH (09:00)
[2019-05-28] MEDS ORDERED: ENOXAPARIN INJ 30 MG/0.3 ML SYR SQ SCH (09:00)
[2019-05-28] MEDS ORDERED: FAMOTIDINE 20 MG TAB PO SCH (09:00)
--- NOTE | 2019-05-28 11:05 | Hospitalist Progress Note ---
Date of Service May 28, 2019 Assessment & Plan (1) Altered mental status: Altered mental status, in the setting of a patient with history of neurocognitive disorder, seizure, status post hemorrhagic CVA Possible concussion, status post fall Possible encephalopathy secondary to underlying UTI Possible Underlying Dementia with progression --Mental status almost back to normal today as per family --CT head: No acute process MRI ordered --Urine culture: Pending Covered with cefepime --Psychiatry consulted, as patient was started on Lexapro last month Neurology consulted hypertension -- Blood pressure improved DM 2 insulin requiring, recent hemoglobin A1c of 8.3 last April 2019 -- insulin glargine, and ISS history CVA as per records hx subarachnoid hemorrhage secondary to cerebral aneurysm status post coil embolization (2014) - on ASA history seizure disorder, stable on Keppra DVT prophylaxis SCDs only in light of history of SAH Disposition PT/OT evaluation lives in independent living facility Subjective Follow-up for altered mental status History obtained from patient and her daughter at the bedside Apparently patient had a fall after tripping on a rug last Thursday She fell on the floor, hit her head, but was able to be helped up by staff with the independent living facility The next day patient was observed to have change in behavior, and confusion which worsened yesterday the day before admission Today, the patient is sitting up in bed, pleasant, in good spirits, oriented x2 Answers most questions appropriately Poor recollection of events yesterday Denies headache, dizziness, problems with vision, any neurologic deficits, chest pain, shortness of breath, no abdominal pain Does report some right-sided posterior neck pain which is improving Right wrist pain has resolved No other symptoms Review of Systems Review of Systems: All systems reviewed & are unremarkable except as noted in HPI & below Physical Exam Physical Exam: General- oriented x 2, not in distress, speaks in sentences with no effort or accessory muscle use Head- atraumatic Eyes- PERRL, EOMI, anicteric ENT- oropharynx clear Neck- supple, no JVD, no adenopathy, no thyromegaly; carotids +2/2, no bruits appreciated Lungs- clear to auscultation bilaterally, no rales/wheezes Heart- normal rate, regular rhythm; no murmur, no gallop, no rub appreciated Abdomen- normal bowel sounds, nondistended, soft, nontender, no masses or hepatosplenomegaly Extremities- no pretibial edema, no calf tenderness; peripheral pulses intact Neuro- alert, oriented x 3; CN 2-12 grossly intact; motor 5/5 bilaterally;sensation 100% on all extremities; no other gross focal neurologic deficits Skin- warm & dry Results & Data Vital Signs (Past 12 Hours) Vital Signs Temp Pulse Pulse Resp BP BP Pulse Ox 05/28/19 07:27 36.6 C 60 18 168/72 H 97 05/28/19 04:16 36.8 C 58 L 18 125/73 95 05/28/19 03:09 59 L 05/28/19 01:26 36.4 C L 16 193/80 H 94 05/28/19 00:26 158/66 H 94 05/28/19 00:00 94 05/27/19 23:40 24 166/79 H 97 Laboratory Results Laboratory Results - last 24 hr 05/27/19 05/27/19 05/27/19 20:00 20:00 20:00 WBC 8.70 RBC 4.62 Hgb 13.5 Hct 41.0 MCV 88.7 MCH 29.2 MCHC 32.9 RDW Std Deviation 44.6 RDW Coeff of Min 13.7 Plt Count 694 H MPV 9.6 Immature Gran % (Auto) 0.2 Neut % (Auto) 65.6 Lymph % (Auto) 25.6 [place] % (Auto) 6.9 Eos % (Auto) 1.4 Baso % (Auto) 0.3 Immature Gran # (Auto) 0.02 Neut # (Auto) 5.70 Lymph # (Auto) 2.23 [place] # (Auto) 0.60 H Eos # (Auto) 0.12 Baso # (Auto) 0.03 VBG pH VBG pCO2 VBG pO2 VBG HCO3 VBG O2 Saturation VBG Base Excess Barometric Pressure Sodium 140 Potassium 3.4 L Chloride 111 H Carbon Dioxide 24 Anion Gap 6.0 BUN 32 H Creatinine 0.97 Est Cr Clr Drug Dosing 50.6 Est GFR ( Amer) 68.6 Est GFR (Non-Af Amer) 59.2 BUN/Creatinine Ratio 32.6 H Glucose 124 H POC Glucose Calcium 9.4 Magnesium 1.7 L Total Bilirubin 1.7 H AST 14 L ALT 20 Alkaline Phosphatase 71 Ammonia 26.9 Total Creatine Kinase 53 Troponin I < 0.015 Total Protein 6.9 Albumin 3.4 Globulin 3.5 Albumin/Globulin Ratio 1.0 TSH 3.240 Urine Color Urine Appearance Urine pH Ur Specific [place] Urine Protein Urine Glucose (UA) Urine Ketones Urine Blood Urine Nitrite Urine Bilirubin Urine Urobilinogen Ur Leukocyte Esterase Urine WBC (Auto) Urine RBC (Auto) U Hyaline Cast (Auto) U Epithel Cells (Auto) Urine Bacteria (Auto) Levetiracetam 05/27/19 05/27/19 05/28/19 20:02 21:52 01:15 WBC RBC Hgb Hct MCV MCH MCHC RDW Std Deviation RDW Coeff of Min Plt Count MPV Immature Gran % (Auto) Neut % (Auto) Lymph % (Auto) [place] % (Auto) Eos % (Auto) Baso % (Auto) Immature Gran # (Auto) Neut # (Auto) Lymph # (Auto) [place] # (Auto) Eos # (Auto) Baso # (Auto) VBG pH 7.45 H VBG pCO2 38 VBG pO2 45 VBG HCO3 26 VBG O2 Saturation 83.0 VBG Base Excess 1.9 Barometric Pressure 735.4 Sodium Potassium Chloride Carbon Dioxide Anion Gap BUN Creatinine Est Cr Clr Drug Dosing Est GFR ( Amer) Est GFR (Non-Af Amer) BUN/Creatinine Ratio Glucose POC Glucose 170 H Calcium Magnesium Total Bilirubin AST ALT Alkaline Phosphatase Ammonia Total Creatine Kinase Troponin I Total Protein Albumin Globulin Albumin/Globulin Ratio TSH Urine Color Yellow Urine Appearance Cloudy A Urine pH 5.0 Ur Specific [place] 1.023 Urine Protein Trace H Urine Glucose (UA) Negative Urine Ketones Negative Urine Blood Trace H Urine Nitrite Negative Urine Bilirubin Negative Urine Urobilinogen Negative Ur Leukocyte Esterase 2+ H Urine WBC (Auto) 10-30 H Urine RBC (Auto) 0-4 U Hyaline Cast (Auto) 1-5 U Epithel Cells (Auto) >30 H Urine Bacteria (Auto) Negative Levetiracetam 05/28/19 05/28/19 05/28/19 05:26 05:26 07:20 WBC 7.93 RBC 4.50 Hgb 12.8 Hct 40.1 MCV 89.1 MCH 28.4 MCHC 31.9 L RDW Std Deviation 45.2 RDW Coeff of Min 13.8 Plt Count 624 H MPV 9.7 Immature Gran % (Auto) 0.1 Neut % (Auto) 59.7 Lymph % (Auto) 31.0 [place] % (Auto) 7.1 Eos % (Auto) 1.8 Baso % (Auto) 0.3 Immature Gran # (Auto) 0.01 Neut # (Auto) 4.74 Lymph # (Auto) 2.46 [place] # (Auto) 0.56 Eos # (Auto) 0.14 Baso # (Auto) 0.02 VBG pH VBG pCO2 VBG pO2 VBG HCO3 VBG O2 Saturation VBG Base Excess Barometric Pressure Sodium 140 Potassium 3.5 Chloride 109 H Carbon Dioxide 25 Anion Gap 6.0 BUN 28 H Creatinine 0.88 Est Cr Clr Drug Dosing 58.1 Est GFR ( Amer) 77.2 Est GFR (Non-Af Amer) 66.6 BUN/Creatinine Ratio 32.0 H Glucose 122 H POC Glucose 125 H Calcium 8.5 Magnesium 1.7 L Total Bilirubin AST ALT Alkaline Phosphatase Ammonia Total Creatine Kinase Troponin I Total Protein Albumin Globulin Albumin/Globulin Ratio TSH Urine Color Urine Appearance Urine pH Ur Specific [place] Urine Protein Urine Glucose (UA) Urine Ketones Urine Blood Urine Nitrite Urine Bilirubin Urine Urobilinogen Ur Leukocyte Esterase Urine WBC (Auto) Urine RBC (Auto) U Hyaline Cast (Auto) U Epithel Cells (Auto) Urine Bacteria (Auto) Levetiracetam 05/28/19 05/28/19 05/28/19 11:26 16:18 16:20 WBC RBC Hgb Hct MCV MCH MCHC RDW Std Deviation RDW Coeff of Min Plt Count MPV Immature Gran % (Auto) Neut % (Auto) Lymph % (Auto) [place] % (Auto) Eos % (Auto) Baso % (Auto) Immature Gran # (Auto) Neut # (Auto) Lymph # (Auto) [place] # (Auto) Eos # (Auto) Baso # (Auto) VBG pH VBG pCO2 VBG pO2 VBG HCO3 VBG O2 Saturation VBG Base Excess Barometric Pressure Sodium Potassium Chloride Carbon Dioxide Anion Gap BUN Creatinine Est Cr Clr Drug Dosing Est GFR ( Amer) Est GFR (Non-Af Amer) BUN/Creatinine Ratio Glucose POC Glucose 209 H 116 H Calcium Magnesium Total Bilirubin AST ALT Alkaline Phosphatase Ammonia Total Creatine Kinase Troponin I Total Protein Albumin Globulin Albumin/Globulin Ratio TSH Urine Color Urine Appearance Urine pH Ur Specific [place] Urine Protein Urine Glucose (UA) Urine Ketones Urine Blood Urine Nitrite Urine Bilirubin Urine Urobilinogen Ur Leukocyte Esterase Urine WBC (Auto) Urine RBC (Auto) U Hyaline Cast (Auto) U Epithel Cells (Auto) Urine Bacteria (Auto) Levetiracetam Pending
--- NOTE | 2019-05-28 12:28 | Magnetic Resonance Report ---
Brain MRI WITHOUT CONTRAST HISTORY: episode of altered mental status TECHNIQUE: Multiplanar multisequence MRI of the brain was performed without the use of contrast. COMPARISON STUDY: Head CT 05/27/2019. FINDINGS: No areas of restricted diffusion to suggest acute infarction. Focal scarring within the ant erior corpus callosum from an old infarct. The remaining midline structures are intact. Multiple scat tered areas of encephalomalacia and gliosis most pronounced within the right cerebral hemisphere cons istent with old infarcts. This remains unchanged compared to the prior studies. There is no mass, hem atoma, midline shift. Embolization coils again noted at the anterior falx. Old punctate lacunar infar cts within the right cerebellar hemisphere, unchanged. Mild mucosal thickening within the paranasal s inuses. The mastoid air cells are clear. The major vascular flow voids at the skull base are well-izabella ntained. Atrophy and mild microvascular ischemic changes are again noted. IMPRESSION: 1. No acute intracranial abnormality. 2. Multiple old infarcts are again noted. Electronically signed by: Neno Rashid M.D. 05/28/2019 12:27 PM
--- NOTE | 2019-05-28 13:52 | Psychiatric Consultation ---
Date of Consultation May 28, 2019 Impression / Recommendations Impression resolving delirium, unclear etiology, would defer to neuro re: posible post ictal contribution. Certainly waxing and waning AMS can also been seen with sundowning. I suspect she is minimizing any change in her cognitive functioning, she is clear she's not going to do additional consultation/assessment here in the hospital. Given neurologic history would suggest neuropsych testing to exclude cognitive disorder. There is no evidence of SI or psychosis at this time, ie no indication for inpatient psychiatric hospitalization. Risk Factors Assessment Do You Have Access To A Gun?: No Psych History Chief Complaint "Yeah you really don't need to be here". History of Present Illness Patient known to consult service from 08/10 admission for encephalopathy in the context of UTI and hyperglycemia. There was apparently a urrutia contrast between the patient and her daughter's reports of baseline functioning and concerns about either worsening of longstanding personality disorder pathology vs early stage of dementia. Presentation this admission from [facility] is s/p fall with initial reports of confusion, persistent dizziness and hallucinations (seeing dogs in the room). She had an MRI this am and results are pending at the time of this consultation. She superficially answered a few questions but she is essentially declining a consult at this time. Past Psychiatric History Previous Psych History: therapy in past with Marisela Soler, on Lexapro for anxiety/depressive symptoms since January Previous Psych Admissions: none Do You Have Access To A Gun?: No History of Previous Suicide Attempt: No Allergies Allergy/AdvReac Type Severity Reaction Status Date / Time Penicillins Allergy Severe THROAT Verified 05/27/19 20:48 SWELLS Home Medications Home Medications Medication Instructions Recorded Confirmed Type albuterol sulfate [ProAir HFA] 1 puff INHALATION BID 07/23/18 05/27/19 History aspirin [Aspir-81] 81 mg PO QAM 07/23/18 05/27/19 History atorvastatin 40 mg PO PM 07/23/18 05/27/19 History cetirizine [Zyrtec] 5 mg PO QAM 07/23/18 05/27/19 History famotidine 20 mg PO BID 07/23/18 05/27/19 History levetiracetam [Keppra] 500 mg PO BID 07/23/18 05/27/19 History lisinopril-hydrochlorothiazide 0.5 tab PO QAM 07/23/18 05/27/19 History benzonatate 100 mg PO TID PRN 05/27/19 05/27/19 History cetirizine [Zyrtec] 0 mg PO DIRECTED PRN 05/27/19 05/27/19 History escitalopram oxalate 10 mg PO DAILY 05/27/19 05/27/19 History famotidine 20 mg PO BID 05/27/19 05/27/19 History insulin aspart U-100 [Novolog 0 unit SUBCUT DIRECTED 05/27/19 05/27/19 History Flexpen U-100 Insulin] insulin glargine [Lantus U-100 0 unit SUBCUT BID 05/27/19 05/27/19 History Insulin] loperamide [Imodium A-D] 0 mg PO DIRECTED 05/27/19 05/27/19 History metformin 500 mg PO DAILY 05/27/19 05/27/19 History metoprolol succinate 50 mg PO DAILY 05/27/19 05/27/19 History semaglutide [Ozempic] 0 mg SUBCUT DIRECTED 05/27/19 05/27/19 History Family History denied Substance Abuse History denied Personal History Living Arrangements: Personal Care Facility Employment Status: Retired Marital Status: Beliefs That Will Affect Care: None Patient History Medical History Brain aneurysm Diabetes (Chronic) Fibromyalgia (Chronic) History of stroke HTN (hypertension) (Chronic) Family History Other Cirrhosis of liver not due to alcohol Social History Preferred Language: Wolof Communication Ability: Effective Sous Chef Required: No Beliefs That Will Affect Care: None Current Living Situation: Personal Care Facility Current Living Situation Comment: Caregivers daily. Other Information That Helps Us Care for You: No Feels Safe at Home: Yes Safety Concerns: Feels Safe At This Time Smoking Status: Former smoker Hx Alcohol Use: No Hx Substance Use: No Physical Exam Psychiatric: Orientation: alert, oriented to person, oriented to place and oriented to time Apperance: appropriately groomed Eye Contact: good eye contact Speech: normal rate/rhythm/volume of speech overly bright affect states mood is good Thought Process: linear/logical thought process Thought Content: reality based without delusions Suicidal Thoughts: denies suicidal thoughts Homicidal Thoughts: denies homicidal thoughts Hallucinations: no auditory hallucinations and no visual hallucinations Estimated Intelligence: consistent with education level Insight: + limited insight Judgement: + limited judgement Vital Signs (Past 24 Hours): Last Vital Signs Temp 36.8 C 05/28/19 11:33 Pulse 58 L 05/28/19 11:33 Resp 18 05/28/19 11:33 BP 128/75 05/28/19 11:33 Pulse Ox 92 05/28/19 11:33 Review of Systems uncooperative, "I'm fine" Results & Data Medications Administered Aspirin (Ecotrin Ectab) 81 mg PO QAM [facility] Stop: 06/27/19 08:59 Last Admin: 05/28/19 08:23 Dose: 81 mg Documented by: [id number] Cetirizine HCl (Zyrtec) 5 mg PO QAM [facility] Stop: 06/27/19 08:59 Last Admin: 05/28/19 08:23 Dose: 5 mg Documented by: [id number] Escitalopram Oxalate (Lexapro Tab) 10 mg PO DAILY [facility] Stop: 06/27/19 08:59 Last Admin: 05/28/19 08:23 Dose: 10 mg Documented by: [id number] Famotidine (Pepcid) 20 mg PO BID [facility] Stop: 06/27/19 08:59 Last Admin: 05/28/19 08:23 Dose: 20 mg Documented by: [id number] Famotidine (Pepcid) 20 mg PO BID [facility] Stop: 06/27/19 08:59 Last Admin: 05/28/19 08:23 Dose: 20 mg Documented by: [id number] Cefepime HCl 2,000 mg/ Syringe 20 mls @ 1 mls/hr IV NOW STA Stop: 05/28/19 21:17 Last Admin: 05/28/19 01:54 Dose: 1 mls/hr Documented by: [id number] Lactated Ringer's (Lr) 1,000 mls @ 50 mls/hr IV .Q20H ONE Stop: 05/28/19 20:59 Last Admin: 05/28/19 01:54 Dose: 50 mls/hr Documented by: [id number] Insulin Aspart (Novolog Flexpen) 0 units SC ACHS [facility] Stop: 06/27/19 00:59 Last Admin: 05/28/19 13:17 Dose: 6 units Documented by: [id number] Cosigned by: [id number] Admin: 05/28/19 08:24 Dose: 2 units Documented by: [id number] Cosigned by: [id number] Admin: 05/28/19 01:36 Dose: Not Given Documented by: [id number] Cosigned by: [id number] Insulin Glargine (Lantus Solostar Pen) 25 units SQ BID [facility] Stop: 06/27/19 08:59 Last Admin: 05/28/19 08:24 Dose: 25 units Documented by: [id number] Cosigned by: [id number] Levetiracetam (Keppra) 500 mg PO BID [facility] Stop: 06/27/19 08:59 Last Admin: 05/28/19 08:24 Dose: 500 mg Documented by: [id number] Metoprolol Succinate (Toprol Xl) 50 mg PO DAILY [facility] Stop: 06/27/19 08:59 Last Admin: 05/28/19 08:23 Dose: 50 mg Documented by: [id number] Coding Level of Care Code 87860 [facility] Intl Hosp Care Lvl 2
[2019-05-28] MEDS: CEFEPIME 2,000 MG in SYRINGE 7.5 ML IV SCH (20:51)
[2019-05-28] MEDS: ATORVASTATIN 40 MG TAB PO SCH (20:53)
[2019-05-28] MEDS: OLANZapine 10 MG/2.1 ML SDV IM PRN (23:33)
[2019-05-29] MEDS: CETIRIZINE HCL 10 MG TABLET PO SCH (07:53)
[2019-05-29] MEDS: METOPROLOL SUCC 50MG EXT REL TAB PO SCH (07:53)
[2019-05-29] MEDS: ESCITALOPRAM OXALATE 10 MG TAB PO SCH (07:53)
[2019-05-29] MEDS: ASPIRIN 81 MG ECTAB PO SCH (07:54)
[2019-05-29] MEDS: FAMOTIDINE 20 MG TAB PO SCH ×2 (07:54→21:11)
[2019-05-29] MEDS: levETIRAcetam 500 MG TAB PO SCH ×2 (07:54→21:10)
[2019-05-29] MEDS: INSULIN ASPART 100 UNITS/ML 3 ML PEN SC SCH ×4 (08:20→21:12)
[2019-05-29] MEDS: INSULIN GLARGINE SOLOSTAR 100 UNITS/ML 3 ML PEN SQ SCH (08:21)
[2019-05-29] MEDS ORDERED: lisinopriL 20 MG TAB PO SCH (09:00)
--- NOTE | 2019-05-29 09:09 | Hospitalist Progress Note ---
Date of Service May 29, 2019 Assessment & Plan (1) Altered mental status: Altered mental status, in the setting of a patient with history of neurocognitive disorder, seizure, status post hemorrhagic CVA Possible concussion, status post fall Possible encephalopathy secondary to underlying UTI Possible Underlying Dementia with progression --Mental status almost back to normal as of yesterday overnight, patient was agitated, became confused again --CT head: No acute process MRI ordered: Old infarcts --Urine culture: No UTI Covered with cefepime, Day 2 --Psychiatry consulted, as patient was started on Lexapro last month: no medication changes, no indication for inpatient psych care Neurology consulted:awaiting recommendations Hypertension -- Blood pressure improved DM 2 insulin requiring, recent hemoglobin A1c of 8.3 last April 2019 -- insulin glargine, and ISS history CVA as per records hx subarachnoid hemorrhage secondary to cerebral aneurysm status post coil embolization (2014) - on ASA history seizure disorder, stable on Keppra DVT prophylaxis SCDs only in light of history of SAH Disposition PT/OT evaluation lives in independent living facility , anticipate d/c when cleared by Neurology SVC Subjective ff up for altered mental status patient was agitated overnight, required Zyprexa this AM, patient is on 1:1 observation seen sitting up in bed, smiling, pleasant, oriented x 2 but gets somewhat confused, with tangential thoughts but calm, cooperative denies headache, dizziness, focal neuro symptoms no chest pain, dyspnea, palpitations no other symptoms Review of Systems Review of Systems: All systems reviewed & are unremarkable except as noted in HPI & below Physical Exam Physical Exam: General- oriented x 2, not in distress, speaks in sentences with no effort or accessory muscle use Eyes- anicteric Neck- no JVD Lungs- clear breath sounds bilaterally no crackles bilaterally Heart- normal rate, regular rhythm; no murmurs Abdomen- normal bowel sounds, nondistended, soft, nontender Extremities- no pretibial edema, no calf tenderness Neuro- alert, oriented x 2; no gross focal neurologic deficits Skin- warm & dry Results & Data Vital Signs (Past 12 Hours) Vital Signs Temp Pulse Pulse Pulse Resp BP BP 05/29/19 07:23 36.6 C 78 20 122/71 05/29/19 04:04 36.8 C 62 18 132/68 05/29/19 00:19 36.9 C 62 20 161/66 H 05/29/19 00:00 61 Pulse Ox 05/29/19 07:23 95 05/29/19 04:04 95 05/29/19 00:19 96 05/29/19 00:00
[2019-05-29 09:13] LABS: Basophils # (auto) 0.02 K/uL (0-0.2); Basophils % (auto) 0.2 %; Eosinophils # (auto) 0.09 K/uL (0-0.5); Eosinophils % (auto) 1.1 %; Hematocrit (blood only) 43.5 % (37-47); Hemoglobin 13.9 g/dL (12.0-16.0); Immature Granulocytes # (auto) 0.01 K/uL (0.00-0.02); Immature Granulocytes % (auto) 0.1 %; Lymphocytes # (auto) 0.71 K/uL (1.2-3.4); Lymphocytes % (auto) 8.5 %; Mean Corpuscular Hemoglobin 28.4 pg (25-34); Mean Corpuscular Volume 88.8 fL (80-100); Mean Platelet Volume 9.9 fL (7.4-10.4); Monocytes # (auto) 0.65 K/uL (0.11-0.59); Monocytes % (auto) 7.8 %; Neutrophils # (auto) 6.87 K/uL (1.4-6.5); Neutrophils % (auto) 82.3 %; Platelet Count 663 K/uL (130-400); RDW Coefficient of Variation 13.7 % (11.5-14.5); RDW Standard Deviation 44.6 fL (36.4-46.3); White Blood Count 8.35 K/uL (4.8-10.8)
[2019-05-29 09:43] LABS: BUN Creatinine Ratio 20.5 (10-20); Calcium 9.4 mg/dl (8.5-10.1); Est GFR (African American) 66.1; Magnesium 1.8 mg/dl (1.8-2.4); Potassium 3.7 mmol/L (3.5-5.1)
--- NOTE | 2019-05-29 11:28 | Communication Note ---
Date of Service: May 29, 2019 This was created in error see the correct report Melvin Tipton MD
--- NOTE | 2019-05-29 11:39 | Communication Note ---
Date of Service: May 29, 2019 I have seen Mrs. Nguyen today and have dictated a full consultation. I know this woman well. She has a vascular base dementia which is increasing slowly over time now with associated behavioral issues and really needs to have more supervision in her home environment, probably needs to have medications besides serotonin reuptake inhibitors utilized as some of her behavior is becoming overtly psychotic with paranoid delusions and aggression on an outpatient basis. I will leave this up to psychiatry however At this point the MRI shows no acute changes, there is nothing about the history to suggest episodic seizure, and I think what we are dealing with here is at most a mild postconcussive decline in her behavior which was beginning to decli ne anyway prior to her recent fall We will go to see her in the office in several more months. We generally only see her once a year but I would throw this appointment in just to be sure that neurology stays in the loop regarding her behavioral issues and potential drug interactions with her anticonvulsants Tigre Tipton MD
--- NOTE | 2019-05-29 13:40 | Consultation Report ---
DATE OF CONSULTATION: 05/29/2019 CONSULTATION FOR: Dr. Schultz. HISTORY OF PRESENT ILLNESS: The patient is 68 years old, is right-handed, is a patient of Dr. 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 She regained enough function to reside with some support at [facility], but over the past several years, she has had mild cognitive decline and was actually in the hospital not long ago for a urinary tract infection related protracted encephalopathy, delirium syndrome, but then was able to get back home. She has caregivers during the day, who monitor her medications which include Keppra 500 mg twice a day because of a history of seizures. Recently she has been coming more emotionally labile, has had some paranoid thoughts, may well be hallucinating and saw one of our psychiatrists at [facility] Dr. Barrett and was placed on Lexapro, which really has not helped the ongoing issues with agitation and actual aggressive behavior towards staff members. She fell several days ago while entering the building, struck her head, was probably injured to the degree that we would call this a concussion as she has no recall of the event other than the fact that she was trying to escape from a pack of 6 dogs that were fluffy and were chasing her. This was undoubtedly a hallucination. After that point; however, her behavior declined further. She began to not dress or dress other than in her bathroom and apparently on the day of admission was not dressed at all and finally was brought into the hospital and has been here ever since, although she gets agitated at night. An MRI shows only white matter changes that have been there for some time and there is no evidence for urinary tract infection. Neurology is asked to see her after Psychiatry evaluated her and was wondering about whether some of this behavior could reflect ongoing subclinical seizures, although during all of these behavioral issues, she has been awake, alert, able to engage individuals and does not look dazed or confused according to what I can glean from the chart. Other problems include hypertension which was elevated on admission, she also has type 2 diabetes requiring insulin, her hemoglobin A1c's have not been in great shape with last one being 8.3. 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 MEDICATION LIST: As per the EMR and compliance according to the daughter is generally fairly good, although at times the patient claims she takes medication before the caregivers arrives, so I am not clear on this situation. She theoretically takes albuterol, aspirin, atorvastatin, Zyrtec, famotidine, Keppra 500 twice a day, lisinopril, benzonatate, cetirizine, Lexapro 10 mg which was just started, famotidine, insulin in varying doses, loperamide, metformin, metoprolol and Ozempic. PAST MEDICAL HISTORY: As outlined above. 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 She also suffers from chronic fibromyalgia. FAMILY HISTORY: Noncontributory with the exception of some cirrhosis of the liver in 1 individual. SOCIAL HISTORY: Reveals her to be , living by herself in [facility] with help from caregivers during the day, but not at night and to be a nonsmoker, nonconsumer of ethanol. She is capable of walking unassisted to various appointments and to do certain activities without supervision, but there has been increasing question about how long this can be maintained, particularly in light of the recent decline in overall behavior. PHYSICAL EXAMINATION: ( per the admission H and P ) GENERAL: She appeared to be slightly uncomfortable, but was otherwise in no distress and was not particularly agitated, but has had periods of agitation last night requiring administration of sedative agents. She is moderately over nourished. VITAL SIGNS: Her blood pressure was 178/79, pulse was 65, respirations were 20. HEENT: There were no cranial deformities. No audible bruits over the carotids. Ocular fundi were poorly seen. LUNGS: Clear. HEART: Had a regular rhythm. ABDOMEN: Soft, nontender. EXTREMITIES: There was no peripheral edema. Good peripheral pulses. NEUROLOGIC: Today, neurologically she recognizes me. She is quite coherent, but inappropriately jovial and seemingly unconcerned about some of the issues that we are presenting to her. Her daughter is in the room and she professes to be willing to follow her daughter's advice and we are probably going to suggest she have a caregiver at night for a while to observe what goes on. She is quite pleasant, moves all extremities well, has no gross cranial nerve deficits other than the left visual field neglect which has been present for years and a soft left upper motor neuron facial paresis. She has a slight drift to the left arm, little clumsiness to the left arm and perhaps the left upgoing toe with these findings are pretty subtle. Reflexes are absent at the ankles, reduced at the knees. There is a little vibratory loss distally all consistent with a mild polyneuropathy, likely secondary to diabetes. I do not hear any carotid bruits or cardiac murmurs and pulse appears to be regular. IMAGING STUDIES: Have shown no new infarctions and only accumulation of some white matter changes due to small vessel disease and the results of her old subarachnoid hemorrhage induced vascular event in the right hemisphere. At this time, I suspect we are dealing with a mild post concussive deterioration of behavior that was deteriorating anyway for several months. I am not sure she fully recovered from her delirium following the urinary tract infection this past year, but she did get to the point that she was able to ambulate and in fact was seen in our office in January by Susan Levine PA-C, and myself and appeared to be at her baseline. I am not sure what is going on lately, but there is no evidence for a new structural lesion and I suspect she simply beginning to decline cognitively due to her vascular dementia and is getting some paranoid ideation which might require more than a serotonin reuptake inhibitor to control. I have ordered a Keppra level, but this will not be back for a while and we will check on an outpatient basis. At this point, I do not think the behavior is due to seizures, but rather as a behavioral issue related to her cognitive impairment/vascular dementia syndrome and that very little can be done about this other than behavioral control with medications. I am not sure if she is going to need neuroleptics. We try to shy away from these if at all possible. This decision will need to be made by Psychiatry. I had a long discussion with her daughter and at this point, I am simply going to suggest that Neurology see her in about 3 months to be sure things are going smoothly as possible, but for now I see no reason to raise the Keppra or to perform an outpatient EEG. We are going to sign off the case at this point, but we will be happy to reassess her if there are new developments during her current hospital stay. NICO
[2019-05-29] MEDS ORDERED: TRAZODONE HCL 50 MG TAB PO PRN (18:02)
[2019-05-29] MEDS: CEFEPIME 2,000 MG in SYRINGE 7.5 ML IV SCH (21:10)
[2019-05-29] MEDS: ATORVASTATIN 40 MG TAB PO SCH (21:11)
[2019-05-30] MEDS ORDERED: lisinopriL 20 MG TAB PO STA (00:35)
--- NOTE | 2019-05-30 00:36 | Communication Note ---
Date of Service: May 30, 2019 Made aware by RN of uncontrolled blood pressure. SBP 160-210s from yesterday afternoon. Patient asymptomatic as per RN. AP Hypertensive urgency Increase lisinopril 20 mg daily to BID dosing. Will relay to AM provider.
[2019-05-30] MEDS: OLANZapine 10 MG/2.1 ML SDV IM PRN ×3 (01:04→14:07)
[2019-05-30 06:44] LABS: Basophils # (auto) 0.05 K/uL (0-0.2); Basophils % (auto) 0.7 %; Eosinophils # (auto) 0.15 K/uL (0-0.5); Eosinophils % (auto) 2.2 %; Hematocrit (blood only) 40.3 % (37-47); Hemoglobin 12.8 g/dL (12.0-16.0); Immature Granulocytes # (auto) 0.02 K/uL (0.00-0.02); Immature Granulocytes % (auto) 0.3 %; Lymphocytes # (auto) 1.29 K/uL (1.2-3.4); Mean Corpuscular Hemoglobin 28.5 pg (25-34); Mean Corpuscular Hgb Conc 31.8 g/dL (32-36); Mean Corpuscular Volume 89.8 fL (80-100); Mean Platelet Volume 9.5 fL (7.4-10.4); Monocytes # (auto) 0.66 K/uL (0.11-0.59); Monocytes % (auto) 9.7 %; Neutrophils # (auto) 4.62 K/uL (1.4-6.5); Neutrophils % (auto) 68.1 %; Platelet Count 593 K/uL (130-400); RDW Coefficient of Variation 13.6 % (11.5-14.5); RDW Standard Deviation 45.1 fL (36.4-46.3); Red Blood Count 4.49 M/uL (4.2-5.4); White Blood Count 6.79 K/uL (4.8-10.8)
[2019-05-30] MEDS: ASPIRIN 81 MG ECTAB PO SCH (09:42)
[2019-05-30] MEDS: INSULIN GLARGINE SOLOSTAR 100 UNITS/ML 3 ML PEN SQ SCH (09:43)
[2019-05-30] MEDS: levETIRAcetam 500 MG TAB PO SCH ×2 (09:43→22:00)
[2019-05-30] MEDS: FAMOTIDINE 20 MG TAB PO SCH ×2 (09:45→22:00)
[2019-05-30] MEDS: METOPROLOL SUCC 50MG EXT REL TAB PO SCH (09:45)
[2019-05-30] MEDS: INSULIN ASPART 100 UNITS/ML 3 ML PEN SC SCH ×4 (09:45→21:51)
[2019-05-30] MEDS: ESCITALOPRAM OXALATE 10 MG TAB PO SCH (09:45)
[2019-05-30] MEDS: CETIRIZINE HCL 10 MG TABLET PO SCH (09:46)
[2019-05-30] MEDS: lisinopriL 20 MG TAB PO SCH ×2 (09:46→22:00)
--- NOTE | 2019-05-30 10:14 | Hospitalist Progress Note ---
Date of Service Delayed entry date of service as noted below May 30, 2019 Assessment & Plan (1) Altered mental status: Altered mental status, in the setting of a patient with history of neurocognitive disorder, seizure, status post hemorrhagic CVA Likely secondary to concussion, status post fall Possible Underlying Dementia with progression --Mental status almost back to normal in the morning, but worsening delirium in the afternoon --CT head: No acute process MRI ordered: Old infarcts --Urine culture: No UTI Covered with cefepime x3 days --Psychiatry consulted, as patient was started on Lexapro last month: Commend trazodone 25 mg at bedtime as needed for agitation/restlessness, no indication for inpatient psych care Neurology consulted, no other further testing at this point --We will continue to observe in the hospital, continue delirium precautions Advised RN to discontinue mechanical restraints Hypertension -- Blood pressure improving DM 2 insulin requiring, recent hemoglobin A1c of 8.3 last April 2019 -- insulin glargine, and ISS history CVA as per records hx subarachnoid hemorrhage secondary to cerebral aneurysm status post coil embolization (2014) - on ASA history seizure disorder --stable on Keppra DVT prophylaxis SCDs only in light of history of SAH Disposition PT/OT evaluation lives in independent living facility Subjective Follow-up for altered mental status In the morning, patient was seen with patient's daughter Yuliya at the bedside Patient was calm, comfortable, in good spirits, answers most questions appropriately She was drinking her coffee, cooperative States she feels much better overall, Denies any symptoms In the afternoon, patient became agitated, threw coffee and water on the [employer], was very agitated and combative Jose thomas was called, psychiatry evaluation also at the bedside Patient required 2 doses of Zyprexa and 2 doses of Haldol as recommended by psychiatry service Also required to be placed on soft limb restraints I called her daughter and updated her, requested to come to the hospital, as she may be able to reassure patient and help with her delirium episode I reassessed the patient at approximately 7:30 PM, patient was sound asleep Discussed with RN to remove the restraints, monitor her closely and provide trazodone if with agitation Review of Systems Review of Systems: All systems reviewed & are unremarkable except as noted in HPI & below Physical Exam Physical Exam: Physical exam in the morning General- oriented x 2, not in distress, speaks in sentences with no effort or accessory muscle use Eyes- anicteric Neck- no JVD Lungs- clear breath sounds bilaterally Heart- normal rate, regular rhythm; no murmurs Abdomen- normal bowel sounds, no distention, soft, nontender Extremities- no pretibial edema, no calf tenderness Neuro- alert, oriented x 2; no gross focal neurologic deficits Skin- warm & dry Results & Data Vital Signs (Past 12 Hours) Vital Signs Temp Pulse Pulse Resp BP BP Pulse Ox 05/30/19 09:39 37.0 C 66 18 138/78 97 05/30/19 06:23 61 113/67 05/30/19 03:55 36.7 C 63 18 187/76 H 95 05/30/19 02:43 36.8 C 59 L 18 200/66 H 94 05/30/19 00:39 195/68 H 05/30/19 00:21 36.6 C 60 19 213/67 H 207/71 H 98 05/30/19 00:20 65
[2019-05-30] MEDS ORDERED: HALOPERIDOL LACTATE 5 MG/ML 1 ML VIAL IM STA ×2 (14:15→14:47)
[2019-05-30] MEDS ORDERED: HALOPERIDOL LACTATE 5 MG/ML 1 ML VIAL ONE (14:16)
[2019-05-30] MEDS ORDERED: OLANZapine 10 MG/2.1 ML SDV IM STA (16:06)
[2019-05-30] MEDS: ATORVASTATIN 40 MG TAB PO SCH (22:29)
[2019-05-31] MEDS: OLANZapine 10 MG/2.1 ML SDV IM PRN (00:12)
[2019-05-31 06:43] LABS: Basophils # (auto) 0.03 K/uL (0-0.2); Basophils % (auto) 0.3 %; Eosinophils # (auto) 0.15 K/uL (0-0.5); Eosinophils % (auto) 1.6 %; Hematocrit (blood only) 43.2 % (37-47); Hemoglobin 13.6 g/dL (12.0-16.0); Immature Granulocytes # (auto) 0.02 K/uL (0.00-0.02); Immature Granulocytes % (auto) 0.2 %; Lymphocytes % (auto) 17.6 %; Mean Corpuscular Hemoglobin 28.6 pg (25-34); Mean Corpuscular Hgb Conc 31.5 g/dL (32-36); Mean Corpuscular Volume 90.8 fL (80-100); Mean Platelet Volume 9.8 fL (7.4-10.4); Monocytes # (auto) 0.84 K/uL (0.11-0.59); Monocytes % (auto) 9.2 %; Neutrophils # (auto) 6.46 K/uL (1.4-6.5); Neutrophils % (auto) 71.1 %; Platelet Count 713 K/uL (130-400); RDW Coefficient of Variation 13.9 % (11.5-14.5); RDW Standard Deviation 46.1 fL (36.4-46.3); Red Blood Count 4.76 M/uL (4.2-5.4)
[2019-05-31 07:10] LABS: Creatinine Clr Calc Pharmacy 34.5 ml/min; Est GFR (African American) 42.9
--- NOTE | 2019-05-31 08:53 | Hospitalist Progress Note ---
Date of Service May 31, 2019 Assessment & Plan (1) Altered mental status: Altered mental status, likely secondary to concussion, status post fall, in the setting of a patient with history of neurocognitive disorder, seizure, status post hemorrhagic CVA Possible Underlying Dementia with progression --Mental status almost back to normal while hospitalized Did have episode of severe delirium, requiring Haldol and Zyprexa Patient mental status significantly improves when her daughter is at the bedside --CT head: No acute process MRI ordered: Old infarcts --Infection ruled out urine culture: No UTI Covered with cefepime --Psychiatry consulted, as patient was started on Lexapro last month: Recommend trazodone 25 mg at bedtime for agitation, no indication for inpatient psych care Neurology consulted, discussed case with Dr. Tipton, patient outpatient psychiatrist recommends to reduce Keppra to 500 mg daily as twice a day dosing may be contributing to mood/behavioral disturbance, Dr. Tipton agrees with this for now, follow-up in this clinic in 1 month to discuss possible alternative anti-seizure medications Mild creatinine elevation --Creatinine increased from 1.3-1.4 --Hold lisinopril, changed to amlodipine for now --Advised daughter to encourage patient to increase oral fluid intake --Repeat BMP with PCP follow-up this week in 2 to 3 days Hypertension --Lisinopril changed to amlodipine for now in light of elevated creatinine --Continue to monitor as outpatient DM 2 insulin requiring, recent hemoglobin A1c of 8.3 last April 2019 -- insulin glargine, and ISS history CVA as per records hx subarachnoid hemorrhage secondary to cerebral aneurysm status post coil embolization (2014) - on ASA history seizure disorder, stable on Keppra --Management of Keppra per #1 Disposition PT/OT evaluation: Recommends 24-hour care or transitioning to alf facility Discussed with patient's daughter Yuliya in detail at length At this time, she and patient prefers to return to independent living with 24- hour care and reevaluate need for alf facility transition Follow-up with PCP this week Follow-up with neurologist Dr. Tipton in 1 month Case discussed with patient's daughter Yuliya in detail and at length All questions answered She is agreeable and comfortable and understanding of the plan of care Subjective Follow-up for altered mental status Seen with patient's daughter Yuliya at the bedside, she is updated with the events of yesterday and through the night At nighttime, patient had another episode of agitation, was given Zyprexa This morning the patient was sleeping but easily awakened Calm, cooperative Denies symptoms Physical Exam Physical Exam: General- oriented x 2, not in distress, speaks in sentences with no effort or accessory muscle use Eyes- anicteric Neck- no JVD Lungs- clear breath sounds, no crackles, no wheezing bilaterally Heart- normal rate, regular rhythm; no murmurs Abdomen- normal bowel sounds, nondistended, soft, nontender Extremities- no pretibial edema, no calf tenderness Neuro- alert, oriented x 2; no gross focal neurologic deficits Skin- warm & dry Results & Data Vital Signs (Past 12 Hours) Vital Signs Temp Pulse Pulse Resp BP Pulse Ox 05/31/19 07:06 92 05/31/19 07:01 36.3 C L 71 18 133/64 05/30/19 23:27 36.5 C 55 L 19 149/66 H 95 Laboratory Results Laboratory Results - last 24 hr 05/30/19 05/30/19 05/30/19 11:58 16:42 20:42 WBC RBC Hgb Hct MCV MCH MCHC RDW Std Deviation RDW Coeff of Min Plt Count MPV Immature Gran % (Auto) Neut % (Auto) Lymph % (Auto) Davie % (Auto) Eos % (Auto) Baso % (Auto) Immature Gran # (Auto) Neut # (Auto) Lymph # (Auto) Davie # (Auto) Eos # (Auto) Baso # (Auto) Sodium Potassium Chloride Carbon Dioxide Anion Gap BUN Creatinine Est Cr Clr Drug Dosing Est GFR ( Amer) Est GFR (Non-Af Amer) BUN/Creatinine Ratio Glucose POC Glucose 155 H 179 H 150 H Calcium Beta-Hydroxybutyric Acd 05/31/19 05/31/19 05/31/19 06:27 06:27 06:27 WBC 9.10 RBC 4.76 Hgb 13.6 Hct 43.2 MCV 90.8 MCH 28.6 MCHC 31.5 L RDW Std Deviation 46.1 RDW Coeff of Min 13.9 Plt Count 713 H MPV 9.8 Immature Gran % (Auto) 0.2 Neut % (Auto) 71.1 Lymph % (Auto) 17.6 Davie % (Auto) 9.2 Eos % (Auto) 1.6 Baso % (Auto) 0.3 Immature Gran # (Auto) 0.02 Neut # (Auto) 6.46 Lymph # (Auto) 1.60 Davie # (Auto) 0.84 H Eos # (Auto) 0.15 Baso # (Auto) 0.03 Sodium 140 Potassium 3.7 Chloride 108 H Carbon Dioxide 22 Anion Gap 9.0 BUN 28 H Creatinine 1.43 H D 1.41 H Est Cr Clr Drug Dosing 34.5 35.0 Est GFR ( Amer) 42.9 43.6 Est GFR (Non-Af Amer) 37.0 37.6 BUN/Creatinine Ratio 20.0 Glucose 330 H* POC Glucose Calcium 9.0 Beta-Hydroxybutyric Acd 1.21
[2019-05-31] MEDS ORDERED: AMLODIPINE BESYLATE 5 MG TAB PO SCH (09:00)
[2019-05-31 09:17] LABS: Est GFR (African American) 43.6; Est GFR (Non-African American) 37.6; Potassium 3.7 mmol/L (3.5-5.1)
[2019-05-31 09:29] LABS: Beta-Hydroxybutyrate 1.21 mg/dl (0.2-2.81)
[2019-05-31] MEDS: INSULIN ASPART 100 UNITS/ML 3 ML PEN SC SCH ×2 (09:29→12:39)
[2019-05-31] MEDS: INSULIN GLARGINE SOLOSTAR 100 UNITS/ML 3 ML PEN SQ SCH (09:31)
[2019-05-31] MEDS: ASPIRIN 81 MG ECTAB PO SCH (09:34)
[2019-05-31] MEDS: levETIRAcetam 500 MG TAB PO SCH (09:35)
[2019-05-31] MEDS: FAMOTIDINE 20 MG TAB PO SCH (09:36)
[2019-05-31] MEDS: CETIRIZINE HCL 10 MG TABLET PO SCH (09:37)
[2019-05-31] MEDS: ESCITALOPRAM OXALATE 10 MG TAB PO SCH (10:25)
[2019-05-31] MEDS: METOPROLOL SUCC 50MG EXT REL TAB PO SCH (10:25)
--- NOTE | 2019-05-31 11:29 | Discharge Summary ---
Date of Service May 31, 2019 Admission HPI Per Admitting Provider History obtained from patient, family, and records. Patient is a fair historian. Medical history significant for hypertension, DM 2 insulin requiring, PSVT as per records, history CVA, history of subarachnoid hemorrhage secondary to cerebral aneurysm status post coil embolization (2014), essential tremors, history of seizure disorder, post stroke cognitive deficit as per records, past tobacco abuse. Recent confinement July 2018 for hyperglycemic crisis. Neurology consulted during confinement for encephalopathy. Psychiatry consulted for possible hyperactive delirium. 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 Patient however was not willing to engage with psychiatry service during confinement. Patient seen by [facility] psychiatry outpatient for anxiety/depression last January 2019. Lexapro 10 mg daily initiated for agitated depression. Patient has not been able to follow-up with psychiatrist since. In the last month, patient's family made aware of patient's episodic confusion, forgetfulness, odd behavior at the apartment (e.g. knocking at neighbors' apartment doors looking for family members, episodic volatile behavior with caregivers as per daughter). Lexapro not culprit for confusion as per psychiatrist upon daughter's query. Patient's daughter received a call this morning from wireless retail manager that patient was found to have fallen after walking around half naked at lobby of apartment building leading to head trauma without LOC. As per wireless retail manager, patient stated that she was being chased by 4 dogs. Patient was somewhat confused when daughter checked on patient. Patient brought to the ER. Given ceftriaxone for possible UTI. Patient mentation currently improved as per daughter. Patient denies chest pain, S OB, abdominal pain, dysuria symptoms. No recollection of falling in apartment building lobby, walking around half naked. Patient claims she fell inside her apartment. Patient complaining of some neck pain and left wrist discomfort. Medical History as above Surgical History : PEG tube, knee surgery, tracheostomy, hysterectomy Family History : Heart disease, lupus, thyroid cancer, cirrhosis Personal/Social history : Past tobacco abuse, occasional EtOH intake, retired restaurant employee Admission Exam Per Admitting Provider GENERAL: Slightly uncomfortable, tremulous, no respiratory distress, emotional lability with episodic pressured teeth gritting, obese SKIN: Normal color, warm HEENT: [place] palpebral conjunctivae, no ptosis, dry buccal mucosa NECK : Slight limitation in motion due to pain , nonfocal tenderness CHEST : Decreased effort , no tenderness HEART : Bradycardic , no obvious murmurs ABDOMEN: Some distention, nontender EXTREMITIES : Tenderness left wrist, no LE swelling, nonfocal LE tenderness, no other conspicuous deformities noted NEUROLOGIC : Coherent, no facial asymmetry, tremulous, MMT RUE 5/5, LUE 4/5, gait and stance not assessed Principal Diagnosis Absent Discharge Exam General- oriented x 2, not in distress, speaks in sentences with no effort or accessory muscle use Eyes- anicteric Neck- no JVD Lungs- clear breath sounds, no crackles, no wheezing bilaterally Heart- normal rate, regular rhythm; no murmurs Abdomen- normal bowel sounds, nondistended, soft, nontender Extremities- no pretibial edema, no calf tenderness Neuro- alert, oriented x 2; no gross focal neurologic deficits Skin- warm & dry Discharge Data Allergies Allergy/AdvReac Type Severity Reaction Status Date / Time Penicillins Allergy Severe THROAT Verified 05/27/19 20:48 SWELLS Consultations 05/27/19 22:15 ED Decision to Admit Stat 05/28/19 01:00 Consult Case Management - Discharge Planning Routine Consult Psychiatry Routine 05/28/19 13:27 Consult Neurology Routine Ordered Studies 05/27/19 19:31 CT cervical spine wo con Stat CT head/brain wo con Stat 05/28/19 11:04 MR brain wo con Routine Hospital Course (1) Altered mental status: Altered mental status, likely secondary to concussion, status post fall, in the setting of a patient with history of neurocognitive disorder, seizure, status post hemorrhagic CVA 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 Tipton, patient outpatient psychiatrist recommends to reduce Keppra to 500 mg daily as twice a day dosing may be contributing to mood/behavioral disturbance, Dr. Tipton agrees with this for now, follow-up in this clinic in 1 month to discuss possible alternative anti-seizure medications --Follow-up with psychiatrist in 1 to 2 weeks Follow-up with Dr. Tipton in 1 month Mild creatinine elevation --Creatinine increased from 1.0 to 1.4 --Hold lisinopril, changed to amlodipine for now --Advised daughter to encourage patient to increase oral fluid intake --Repeat BMP on PCP follow-up 06/02/19 Hypertension --Lisinopril changed to amlodipine for now in light of elevated creatinine --Continue to monitor as outpatient DM 2 insulin requiring, recent hemoglobin A1c of 8.3 last April 2019 -- insulin glargine, and ISS history CVA as per records hx subarachnoid hemorrhage secondary to cerebral aneurysm status post coil embolization (2014) - on ASA history seizure disorder, stable on Keppra --Management of Keppra per #1 Disposition PT/OT evaluation: Recommends 24-hour care or transitioning to fpc facility Discussed with patient's daughter Yuliya in detail at length At this time, she and patient prefers to return to independent living with 24- hour care and reevaluate need for fpc facility transition Follow-up with PCP this week Follow-up with neurologist Dr. Tipton in 1 month Case discussed with patient's daughter Yuliya in detail and at length All questions answered She is agreeable and comfortable and understanding of the plan of care Total Time Total Time Spent Total Time Spent (In Minutes): 45 minutes Discharge Plan Discharge Items Patient Disposition: Home - Self-Care Reason For Visit: ENCEPHALOPATHY Discharge Diagnosis: Altered mental status likely secondary to concussion Activity: As commented below Activity Comment: Resume activity gradually as tolerated, continue 24-hour care Non-emergency contact: Primary Care Provider, Neurologist and Psychiatrist Call non-emergency contact if: you have any medication questions, your symptoms worsen and your pain is concerning for you Follow-up/Referrals: Alyson Nava DO [Primary Care Provider] - 06/02/19 12:45 pm Tigre Tipton MD [Physician] - Diet: Carb Consistent or DM2 and Heart Healthy Addtl Attending Provider Instructions: Please review your new medication list and follow instructions carefully. Drink plenty of fluids. Do not take NSAIDs such as ibuprofen, naproxen, etc. Continue 24-hour care at home. Always ambulate carefully. Call primary care physician or return to the ER immediately if with worsening of symptoms. Follow-up with Dr. Nava on as outlined above. Follow-up with Dr. Tipton in 1 month. Pending Studies at Discharge: Yes Studies:: Repeat blood work (basic metabolic profile) on follow-up with PCP this , June 02, 2019. Stand-Alone Forms: My [facility] [employer], Smoking Cessation Medications and DC Order Prescriptions: New trazodone 50 mg Tablet 25 mg PO HS PRN (Reason: anxiety, agitation) Qty: 30 RF: 0 amlodipine [Norvasc] 5 mg Tablet 5 mg PO QAM 30 Days Qty: 30 RF: 2 Continued atorvastatin 40 mg Tablet 40 mg PO PM RF: 0 cetirizine [Zyrtec] 10 mg Tablet 5 mg PO QAM RF: 0 aspirin [Aspir-81] 81 mg Tablet,Delayed Release (Dr/Ec) 81 mg PO QAM RF: 0 famotidine 20 mg Tablet 20 mg PO BID RF: 0 albuterol sulfate [ProAir HFA] 90 mcg/actuation Hfa Aerosol Inhaler 1 puff INHALATION BID RF: 0 cetirizine [Zyrtec] 10 mg Tablet 0 mg PO DIRECTED PRN (Reason: Allergy Symptoms) RF: 0 metoprolol succinate 50 mg tablet extended release 24 hr 50 mg PO DAILY RF: 0 loperamide [Imodium A-D] 2 mg Tablet 0 mg PO DIRECTED RF: 0 famotidine 20 mg tablet 20 mg PO BID RF: 0 benzonatate 100 mg capsule 100 mg PO TID PRN (Reason: Cough) RF: 0 metformin 500 mg tablet extended release 24 hr 500 mg PO DAILY RF: 0 escitalopram oxalate 10 mg tablet 10 mg PO DAILY RF: 0 Novolog Flexpen U-100 Insulin 100 unit/mL (3 mL) insulin pen 0 unit SUBCUT DIRECTED RF: 0 Ozempic 1 mg/dose (2 mg/1.5 mL) pen injector 0 mg SUBCUT DIRECTED RF: 0 Lantus U-100 Insulin 100 unit/mL solution 0 unit SUBCUT BID RF: 0 Changed levetiracetam [Keppra] 500 mg Tablet 500 mg PO DAILY 30 Days Qty: 0 RF: 0 Discontinued lisinopril-hydrochlorothiazide 20-12.5 mg Tablet 0.5 tab PO QAM RF: 0 Discharge Orders: Discharge Order (Routine); Ordered 05/31/19 Ordered By: Jeff Schultz Admission Data Admit Date/Time: 05/27/19 23:36 Attending Provider: Jeff Schultz Admit Provider: Braydon Soria Primary Care Provider: Alyson Nava Other Providers: Braydon Soria ; Estefany Clayton ; Tigre Tipton Other Interventions: Discharge Summary Assessment (RN) Last Done: 05/31/19 12:28 DC Date/Time DO NOT enter until pt leaves facility: 05/31/19 13:00
== END 2019-05-31 13:00 | disposition home or self-care (01) | DRG 884 ==
LOC: ED 19:13 → 2N 23:36

== ENCOUNTER 2019-12-21 09:52 | Inpatient (IN) ==
[2019-12-21 11:16] LABS: Basophils # (auto) 0.04 K/uL (0-0.2); Basophils % (auto) 0.4 %; Eosinophils # (auto) 0.18 K/uL (0-0.5); Eosinophils % (auto) 1.6 %; Hematocrit (blood only) 44.4 % (37-47); Hemoglobin 14.4 g/dL (12.0-16.0); Immature Granulocytes # (auto) 0.03 K/uL (0.00-0.02); Immature Granulocytes % (auto) 0.3 %; Lymphocytes # (auto) 1.49 K/uL (1.2-3.4); Lymphocytes % (auto) 13.1 %; Mean Corpuscular Hemoglobin 28.2 pg (25-34); Mean Corpuscular Hgb Conc 32.4 g/dL (32-36); Mean Corpuscular Volume 86.9 fL (80-100); Mean Platelet Volume 9.8 fL (7.4-10.4); Monocytes % (auto) 6.1 %; Neutrophils # (auto) 8.95 K/uL (1.4-6.5); Neutrophils % (auto) 78.5 %; Platelet Count 676 K/uL (130-400); RDW Coefficient of Variation 13.9 % (11.5-14.5); Red Blood Count 5.11 M/uL (4.2-5.4); White Blood Count 11.39 K/uL (4.8-10.8)
[2019-12-21 11:19] LABS: INR 1.1 (0.9-1.1); Prothrombin Time 11.4 Seconds (9.0-12.0)
--- NOTE | 2019-12-21 11:28 | XRay Report ---
XR hip RT 2V w pelvis, XR femur RT 2V routine CLINICAL HISTORY: fall, pain with movement. Right hip and femur pain. COMPARISON STUDY: None. FINDINGS: No fracture or dislocation within the pelvis, hips, right femur. Soft tissues are unremarka ble. The sacrum appears intact. IMPRESSION: No fracture within the pelvis, hips, or right femur. ACT 112: Negative or not required by law. Electronically signed by: Neno Rashid M.D. 12/21/2019 11:26 AM
[2019-12-21 11:29] LABS: Alanine Aminotransferase 21 U/L (12-78); Albumin Level 3.3 gm/dl (3.4-5.0); Aspartate Aminotransferase 16 U/L (15-37); BUN Creatinine Ratio 16.9 (10-20); Blood Urea Nitrogen 14 mg/dl (7-18); Calcium 9.1 mg/dl (8.5-10.1); Carbon Dioxide 26 mmol/L (21-32); Chloride 107 mmol/L (98-107); Est GFR (Non-African American) 74.2; Glucose 155 mg/dl (70-99); Potassium 3.8 mmol/L (3.5-5.1); Sodium 140 mmol/L (136-145)
[2019-12-21 11:34] LABS: Albumin Globulin Ratio 0.8 (0.9-2); Alkaline Phosphatase 98 U/L (45-117); Creatine Kinase 86 U/L (26-192); Globulin 4.2 gm/dl (2.5-4.0); Total Protein 7.5 gm/dl (6.4-8.2); Troponin I < 0.015 ng/ml (0-0.045)
--- NOTE | 2019-12-21 11:37 | XRay Report ---
XR chest 1V portable HISTORY: fall COMPARISON: Chest 05/27/2019. FINDINGS: There are low lung volumes. Cardiac silhouette remains borderline enlarged. No pleural effu sions. No pneumothorax. The lungs are clear. IMPRESSION: No significant change compared to the prior study. No acute process. ACT 112: Negative or not required by law. Electronically signed by: Neno Rashid M.D. 12/21/2019 11:36 AM
--- NOTE | 2019-12-21 11:42 | CT Scan Report ---
CT SCAN OF THE BRAIN WITHOUT IV CONTRAST CLINICAL HISTORY: Fall. COMPARISON STUDY: CT of the brain dated 05/27/2019. TECHNIQUE: Unenhanced axial CT scan of the brain is performed from the vertex to the skull base. A do se lowering technique was utilized adhering to the principles of ALARA. FINDINGS: Brain parenchyma: Large foci of right temporal, right frontal, and right posterior parietal encephalo malacia are consistent with remote infarcts. A small chronic lacunar infarct is noted in the right ce rebellum. There are age-related involutional changes noting mild subcortical and periventricular hank roangiopathic change. There is no hemorrhage, mass effect, or evidence of acute territorial ischemia by CT criteria. Galvan-white matter differentiation is preserved. Metallic coils are again noted along the anterior falx. No extra-axial fluid collection is seen. Ventricles, sulci, cisterns: Prominent secondary to involutional change. Intracranial vasculature: There is atherosclerotic calcification of the cavernous carotid and vertebr al arteries. Calvarium: The skeletal structures are osteopenic. No depressed calvarial fracture is identified. Sinuses and mastoids: Trace mucosal thickening is noted in the maxillary antra. The remaining visuali zed paranasal sinuses are clear. The mastoid air cells are well pneumatized. Orbits: The bony orbits are grossly intact. IMPRESSION: Senescent change and remote infarcts as above with no hemorrhage, mass effect, or evidenc e of acute territorial ischemia by CT criteria. ACT 112: Negative or not required by law. Electronically signed by: Amarjit Chopra M.D. 12/21/2019 11:41 AM
--- NOTE | 2019-12-21 11:45 | CT Scan Report ---
CERVICAL SPINE CT CT DOSE: HISTORY: Neck pain. fall TECHNIQUE: Multiaxial CT images of the cervical spine were performed and reformatted in the sagittal and coronal plane without the use of contrast. A dose lowering technique was utilized adhering to th e principles of ALARA. COMPARISON: Cervical spine CT 05/27/2019. FINDINGS: No fractures. No subluxation. Prevertebral soft tissues and the C1-C2 interval are intact. No pneumothorax. IMPRESSION: No fractures within the cervical spine. ACT 112: Negative or not required by law. Electronically signed by: Neno Rashid M.D. 12/21/2019 11:44 AM
--- NOTE | 2019-12-21 11:48 | CT Scan Report ---
CT OF THE ABDOMEN AND PELVIS WITHOUT CONTRAST CLINICAL HISTORY: Fall. Pelvic pain. COMPARISON STUDY: Pelvis and right hip/femur radiographs performed earlier today. TECHNIQUE: Axial images of the abdomen and pelvis were obtained without IV contrast. Images were revi ewed in the axial, sagittal, and coronal planes. Automated exposure control was utilized for the marciano dy. A dose lowering technique was utilized adhering to the principles of ALARA. FINDINGS: Evaluation of the abdomen and pelvis is suboptimal given the lack of IV contrast. There are trace bilateral pleural effusions. Small gallstones within the gallbladder are noted. Unenhanced ronen ges of the liver, spleen, adrenal glands and pancreas are unremarkable. There is symmetric mild bilat eral perinephric infiltration. Punctate left renal calculi are noted. There is no hydronephrosis or h ydroureter. Bladder is distended. Colonic diverticulosis is noted. There is an inflamed diverticulum of the distal descending colon. No free air or abscess is noted. There is no evidence for a bowel obs truction. No acute lumbar spine or pelvic fracture is identified. No lymphadenopathy is present. IMPRESSION: 1. No acute traumatic findings within the abdomen or pelvis on unenhanced exam. 2. No acute pelvic or hip fracture. 3. Mild acute diverticulitis of the distal descending colon. No free air or abscess. 4. Moderate distention of the bladder. ACT 112: Negative or not required by law. Electronically signed by: Reji Devries M.D. 12/21/2019 11:46 AM
[2019-12-21] MEDS ORDERED: cefTRIAXone SODIUM 1,000 MG/50 ML BAG IV STA (12:07)
[2019-12-21] MEDS ORDERED: metroNIDAZOLE 500 MG TAB PO STA (12:07)
[2019-12-21] MEDS ORDERED: ACETAMINOPHEN 500 MG TAB PO STA (12:19)
--- NOTE | 2019-12-21 12:20 | Emergency Department Note ---
Impression & Plan Generalized weakness, Frequent falls, Diverticulitis ED Provider Note Provider: Rodolfo Clements MD DATE OF SERVICE: 12/21/2019 CHIEF COMPLAINT: Weakness, falls HISTORY OF PRESENT ILLNESS: Patient is a 69-year-old female with a history of dementia, hypertension, diabetes presenting from her apartment at home via ambulance after a fall. Evidently is been having increased number of falls over the last 2 to 3 weeks. Has been following up with her primary doctor. Patient is unable to give a clear history states that she did fall out of bed but not real clear on the time. Complaining of some right hip pain particular with movement a little bit of buttock pain. Denies striking her head the bed she remembers. No anticoagulants besides aspirin are noted on her medication list. Evidently home health came today and found her on the floor and called EMS. This happened yesterday but did not require anything beyond a lift assist. Daughter later arrives and states that she is concerned about precipitous decline in the patient last several weeks in particular last 3 days with more weakness multiple falls. Has been complaining of some lower buttock pain at times no fevers reported. Had been undergoing outpatient work-up and had a recent MRI with the primary care doctor. Daughter believes that is likely time for placement due to the recurrent issues. Has had some decline over the past 5 months but again more acute last several days/weeks. Denies shortness of breath, chest pain, or abdominal pain initially to me. Later does report a little bit of lower abdominal discomfort. REVIEW OF SYSTEMS: A total of 10 review of systems was obtained and negative except as stated above in the HPI. PAST MEDICAL HISTORY: As noted above MEDICATIONS: Reviewed home medication list. SOCIAL HISTORY: Lives at home alone with home health, denies smoking PHYSICAL EXAM: GENERAL: alert and oriented to person in no acute distress on stretcher Head: normocephalic and atraumatic EYES: No injection, discharge or icterus. PERRL, EOMI. NECK: Trachea midline. Supple. ENT: Mucous membranes pink and moist. LUNGS: Airway patent. No retractions. Breath sounds clear with good air entry bilaterally. HEART: Regular rate and rhythm. No chest wall tenderness ABDOMEN: Soft and non-tender, without guarding or rebound. BACK: No bilateral flank tenderness. However some slight lower sacral pain. SKIN: Acyanotic, warm, dry. EXTREMITIES: Without swelling, tenderness or deformity except for pain with movement of the right lower extremity and hip region. 2+ bilateral DP pulses. NEUROLOGICAL: No focal deficits. No aphasia. No facial droop or slurred speech. Normal strength and tone in the extremities. Sensation to gross touch normal. EK bpm normal sinus rhythm without PVC. No acute ST segment elevation or depression although some artifact is present on the baseline EKG here. QTc 422. Do not believe this represents atrial fibrillation/atrial flutter. CONTINUOUS CARDIAC MONITORING: was ordered and showed a heart rate of 62 bpm in normal sinus rhythm Patient's hypertension was referred to the hospitalist GCS 15. HOSPITAL COURSE: 1010 Patient was first seen and H&P performed. 1125 discussed with patient's daughter who is now at bedside and additional history received. 1210 Patient reassessed and updated. Patient was now reporting some more sacral pain and some lower abdominal discomfort. Patient's daughter updated at bedside as well. Plan for observation and placement. Patient's laboratory studies and imaging reviewed. Differential includes Fracture, dislocation, contusion, intra-abdominal, pneumothorax, intrathoracic, intracranial, neurologic, compartment syndrome, rhabdomyolysis, as well as other pathologies. IMPRESSION/MEDICAL DECISION MAKING: Patient presents with fall this morning but several falls her last several weeks as well as worsening confusion. Patient unable provide clear history and daughter later provides additional. Question of some diverticulitis on the CT although the patient did initially complain of abdominal pain later relates some. Imaging without evidence of traumatic fracture or other significant traumatic injury. Likely some musculoskeletal pain causing some sacral discomfort and this may be some referred pain from her diverticulitis. Given a dose of Flagyl and ceftriaxone to treat for this time. No evidence of intracranial bleed. Labs otherwise reassuring. Discussed with daughter will see if treating for diverticulitis with antibiotics may improve her physical status of weakness and some confusion. At the current time not in a safe position to go home and likely needs at least short-term and possibly long-term placement. Patient and daughter in agreement with this plan. Discussed with the hospitalist. DIAGNOSIS: Fall, weakness, confusion, ambulatory dysfunction, diverticulitis DISPOSITION: Hospitalist will evaluate Patient and daughter were agreeable with this plan. Past Med/Surg History Medical History Brain aneurysm Cognitive deficit, post-stroke DM type 2 (diabetes mellitus, type 2) Fibromyalgia (Chronic) History of PSVT (paroxysmal supraventricular tachycardia) History of stroke HTN (hypertension) (Chronic) Major vascular neurocognitive disorder, probable, with behavioral disturbance SAH (subarachnoid hemorrhage) (Acute) Seizures, post-traumatic Surgical History S/P right knee arthroscopy S/P VALDEZ (total abdominal hysterectomy) Family History Mother Cirrhosis of liver not due to alcohol Social History Preferred Language: Egyptian Communication Ability: Effective Manager Psychology Required: No Beliefs That Will Affect Care: None Current Living Situation: Personal Care Facility Current Living Situation Comment: Caregivers daily. Feels Safe at Home: Yes Smoking Status: Never smoker Hx Alcohol Use: No Hx Substance Use: No Allergies Allergies Allergy/AdvReac Type Severity Reaction Status Date / Time Penicillins Allergy Severe THROAT Verified 12/21/19 12:26 [facility] Meds Home Medications Medication Instructions Recorded Confirmed albuterol sulfate [ProAir HFA] 1 puff INHALATION BID PRN 07/23/18 12/21/19 aspirin [Aspir-81] 81 mg PO QAM 07/23/18 12/21/19 atorvastatin 40 mg PO PM 07/23/18 12/21/19 cetirizine [Zyrtec] 10 mg PO QAM 07/23/18 12/21/19 famotidine 20 mg PO BID 07/23/18 12/21/19 Lantus U-100 Insulin 60 unit SUBCUT DAILY 05/27/19 12/21/19 Ozempic 1 mg SUBCUT WK 05/27/19 12/21/19 escitalopram oxalate 10 mg PO DAILY 05/27/19 12/21/19 insulin aspart U-100 [Novolog 0 unit SUBCUT DIRECTED 05/27/19 12/21/19 Flexpen U-100 Insulin] loperamide [Imodium A-D] 2 mg PO DIRECTED PRN 05/27/19 12/21/19 metformin 500 mg PO DAILY 05/27/19 12/21/19 metoprolol succinate 50 mg PO DAILY 05/27/19 12/21/19 levetiracetam [Keppra] 500 mg PO BID 12/21/19 12/21/19 lisinopril-hydrochlorothiazide 1 tab PO DAILY 12/21/19 12/21/19 memantine 5 mg PO BID 12/21/19 12/21/19 trazodone 25 mg PO BID 12/21/19 12/21/19 Previous Rx's Medication Instructions Recorded amlodipine [Norvasc] 5 mg PO QAM 30 Days #30 tab 05/31/19 Results & Data (ED) Vital Signs Vital Signs - 24 hr 12/21/19 10:02 12/21/19 12:08 12/21/19 13:30 Temperature 36.8 C Temperature Source Oral Pulse Rate 59 L Pulse Rate [Left Finger] 67 59 L Pulse Rhythm Regular Pulse Strength Normal Respiratory Rate 22 29 H 25 H Respiratory Effort / Characteristics Non-Labored Spontaneous Respiratory Depth Normal Blood Pressure 205/56 H Blood Pressure [Left Arm] 203/79 H 153/63 H Blood Pressure Mean 105 Blood Pressure Mean [Left Arm] 120 93 Pulse Oximetry 98 93 98 Oxygen Delivery Method Room Air Sepsis Recent Fever Within 48 Hours No Sepsis Action Taken by Nursing No Action Required 12/21/19 15:50 Temperature Temperature Source Pulse Rate Pulse Rate [Left Finger] 57 L Pulse Rhythm Pulse Strength Respiratory Rate 20 Respiratory Effort / Characteristics Respiratory Depth Blood Pressure Blood Pressure [Left Arm] 130/72 Blood Pressure Mean Blood Pressure Mean [Left Arm] 91 Pulse Oximetry 98 Oxygen Delivery Method Sepsis Recent Fever Within 48 Hours Sepsis Action Taken by Nursing Laboratory Data Result diagrams: 12/21/19 11:03 12/21/19 11:03 Lab Results 12/21/19 12/21/19 12/21/19 Range/Units 11:03 11:03 11:03 WBC 11.39 H (4.8-10.8) K/uL RBC 5.11 (4.2-5.4) M/uL Hgb 14.4 (12.0-16.0) g/dL Hct 44.4 (37-47) % MCV 86.9 (80-100) fL MCH 28.2 (25-34) pg MCHC 32.4 (32-36) g/dL RDW Std Deviation 44.0 (36.4-46.3) fL RDW Coeff of Min 13.9 (11.5-14.5) % Plt Count 676 H (130-400) K/uL MPV 9.8 (7.4-10.4) fL Immature Gran % (Auto) 0.3 % Neut % (Auto) 78.5 % Lymph % (Auto) 13.1 % [place] % (Auto) 6.1 % Eos % (Auto) 1.6 % Baso % (Auto) 0.4 % Neut # (Auto) 8.95 H (1.4-6.5) K/uL Lymph # (Auto) 1.49 (1.2-3.4) K/uL [place] # (Auto) 0.70 H (0.11-0.59) K/uL Eos # (Auto) 0.18 (0-0.5) K/uL Baso # (Auto) 0.04 (0-0.2) K/uL Immature Gran # (Auto) 0.03 H (0.00-0.02) K/uL PT 11.4 (9.0-12.0) Seconds INR 1.1 (0.9-1.1) Sodium 140 (136-145) mmol/L Potassium 3.8 (3.5-5.1) mmol/L Chloride 107 (98-107) mmol/L Carbon Dioxide 26 (21-32) mmol/L Anion Gap 7.0 (3-11) BUN 14 (7-18) mg/dl Creatinine 0.80 (0.6-1.2) mg/dl Est Cr Clr Drug Dosing 62.0 ml/min Est GFR ( Amer) 86.0 Est GFR (Non-Af Amer) 74.2 BUN/Creatinine Ratio 16.9 (10-20) Glucose 155 H (70-99) mg/dl Calcium 9.1 (8.5-10.1) mg/dl Total Bilirubin 2.0 H (0.2-1) mg/dl AST 16 (15-37) U/L ALT 21 (12-78) U/L Alkaline Phosphatase 98 (45-117) U/L Total Creatine Kinase 86 (26-192) U/L Troponin I < 0.015 (0-0.045) ng/ml Total Protein 7.5 (6.4-8.2) gm/dl Albumin 3.3 L (3.4-5.0) gm/dl Globulin 4.2 H (2.5-4.0) gm/dl Albumin/Globulin Ratio 0.8 L (0.9-2) Urine Color Urine Appearance (Clear) Urine pH (4.5-7.5) Ur Specific [place] (1.000-1.030) Urine Protein (Negative) Urine Glucose (UA) (Negative) Urine Ketones (Negative) Urine Blood (Negative) Urine Nitrite (Negative) Urine Bilirubin (Negative) Urine Urobilinogen (Negative) Ur Leukocyte Esterase (Negative) Urine WBC (Auto) (0-5) /hpf Urine RBC (Auto) (0-4) /hpf U Hyaline Cast (Auto) (0-5) /lpf U Epithel Cells (Auto) (0-5) /lpf Urine Bacteria (Auto) (Negative) 12/21/19 Range/Units 12:38 WBC (4.8-10.8) K/uL RBC (4.2-5.4) M/uL Hgb (12.0-16.0) g/dL Hct (37-47) % MCV (80-100) fL MCH (25-34) pg MCHC (32-36) g/dL RDW Std Deviation (36.4-46.3) fL RDW Coeff of Min (11.5-14.5) % Plt Count (130-400) K/uL MPV (7.4-10.4) fL Immature Gran % (Auto) % Neut % (Auto) % Lymph % (Auto) % [place] % (Auto) % Eos % (Auto) % Baso % (Auto) % Neut # (Auto) (1.4-6.5) K/uL Lymph # (Auto) (1.2-3.4) K/uL [place] # (Auto) (0.11-0.59) K/uL Eos # (Auto) (0-0.5) K/uL Baso # (Auto) (0-0.2) K/uL Immature Gran # (Auto) (0.00-0.02) K/uL PT (9.0-12.0) Seconds INR (0.9-1.1) Sodium (136-145) mmol/L Potassium (3.5-5.1) mmol/L Chloride (98-107) mmol/L Carbon Dioxide (21-32) mmol/L Anion Gap (3-11) BUN (7-18) mg/dl Creatinine (0.6-1.2) mg/dl Est Cr Clr Drug Dosing ml/min Est GFR ( Amer) Est GFR (Non-Af Amer) BUN/Creatinine Ratio (10-20) Glucose (70-99) mg/dl Calcium (8.5-10.1) mg/dl Total Bilirubin (0.2-1) mg/dl AST (15-37) U/L ALT (12-78) U/L Alkaline Phosphatase (45-117) U/L Total Creatine Kinase (26-192) U/L Troponin I (0-0.045) ng/ml Total Protein (6.4-8.2) gm/dl Albumin (3.4-5.0) gm/dl Globulin (2.5-4.0) gm/dl Albumin/Globulin Ratio (0.9-2) Urine Color Yellow Urine Appearance Clear (Clear) Urine pH 5.0 (4.5-7.5) Ur Specific [place] 1.022 (1.000-1.030) Urine Protein 2+ H (Negative) Urine Glucose (UA) Negative (Negative) Urine Ketones 1+ H (Negative) Urine Blood 1+ H (Negative) Urine Nitrite Negative (Negative) Urine Bilirubin Negative (Negative) Urine Urobilinogen Negative (Negative) Ur Leukocyte Esterase Negative (Negative) Urine WBC (Auto) 1-5 (0-5) /hpf Urine RBC (Auto) 0-4 (0-4) /hpf U Hyaline Cast (Auto) 5-10 H (0-5) /lpf U Epithel Cells (Auto) >30 H (0-5) /lpf Urine Bacteria (Auto) Negative (Negative) Administered Medications Discontinued Medications Acetaminophen (Tylenol) 1,000 mg PO NOW STA Stop: 12/21/19 12:20 Last Admin: 12/21/19 12:24 Dose: 1,000 mg Documented by: [id number] Ceftriaxone Sodium (Rocephin) 1,000 mg in 50 mls @ 100 mls/hr IV NOW STA Stop: 12/21/19 12:36 Last Infusion: 12/21/19 13:23 Dose: 0 mls/hr Documented by: [id number] Admin: 12/21/19 12:37 Dose: 100 mls/hr Documented by: [id number] Metronidazole (Flagyl) 500 mg PO NOW STA Stop: 12/21/19 12:08 Last Admin: 12/21/19 12:25 Dose: 500 mg Documented by: [id number] Discharge Plan Visit Data Chief Complaint: Fall ED Provider: Rodolfo Clements Discharge Problem: Generalized weakness, Frequent falls, Diverticulitis Patient Disposition: Being Evaluated by Hospitalist Condition: Fair Forms Stand Alone Forms: My [facility] Prescriptions Prescriptions: No Action atorvastatin 40 mg Tablet 40 mg PO PM RF: 0 cetirizine [Zyrtec] 10 mg Tablet 10 mg PO QAM RF: 0 aspirin [Aspir-81] 81 mg Tablet,Delayed Release (Dr/Ec) 81 mg PO QAM RF: 0 famotidine 20 mg Tablet 20 mg PO BID RF: 0 albuterol sulfate [ProAir HFA] 90 mcg/actuation Hfa Aerosol Inhaler 1 puff INHALATION BID PRN (Reason: Shortness Of Breath Or Wheezing) RF: 0 metoprolol succinate 50 mg tablet extended release 24 hr 50 mg PO DAILY RF: 0 loperamide [Imodium A-D] 2 mg Tablet 2 mg PO DIRECTED PRN (Reason: Diarrhea) RF: 0 metformin 500 mg tablet extended release 24 hr 500 mg PO DAILY RF: 0 escitalopram oxalate 10 mg tablet 10 mg PO DAILY RF: 0 insulin aspart U-100 [Novolog Flexpen U-100 Insulin] 100 unit/mL (3 mL) insulin pen 0 unit SUBCUT DIRECTED RF: 0 Ozempic 1 mg/dose (2 mg/1.5 mL) pen injector 1 mg SUBCUT WK RF: 0 Lantus U-100 Insulin 100 unit/mL solution 60 unit SUBCUT DAILY RF: 0 amlodipine [Norvasc] 5 mg Tablet 5 mg PO QAM 30 Days Qty: 30 RF: 2 lisinopril-hydrochlorothiazide 20-12.5 mg tablet 1 tab PO DAILY RF: 0 memantine 5 mg tablet 5 mg PO BID RF: 0 trazodone 50 mg tablet 25 mg PO BID RF: 0 levetiracetam [Keppra] 500 mg tablet 500 mg PO BID RF: 0 Referrals Referrals: Alyson Nava, [Primary Care Provider] -
[2019-12-21 12:47] LABS: Appearance Urine Clear (Clear); Bacteria Urine Automated Negative (Negative); Bilirubin Urine Negative (Negative); Blood Urine 1+ (Negative); Color Urine Yellow; Epithelial Cell Urine Auto >30 /lpf (0-5); Glucose Urine UA Negative (Negative); Ketones Urine 1+ (Negative); Leukocyte Esterase Urine Negative (Negative); Nitrite Urine Negative (Negative); Protein Urine 2+ (Negative); RBC Urine Automated 0-4 /hpf (0-4); Specific Gravity Urine 1.022 (1.000-1.030); Urobilinogen Urine Negative (Negative)
--- NOTE | 2019-12-21 14:09 | History & Physical Report ---
Date of Service December 21, 2019 Assessment & Plan (1) Generalized weakness: (2) Frequent falls: -Admit to [facility] -Patient presenting from home with worsening generalized weakness and frequent falls, worsening confusion -Patient with remote history of subarachnoid hemorrhage secondary to brain aneurysm, now with cognitive disorder since event -CT ABD/pelvis showing mild diverticulitis which may be contributing -In the ED, no evidence of fracture on imaging. Head CT negative. -PT/OT, case management, likely will need placement at discharge (3) Diverticulitis: -Mild diverticulitis on CT ABD/pelvis -WBC 11 K, afebrile -Colonoscopy 05/2009: Diverticulosis of sigmoid, descending, transverse colon -Received IV ceftriaxone and Flagyl in the ED, will continue with. Noted severe allergy to penicillins however per pharmacy, has tolerated ceftriaxone in the past. -Clear liquid diet, IVF -Advance diet as tolerated (4) Major vascular neurocognitive disorder, probable, with behavioral disturbance: (5) Cognitive deficit, post-stroke: -Continue home medications including escitalopram, memantine, trazodone (6) Seizures, post-traumatic: No signs of recent seizure, continue Keppra (7) DM type 2 (diabetes mellitus, type 2): -Hgb A1c 8.8 11/2019 -Hold metformin and Ozempic, NovoLog and Lantus while hospitalized -Pharmacy glycemic consulted (8) HTN (hypertension): -BP elevated, likely due to missed home medications today -Continue home doses of amlodipine, metoprolol, lisinopril/HCTZ -Continue monitor BP, making adjustments as needed (9) DVT prophylaxis: -SQ heparin History of Present Illness Chief Complaint: Generalized weakness, frequent falls Primary Care Provider: Alyson Nava DO 69-year-old female with PMH DM type II on insulin, HTN, history of subarachnoid hemorrhage due to brain aneurysm, and other problems listed below who presents the ED for evaluation of generalized weakness and frequent falls. History is not obtainable from the patient due to her underlying cognitive deficit after her stroke. Daughter reports that over the past 3 weeks, patient has been having increasing weakness and frequent falls. Outpatient PCP has been down titrating patient's trazodone however daughter reports there is been no improvement. She also reports her mother has been more agitated and aggressive at times. No other symptoms reported. In the ED, there is no evidence of fracture on imaging. CT ABD/pelvis is showing mild acute diverticulitis. Labs are unremarkable. BP is elevated, patient is otherwise hemodynamically stable. She was given p.o. Tylenol, IV ceftriaxone, p.o. Flagyl. Allergies Allergy/AdvReac Type Severity Reaction Status Date / Time Penicillins Allergy Severe THROAT Verified 12/21/19 12:26 [facility] Home Medications Home Medications Medication Instructions Recorded Confirmed Type albuterol sulfate [ProAir HFA] 1 puff INHALATION BID PRN 07/23/18 12/21/19 History aspirin [Aspir-81] 81 mg PO QAM 07/23/18 12/21/19 History atorvastatin 40 mg PO PM 07/23/18 12/21/19 History cetirizine [Zyrtec] 10 mg PO QAM 07/23/18 12/21/19 History famotidine 20 mg PO BID 07/23/18 12/21/19 History Lantus U-100 Insulin 60 unit SUBCUT DAILY 05/27/19 12/21/19 History Ozempic 1 mg SUBCUT WK 05/27/19 12/21/19 History escitalopram oxalate 10 mg PO DAILY 05/27/19 12/21/19 History insulin aspart U-100 [Novolog 0 unit SUBCUT DIRECTED 05/27/19 12/21/19 History Flexpen U-100 Insulin] loperamide [Imodium A-D] 2 mg PO DIRECTED PRN 05/27/19 12/21/19 History metformin 500 mg PO DAILY 05/27/19 12/21/19 History metoprolol succinate 50 mg PO DAILY 05/27/19 12/21/19 History amlodipine [Norvasc] 5 mg PO QAM 30 Days #30 tab 05/31/19 12/21/19 Rx levetiracetam [Keppra] 500 mg PO BID 12/21/19 12/21/19 History lisinopril-hydrochlorothiazide 1 tab PO DAILY 12/21/19 12/21/19 History memantine 5 mg PO BID 12/21/19 12/21/19 History trazodone 25 mg PO BID 12/21/19 12/21/19 History Past Med/Surg History Medical History Brain aneurysm Cognitive deficit, post-stroke DM type 2 (diabetes mellitus, type 2) Fibromyalgia (Chronic) History of PSVT (paroxysmal supraventricular tachycardia) History of stroke HTN (hypertension) (Chronic) Major vascular neurocognitive disorder, probable, with behavioral disturbance SAH (subarachnoid hemorrhage) (Acute) Seizures, post-traumatic Surgical History S/P right knee arthroscopy S/P VALDEZ (total abdominal hysterectomy) Family History Mother Cirrhosis of liver not due to alcohol Social History Preferred Language: Serbian Communication Ability: Effective Supervisor [employer] Required: No Beliefs That Will Affect Care: None Current Living Situation: Personal Care Facility Current Living Situation Comment: Caregivers daily. Feels Safe at Home: Yes Smoking Status: Never smoker Hx Alcohol Use: No Hx Substance Use: No Review of Systems Review of Systems: Unobtainable due to cognitive status Physical Exam Constitutional: WD/WN, vitals as above Eyes: PERRL, conjunctivae normal, anicteric sclerae ENMT: external ear and nose normal, oropharynx normal Respiratory: normal respiratory effort, lungs clear to auscultation Cardiovascular: Rate/Rhythm: regular rate and regular rhythm Vessels: normal peripheral pulses Extremities: no edema Gastrointestinal (Abdomen): normal bowel sounds, soft, nontender, no hepatosplenomegaly Musculoskeletal: no cyanosis or clubbing, extremities motor strength 5/5 Skin: no rashes, warm and dry Neurologic: PERRL, EOMI, accommodation nl, no face palsy, no dysarthria Psychiatric: Orientation: alert, oriented to person and oriented to time; + not oriented to place Insight: + poor insight Results & Data Results & Data (MN) Vital Signs (Past 12 Hours) Vital Signs Temp Pulse Pulse Resp BP BP Pulse Ox 12/21/19 13:30 59 L 25 H 153/63 H 98 12/21/19 12:08 67 29 H 203/79 H 93 12/21/19 10:02 36.8 C 59 L 22 205/56 H 98 Laboratory Results Short CBC 12/21/19 Range/Units 11:03 WBC 11.39 H (4.8-10.8) K/uL Hgb 14.4 (12.0-16.0) g/dL Hct 44.4 (37-47) % Plt Count 676 H (130-400) K/uL BMP 12/21/19 11:03 Sodium 140 Potassium 3.8 Chloride 107 Carbon Dioxide 26 BUN 14 Creatinine 0.80 Glucose 155 H Calcium 9.1 Cardiac Enzymes 12/21/19 Range/Units 11:03 Total Creatine Kinase 86 (26-192) U/L Troponin I < 0.015 (0-0.045) ng/ml Liver Function 12/21/19 Range/Units 11:03 Total Bilirubin 2.0 H (0.2-1) mg/dl AST 16 (15-37) U/L ALT 21 (12-78) U/L Alkaline Phosphatase 98 (45-117) U/L Albumin 3.3 L (3.4-5.0) gm/dl Urine 12/21/19 Range/Units 12:38 Urine Color Yellow Urine Appearance Clear (Clear) Urine pH 5.0 (4.5-7.5) Ur Specific [place] 1.022 (1.000-1.030) Urine Protein 2+ H (Negative) Urine Glucose (UA) Negative (Negative) Diagnostic Findings CERVICAL SPINE CT IMPRESSION: No fractures within the cervical spine. CXR IMPRESSION: No significant change compared to the prior study. No acute process. PELVIS, RIGHT HIP, RIGHT FEMUR XR IMPRESSION: No fracture within the pelvis, hips, or right femur. HEAD CT IMPRESSION: Senescent change and remote infarcts as above with no hemorrhage, mass effect, or evidence of acute territorial ischemia by CT criteria. CT ABD/PELVIS IMPRESSION: 1. No acute traumatic findings within the abdomen or pelvis on unenhanced exam. 2. No acute pelvic or hip fracture. 3. Mild acute diverticulitis of the distal descending colon. No free air or abscess. 4. Moderate distention of the bladder. Code Status & VTE Plan Code Status Patient is a DNR as per my discussion with patient's daughter/Yuliya GLASS. VTE Prophylaxis Plan VTE Prophylaxis will be ordered: Yes Supervising Physician Co-Signing Physician Notes I, Dr. Martin Farrell, have seen and examined the patient Analisa Nguyen with nurse practitioner and would like to comment on exam Physical Exam General: speaking in full sentences Pulmonary: no crackles appreciated on anterior auscultation or wheezing, on room air Cardiac: bradycardia Abdomen: soft, nontender, normal bowel sounds Neuro/Psych: speaking in full sentences and alert and oriented to person, place, year but not the month Assessment and plan -that this is a 69 year old female patient who came to the hospital after falling out of bed, she felt her buttock pain improved and no acute fractures -ED physician started patient on IV ceftriaxone and IV metronidazole for abdomen imaging of Mild acute diverticulitis of the distal descending colon and in context of leukocytosis of 11.39 K/ul -continue antibiotics -as per ED notes that patients daughter concerned about frequent falls at current home living situation, will need PT/OT evaluations and case management assessment -history of dementia but currently appropriately interacting with hospital medical providers at this time -agree with other assessment and plans as documented by nurse practitioner -My colleague Dr. Schultz will be the hospitalist physician starting on 12/22/2019
--- NOTE | 2019-12-21 14:58 | Electrocardiogram Report ---
Test Reason : Blood Pressure : / mmHG Vent. Rate : 061 BPM Atrial Rate : 061 BPM P-R Int : 130 ms QRS Dur : 088 ms QT Int : 420 ms P-R-T Axes : 004 -09 052 degrees QTc Int : 422 ms Poor data quality, interpretation may be adversely affected Baseline artifact interferes with interpretation Probable Normal sinus rhythm Left ventricular hypertrophy with repolarization abnormality Borderline ECG When compared with ECG of 31-MAY-2019 08:48, Artifact now present Confirmed by Luis Gonzalez ([id number]) on 12/21/2019 2:58:32 PM Referred By: REFERRED SELF Confirmed By:Luis Gonzalez
[2019-12-21] MEDS ORDERED: ACETAMINOPHEN 325 MG TAB PO PRN (17:51)
[2019-12-21] MEDS ORDERED: DEXTROSE 50% 50 ML SYRINGE IV PRN (17:51)
[2019-12-21] MEDS ORDERED: CARBOHYDRATES FOR HYPOGLYCEMIA PO PRN (17:51)
[2019-12-21] MEDS ORDERED: GLUCAGON FOR INJ 1 MG VIAL SQ PRN (17:51)
[2019-12-21] MEDS ORDERED: GLUCOSE 10 TABS/TUBE PO PRN (17:51)
[2019-12-21] MEDS ORDERED: GLUCOSE 40% GEL 15 GM TUBE PO PRN (17:51)
[2019-12-21] MEDS ORDERED: PHARMACY GLYCEMIC MGMT CONSULT PRN (18:07)
[2019-12-21] MEDS: SODIUM CHLORIDE 0.9% 1000ML 1,000 ML IV SCH (18:36)
[2019-12-21] MEDS: AMLODIPINE BESYLATE 5 MG TAB PO SCH (20:04)
[2019-12-21] MEDS: ATORVASTATIN 40 MG TAB PO SCH (20:05)
[2019-12-21] MEDS: FAMOTIDINE 20 MG TAB PO SCH (20:05)
[2019-12-21] MEDS: MEMANTINE HCL 5 MG TAB PO SCH (20:06)
[2019-12-21] MEDS: levETIRAcetam 500 MG TAB PO SCH (20:06)
[2019-12-21] MEDS: LISINOPRIL/HCTZ 20/12.5MG 1 TAB TAB PO SCH (20:07)
[2019-12-21] MEDS: TRAZODONE HCL 50 MG TAB PO SCH (20:08)
[2019-12-21] MEDS: metroNIDAZOLE 500 MG/100 ML BAG IV SCH (20:09)
[2019-12-21] MEDS: HEPARIN SOD 5,000 UNIT/0.5 ML VIAL SQ SCH (20:09)
[2019-12-21] MEDS: INSULIN ASPART 100 UNITS/ML 3 ML PEN SC SCH ×2 (20:10→21:24)
[2019-12-21] MEDS ORDERED: INSULIN GLARGINE SOLOSTAR 100 UNITS/ML 3 ML PEN SC ONE (21:00)
[2019-12-22] MEDS: INSULIN ASPART 100 UNITS/ML 3 ML PEN SC SCH ×6 (00:12→21:50)
[2019-12-22] MEDS: HEPARIN SOD 5,000 UNIT/0.5 ML VIAL SQ SCH ×3 (02:09→17:27)
[2019-12-22] MEDS: metroNIDAZOLE 500 MG/100 ML BAG IV SCH ×3 (04:43→18:51)
[2019-12-22] MEDS: SODIUM CHLORIDE 0.9% 1000ML 1,000 ML IV SCH ×2 (05:51→18:51)
[2019-12-22 07:14] LABS: Hematocrit (blood only) 38.8 % (37-47); Mean Corpuscular Hemoglobin 28.4 pg (25-34); Mean Corpuscular Hgb Conc 33.5 g/dL (32-36); Mean Corpuscular Volume 84.7 fL (80-100); Mean Platelet Volume 9.7 fL (7.4-10.4); Platelet Count 569 K/uL (130-400); RDW Coefficient of Variation 13.9 % (11.5-14.5); RDW Standard Deviation 42.9 fL (36.4-46.3); Red Blood Count 4.58 M/uL (4.2-5.4); White Blood Count 9.84 K/uL (4.8-10.8)
[2019-12-22 07:46] LABS: BUN Creatinine Ratio 15.9 (10-20); Calcium 7.8 mg/dl (8.5-10.1); Creatinine Clr Calc Pharmacy 68.9 ml/min; Est GFR (African American) 97.7; Est GFR (Non-African American) 84.3; Potassium 3.1 mmol/L (3.5-5.1)
[2019-12-22 08:01] LABS: Estimated Average Glucose 220 mg/dl; Hemoglobin A1C 9.3 % (4.5-5.6)
[2019-12-22] MEDS: FAMOTIDINE 20 MG TAB PO SCH ×2 (08:15→21:47)
[2019-12-22] MEDS: ASPIRIN 81 MG ECTAB PO SCH (08:15)
[2019-12-22] MEDS: METOPROLOL SUCC 50MG EXT REL TAB PO SCH (08:16)
[2019-12-22] MEDS: levETIRAcetam 500 MG TAB PO SCH ×2 (08:16→21:25)
[2019-12-22] MEDS: LISINOPRIL/HCTZ 20/12.5MG 1 TAB TAB PO SCH (08:16)
[2019-12-22] MEDS: AMLODIPINE BESYLATE 5 MG TAB PO SCH (08:17)
[2019-12-22] MEDS: TRAZODONE HCL 50 MG TAB PO SCH ×2 (08:17→21:26)
[2019-12-22] MEDS: MEMANTINE HCL 5 MG TAB PO SCH ×2 (08:18→21:25)
[2019-12-22] MEDS: ESCITALOPRAM OXALATE 10 MG TAB PO SCH (08:18)
[2019-12-22] MEDS: CETIRIZINE HCL 10 MG TABLET PO SCH (08:18)
[2019-12-22] MEDS ORDERED: POTASSIUM CHLORIDE 20 MEQ TABCR PO STA (08:26)
[2019-12-22] MEDS ORDERED: INSULIN GLARGINE SOLOSTAR 100 UNITS/ML 3 ML PEN SC SCH (09:30)
--- NOTE | 2019-12-22 10:30 | Pharmacy Report ---
Pharmacy Glycemic Short Note 2 - Date of Service December 22, 2019 - Glycemic Short BSG Results (Last 24 hours): 12/21/19 12/21/19 12/21/19 11:03 18:27 20:51 Glucose 155 H POC Glucose 119 H 199 H 12/22/19 12/22/19 12/22/19 00:08 04:47 06:50 Glucose 123 H POC Glucose 139 H 146 H 12/22/19 07:44 Glucose POC Glucose 108 H OUTPATIENT ANTIDIABETIC REGIMEN: * Lantus 52 units SQ daily (reported by pt) * Novolog 4 units with breakfast, 8 units with lunch * Ozempic 1 mg SQ qFriday * Metformin 500 mg PO daily ASSESSMENT: * Analisa is a 69 yo T2DM admitted with generalized weakness, frequent falls, diverticulitis * Upon consultation, patient's basal insulin dose was decreased based on her glucose trending downward despite reports that she took no insulin on 12/20 * Fasting BSG of 108 mg/dL is at goal, therefore I will continue with reduced basal. Will utilize BID dosing per scale until needs are determined. * Post prandial BSGs are near goal. Will slightly tighten carb coverage. PLAN FOR INPATIENT GLYCEMIC CONTROL: * Hold outpatient oral diabetes medications * Basal insulin * Lantus 20 units SQ this morning, than per scale BID: * 15 units for BSG < 140 * 20 units for BSG 140-200 * 25 units for BSG > 200 * Bolus insulin * NovoLog per scale ACHS or Q6hrs while NPO * Goal Range: Low 110 mg/dL - High 140 mg/dL * Correction Factor: 20 mg/dL/unit * Nutritional / Prandial insulin per carb ratio of 1 unit per 6 grams CHO consumed PLAN FOR DISCHARGE: * A1c = 9.3% * tbd
[2019-12-22] MEDS: cefTRIAXone SODIUM 1,000 MG in DEXTROSE 5% 50 ML IV SCH (12:56)
[2019-12-22] MEDS ORDERED: HALOPERIDOL LACTATE 5 MG/ML 1 ML VIAL IM PRN (16:12)
--- NOTE | 2019-12-22 20:23 | Hospitalist Progress Note ---
Date of Service December 22, 2019 Assessment & Plan (1) Generalized weakness: (2) Frequent falls: Per admitting service notes: -Patient presenting from home with worsening generalized weakness and frequent falls, worsening confusion -Patient with remote history of subarachnoid hemorrhage secondary to brain aneurysm, now with cognitive disorder since event -CT ABD/pelvis showing mild diverticulitis which may be contributing -In the ED, no evidence of fracture on imaging. Head CT negative. -PT/OT, case management, likely will need placement at discharge 12/22/2019 Afebrile, no leukocytosis Clinically feels improved overall Continue IV ceftriaxone plus Flagyl Continue PT and OT evaluation (3) Diverticulitis: -Mild diverticulitis on CT ABD/pelvis -WBC 11 K, afebrile -Colonoscopy 05/2009: Diverticulosis of sigmoid, descending, transverse colon -Received IV ceftriaxone and Flagyl in the ED, will continue with. Noted severe allergy to penicillins however per pharmacy, has tolerated ceftriaxone in the past. 12/22/2019 No GI symptoms Continue IV antibiotics as noted above Continue to monitor At bedside as tolerated (4) Major vascular neurocognitive disorder, probable, with behavioral disturbance: (5) Cognitive deficit, post-stroke: -Continue home medications including escitalopram, memantine, trazodone (6) Seizures, post-traumatic: No signs of recent seizure, continue Keppra (7) DM type 2 (diabetes mellitus, type 2): -Hgb A1c 8.8 11/2019 -Hold metformin and Ozempic, NovoLog and Lantus while hospitalized -Pharmacy glycemic consulted (8) HTN (hypertension): -BP elevated, likely due to missed home medications today -Continue home doses of amlodipine, metoprolol, lisinopril/HCTZ -Continue monitor BP, making adjustments as needed (9) DVT prophylaxis: -SQ heparin Admission and Anticipated Discharge Date Admission Date: December 21, 2019 Subjective Follow-up for weakness, acute diverticulitis Seen resting in bedside chair, awake and alert, oriented x1-2, very pleasant and cooperative States she feels better today compared to yesterday Denies abdominal pain, no nausea, tolerating diet well Denies shortness of breath, chest pain, dizziness, palpitations, cough, chills Denies problems with urination No other symptoms Review of Systems Review of Systems: All systems reviewed & are unremarkable except as noted in HPI & below Physical Exam Physical Exam: General- oriented x 1-2, not in distress, speaks in sentences with no effort or accessory muscle use Head- atraumatic Eyes- PERRL, EOMI, anicteric ENT- oropharynx clear Neck- supple, no JVD, no adenopathy, no thyromegaly; carotids +2/2, no bruits appreciated Lungs- clear to auscultation bilaterally, no rales/wheezes Heart- normal rate, regular rhythm; no murmur, no gallop, no rub appreciated Abdomen-hyperactive bowel sounds, nondistended, soft, nontender, no masses or hepatosplenomegaly Extremities- no pretibial edema, no calf tenderness; peripheral pulses intact Neuro- alert, oriented x 1-2; CN 2-12 grossly intact; motor 5/5 bilaterally;sensation 100% on all extremities; no other gross focal neurologic deficits Skin- warm & dry Results & Data Results & Data ([facility]) Vital Signs (Past 12 Hours) Vital Signs Temp Pulse Resp BP Pulse Ox 12/22/19 15:17 36.6 C 70 18 148/77 H 95 Laboratory Results Laboratory Results - last 24 hr 12/21/19 12/22/19 12/22/19 20:51 00:08 04:47 WBC RBC Hgb Hct MCV MCH MCHC RDW Std Deviation RDW Coeff of Min Plt Count MPV Sodium Potassium Chloride Carbon Dioxide Anion Gap BUN Creatinine Est Cr Clr Drug Dosing Est GFR ( Amer) Est GFR (Non-Af Amer) BUN/Creatinine Ratio Glucose POC Glucose 199 H 139 H 146 H Estimat Average Glucose Hemoglobin A1c Calcium 12/22/19 12/22/19 12/22/19 06:50 06:50 06:50 WBC 9.84 RBC 4.58 Hgb 13.0 Hct 38.8 MCV 84.7 MCH 28.4 MCHC 33.5 RDW Std Deviation 42.9 RDW Coeff of Min 13.9 Plt Count 569 H MPV 9.7 Sodium 140 Potassium 3.1 L D Chloride 110 H Carbon Dioxide 24 Anion Gap 6.0 BUN 12 Creatinine 0.72 Est Cr Clr Drug Dosing 68.9 Est GFR ( Amer) 97.7 Est GFR (Non-Af Amer) 84.3 BUN/Creatinine Ratio 15.9 Glucose 123 H POC Glucose Estimat Average Glucose 220 Hemoglobin A1c 9.3 H Calcium 7.8 L 07/02/20 07/02/20 07/02/20 07:44 11:40 16:23 WBC RBC Hgb Hct MCV MCH MCHC RDW Std Deviation RDW Coeff of Min Plt Count MPV Sodium Potassium Chloride Carbon Dioxide Anion Gap BUN Creatinine Est Cr Clr Drug Dosing Est GFR ( Amer) Est GFR (Non-Af Amer) BUN/Creatinine Ratio Glucose POC Glucose 108 H 176 H 216 H Estimat Average Glucose Hemoglobin A1c Calcium
[2019-12-22] MEDS: ATORVASTATIN 40 MG TAB PO SCH (21:25)
[2019-12-22] MEDS: INSULIN GLARGINE SOLOSTAR 100 UNITS/ML 3 ML PEN SC SCH (21:51)
[2019-12-23] MEDS: HEPARIN SOD 5,000 UNIT/0.5 ML VIAL SQ SCH ×3 (02:02→17:41)
[2019-12-23] MEDS: metroNIDAZOLE 500 MG/100 ML BAG IV SCH ×2 (03:41→11:13)
[2019-12-23] MEDS: METOPROLOL SUCC 50MG EXT REL TAB PO SCH (08:25)
[2019-12-23] MEDS: FAMOTIDINE 20 MG TAB PO SCH ×2 (08:25→20:42)
[2019-12-23] MEDS: MEMANTINE HCL 5 MG TAB PO SCH ×2 (08:25→20:41)
[2019-12-23] MEDS: AMLODIPINE BESYLATE 5 MG TAB PO SCH (08:26)
[2019-12-23] MEDS: ASPIRIN 81 MG ECTAB PO SCH (08:26)
[2019-12-23] MEDS: LISINOPRIL/HCTZ 20/12.5MG 1 TAB TAB PO SCH (08:26)
[2019-12-23] MEDS: ESCITALOPRAM OXALATE 10 MG TAB PO SCH (08:26)
[2019-12-23] MEDS: CETIRIZINE HCL 10 MG TABLET PO SCH (08:27)
[2019-12-23] MEDS: TRAZODONE HCL 50 MG TAB PO SCH ×2 (08:27→20:44)
[2019-12-23] MEDS: levETIRAcetam 500 MG TAB PO SCH ×2 (08:28→20:41)
[2019-12-23] MEDS: INSULIN ASPART 100 UNITS/ML 3 ML PEN SC SCH ×4 (08:29→20:42)
[2019-12-23] MEDS: INSULIN GLARGINE SOLOSTAR 100 UNITS/ML 3 ML PEN SC SCH ×2 (08:29→20:41)
[2019-12-23 10:03] LABS: Basophils # (auto) 0.03 K/uL (0-0.2); Basophils % (auto) 0.3 %; Eosinophils # (auto) 0.16 K/uL (0-0.5); Eosinophils % (auto) 1.8 %; Hematocrit (blood only) 41.3 % (37-47); Hemoglobin 13.7 g/dL (12.0-16.0); Immature Granulocytes # (auto) 0.02 K/uL (0.00-0.02); Immature Granulocytes % (auto) 0.2 %; Lymphocytes # (auto) 1.08 K/uL (1.2-3.4); Lymphocytes % (auto) 12.2 %; Mean Corpuscular Hemoglobin 28.1 pg (25-34); Mean Corpuscular Hgb Conc 33.2 g/dL (32-36); Mean Corpuscular Volume 84.6 fL (80-100); Mean Platelet Volume 9.8 fL (7.4-10.4); Monocytes # (auto) 0.61 K/uL (0.11-0.59); Monocytes % (auto) 6.9 %; Neutrophils # (auto) 6.93 K/uL (1.4-6.5); Neutrophils % (auto) 78.6 %; Platelet Count 646 K/uL (130-400); RDW Coefficient of Variation 13.9 % (11.5-14.5); RDW Standard Deviation 42.9 fL (36.4-46.3); Red Blood Count 4.88 M/uL (4.2-5.4); White Blood Count 8.83 K/uL (4.8-10.8)
[2019-12-23 10:40] LABS: BUN Creatinine Ratio 10.1 (10-20); Est GFR (Non-African American) 82.9; Potassium 2.9 mmol/L (3.5-5.1)
[2019-12-23] MEDS: cefTRIAXone SODIUM 1,000 MG in DEXTROSE 5% 50 ML IV SCH (11:12)
[2019-12-23] MEDS: POTASSIUM CHLORIDE 20 MEQ TABCR PO SCH ×2 (12:38→20:42)
--- NOTE | 2019-12-23 14:11 | Pharmacy Report ---
Pharmacy Glycemic Short Note 2 - Date of Service December 23, 2019 - Glycemic Short BSG Results (Last 24 hours): 12/22/19 12/22/19 12/23/19 16:23 21:44 07:38 Glucose POC Glucose 216 H 182 H 93 12/23/19 12/23/19 09:44 11:51 Glucose 107 H POC Glucose 119 H OUTPATIENT ANTIDIABETIC REGIMEN: * Lantus 52 units SQ daily (reported by pt) * Novolog 4 units with breakfast, 8 units with lunch * Ozempic 1 mg SQ qFriday * Metformin 500 mg PO daily ASSESSMENT: 12/22: * Patient received 61 units of insulin yesterday (45 units of basal and 16 units of bolus) * Patient remains on clear liquid diet. No carbohydrate intake so far today. * Fasting BSG is below goal. Continue Lantus dosed per BSG scale. I will adjust the BSG breakpoints so that patient only receives the higher dose of 20 units when BSG is > 200 mg/dL. * Post prandial BSGs were all elevated yesterday, therefore I will tighten Novolog parameters. 12/21: * Analisa is a 69 yo T2DM admitted with generalized weakness, frequent falls, diverticulitis * Upon consultation, patient's basal insulin dose was decreased based on her glucose trending downward despite reports that she took no insulin on 12/20 * Fasting BSG of 108 mg/dL is at goal, therefore I will continue with reduced basal. Will utilize BID dosing per scale until needs are determined. * Post prandial BSGs are near goal. Will slightly tighten carb coverage. PLAN FOR INPATIENT GLYCEMIC CONTROL: * Hold outpatient oral diabetes medications * Basal insulin * Lantus per scale SQ BID: * 15 units for BSG < 140 * 20 units for BSG 140-200 * 25 units for BSG > 200 * Bolus insulin * NovoLog per scale ACHS or Q6hrs while NPO * Goal Range: Low 110 mg/dL - High 140 mg/dL * Correction Factor: 15 mg/dL/unit * Nutritional / Prandial insulin per carb ratio of 1 unit per 5 grams CHO consumed PLAN FOR DISCHARGE: * A1c = 9.3% * tbd
--- NOTE | 2019-12-23 15:44 | Hospitalist Progress Note ---
Date of Service December 23, 2019 Assessment & Plan (1) Generalized weakness: (2) Frequent falls: Per admitting service notes: -Patient presenting from home with worsening generalized weakness and frequent falls, worsening confusion -Patient with remote history of subarachnoid hemorrhage secondary to brain aneurysm, now with cognitive disorder since event -CT ABD/pelvis showing mild diverticulitis which may be contributing -In the ED, no evidence of fracture on imaging. Head CT negative. -PT/OT, case management, likely will need placement at discharge 12/23/2019 Remains afebrile, no leukocytosis Tolerating PT and OT well Continue PT and OT evaluation anticipate transition to a rehab tomorrow (3) Diverticulitis: -Mild diverticulitis on CT ABD/pelvis -WBC 11 K, afebrile -Colonoscopy 05/2009: Diverticulosis of sigmoid, descending, transverse colon -Received IV ceftriaxone and Flagyl in the ED, will continue with. Noted severe allergy to penicillins however per pharmacy, has tolerated ceftriaxone in the past. 12/23/2019 Denies abdominal pain, tolerating diet well, afebrile Continue IV ceftriaxone plus Flagyl (4) Major vascular neurocognitive disorder, probable, with behavioral disturbance: (5) Cognitive deficit, post-stroke: -Continue home medications including escitalopram, memantine, trazodone (6) Seizures, post-traumatic: No signs of recent seizure, continue Keppra (7) DM type 2 (diabetes mellitus, type 2): -Hgb A1c 8.8 11/2019 -Hold metformin and Ozempic, NovoLog and Lantus while hospitalized -Pharmacy glycemic consulted (8) HTN (hypertension): -BP elevated -Add another 5 mg of amlodipine p.o. this afternoon -Continue home doses of amlodipine, metoprolol, lisinopril/HCTZ -Continue monitor BP (9) DVT prophylaxis: -SQ heparin Admission and Anticipated Discharge Date Admission Date: December 21, 2019 Subjective ff up for diverticulitis seen resting in bedside chair, comfortable In good spirits, oriented x2 Answers most questions appropriately, intermittently confused States she feels better today overall No abdominal pain, nausea vomiting, tolerating diet well No fevers or chills, headaches, shortness of breath, chest pain, palpitations, dizziness States she tolerated physical therapy today No dizziness or weakness of her legs when walking No other symptoms Review of Systems Review of Systems: All systems reviewed & are unremarkable except as noted in HPI & below Physical Exam Physical Exam: General- oriented x 2, not in distress, speaks in sentences with no effort or accessory muscle use Eyes- anicteric Neck- no JVD Lungs- clear breath sounds bilaterally, no rales/wheezes Heart- normal rate, regular rhythm; no murmurs Abdomen- normal bowel sounds, nondistended, soft, nontender Extremities- no pretibial edema, no calf tenderness Neuro- alert, oriented x 3; no gross focal neurologic deficits Skin- warm & dry Results & Data Results & Data ([facility]) Vital Signs (Past 12 Hours) Vital Signs Temp Pulse Resp BP BP Pulse Ox 12/23/19 15:31 36.8 C 64 18 157/71 H 96 12/23/19 12:51 36.5 C 77 20 164/77 H 97 12/23/19 07:00 37.1 C 66 18 181/68 H 92
[2019-12-23] MEDS ORDERED: AMLODIPINE BESYLATE 5 MG TAB PO ONE (16:57)
--- NOTE | 2019-12-23 17:29 | Ultrasound Report ---
ULTRASOUND LEFT LOWER EXTREMITY VENOUS CLINICAL HISTORY: Left leg edema. COMPARISON STUDY: No priors. TECHNIQUE: Real-time, grayscale, and color Doppler sonography of the deep veins of the left lower ext remity was performed from the inguinal crease to the calf. Compression and augmentation were utilized . FINDINGS: There is no sonographic evidence of deep venous thrombosis identified in the left lower ext remity. The common femoral, superficial femoral, and popliteal veins are patent and normally compress ible. The greater saphenous vein and the profunda femoris vein at the junction with the common femora l vein are clear. The visualized calf veins are patent. IMPRESSION: There is no sonographic evidence of deep venous thrombosis identified in the left lower e xtremity. ACT 112: Negative or not required by law. Electronically signed by: Amarjit Chopra M.D. 12/23/2019 5:28 PM
[2019-12-23] MEDS: metroNIDAZOLE 500 MG TAB PO SCH (20:42)
[2019-12-23] MEDS: ATORVASTATIN 40 MG TAB PO SCH (20:45)
[2019-12-24] MEDS: HEPARIN SOD 5,000 UNIT/0.5 ML VIAL SQ SCH ×3 (02:00→17:27)
[2019-12-24 08:14] LABS: Hemoglobin 14.7 g/dL (12.0-16.0); Mean Corpuscular Hemoglobin 28.2 pg (25-34); Mean Corpuscular Hgb Conc 32.7 g/dL (32-36); Mean Corpuscular Volume 86.2 fL (80-100); Mean Platelet Volume 9.8 fL (7.4-10.4); Platelet Count 791 K/uL (130-400); RDW Coefficient of Variation 14.1 % (11.5-14.5); RDW Standard Deviation 44.1 fL (36.4-46.3); Red Blood Count 5.22 M/uL (4.2-5.4); White Blood Count 8.31 K/uL (4.8-10.8)
[2019-12-24] MEDS: AMLODIPINE BESYLATE 5 MG TAB PO SCH (08:20)
[2019-12-24] MEDS: ASPIRIN 81 MG ECTAB PO SCH (08:20)
[2019-12-24] MEDS: CETIRIZINE HCL 10 MG TABLET PO SCH (08:20)
[2019-12-24] MEDS: TRAZODONE HCL 50 MG TAB PO SCH ×2 (08:20→21:06)
[2019-12-24] MEDS: MEMANTINE HCL 5 MG TAB PO SCH ×2 (08:20→21:06)
[2019-12-24] MEDS: ESCITALOPRAM OXALATE 10 MG TAB PO SCH (08:20)
[2019-12-24] MEDS: METOPROLOL SUCC 50MG EXT REL TAB PO SCH (08:21)
[2019-12-24] MEDS: LISINOPRIL/HCTZ 20/12.5MG 1 TAB TAB PO SCH (08:21)
[2019-12-24] MEDS: metroNIDAZOLE 500 MG TAB PO SCH ×3 (08:21→21:06)
[2019-12-24] MEDS: CIPROFLOXACIN 500 MG TAB PO SCH ×2 (08:22→21:06)
[2019-12-24] MEDS: POTASSIUM CHLORIDE 20 MEQ TABCR PO SCH (08:22)
[2019-12-24] MEDS: levETIRAcetam 500 MG TAB PO SCH ×2 (08:22→21:06)
[2019-12-24] MEDS: FAMOTIDINE 20 MG TAB PO SCH ×2 (08:22→21:06)
[2019-12-24] MEDS: INSULIN GLARGINE SOLOSTAR 100 UNITS/ML 3 ML PEN SC SCH ×2 (08:23→21:07)
[2019-12-24] MEDS: INSULIN ASPART 100 UNITS/ML 3 ML PEN SC SCH ×4 (08:26→21:07)
--- NOTE | 2019-12-24 11:10 | Pharmacy Report ---
Pharmacy Glycemic Short Note 2 - Date of Service December 24, 2019 - Glycemic Short BSG Results (Last 24 hours): 12/23/19 12/23/19 12/23/19 11:51 16:19 20:33 POC Glucose 119 H 124 H 109 H 12/24/19 07:21 POC Glucose 71 OUTPATIENT ANTIDIABETIC REGIMEN: * Lantus 52 units SQ daily (reported by pt) * Novolog 4 units with breakfast, 8 units with lunch * Ozempic 1 mg SQ qFriday * Metformin 500 mg PO daily * Of note, patient has history of frequent falls * HbA1c: 9.3% - 12/22/19 ASSESSMENT: 12/23: * BSGs very tightly controlled yesterday - ranging 93-124 mg/dL * Received 30 units of insulin - all of which was basal * Fasting BSG this morning of 71 mg/dL * Adjusted basal scale, but may need to increase this evening pending lunch BSG. Appetite appears to be increasing based on documented carbs of 71 g at breakfast - will follow * Continues on Cipro and Flagyl for treatment of diverticulitis 12/22: * Patient received 61 units of insulin yesterday (45 units of basal and 16 units of bolus) * Patient remains on clear liquid diet. No carbohydrate intake so far today. * Fasting BSG is below goal. Continue Lantus dosed per BSG scale. I will adjust the BSG breakpoints so that patient only receives the higher dose of 20 units when BSG is > 200 mg/dL. * Post prandial BSGs were all elevated yesterday, therefore I will tighten Novolog parameters. PLAN FOR INPATIENT GLYCEMIC CONTROL: * Hold outpatient oral diabetes medications * Basal insulin - decrease * Lantus scale - see EHR for details * Bolus insulin - continue * NovoLog per scale ACHS or Q6hrs while NPO * Goal Range: Low 110 mg/dL - High 140 mg/dL * Correction Factor: 15 mg/dL/unit * Nutritional / Prandial insulin per carb ratio of 1 unit per 5 grams CHO consumed PLAN FOR DISCHARGE: * A1c = 9.3% * tbd - insulin needs significantly lower now compared to home doses (most likely related to diet)
[2019-12-24 13:28] LABS: BUN Creatinine Ratio 16.2 (10-20); Calcium 8.2 mg/dl (8.5-10.1); Creatinine Clr Calc Pharmacy 61.2 ml/min; Est GFR (African American) 84.7; Est GFR (Non-African American) 73.1; Magnesium 1.7 mg/dl (1.8-2.4); Potassium 4.1 mmol/L (3.5-5.1)
[2019-12-24] MEDS: MAGNESIUM OXIDE 400 MG TAB PO SCH ×2 (14:20→21:06)
[2019-12-24] MEDS ORDERED: HydrALAZINE HCL 20 MG/ML VIAL IV ONE (15:32)
[2019-12-24] MEDS ORDERED: AMLODIPINE BESYLATE 5 MG TAB PO ONE (16:00)
--- NOTE | 2019-12-24 20:14 | Hospitalist Progress Note ---
Date of Service December 24, 2019 Assessment & Plan (1) Generalized weakness: (2) Frequent falls: Per admitting service notes: -Patient presenting from home with worsening generalized weakness and frequent falls, worsening confusion -Patient with remote history of subarachnoid hemorrhage secondary to brain aneurysm, now with cognitive disorder since event -CT ABD/pelvis showing mild diverticulitis which may be contributing -In the ED, no evidence of fracture on imaging. Head CT negative. -PT/OT, case management, likely will need placement at discharge 12/24/2019 Remains afebrile, no leukocytosis Tolerating PT and OT well Continue PT and OT evaluation anticipate transition to a rehab tomorrow (3) Diverticulitis: -Mild diverticulitis on CT ABD/pelvis -WBC 11 K, afebrile -Colonoscopy 05/2009: Diverticulosis of sigmoid, descending, transverse colon -Received IV ceftriaxone and Flagyl in the ED, will continue with. Noted severe allergy to penicillins however per pharmacy, has tolerated ceftriaxone in the past. 12/24/2019 (+) small emesis with breakfast but tolerated lunch well Continue PO Cipro plus Flagyl (4) Major vascular neurocognitive disorder, probable, with behavioral disturbance: (5) Cognitive deficit, post-stroke: -Continue home medications including escitalopram, memantine, trazodone (6) Seizures, post-traumatic: No signs of recent seizure, continue Keppra (7) DM type 2 (diabetes mellitus, type 2): -Hgb A1c 8.8 11/2019 -Hold metformin and Ozempic, NovoLog and Lantus while hospitalized -Pharmacy glycemic consulted (8) HTN (hypertension): -BP elevated -Add another 5 mg of amlodipine p.o. this afternoon -increase Amlodipine to 10mg, metoprolol, lisinopril/HCTZ -Continue monitor BP (9) DVT prophylaxis: -SQ heparin Admission and Anticipated Discharge Date Admission Date: December 21, 2019 Subjective ff up for diverticulitis seen resting in bed, comfortable states she feels fine overall no abdominal pain, nausea had small emesis, regurgitation? with breakfast, but was able to finish her meal no problems with lunch denies headache, dizziness, palpitations, dizziness no others symptoms Review of Systems Review of Systems: All systems reviewed & are unremarkable except as noted in HPI & below Physical Exam Physical Exam: General- oriented x 1, not in distress, speaks in sentences with no effort or accessory muscle use Eyes- anicteric Neck- no JVD Lungs- clear breath sounds bilaterally no crackles/wheezing Heart- normal rate, regular rhythm; no murmurs Abdomen- normal bowel sounds, nondistended, soft, nontender Extremities- no pretibial edema, no calf tenderness Neuro- alert, oriented x 1;no gross focal neurologic deficits Skin- warm & dry Results & Data Results & Data ([facility]) Vital Signs (Past 12 Hours) Vital Signs Temp Pulse Resp BP Pulse Ox 12/24/19 16:23 165/74 H 12/24/19 15:16 36.7 C 57 L 20 181/70 H 96 Laboratory Results Laboratory Results - last 24 hr 12/23/19 12/24/19 12/24/19 20:33 07:21 08:03 WBC 8.31 RBC 5.22 Hgb 14.7 Hct 45.0 MCV 86.2 MCH 28.2 MCHC 32.7 RDW Std Deviation 44.1 RDW Coeff of Min 14.1 Plt Count 791 H MPV 9.8 Sodium Potassium Chloride Carbon Dioxide Anion Gap BUN Creatinine Est Cr Clr Drug Dosing Est GFR ( Amer) Est GFR (Non-Af Amer) BUN/Creatinine Ratio Glucose POC Glucose 109 H 71 Calcium Magnesium 12/24/19 12/24/19 11:31 12:51 WBC RBC Hgb Hct MCV MCH MCHC RDW Std Deviation RDW Coeff of Min Plt Count MPV Sodium 142 Potassium 4.1 D Chloride 112 H Carbon Dioxide 24 Anion Gap 6.0 BUN 13 D Creatinine 0.81 Est Cr Clr Drug Dosing 61.2 Est GFR ( Amer) 84.7 Est GFR (Non-Af Amer) 73.1 BUN/Creatinine Ratio 16.2 Glucose 120 H POC Glucose 121 H Calcium 8.2 L Magnesium 1.7 L
[2019-12-24] MEDS: ATORVASTATIN 40 MG TAB PO SCH (21:06)
[2019-12-25] MEDS: HEPARIN SOD 5,000 UNIT/0.5 ML VIAL SQ SCH ×2 (02:06→11:20)
[2019-12-25] MEDS: TRAZODONE HCL 50 MG TAB PO SCH (08:20)
[2019-12-25] MEDS: MEMANTINE HCL 5 MG TAB PO SCH (08:22)
[2019-12-25] MEDS: ASPIRIN 81 MG ECTAB PO SCH (08:23)
[2019-12-25] MEDS: CIPROFLOXACIN 500 MG TAB PO SCH (08:24)
[2019-12-25] MEDS: ESCITALOPRAM OXALATE 10 MG TAB PO SCH (08:24)
[2019-12-25] MEDS: LISINOPRIL/HCTZ 20/12.5MG 1 TAB TAB PO SCH (08:24)
[2019-12-25] MEDS: FAMOTIDINE 20 MG TAB PO SCH (08:24)
[2019-12-25] MEDS: MAGNESIUM OXIDE 400 MG TAB PO SCH (08:24)
[2019-12-25] MEDS: levETIRAcetam 500 MG TAB PO SCH (08:24)
[2019-12-25] MEDS: metroNIDAZOLE 500 MG TAB PO SCH (08:25)
[2019-12-25] MEDS: METOPROLOL SUCC 50MG EXT REL TAB PO SCH (08:25)
[2019-12-25] MEDS: CETIRIZINE HCL 10 MG TABLET PO SCH (08:26)
[2019-12-25] MEDS: INSULIN ASPART 100 UNITS/ML 3 ML PEN SC SCH ×2 (08:26→12:14)
[2019-12-25] MEDS ORDERED: INSULIN GLARGINE SOLOSTAR 100 UNITS/ML 3 ML PEN SC ONE (09:00)
[2019-12-25] MEDS ORDERED: AMLODIPINE BESYLATE 5 MG TAB PO SCH (09:00)
--- NOTE | 2019-12-25 09:51 | XRay Report ---
XR ribs RT min 3V w CXR1V HISTORY: 69 years-old Female rib pain r/o fracture acute posterior right rib pain status post fall COMPARISON: Chest radiograph and CT abdomen and pelvis 12/21/2019 TECHNIQUE: AP view of the pelvis with 4 views of the right ribs FINDINGS: Cardiomediastinal and hilar silhouettes are within normal limits. Unchanged mild right diaphragmatic elevation with mild chronic interstitial coarsening of the lung bases. No pneumothorax, pleural effus ion, airspace consolidation or overt pulmonary edema. Degenerative changes of the shoulders and spine . Calcified plaque of the thoracic aortic arch. No acute displaced rib fracture identified. IMPRESSION: 1. No acute cardiopulmonary normality. 2. No acute displaced rib fracture identified. ACT 112: Negative or not required by law. The above report was generated using voice recognition software. It may contain grammatical, syntax o r spelling errors. Electronically signed by: Nikita Box M.D. 12/25/2019 9:49 AM
--- NOTE | 2019-12-25 11:35 | Hospitalist Progress Note ---
Date of Service December 25, 2019 Assessment & Plan (1) Generalized weakness: (2) Frequent falls: Per admitting service notes: -Patient presenting from home with worsening generalized weakness and frequent falls, worsening confusion -Patient with remote history of subarachnoid hemorrhage secondary to brain aneurysm, now with cognitive disorder since event -CT ABD/pelvis showing mild diverticulitis which may be contributing -In the ED, no evidence of fracture on imaging. Head CT negative. -PT/OT, case management, likely will need placement at discharge 12/25/2019 Remains afebrile, no leukocytosis stable overall Tolerating PT and OT well Continue PT and OT evaluation at Rehab (3) Diverticulitis: -Mild diverticulitis on CT ABD/pelvis -WBC 11 K, afebrile -Colonoscopy 05/2009: Diverticulosis of sigmoid, descending, transverse colon -Received IV ceftriaxone and Flagyl in the ED, will continue with. Noted severe allergy to penicillins however per pharmacy, has tolerated ceftriaxone in the past. 12/25/2019 (+) small emesis with breakfast but tolerated lunch well Continue PO Cipro plus Flagyl x 6 more days to complete 10 days therapy (4) Major vascular neurocognitive disorder, probable, with behavioral disturbance: (5) Cognitive deficit, post-stroke: -Continue home medications including escitalopram, memantine, trazodone - continue to follow up with Neurologist and Psychiatrist (6) Seizures, post-traumatic: No signs of recent seizure, continue Keppra (7) DM type 2 (diabetes mellitus, type 2): -Hgb A1c 8.8 11/2019 -resume metformin and Ozempic, NovoLog and Lantus (8) HTN (hypertension): -BP elevated while admitted, up to systolic 180s Amlodipine increased from 5 to 10mg po daily BP now 128/70 continue usual metoprolol, lisinopril/HCTZ -Continue monitor BP (9) DVT prophylaxis: -SQ heparin given Disposition d/c to Rehab today ff up with PCP 1 week after discharge from Rehab ff up with Neurologist and Psychiatrist as scheduled Admission and Anticipated Discharge Date Admission Date: December 21, 2019 Subjective ff up for diverticulitis, weakness seen resting in bed, comfortable states she feels fine overall smiling, in good spirits answers most questions appropriately denies abdominal pain, nausea, vomiting tolerated bfast well denies headache, dizziness, chest pain no other symptoms states she is ready and would like to be discharged today Review of Systems Review of Systems: All systems reviewed & are unremarkable except as noted in HPI & below Physical Exam Physical Exam: General- oriented x 1-2, not in distress, speaks in sentences with no effort or accessory muscle use- Eyes- anicteric Neck- no JVD Lungs- clear BS BL no crackles no wheezing Heart- normal rate, regular rhythm; no murmurs Abdomen- normal bowel sounds, nondistended, soft, nontender Extremities- no pretibial edema, no calf tenderness Neuro- alert, oriented x1-2; no gross focal neurologic deficits Skin- warm & dry Results & Data Results & Data ([facility]) Vital Signs (Past 12 Hours) Vital Signs Temp Pulse Resp BP BP Pulse Ox 12/25/19 11:22 36.8 C 70 100 H 128/70 171/73 H 94 12/25/19 11:13 70 128/70 12/25/19 07:44 36.8 C 100 H 171/73 H 94
--- NOTE | 2019-12-25 11:56 | Discharge Summary ---
Date of Service December 25, 2019 Admission HPI Per Admitting Provider 69-year-old female with PMH DM type II on insulin, HTN, history of subarachnoid hemorrhage due to brain aneurysm, and other problems listed below who presents the ED for evaluation of generalized weakness and frequent falls. History is not obtainable from the patient due to her underlying cognitive deficit after her stroke. Daughter reports that over the past 3 weeks, patient has been having increasing weakness and frequent falls. Outpatient PCP has been down titrating patient's trazodone however daughter reports there is been no improvement. She also reports her mother has been more agitated and aggressive at times. No other symptoms reported. In the ED, there is no evidence of fracture on imaging. CT ABD/pelvis is showing mild acute diverticulitis. Labs are unremarkable. BP is elevated, patient is otherwise hemodynamically stable. She was given p.o. Tylenol, IV ceftriaxone, p.o. Flagyl. Admission Exam Per Admitting Provider Constitutional: WD/WN, vitals as above Eyes: PERRL, conjunctivae normal, anicteric sclerae ENMT: external ear and nose normal, oropharynx normal Respiratory: normal respiratory effort, lungs clear to auscultation Cardiovascular: Rate/Rhythm: regular rate and regular rhythm Vessels: normal peripheral pulses Extremities: no edema Gastrointestinal (Abdomen): normal bowel sounds, soft, nontender, no hepatosplenomegaly Musculoskeletal: no cyanosis or clubbing, extremities motor strength 5/5 Skin: no rashes, warm and dry Neurologic: PERRL, EOMI, accommodation nl, no face palsy, no dysarthria Psychiatric: Orientation: alert, oriented to person and oriented to time; + not oriented to place Insight: + poor insight Principal Diagnosis WEAKNESS, FALLS; ACUTE DIVERTICULITIS Discharge Exam General- oriented x 1-2, not in distress, speaks in sentences with no effort or accessory muscle use- Eyes- anicteric Neck- no JVD Lungs- clear BS BL no crackles no wheezing Heart- normal rate, regular rhythm; no murmurs Abdomen- normal bowel sounds, nondistended, soft, nontender Extremities- no pretibial edema, no calf tenderness Neuro- alert, oriented x1-2; no gross focal neurologic deficits Skin- warm & dry Discharge Data Allergies Allergy/AdvReac Type Severity Reaction Status Date / Time Penicillins Allergy Severe THROAT Verified 12/21/19 12:26 SWELLS Consultations 12/21/19 12:55 ED Decision to Admit Stat 12/21/19 17:51 Consult Case Management - Discharge Planning Routine Ordered Studies 12/21/19 10:17 CT cervical spine wo con Stat No fractures within the cervical spine. CT head/brain wo con Stat Senescent change and remote infarcts as above with no hemorrhage, mass effect, or evidence of acute territorial ischemia by CT criteria. 12/21/19 11:24 CT abd pelvis wo con Stat 1. No acute traumatic findings within the abdomen or pelvis on unenhanced exam. 2. No acute pelvic or hip fracture. 3. Mild acute diverticulitis of the distal descending colon. No free air or abscess. 4. Moderate distention of the bladder. 12/23/19 15:08 US venous doppler LE LT Urgent There is no sonographic evidence of deep venous thrombosis identified in the left lower extremity. Hospital Course (1) Generalized weakness: (2) Frequent falls: Per admitting service notes: -Patient presenting from home with worsening generalized weakness and frequent falls, worsening confusion -Patient with remote history of subarachnoid hemorrhage secondary to brain aneurysm, now with cognitive disorder since event -CT ABD/pelvis showing mild diverticulitis which may be contributing -In the ED, no evidence of fracture on imaging. Head CT negative. Remained afebrile, no leukocytosis stable overall Ambulating with a walker, Tolerating PT and OT well Continue PT and OT evaluation at Rehab (3) Diverticulitis: -Mild diverticulitis on CT ABD/pelvis -WBC 11 K, afebrile -Colonoscopy 05/2009: Diverticulosis of sigmoid, descending, transverse colon -Received IV ceftriaxone and Flagyl in the ED, will continue with. Noted severe allergy to penicillins however per pharmacy, has tolerated ceftriaxone in the past. placed on IV Ceftri + Flagyl GI symptoms resolved tolerating regular diet well Continue PO Cipro plus Flagyl x 6 more days to complete 10 days therapy (4) Major vascular neurocognitive disorder, probable, with behavioral disturban ce: (5) Cognitive deficit, post-stroke: -Continue home medications including escitalopram, memantine, trazodone - continue to follow up with Neurologist and Psychiatrist (6) Seizures, post-traumatic: No signs of recent seizure, continue Keppra (7) DM type 2 (diabetes mellitus, type 2): -Hgb A1c 8.8 11/2019 -resume metformin and Ozempic, NovoLog and Lantus (8) HTN (hypertension): -BP elevated while admitted, up to systolic 180s Amlodipine increased from 5 to 10mg po daily BP now 128/70 continue usual metoprolol, lisinopril/HCTZ -Continue monitor BP (9) DVT prophylaxis: -SQ heparin given Disposition d/c to Rehab today ff up with PCP 1 week after discharge from Rehab ff up with Neurologist and Psychiatrist as scheduled Total Time Total Time Spent Total Time Spent (In Minutes): 45 minutes Discharge Plan Discharge Items Patient Disposition: Transfer Inpatient Rehab Fac Reason For Visit: FALLS,WEAKNESS,DIVERTICULITIS Discharge Diagnosis: WEAKNESS, FALLS ACUTE DIVERTICULITIS HYPERTENSION Condition on Discharge: Good Activity: Resume your previous activity Activity Comment: FALL PRECAUTIONS PLEASE, ALWAYS WITH ASSISTANCE, CONTINUE PT/OT Non-emergency contact: Primary Care Provider Call non-emergency contact if: you have any medication questions, your symptoms worsen, your pain is not controlled, your pain is worsening, your pain is unusual for you, your pain is concerning for you and you have a fever Follow-up/Referrals: Alyson Nava DO [Primary Care Provider] - Diet: Heart Healthy and Low Fiber Addtl Attending Provider Instructions: PLEASE REFER TO ACCOMPANYING HOSPITAL DISCHARGE SUMMARY FOR FULL DETAILS. Pending Studies at Discharge: No Stand-Alone Forms: My [facility] Skilled Items Patient informed of condition?: Yes DNR: Yes Discharge Level of Care: Acute rehab Communicable Disease: No Discharge Prognosis: Stable Lines: None Urinary Catheter: No Medications and DC Order Prescriptions: New metronidazole 500 mg Tablet 500 mg PO TID Qty: 18 RF: 0 amlodipine [Norvasc] 5 mg Tablet 10 mg PO QAM Qty: 30 RF: 0 ciprofloxacin HCl 500 mg Tablet 500 mg PO BID Qty: 12 RF: 0 Culturelle 10 billion cell capsule 1 cap PO DAILY Qty: 30 RF: 0 Continued atorvastatin 40 mg Tablet 40 mg PO PM RF: 0 cetirizine [Zyrtec] 10 mg Tablet 10 mg PO QAM RF: 0 aspirin [Aspir-81] 81 mg Tablet,Delayed Release (Dr/Ec) 81 mg PO QAM RF: 0 famotidine 20 mg Tablet 20 mg PO BID RF: 0 albuterol sulfate [ProAir HFA] 90 mcg/actuation Hfa Aerosol Inhaler 1 puff INHALATION BID PRN (Reason: Shortness Of Breath Or Wheezing) RF: 0 metoprolol succinate 50 mg tablet extended release 24 hr 50 mg PO DAILY RF: 0 loperamide [Imodium A-D] 2 mg Tablet 2 mg PO DIRECTED PRN (Reason: Diarrhea) RF: 0 metformin 500 mg tablet extended release 24 hr 500 mg PO DAILY RF: 0 escitalopram oxalate 10 mg tablet 10 mg PO DAILY RF: 0 insulin aspart U-100 [Novolog Flexpen U-100 Insulin] 100 unit/mL (3 mL) insulin pen 0 unit SUBCUT DIRECTED RF: 0 Ozempic 1 mg/dose (2 mg/1.5 mL) pen injector 1 mg SUBCUT WK RF: 0 Lantus U-100 Insulin 100 unit/mL solution 52 unit SUBCUT DAILY RF: 0 lisinopril-hydrochlorothiazide 20-12.5 mg tablet 1 tab PO DAILY RF: 0 memantine 5 mg tablet 5 mg PO BID RF: 0 trazodone 50 mg tablet 25 mg PO BID RF: 0 levetiracetam [Keppra] 500 mg tablet 500 mg PO BID RF: 0 Discontinued amlodipine [Norvasc] 5 mg Tablet 5 mg PO QAM 30 Days Qty: 30 RF: 2 Discharge Orders: Discharge Order (Routine); Ordered 12/25/19 Ordered By: Jeff Murray/Other Patient Handouts: Long-Term Complications of Diabetes, Managing Type 2 Diabetes, Healthy Meals for Diabetes, Managing Diabetes: The A1C Test Admission Data Admit Date/Time: 12/21/19 13:14 Attending Provider: Jeff Schultz Admit Provider: Martin Farrell Primary Care Provider: Alyson Nava Other Providers: Martin Farrell ; [facility] Other Interventions: Discharge Summary Assessment (RN) Last Done: 12/25/19 11:22
--- NOTE | 2019-12-25 12:07 | Pharmacy Report ---
Pharmacy Glycemic Short Note 2 - Date of Service December 25, 2019 - Glycemic Short BSG Results (Last 24 hours): 12/24/19 12/24/19 12/24/19 11:31 12:51 21:03 Glucose 120 H POC Glucose 121 H 130 H 12/25/19 07:39 Glucose POC Glucose 100 H OUTPATIENT ANTIDIABETIC REGIMEN: * Lantus 52 units SQ daily (reported by pt) * Novolog 4 units with breakfast, 8 units with lunch * Ozempic 1 mg SQ qFriday * Metformin 500 mg PO daily * Of note, patient has history of frequent falls * HbA1c: 9.3% - 12/22/19 ASSESSMENT: 12/23: * BSGs very tightly controlled yesterday - ranging 93-124 mg/dL * Received 30 units of insulin - all of which was basal * Fasting BSG this morning of 71 mg/dL * Adjusted basal scale, but may need to increase this evening pending lunch BSG. Appetite appears to be increasing based on documented carbs of 71 g at breakfast - will follow * Continues on Cipro and Flagyl for treatment of diverticulitis 12/22: * Patient received 61 units of insulin yesterday (45 units of basal and 16 units of bolus) * Patient remains on clear liquid diet. No carbohydrate intake so far today. * Fasting BSG is below goal. Continue Lantus dosed per BSG scale. I will adjust the BSG breakpoints so that patient only receives the higher dose of 20 units when BSG is > 200 mg/dL. * Post prandial BSGs were all elevated yesterday, therefore I will tighten Novolog parameters. PLAN FOR INPATIENT GLYCEMIC CONTROL: * Hold outpatient oral diabetes medications * Basal insulin - decrease * Lantus scale - see EHR for details * Bolus insulin - continue * NovoLog per scale ACHS or Q6hrs while NPO * Goal Range: Low 110 mg/dL - High 140 mg/dL * Correction Factor: 15 mg/dL/unit * Nutritional / Prandial insulin per carb ratio of 1 unit per 5 grams CHO consumed PLAN FOR DISCHARGE: * A1c = 9.3% * tbd - insulin needs significantly lower now compared to home doses (most likely related to diet)
[2019-12-25] MEDS ORDERED: INSULIN GLARGINE SOLOSTAR 100 UNITS/ML 3 ML PEN SC SCH (21:00)
== END 2019-12-25 13:06 | DRG 391 ==
LOC: ED 09:52 → SUATTDRO 13:14 → 2W 13:14

== ENCOUNTER 2020-03-25 00:46 | Inpatient (IN) ==
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
[2020-03-25 02:47] LABS: Basophils # (auto) 0.03 K/uL (0-0.2); Basophils % (auto) 0.3 %; Eosinophils # (auto) 0.22 K/uL (0-0.5); Eosinophils % (auto) 2.5 %; Hematocrit (blood only) 39.2 % (37-47); Hemoglobin 12.7 g/dL (12.0-16.0); Immature Granulocytes # (auto) 0.03 K/uL (0.00-0.02); Immature Granulocytes % (auto) 0.3 %; Lymphocytes # (auto) 1.69 K/uL (1.2-3.4); Lymphocytes % (auto) 19.6 %; Mean Corpuscular Hemoglobin 28.9 pg (25-34); Mean Corpuscular Hgb Conc 32.4 g/dL (32-36); Mean Corpuscular Volume 89.1 fL (80-100); Mean Platelet Volume 9.6 fL (7.4-10.4); Monocytes # (auto) 0.63 K/uL (0.11-0.59); Monocytes % (auto) 7.3 %; Neutrophils # (auto) 6.03 K/uL (1.4-6.5); Platelet Count 697 K/uL (130-400); RDW Coefficient of Variation 14.7 % (11.5-14.5); RDW Standard Deviation 48.3 fL (36.4-46.3); White Blood Count 8.63 K/uL (4.8-10.8)
[2020-03-25 03:17] LABS: Alanine Aminotransferase 23 U/L (12-78); Albumin Globulin Ratio 0.9 (0.9-2); Albumin Level 3.4 gm/dl (3.4-5.0); Alkaline Phosphatase 92 U/L (45-117); Aspartate Aminotransferase 18 U/L (15-37); BUN Creatinine Ratio 30.8 (10-20); Bilirubin,Total 0.6 mg/dl (0.2-1); Blood Urea Nitrogen 29 mg/dl (7-18); Calcium 8.7 mg/dl (8.5-10.1); Carbon Dioxide 26 mmol/L (21-32); Chloride 111 mmol/L (98-107); Creatinine Clr Calc Pharmacy 51.2 ml/min; Est GFR (African American) 69.8; Est GFR (Non-African American) 60.3; Globulin 3.7 gm/dl (2.5-4.0); Glucose 282 mg/dl (70-99); Potassium 3.9 mmol/L (3.5-5.1); Sodium 143 mmol/L (136-145); Total Protein 7.1 gm/dl (6.4-8.2); Troponin I < 0.015 ng/ml (0-0.045)
[2020-03-25 03:53] LABS: Appearance Urine Clear (Clear); Bacteria Urine Automated Negative (Negative); Bilirubin Urine Negative (Negative); Blood Urine Negative (Negative); Color Urine Yellow; Glucose Urine UA 2+ (Negative); Ketones Urine Negative (Negative); Leukocyte Esterase Urine Trace (Negative); Nitrite Urine Negative (Negative); Protein Urine 1+ (Negative); RBC Urine Automated 0-4 /hpf (0-4); Specific Gravity Urine 1.021 (1.000-1.030); Urobilinogen Urine Negative (Negative)
[2020-03-25] MEDS ORDERED: ACETAMINOPHEN 325 MG TAB PO PRN (05:46)
[2020-03-25] MEDS ORDERED: OLANZapine 10 MG/2.1 ML SDV IM PRN (05:46)
[2020-03-25] MEDS ORDERED: BENZONATATE 100 MG CAPSULE PO PRN (05:46)
[2020-03-25] MEDS ORDERED: ONDANSETRON INJ 2 MG/ML 2 ML VIAL IV PRN (05:46)
[2020-03-25] MEDS ORDERED: DEXTROSE 50% 50 ML SYRINGE IV PRN (06:00)
[2020-03-25] MEDS ORDERED: GLUCAGON FOR INJ 1 MG VIAL SQ PRN (06:00)
[2020-03-25] MEDS ORDERED: CARBOHYDRATES FOR HYPOGLYCEMIA PO PRN (06:00)
[2020-03-25] MEDS ORDERED: GLUCOSE 40% GEL 15 GM TUBE PO PRN (06:00)
[2020-03-25] MEDS ORDERED: GLUCOSE 10 TABS/TUBE PO PRN (06:00)
[2020-03-25] MEDS ORDERED: ALBUTEROL HFA 8 GM INHALER INH PRN (06:00)
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
[2020-03-25] MEDS ORDERED: ESCITALOPRAM OXALATE 10 MG TAB PO SCH (09:00)
[2020-03-25] MEDS: INSULIN ASPART 100 UNITS/ML 3 ML PEN SC SCH ×4 (10:01→20:40)
--- NOTE | 2020-03-25 10:19 | Hospitalist Progress Note ---
Date of Service March 25, 2020 Assessment & Plan (1) Aggressive behavior due to dementia: Being worked up for placement Psych c/s CM c/s PT/OT eval Continue risperidone HS (2) Cognitive deficit, post-stroke: (3) Seizures, post-traumatic: Continue keppra Continue ASA, statin (4) DM type 2 (diabetes mellitus, type 2): Continue lantus and novolog per protocol Monitor glycemic control Hold metformin for now (5) HTN (hypertension): Continue lisinopril, Toprol xl Admission and Anticipated Discharge Date Admission Date: March 25, 2020 Subjective Patient seen and examined. Was asleep but arousable. She was answering questions with her eyes closed. She is alert and oriented to person and place. Review of Systems Constitutional: no fever, no chills and no fatigue Eyes: no problem reported Ear, Nose, Mouth, Throat: no problem reported Respiratory: no cough, no chest congestion, no change in sputum and no dyspnea Cardiovascular: no chest pain, no chest pain at rest, no dyspnea and no orthopnea Gastrointestinal: no abdominal pain, no nausea, no vomiting and no diarrhea/loose stools Genitourinary: no problem reported Musculoskeletal: no problem reported Neurologic: no problem reported Physical Exam Constitutional: + well hydrated; no acute distress Alert but has eyes closed Eyes: Would not agree to open her eyes ENMT: external ear and nose normal, oropharynx normal Respiratory: normal respiratory effort, lungs clear to auscultation Cardiovascular: Rate/Rhythm: regular rate and regular rhythm Extremities: no pedal edema S1 S2 Gastrointestinal (Abdomen): normal bowel sounds, soft, nontender, no hepatosplenomegaly Musculoskeletal: no cyanosis or clubbing, extremities motor strength 5/5 Neurologic: PERRL, EOMI, accommodation nl, no face palsy, no dysarthria Psychiatric: Orientation: alert Oriented to person and place Results & Data Results & Data ([facility]) Vital Signs (Past 12 Hours) Vital Signs Temp Pulse Pulse Pulse Resp BP BP 03/25/20 07:37 36.4 C L 69 18 03/25/20 04:32 36.4 C L 79 16 168/68 H 03/25/20 02:37 100 H 20 168/95 H 03/25/20 00:39 36.4 C L 86 18 168/84 H BP Pulse Ox 03/25/20 07:37 154/68 H 93 10/04/20 04:32 96 03/25/20 02:37 96 03/25/20 00:39 95 Laboratory Results Laboratory Results - last 24 hr 03/25/20 03/25/20 03/25/20 02:35 02:35 03:20 WBC 8.63 RBC 4.40 Hgb 12.7 Hct 39.2 MCV 89.1 MCH 28.9 MCHC 32.4 RDW Std Deviation 48.3 H RDW Coeff of Min 14.7 H Plt Count 697 H MPV 9.6 Immature Gran % (Auto) 0.3 Neut % (Auto) 70.0 Lymph % (Auto) 19.6 Stan[place] % (Auto) 7.3 Eos % (Auto) 2.5 Baso % (Auto) 0.3 Neut # (Auto) 6.03 Lymph # (Auto) 1.69 Stanly # (Auto) 0.63 H Eos # (Auto) 0.22 Baso # (Auto) 0.03 Immature Gran # (Auto) 0.03 H Sodium 143 Potassium 3.9 Chloride 111 H Carbon Dioxide 26 Anion Gap 6.0 BUN 29 H Creatinine 0.95 Est Cr Clr Drug Dosing 51.2 Est GFR ( Amer) 69.8 Est GFR (Non-Af Amer) 60.3 BUN/Creatinine Ratio 30.8 H Glucose 282 H POC Glucose Calcium 8.7 Total Bilirubin 0.6 AST 18 ALT 23 Alkaline Phosphatase 92 Troponin I < 0.015 Total Protein 7.1 Albumin 3.4 Globulin 3.7 Albumin/Globulin Ratio 0.9 TSH 2.800 Specimen Hemolysis Urine Color Yellow Urine Appearance Clear Urine pH 5.0 Ur Specific [place] 1.021 Urine Protein 1+ H Urine Glucose (UA) 2+ H Urine Ketones Negative Urine Blood Negative Urine Nitrite Negative Urine Bilirubin Negative Urine Urobilinogen Negative Ur Leukocyte Esterase Trace H Urine WBC (Auto) 5-10 H Urine RBC (Auto) 0-4 U Hyaline Cast (Auto) 1-5 U Epithel Cells (Auto) 10-20 H Urine Bacteria (Auto) Negative 03/25/20 03/25/20 08:30 12:12 WBC RBC Hgb Hct MCV MCH MCHC RDW Std Deviation RDW Coeff of Min Plt Count MPV Immature Gran % (Auto) Neut % (Auto) Lymph % (Auto) Stan[place] % (Auto) Eos % (Auto) Baso % (Auto) Neut # (Auto) Lymph # (Auto) Stanly # (Auto) Eos # (Auto) Baso # (Auto) Immature Gran # (Auto) Sodium Potassium Chloride Carbon Dioxide Anion Gap BUN Creatinine Est Cr Clr Drug Dosing Est GFR ( Amer) Est GFR (Non-Af Amer) BUN/Creatinine Ratio Glucose POC Glucose 191 H 156 H Calcium Total Bilirubin AST ALT Alkaline Phosphatase Troponin I Total Protein Albumin Globulin Albumin/Globulin Ratio TSH Specimen Hemolysis Urine Color Urine Appearance Urine pH Ur Specific [place] Urine Protein Urine Glucose (UA) Urine Ketones Urine Blood Urine Nitrite Urine Bilirubin Urine Urobilinogen Ur Leukocyte Esterase Urine WBC (Auto) Urine RBC (Auto) U Hyaline Cast (Auto) U Epithel Cells (Auto) Urine Bacteria (Auto)
[2020-03-25] MEDS: ASPIRIN 81 MG ECTAB PO SCH (10:49)
[2020-03-25] MEDS: INSULIN GLARGINE 100 UNIT/ML VIAL SQ SCH (10:50)
[2020-03-25] MEDS: HEPARIN SOD 5,000 UNIT/0.5 ML VIAL SQ SCH ×2 (10:50→20:41)
[2020-03-25] MEDS: FAMOTIDINE 20 MG TAB PO SCH ×2 (10:50→21:18)
[2020-03-25] MEDS: levETIRAcetam 500 MG TAB PO SCH ×2 (10:50→19:46)
[2020-03-25] MEDS: MEMANTINE HCL 5 MG TAB PO SCH ×2 (10:50→19:45)
[2020-03-25] MEDS: AMLODIPINE BESYLATE 5 MG TAB PO SCH (10:50)
[2020-03-25] MEDS: METOPROLOL SUCC 50MG EXT REL TAB PO SCH (10:51)
[2020-03-25] MEDS: LISINOPRIL/HCTZ 10/12.5MG TAB PO SCH (10:51)
[2020-03-25] MEDS: CETIRIZINE HCL 10 MG TABLET PO SCH (10:51)
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
[2020-03-25] MEDS: risperiDONE ODT 0.5 MG SOLTAB PO SCH (19:45)
[2020-03-25] MEDS: ATORVASTATIN 40 MG TAB PO SCH (19:45)
[2020-03-25] MEDS ORDERED: risperiDONE 0.5 MG TABLET PO SCH (21:00)
[2020-03-26 06:05] LABS: Hematocrit (blood only) 36.1 % (37-47); Hemoglobin 11.6 g/dL (12.0-16.0); Mean Corpuscular Hemoglobin 28.3 pg (25-34); Mean Corpuscular Hgb Conc 32.1 g/dL (32-36); Mean Platelet Volume 9.7 fL (7.4-10.4); Platelet Count 602 K/uL (130-400); RDW Coefficient of Variation 14.6 % (11.5-14.5); RDW Standard Deviation 47.1 fL (36.4-46.3); White Blood Count 7.33 K/uL (4.8-10.8)
[2020-03-26] MEDS: FAMOTIDINE 20 MG TAB PO SCH ×2 (09:02→20:23)
[2020-03-26] MEDS: AMLODIPINE BESYLATE 5 MG TAB PO SCH (09:03)
[2020-03-26] MEDS: ASPIRIN 81 MG ECTAB PO SCH (09:03)
[2020-03-26] MEDS: levETIRAcetam 500 MG TAB PO SCH ×2 (09:03→20:23)
[2020-03-26] MEDS: LISINOPRIL/HCTZ 10/12.5MG TAB PO SCH (09:04)
[2020-03-26] MEDS: MEMANTINE HCL 5 MG TAB PO SCH ×2 (09:04→20:23)
[2020-03-26] MEDS: CETIRIZINE HCL 10 MG TABLET PO SCH (09:05)
[2020-03-26] MEDS: METOPROLOL SUCC 50MG EXT REL TAB PO SCH (09:05)
[2020-03-26] MEDS: INSULIN GLARGINE 100 UNIT/ML VIAL SQ SCH (09:07)
[2020-03-26] MEDS: HEPARIN SOD 5,000 UNIT/0.5 ML VIAL SQ SCH ×2 (09:09→20:32)
[2020-03-26] MEDS: INSULIN ASPART 100 UNITS/ML 3 ML PEN SC SCH ×5 (09:10→20:30)
--- NOTE | 2020-03-26 12:52 | Hospitalist Progress Note ---
Date of Service March 26, 2020 Assessment & Plan (1) Aggressive behavior due to dementia: Being worked up for placement Psych recommendations appreciated Continue risperidone HS CM working on placement (2) Cognitive deficit, post-stroke: (3) Seizures, post-traumatic: Continue keppra Continue ASA, statin (4) DM type 2 (diabetes mellitus, type 2): Continue lantus and novolog per protocol Blood glucose elevated this AM. Patient refused her lantus yesterday Monitor glycemic control Hold metformin for now (5) HTN (hypertension): Continue lisinopril, Toprol xl DVT ppx- hep sq Dispo - Possible discharge on Thursday03/28/20 Admission and Anticipated Discharge Date Admission Date: March 25, 2020 Subjective Patient seen and examined More interactive today. Denied any complaints Denied chest pain, SOB, RODRIGUEZ, cough Denied abd pain, nausea, vomiting, constipation Denied any dysuria, freq,urgency Physical Exam Constitutional: + well hydrated; no acute distress ENMT: external ear and nose normal, oropharynx normal Respiratory: normal respiratory effort, lungs clear to auscultation Cardiovascular: Rate/Rhythm: regular rate and regular rhythm Extremities: no pedal edema Gastrointestinal (Abdomen): normal bowel sounds, soft, nontender, no hepatosplenomegaly Musculoskeletal: no cyanosis or clubbing, extremities motor strength 5/5 Neurologic: PERRL, EOMI, accommodation nl, no face palsy, no dysarthria Psychiatric: Orientation: alert Insight: + limited insight oriented to person and place only Results & Data Results & Data ([place]) Vital Signs (Past 12 Hours) Vital Signs Temp Pulse Resp BP Pulse Ox 03/26/20 07:46 37 C 68 18 136/70 92 Laboratory Results Laboratory Results - last 24 hr 03/25/20 03/25/20 03/26/20 17:09 20:36 05:19 WBC 7.33 RBC 4.10 L Hgb 11.6 L Hct 36.1 L MCV 88.0 MCH 28.3 MCHC 32.1 RDW Std Deviation 47.1 H RDW Coeff of Min 14.6 H Plt Count 602 H MPV 9.7 POC Glucose 143 H 187 H 03/26/20 03/26/20 08:12 12:11 WBC RBC Hgb Hct MCV MCH MCHC RDW Std Deviation RDW Coeff of Min Plt Count MPV POC Glucose 160 H 257 H
--- NOTE | 2020-03-26 16:51 | Electrocardiogram Report ---
Test Reason : Blood Pressure : / mmHG Vent. Rate : 073 BPM Atrial Rate : 073 BPM P-R Int : 184 ms QRS Dur : 086 ms QT Int : 420 ms P-R-T Axes : 044 001 044 degrees QTc Int : 462 ms Normal sinus rhythm Normal ECG When compared with ECG of 21-DEC-2019 10:00, Nonspecific T wave abnormality no longer evident in Lateral leads Confirmed by Kojo Franz ([id number]) on 03/26/2020 4:51:25 PM Referred By: REFERRED SELF Confirmed By:Kody Franz
[2020-03-26] MEDS: ATORVASTATIN 40 MG TAB PO SCH (20:23)
[2020-03-26] MEDS: risperiDONE ODT 0.5 MG SOLTAB PO SCH (20:23)
--- NOTE | 2020-03-27 12:49 | Hospitalist Progress Note ---
Date of Service March 27, 2020 Assessment & Plan (1) Aggressive behavior due to dementia: Being worked up for placement Psych recommendations appreciated Continue risperidone HS Declined AM meds this morning Discussed with RN to try again later when she is more awake Continue redirecting as needed CM working on placement (2) Cognitive deficit, post-stroke: (3) Seizures, post-traumatic: Continue keppra Continue ASA, statin (4) DM type 2 (diabetes mellitus, type 2): Continue lantus and novolog per protocol Monitor glycemic control Hold metformin for now (5) HTN (hypertension): Continue lisinopril, Toprol xl DVT ppx- hep sq Dispo - Possible discharge on Thursday03/28/20 Admission and Anticipated Discharge Date Admission Date: March 25, 2020 Subjective Patient seen and examined Was sleeping but arousable She awoke, was alert and oriented to person only Stated she does not have any complaints and wanted to be left alone to rest She declined examination Review of Systems Review of Systems: Denied any complaints but would not answer individual ROS questions, stating she does not have any problems Physical Exam Constitutional: + well hydrated; no acute distress ENMT: Declined exam Respiratory: normal respiratory effort; no respiratory distress Declined exam Cardiovascular: Declined exam Gastrointestinal (Abdomen): Declined exam Neurologic: Alert and oriented to self. Declined further exam Psychiatric: Orientation: alert Insight: + limited insight Results & Data Results & Data ([facility]) Laboratory Results Laboratory Results - last 24 hr 03/26/20 03/26/20 03/26/20 16:20 16:20 16:21 POC Glucose 210 H COVID-19 Eval Order Covid19 IDNow [facility] SARS-CoV-2, RNA, NAAT NEGATIVE 03/26/20 03/27/20 03/27/20 20:28 08:21 12:10 POC Glucose 205 H 201 H 139 H COVID-19 Eval Order SARS-CoV-2, RNA, NAAT
[2020-03-27] MEDS: AMLODIPINE BESYLATE 5 MG TAB PO SCH (13:14)
[2020-03-27] MEDS: LISINOPRIL/HCTZ 10/12.5MG TAB PO SCH (13:14)
[2020-03-27] MEDS: MEMANTINE HCL 5 MG TAB PO SCH ×2 (13:15→21:46)
[2020-03-27] MEDS: FAMOTIDINE 20 MG TAB PO SCH ×2 (13:15→21:47)
[2020-03-27] MEDS: levETIRAcetam 500 MG TAB PO SCH ×2 (13:15→21:46)
[2020-03-27] MEDS: ASPIRIN 81 MG ECTAB PO SCH (13:16)
[2020-03-27] MEDS: CETIRIZINE HCL 10 MG TABLET PO SCH (13:17)
[2020-03-27] MEDS: METOPROLOL SUCC 50MG EXT REL TAB PO SCH (13:18)
[2020-03-27] MEDS: HEPARIN SOD 5,000 UNIT/0.5 ML VIAL SQ SCH ×2 (13:21→21:46)
[2020-03-27] MEDS: INSULIN GLARGINE 100 UNIT/ML VIAL SQ SCH (13:21)
[2020-03-27] MEDS: INSULIN ASPART 100 UNITS/ML 3 ML PEN SC SCH ×4 (13:22→21:48)
[2020-03-27] MEDS: ATORVASTATIN 40 MG TAB PO SCH (21:47)
[2020-03-27] MEDS: risperiDONE ODT 0.5 MG SOLTAB PO SCH (21:47)
[2020-03-28] MEDS: MEMANTINE HCL 5 MG TAB PO SCH (08:35)
[2020-03-28] MEDS: levETIRAcetam 500 MG TAB PO SCH (08:35)
[2020-03-28] MEDS: METOPROLOL SUCC 50MG EXT REL TAB PO SCH (08:35)
[2020-03-28] MEDS: CETIRIZINE HCL 10 MG TABLET PO SCH (08:36)
[2020-03-28] MEDS: AMLODIPINE BESYLATE 5 MG TAB PO SCH (08:36)
[2020-03-28] MEDS: FAMOTIDINE 20 MG TAB PO SCH (08:37)
[2020-03-28] MEDS: LISINOPRIL/HCTZ 10/12.5MG TAB PO SCH (08:37)
[2020-03-28] MEDS: ASPIRIN 81 MG ECTAB PO SCH (08:37)
[2020-03-28] MEDS: INSULIN GLARGINE 100 UNIT/ML VIAL SQ SCH (08:39)
[2020-03-28] MEDS: HEPARIN SOD 5,000 UNIT/0.5 ML VIAL SQ SCH (08:40)
[2020-03-28] MEDS: INSULIN ASPART 100 UNITS/ML 3 ML PEN SC SCH ×2 (09:39→11:30)
--- NOTE | 2020-03-28 11:45 | Hospitalist Progress Note ---
Date of Service March 28, 2020 Assessment & Plan (1) Aggressive behavior due to dementia: Psychiatry service consulted recommend to continue Risperidone 0.5mg po at HS gradually improved cheerful, calm, cooperative on discharge day discussed with Psych Service--> recommend to continue usual Risperidone 0.5mg, to be given at HS for agitation, may try low dose Seroquel PRN as per Psych transition to [facility] today--> Covid screen pending (2) Cognitive deficit, post-stroke: (3) Seizures, post-traumatic: Continue keppra Continue ASA, statin (4) DM type 2 (diabetes mellitus, type 2): Continue metformin (5) HTN (hypertension): stable Continue lisinopril, Toprol xl DVT ppx- hep sq Disposition transition to [facility] today--> Covid screen pending ff up with PCP in 1 week Admission and Anticipated Discharge Date Admission Date: March 25, 2020 Subjective ff up for dementia with behavioral changes seen in bedside chair, having lunch very pleasant, in good spirits, oriented x 2 states she feels fine overall rested well overnight denies any symptoms today states she is ready for discharge Review of Systems Review of Systems: All systems reviewed & are unremarkable except as noted in Subjective Physical Exam Physical Exam: General- oriented x 2, not in distress, speaks in sentences with no effort or accessory muscle use Eyes- anicteric Neck- no JVD Lungs- clear breath sounds bilaterally, no rales/wheezes Heart- normal rate, regular rhythm; no murmurs Abdomen- normal bowel sounds, nondistended, soft, nontender Extremities- no pretibial edema, no calf tenderness Neuro- alert, oriented x 2; no gross focal neurologic deficits Skin- warm & dry Psych- cheerful, calm, cooperative, appropriate affect Results & Data Results & Data ([facility]) Vital Signs (Past 12 Hours) Vital Signs Temp Pulse Resp BP Pulse Ox 03/28/20 07:31 36.6 C 70 18 172/75 H 94 Laboratory Results Laboratory Results - last 24 hr 03/27/20 03/27/20 03/27/20 12:10 17:07 20:52 POC Glucose 139 H 175 H 127 H 03/28/20 03/28/20 08:06 11:24 POC Glucose 161 H 244 H
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
== END 2020-03-28 12:24 | DRG 884 ==
LOC: ED 00:46 → 3N 04:16 → SUATTDRO 04:16 → 3N 05:25
DX: Z79.82 Long term (current) use of aspirin; I69.318 Other symptoms and signs involving cognitive functions following cerebral infarction; Z79.899 Other long term (current) drug therapy; I47.1 Supraventricular tachycardia; Z87.891 Personal history of nicotine dependence; Z20.828 Contact with and (suspected) exposure to other viral communicable diseases; E78.5 Hyperlipidemia, unspecified; R56.1 Post traumatic seizures; Z66 Do not resuscitate; Z51.81 Encounter for therapeutic drug level monitoring; Z60.2 Problems related to living alone; I10 Essential (primary) hypertension; Z79.4 Long term (current) use of insulin; Z88.0 Allergy status to penicillin; K21.9 Gastro-esophageal reflux disease without esophagitis; E11.65 Type 2 diabetes mellitus with hyperglycemia; F01.51 Vascular dementia, unspecified severity, with behavioral disturbance; D47.3 Essential (hemorrhagic) thrombocythemia